=== PATIENT | male | born 1970 | race Caucasian/White ===

== ENCOUNTER 2018-12-30 14:28 | Emergency (ER) | payer MEDICAID ==
[2018-12-30] MEDS ORDERED: Sodium Chloride 0.9% 10 ML Syringe FLUSH PRN (15:02)
[2018-12-30] MEDS ORDERED: Iohexol 350 MG/ML 75 ML Bottle IVPUSH ONE (15:18)
[2018-12-30] MEDS ORDERED: Sodium Chloride 0.9% 10 ML Syringe FLUSH ONE (15:18)
[2018-12-30] MEDS ORDERED: Sodium Chloride 0.9% 100 ML IV SCH (15:30)
--- NOTE | 2018-12-30 15:45 | CT ---
CT chest Technique: Multiple axial sections through the chest were obtained. Intravenous contrast was utilized. Study has been performed as a pulmonary angiogram protocol. Findings: Aorta shows no aneurysm or dissection. Pulmonary arteries are fairly well-opacified. No filling defects are seen to indicate pulmonary embolism. Lungs are clear with no acute parenchymal change. Small air cyst is noted within the right upper lung next to the major fissure measuring 1.3 cm. Bone window settings were reviewed which shows no acute osseous abnormality. Impression: 1. No findings of pulmonary embolism. 2. Other incidental finding. Nothing acute is appreciated on CT study of the chest performed as a pulmonary angiogram protocol. Diagnostic code #2
--- NOTE | 2018-12-30 17:13 | EDM.PDOC ---
ED HPI GENERAL MEDICAL PROBLEM - General Chief Complaint: Respiratory Problem Stated Complaint: [facility] Time Seen by Provider: 12/30/18 14:38 Source of Information: Reports: Patient, EMS, Provider History Limitations: Reports: No Limitations - History of Present Illness INITIAL COMMENTS - FREE TEXT/NARRATIVE: The patient presents by [facility] from [facility] for shortness of breath. This has been going on for a few weeks. He has myasthenia gravis and his provider was worried he was having a crisis. He says this is worse at night. He also says with exertion it is worse. He also has some double vision at times. He feels more weak. He has a bad hip and it is hard to tell if he is more weak. He has no fever, chills or cough. He has no chest pain. He has no more edema in his legs. He says at night he will get some slurred speech. Onset: Gradual Duration: Week(s): Severity: Moderate Improves with: Reports: None Worsens with: Reports: None Associated Symptoms: Reports: Shortness of Breath. Denies: Chest Pain, Cough, Fever/Chills, Headaches, Nausea/Vomiting - Related Data Allergies Allergy/AdvReac Type Severity Reaction Status Date / Time cephalexin [From Keflex] Allergy Rash Verified 12/30/18 14:36 Penicillins Allergy Rash Verified 12/30/18 14:36 Home Meds: Home Meds predniSONE [Prednisone] 30 mg PO DAILY #18 tablet 12/30/18 [Rx] Past Medical History Musculoskeletal History: Reports: Arthritis Neurological History: Reports: Other (See Below) Other Neuro History: myesthenia gravis Endocrine/Metabolic History: Reports: Obesity/BMI 30+ Social & Family History - Tobacco Use Smoking Status *Q: Current Every Day Smoker Years of Tobacco use: 30 Packs/Tins Daily: 0.4 - Caffeine Use Caffeine Use: Reports: None - Recreational Drug Use Recreational Drug Use: No ED ROS GENERAL - Review of Systems Review Of Systems: See Below Constitutional: Reports: No Symptoms HEENT: Reports: No Symptoms Respiratory: Reports: Shortness of Breath. Denies: Cough Cardiovascular: Reports: No Symptoms Endocrine: Reports: No Symptoms GI/Abdominal: Reports: No Symptoms : Reports: No Symptoms Musculoskeletal: Reports: No Symptoms Skin: Reports: No Symptoms ED EXAM, GENERAL - Physical Exam Exam: See Below Exam Limited By: No Limitations General Appearance: Alert, No Apparent Distress Ears: Normal External Exam Nose: Normal Inspection Head: Atraumatic, Normocephalic Neck: Normal Inspection Respiratory/Chest: No Respiratory Distress, Lungs Clear, Normal Breath Sounds Cardiovascular: Regular Rate, Rhythm, No Edema, No Murmur GI/Abdominal: Soft, Non-Tender, No Organomegaly, No Mass Back Exam: Normal Inspection Extremities: Normal Inspection Neurological: Alert, Oriented, No Motor/Sensory Deficits EKG INTERPRETATION EKG Date: 12/30/18 Time: : Rhythm: Other (Sinus tachycardia) Rate (Beats/Min): 115 Jackson: LAD-Left Jackson Deviation P-Wave: Present QRS: Normal ST-T: Normal QT: Normal Course - Vital Signs Last Recorded V/S: Last Vital Signs Temp 99.0 F 12/30/18 18:23 Pulse 96 12/30/18 18:23 Resp 16 12/30/18 18:23 BP 104/72 12/30/18 18:23 Pulse Ox 96 12/30/18 18:23 - Orders/Labs/Meds Orders: Active Orders 24 hr Category Date Time Status Cardiac Monitoring [RC] . DIRECTED Care 12/30/18 15:02 Active Peripheral IV Care [RC] . DIRECTED Care 12/30/18 15:05 Active RT PFT Diffusing Capacity [RC] Click to Edit Care 12/30/18 17:16 Inactive Sodium Chloride 0.9% [Normal Saline] 100 ml Med 12/30/18 15:30 Active IV ASDIRECTED Sodium Chloride 0.9% [Saline Flush] Med 12/30/18 15:02 Active 10 ml FLUSH ASDIRECTED PRN Bedside Screening Spirometry [RT Spirometry Screening] Oth 12/30/18 17:16 Active [RESPCARE] Routine Peripheral IV Insertion Adult [OM.PC] Stat Ot 12/30/18 15:02 Ordered Medication Orders Sodium Chloride (Normal Saline) 100 mls @ 60 mls/hr IV ASDIRECTED EDEI Last Admin: 12/30/18 15:26 Dose: 60 mls/hr Sodium Chloride (Saline Flush) 10 ml FLUSH ASDIRECTED PRN PRN Reason: Keep Vein Open Last Admin: 12/30/18 15:25 Dose: 10 ml Labs: Laboratory Tests 12/30/18 12/30/18 12/30/18 Range/Units 15:40 15:40 15:40 ESR 30 H (0-15) mm/hr Sodium 133 L (136-145) mEq/L Potassium 4.9 (3.5-5.1) mEq/L Chloride 98 (98-107) mEq/L Carbon Dioxide 27 (21-32) mEq/L Anion Gap 12.9 (5-15) BUN 20 H (7-18) mg/dL Creatinine 1.3 (0.7-1.3) mg/dL Est Cr Clr Drug Dosing 70.97 mL/min Estimated GFR (MDRD) 59 (>60) mL/min BUN/Creatinine Ratio 15.4 (14-18) Glucose 101 (74-106) mg/dL Calcium 9.7 (8.5-10.1) mg/dL Magnesium 1.8 (1.8-2.4) mg/dl Total Bilirubin 0.3 (0.2-1.0) mg/dL AST 17 (15-37) U/L ALT 23 (16-63) U/L Alkaline Phosphatase 115 (46-116) U/L C-Reactive Protein 2.9 H* (<1.0) mg/dL NT-Pro-B Natriuret Pep 16 (0-125) pg/mL Total Protein 7.0 (6.4-8.2) g/dl Albumin 3.5 (3.4-5.0) g/dl Globulin 3.5 gm/dL Albumin/Globulin Ratio 1.0 (1-2) Meds: Medications Generic Name Dose Route Start Last Admin Trade Name Freq PRN Reason Stop Dose Admin Sodium Chloride 100 mls @ 60 mls/hr 12/30/18 15:30 12/30/18 15:26 Normal Saline IV 60 mls/hr ASDIRECTED EDIE Administration Sodium Chloride 10 ml 12/30/18 15:02 12/30/18 15:25 Saline Flush FLUSH 10 ml ASDIRECTED PRN Administration Keep Vein Open Discontinued Medications Generic Name Dose Route Start Last Admin Trade Name Freq PRN Reason Stop Dose Admin Iohexol 75 ml 12/30/18 15:18 12/30/18 15:25 Omnipaque IVPUSH 12/30/18 15:19 75 ml ONETIME ONE Administration Sodium Chloride 10 ml 12/30/18 15:18 12/30/18 15:30 Saline Flush FLUSH 12/30/18 15:19 10 ml ONETIME ONE Administration - Re-Assessments/Exams Free Text/Narrative Re-Assessment/Exam: 12/30/18 17:31 I ordered an IV saline lock, CT of his chest and some more labs. The CT of his chest shows no PE and other incidental findings. His EKG shows a NSR with no acute changes. His CBC looks good. His ESR was elevated at 30. His Na was low at 133. His CRP was elevated at 2.9. His BNP was normal. His D-dimer was elevated at 1.21. His troponin was negative. He does have some double vision at night. I called [facility] in [place] and talked with the neurologist contingents supervisor Dr Zacarias and he recommended I have him stand up with his arms crossed but the patient could not do that because of a bad hip. He also wanted breathing test. His FVC was 87% and FEV1 was 70%. That was good. He recommended going up with his prednisone and have him seen in the clinic. I will get him on 30mg daily for a week. Departure - Departure Time of Disposition: 18:45 Disposition: Home, Self-Care 01 Condition: Good Clinical Impression: Shortness of breath, Myasthenia gravis - Discharge Information *PRESCRIPTION DRUG MONITORING PROGRAM REVIEWED*: Not Applicable *COPY OF PRESCRIPTION DRUG MONITORING REPORT IN PATIENT FERNANDEZ: Not Applicable Prescriptions: predniSONE [Prednisone] 30 mg PO DAILY #18 tablet Referrals: Jayda Santana SIGNAL SYSTEM TESTING MAINTAINER [Primary Care Provider] - 1 Week Forms: ED Department Discharge Additional Instructions: Take your medication as prescribed but take 30mg of prednisone daily for 7 days and go back to your normal dose. Follow up with Lizy Santana and neurology in [place]. Please return if you are worse. - My Orders Last 24 Hours: My Active Orders 12/30/18 15:02 Cardiac Monitoring [RC] . DIRECTED Sodium Chloride 0.9% [Saline Flush] 10 ml FLUSH ASDIRECTED PRN Peripheral IV Insertion Adult [OM.PC] Stat 12/30/18 15:05 Peripheral IV Care [RC] . DIRECTED 12/30/18 15:30 Sodium Chloride 0.9% [Normal Saline] 100 ml IV ASDIRECTED 12/30/18 17:16 RT PFT Diffusing Capacity [RC] Click to Edit Bedside Screening Spirometry [RT Spirometry Screening] [RESPCARE] Routine - Assessment/Plan Last 24 Hours: My Active Orders 12/30/18 15:02 Cardiac Monitoring [RC] . DIRECTED Sodium Chloride 0.9% [Saline Flush] 10 ml FLUSH ASDIRECTED PRN Peripheral IV Insertion Adult [OM.PC] Stat 12/30/18 15:05 Peripheral IV Care [RC] . DIRECTED 12/30/18 15:30 Sodium Chloride 0.9% [Normal Saline] 100 ml IV ASDIRECTED 12/30/18 17:16 RT PFT Diffusing Capacity [RC] Click to Edit Bedside Screening Spirometry [RT Spirometry Screening] [RESPCARE] Routine
[2018-12-30] MEDS ORDERED: predniSONE 10 MG Tab PO ONE (18:36)
[2018-12-30] MEDS ORDERED: traMADol 50 MG Tab PO ONE (19:07)
== END 2018-12-30 19:16 | disposition home or self-care (01) ==
LOC: JD.ED 14:28
DX: G70.00 Myasthenia gravis without (acute) exacerbation (principal); F17.210 Nicotine dependence, cigarettes, uncomplicated; Z79.899 Other long term (current) drug therapy; Z88.0 Allergy status to penicillin; Z88.1 Allergy status to other antibiotic agents
CPT/HCPCS: 36415; 71275; 80053; 83735; 83880; 85652; 86140; 99285; A9270; J7030; Q9967

== ENCOUNTER 2019-03-16 03:29 | Emergency (ER) | payer MEDICAID ==
[~2019-03-16 03:29] MED LIST: 5% Dextrose in Water 250 ML Bag ONE; EPINEPHrine 1:10,000 1 MG/10 ML Syringe ONE; Midazolam 1 MG/ML 5 ML SDV ONE; Norepinephrine 4 MG/4 ML SDV ONE; Sodium Bicarbonate 8.4% 50 MEQ/50 ML Syringe ONE
[2019-03-16] MEDS ORDERED: fentaNYL 100 MCG/2 ML SDV ONE ×3 (04:03→05:15)
[2019-03-16] MEDS ORDERED: Midazolam 5 MG/ML 10 ML MDV ONE (04:38)
--- NOTE | 2019-03-16 05:05 | EDM.PDOC ---
ED HPI GENERAL MEDICAL PROBLEM - General Chief Complaint: CPR in Progress Stated Complaint: [facility] Time Seen by Provider: 03/16/19 04:56 - History of Present Illness INITIAL COMMENTS - FREE TEXT/NARRATIVE: Patient is a 48-year-old male who is brought in by EMS with CPR in progress. The patient summoned EMS complaining of some neck discomfort and twitching. The patient was alert and oriented 3 when EMS arrived with good vitals and good O2 saturation within several minutes his respiratory status declined his O2 saturation dropped off into the 60s or 70s O2 was started and his saturation did not improve he was rapidly transported to the hospital before they arrived to the hospital he was in asystole. CPR was promptly started. Patient arrived in our department roughly 03:25 CPR was continued he was immediately intubated he was given epinephrine and we had return of spontaneous circulation at 03:32 his pulse was in the mid 80s at that time - Related Data Allergies Allergy/AdvReac Type Severity Reaction Status Date / Time cephalexin [From Keflex] Allergy Rash Verified 12/30/18 14:36 Penicillins Allergy Rash Verified 12/30/18 14:36 Home Meds: Home Meds predniSONE [Prednisone] 30 mg PO DAILY #18 tablet 12/30/18 [Rx] Past Medical History Musculoskeletal History: Reports: Arthritis Neurological History: Reports: Other (See Below) Other Neuro History: myesthenia gravis Endocrine/Metabolic History: Reports: Obesity/BMI 30+ Social & Family History - Caffeine Use Caffeine Use: Reports: None ED ROS GENERAL - Review of Systems Review Of Systems: Unable To Obtain ED EXAM, CPR - Physical Exam Exam: See Below Limited By: Unresponsive General Appearance: Other (Unresponsive and intubated) Eye Exam: Bilateral Eye: PERRL (Sluggish responding) Nose: Normal Inspection, Normal Mucosa, No Blood Throat/Mouth: Normal Oropharynx, Other (Lots of soft tissue in and around the airway) Head: Atraumatic, Normocephalic Neck: No: Carotid Bruit Respiratory Chest: Other (Good breath sounds bilaterally with bag mask and bag ET ventilations) Cardiovascular: No Murmur, Tachycardia (Rate 100 -140 most the time he was here) GI/Abdominal Exam: Soft, Abnormal Bowel Sounds (Diminished bowel sounds), Other (Significant obesity) Extremities: No Pedal Edema Neurological: Unresponsive Skin Exam: Warm, Dry, Intact, Other (Well after ROSC) EKG INTERPRETATION Rhythm: Other (Sinus tach) Rate (Beats/Min): 140 Revloc: LAD-Left Revloc Deviation P-Wave: Present QRS: Normal ST-T: Other (Changes related to tachycardia) QT: Normal Comparison: No Change (No change from December of this year) EKG Interpretation Comments: Abnormal EKG Course - Orders/Labs/Meds Orders: Active Orders 24 hr Category Date Time Status EKG Documentation Completion [RC] STAT Care 03/16/19 03:55 Active Ang Chest [CT] Stat Exams 03/16/19 04:13 Taken Chest 1V-Tube Placement Chk NC [CR] Stat Exams 03/16/19 03:44 Taken Head wo Cont [CT] Stat Exams 03/16/19 04:13 Taken UA W/MICROSCOPIC [URIN] Stat Lab 03/16/19 04:45 Results Labs: Laboratory Tests 03/16/19 03/16/19 03/16/19 Range/Units 03:35 03:35 03:35 WBC 22.33 H (4.23-9.07) K/mm3 RBC 4.26 L (4.63-6.08) M/mm3 Hgb 11.1 L (13.7-17.5) gm/L Hct 37.3 L (40.1-51.0) % MCV 87.6 (79.0-92.2) fl MCH 26.1 (25.7-32.2) pg MCHC 29.8 L (32.2-35.5) g/dl RDW Std Deviation 45.6 H (35.1-43.9) fL Plt Count 491 H (163-337) K/mm3 MPV 11.0 (9.4-12.3) fl Neut % (Auto) 62.8 (34.0-67.9) % Lymph % (Auto) 24.8 (21.8-53.1) % Forrest % (Auto) 9.7 (5.3-12.2) % Eos % (Auto) 0 L (0.8-7.0) Baso % (Auto) 0.1 (0.1-1.2) % Neut # (Auto) 14.01 H (1.78-5.38) K/mm3 Lymph # (Auto) 5.54 H (1.32-3.57) K/mm3 Forrest # (Auto) 2.16 H (0.30-0.82) K/mm3 Eos # (Auto) 0.01 L (0.04-0.54) K/mm3 Baso # (Auto) 0.03 (0.01-0.08) K/mm3 Manual Slide Review Abnormal smear PT 10.9 (9.7-12.0) SECONDS INR 1.00 Puncture Site ABG pH (7.35-7.45) ABG pCO2 (35.0-45.0) mmHg ABG pO2 (80.0-100.0) mmHg ABG HCO3 (22.0-26.0) meq/L ABG O2 Saturation (96.0-97.0) % ABG Base Excess (-2-2.0) A-a Gradient mmHg O2 Delivery Device FiO2 (21.00-100.00) % Tidal Volume cc PEEP cmH20 Sodium 143 D (136-145) mEq/L Potassium 4.7 (3.5-5.1) mEq/L Chloride 105 (98-107) mEq/L Carbon Dioxide 21 (21-32) mEq/L Anion Gap 21.7 H (5-15) BUN 35 H (7-18) mg/dL Creatinine 2.0 H (0.7-1.3) mg/dL Est Cr Clr Drug Dosing TNP Estimated GFR (MDRD) 36 (>60) mL/min BUN/Creatinine Ratio 17.5 (14-18) Glucose 276 H (74-106) mg/dL Lactic Acid (0.4-2.0) mmol/L Calcium 10.1 (8.5-10.1) mg/dL Total Bilirubin 0.2 (0.2-1.0) mg/dL AST 50 H (15-37) U/L ALT 67 H (16-63) U/L Alkaline Phosphatase 111 (46-116) U/L Troponin I (0.00-0.056) ng/mL Total Protein 7.8 (6.4-8.2) g/dl Albumin 3.9 (3.4-5.0) g/dl Globulin 3.9 gm/dL Albumin/Globulin Ratio 1.0 (1-2) Urine Color (Yellow) Urine Appearance (Clear) Urine pH (5.0-8.0) Ur Specific Ruston (1.005-1.030) Urine Protein (Negative) Urine Glucose (UA) (Negative) Urine Ketones (Negative) Urine Occult Blood (Negative) Urine Nitrite (Negative) Urine Bilirubin (Negative) Urine Urobilinogen (0.2-1.0) Ur Leukocyte Esterase (Negative) Urine Opiates Screen (STPRND=022) Ur Buprenorphine Scrn (CUTOFF=10) Ur Oxycodone Screen (WNQ6JX=562) Urine Methadone Screen (QUE2RG=647) Ur Propoxyphene Screen (HWFBDO=882) Ur Barbiturates Screen (WTTBJM=637) Ur Tricyclics Screen (QGKOIV=278) Ur Phencyclidine Scrn (CUTOFF=25) Ur Amphetamine Screen (XQPUIL=775) U Methamphetamines Scrn (EEKUPV=578) U Benzodiazepines Scrn (XLIDGA=747) U Cocaine Metab Screen (NWBKNI=156) U Marijuana (THC) Screen (CUTOFF=50) Ethyl Alcohol 0.00 (0.00) gm% 03/16/19 03/16/19 03/16/19 Range/Units 03:35 03:35 04:45 WBC (4.23-9.07) K/mm3 RBC (4.63-6.08) M/mm3 Hgb (13.7-17.5) gm/L Hct (40.1-51.0) % MCV (79.0-92.2) fl MCH (25.7-32.2) pg MCHC (32.2-35.5) g/dl RDW Std Deviation (35.1-43.9) fL Plt Count (163-337) K/mm3 MPV (9.4-12.3) fl Neut % (Auto) (34.0-67.9) % Lymph % (Auto) (21.8-53.1) % Forrest % (Auto) (5.3-12.2) % Eos % (Auto) (0.8-7.0) Baso % (Auto) (0.1-1.2) % Neut # (Auto) (1.78-5.38) K/mm3 Lymph # (Auto) (1.32-3.57) K/mm3 Forrest # (Auto) (0.30-0.82) K/mm3 Eos # (Auto) (0.04-0.54) K/mm3 Baso # (Auto) (0.01-0.08) K/mm3 Manual Slide Review PT (9.7-12.0) SECONDS INR Puncture Site ABG pH (7.35-7.45) ABG pCO2 (35.0-45.0) mmHg ABG pO2 (80.0-100.0) mmHg ABG HCO3 (22.0-26.0) meq/L ABG O2 Saturation (96.0-97.0) % ABG Base Excess (-2-2.0) A-a Gradient mmHg O2 Delivery Device FiO2 (21.00-100.00) % Tidal Volume cc PEEP cmH20 Sodium (136-145) mEq/L Potassium (3.5-5.1) mEq/L Chloride (98-107) mEq/L Carbon Dioxide (21-32) mEq/L Anion Gap (5-15) BUN (7-18) mg/dL Creatinine (0.7-1.3) mg/dL Est Cr Clr Drug Dosing Estimated GFR (MDRD) (>60) mL/min BUN/Creatinine Ratio (14-18) Glucose (74-106) mg/dL Lactic Acid 13.8 H (0.4-2.0) mmol/L Calcium (8.5-10.1) mg/dL Total Bilirubin (0.2-1.0) mg/dL AST (15-37) U/L ALT (16-63) U/L Alkaline Phosphatase (46-116) U/L Troponin I < 0.017 (0.00-0.056) ng/mL Total Protein (6.4-8.2) g/dl Albumin (3.4-5.0) g/dl Globulin gm/dL Albumin/Globulin Ratio (1-2) Urine Color Yellow (Yellow) Urine Appearance Cloudy H (Clear) Urine pH 5.5 (5.0-8.0) Ur Specific Ruston > or = 1.030 (1.005-1.030) Urine Protein 2+ H (Negative) Urine Glucose (UA) Negative (Negative) Urine Ketones Trace H (Negative) Urine Occult Blood 1+ H (Negative) Urine Nitrite Negative (Negative) Urine Bilirubin Negative (Negative) Urine Urobilinogen 0.2 (0.2-1.0) Ur Leukocyte Esterase Negative (Negative) Urine Opiates Screen (AYRDUG=744) Ur Buprenorphine Scrn (CUTOFF=10) Ur Oxycodone Screen (IGY7GC=900) Urine Methadone Screen (LRE9XY=159) Ur Propoxyphene Screen (WAIBGI=216) Ur Barbiturates Screen (HHYUCI=221) Ur Tricyclics Screen (JMDYCB=570) Ur Phencyclidine Scrn (CUTOFF=25) Ur Amphetamine Screen (MQMSIU=445) U Methamphetamines Scrn (HDBHWI=729) U Benzodiazepines Scrn (NOCYDA=324) U Cocaine Metab Screen (GPEQTT=487) U Marijuana (THC) Screen (CUTOFF=50) Ethyl Alcohol (0.00) gm% 03/16/19 03/16/19 Range/Units 04:45 04:50 WBC (4.23-9.07) K/mm3 RBC (4.63-6.08) M/mm3 Hgb (13.7-17.5) gm/L Hct (40.1-51.0) % MCV (79.0-92.2) fl MCH (25.7-32.2) pg MCHC (32.2-35.5) g/dl RDW Std Deviation (35.1-43.9) fL Plt Count (163-337) K/mm3 MPV (9.4-12.3) fl Neut % (Auto) (34.0-67.9) % Lymph % (Auto) (21.8-53.1) % Forrest % (Auto) (5.3-12.2) % Eos % (Auto) (0.8-7.0) Baso % (Auto) (0.1-1.2) % Neut # (Auto) (1.78-5.38) K/mm3 Lymph # (Auto) (1.32-3.57) K/mm3 Forrest # (Auto) (0.30-0.82) K/mm3 Eos # (Auto) (0.04-0.54) K/mm3 Baso # (Auto) (0.01-0.08) K/mm3 Manual Slide Review PT (9.7-12.0) SECONDS INR Puncture Site Lt radial ABG pH 7.21 L (7.35-7.45) ABG pCO2 57.0 H (35.0-45.0) mmHg ABG pO2 93.0 (80.0-100.0) mmHg ABG HCO3 22.1 (22.0-26.0) meq/L ABG O2 Saturation 95.9 L (96.0-97.0) % ABG Base Excess -5.6 L (-2-2.0) A-a Gradient 550 mmHg O2 Delivery Device Ventilator FiO2 100.00 (21.00-100.00) % Tidal Volume 500.0 cc PEEP 5.0 cmH20 Sodium (136-145) mEq/L Potassium (3.5-5.1) mEq/L Chloride (98-107) mEq/L Carbon Dioxide (21-32) mEq/L Anion Gap (5-15) BUN (7-18) mg/dL Creatinine (0.7-1.3) mg/dL Est Cr Clr Drug Dosing Estimated GFR (MDRD) (>60) mL/min BUN/Creatinine Ratio (14-18) Glucose (74-106) mg/dL Lactic Acid (0.4-2.0) mmol/L Calcium (8.5-10.1) mg/dL Total Bilirubin (0.2-1.0) mg/dL AST (15-37) U/L ALT (16-63) U/L Alkaline Phosphatase (46-116) U/L Troponin I (0.00-0.056) ng/mL Total Protein (6.4-8.2) g/dl Albumin (3.4-5.0) g/dl Globulin gm/dL Albumin/Globulin Ratio (1-2) Urine Color (Yellow) Urine Appearance (Clear) Urine pH (5.0-8.0) Ur Specific [place] (1.005-1.030) Urine Protein (Negative) Urine Glucose (UA) (Negative) Urine Ketones (Negative) Urine Occult Blood (Negative) Urine Nitrite (Negative) Urine Bilirubin (Negative) Urine Urobilinogen (0.2-1.0) Ur Leukocyte Esterase (Negative) Urine Opiates Screen Negative (SRCORN=907) Ur Buprenorphine Scrn Negative (CUTOFF=10) Ur Oxycodone Screen Negative (WUB7YQ=706) Urine Methadone Screen Negative (UFE9YK=380) Ur Propoxyphene Screen Negative (ICRANP=558) Ur Barbiturates Screen Negative (JYHYFK=683) Ur Tricyclics Screen Negative (EYWTET=652) Ur Phencyclidine Scrn Negative (CUTOFF=25) Ur Amphetamine Screen Negative (YUKHDP=438) U Methamphetamines Scrn Presumptive positive H (FKKWRG=643) U Benzodiazepines Scrn Negative (VCECGW=822) U Cocaine Metab Screen Negative (ALXKFH=176) U Marijuana (THC) Screen Presumptive positive H (CUTOFF=50) Ethyl Alcohol (0.00) gm% Meds: Medications Discontinued Medications Generic Name Dose Route Start Last Admin Trade Name Jose PRN Reason Stop Dose Admin Fentanyl Confirm 03/16/19 04:03 Sublimaze Administered 03/16/19 04:04 Dose 100 mcg .ROUTE .STK-MED ONE Fentanyl Confirm 03/16/19 04:31 Sublimaze Administered 03/16/19 04:32 Dose 100 mcg .ROUTE .STK-MED ONE Midazolam HCl Confirm 03/16/19 04:38 Versed 5 Mg/Ml Administered 03/16/19 04:39 Dose 50 mg .ROUTE .STK-MED ONE - Re-Assessments/Exams Free Text/Narrative Re-Assessment/Exam: 03/16/19 05:14 Patient presented to the emergency room in asystole with bag mask ventilation and compressions. He had been in asystole for a minute or 2 upon arrival he was brought into the department compressions continued he was intubated and received a dose of epinephrine. We had ROSC roughly 7 minutes after arrival he had received CPR for 9-10 minutes. Before ROSC he was intubated by me 1 attempt. #8 tube inserted with the assistance of a glide scope on initial chest x-ray we withdrew the tip about a centimeter and a half as it was just above the paco. The patient's pulse gradually worked its way about that time gases were obtained speech was 7.21 PCO2 of 57 PO2 93 PO2 95.9 bicarbonate he responded favorably to Versed and fentanyl he had IV fluids running. Case was discussed with , business systems technician, at [facility] in [place] who kindly accept the patient transportation was arranged and the patient was ultimately transferred by [facility] fixed wing. It took us a while to arrange transportation. For timing and exact medication dosages and times refer to nurse 's notes. He did receive 2 Amps of bicarbonate after ROSC at the request of the receiving facility with a CTA was done and while he was at the CT suite a head CT was done no acute changes with the head CT CTA showed no PE possible right- sided atelectasis versus infiltrate. Labs were remarkable for a white count of 23,000 lactic acid of 13.7 gases were obtained after the patient was doing better from a respiratory standpoint pH was 7.21 PCO2 of 57 PO2 93 O2 saturation 95.9% bicarbonate 22.1 base excess -5.6. Dr Waterman was updated, changes and the patient shouldn't left here in guarded condition. Departure - Departure Time of Disposition: 03:45 Disposition: DC/Tfer to [facility] 02 Preliminary Cause of *Q: Cardiac Arrest Clinical Impression: Respiratory arrest, Cardiac arrest, Myasthenia gravis - Discharge Information Referrals: Jayda Santana RUBBER GRINDER [Primary Care Provider] - Forms: ED Department Discharge - My Orders Last 24 Hours: My Active Orders 03/16/19 03:44 Chest 1V-Tube Placement Chk NC [CR] Stat 03/16/19 03:55 EKG Documentation Completion [RC] STAT 03/16/19 04:13 Ang Chest [CT] Stat Head wo Cont [CT] Stat 03/16/19 04:45 UA W/MICROSCOPIC [URIN] Stat - Assessment/Plan Last 24 Hours: My Active Orders 03/16/19 03:44 Chest 1V-Tube Placement Chk NC [CR] Stat 03/16/19 03:55 EKG Documentation Completion [RC] STAT 03/16/19 04:13 Ang Chest [CT] Stat Head wo Cont [CT] Stat 03/16/19 04:45 UA W/MICROSCOPIC [URIN] Stat
--- NOTE | 2019-03-16 08:27 | CT ---
CT chest Technique: Multiple axial sections through the chest were obtained. Intravenous contrast was utilized. Study has been performed as a pulmonary angiogram protocol. Findings: Pulmonary arteries are not optimally opacified. No discrete filling defects seen to indicate definite pulmonary embolism. Atelectasis noted within the right upper lung as well as within both lower lungs which is located posteriorly. Aorta shows no aneurysm. No pericardial thickening is seen. No mediastinal adenopathy or axillary adenopathy is seen. Visualized portions of the upper abdominal structures show a partially visualized left renal cyst. Bone window settings were reviewed which show no acute abnormality. Nasogastric tube is seen with tip lying within the stomach. Endotracheal tube is noted with tip being 1.2 cm above the paco. Impression: 1. Atelectasis within both lungs. 2. Tip of endotracheal tube slightly above the paco by 1.2 cm. Recommend chest x-ray to further evaluate endotracheal tube position as this tube is somewhat low in position (if patient is still intubated). 3. No definite pulmonary embolism is seen. Diagnostic code #3 I agree with preliminary report from [facility], finalized on 03/16/19, 5:51 AM Central Time, code #2
--- NOTE | 2019-03-16 08:56 | CT ---
Head CT Technique: Multiple axial sections through the brain were obtained. Intravenous contrast was not utilized. Comparison: No prior intracranial imaging is available. Findings: Ventricles along with basal cisterns and sulci over the convexities are within normal limits for the patient's age. No abnormal parenchymal densities are seen. No evidence of intracranial hemorrhage. No midline shift or mass effect is seen. Air-fluid levels are seen within the sphenoid and right maxillary sinus. Mild areas of mucosal thickening are noted within the ethmoid sinus. Nasogastric tube is partially visualized. Mastoid sinuses appear clear. No acute calvarial abnormality is identified. Impression: 1. Sinus findings as noted above most likely resulting from recent nasogastric tube insertion. 2. No acute intracranial abnormality is identified. Diagnostic code #2 I agree with preliminary report from [facility], finalized on 03/16/19, 5:48 AM Central Time
--- NOTE | 2019-03-16 08:56 | CR ---
Chest: Portable view of the chest was obtained. Comparison: No prior chest x-ray is available, previous chest CT study of 12/30/18 is available. Mild right upper lobe atelectasis appears to be present. Minimal atelectasis above the left hemidiaphragm. Lungs otherwise are clear. Heart size and mediastinum are within normal limits for portable technique. Endotracheal tube is approximately 1 cm above the paco. For optimal position endotracheal tube could be withdrawn by about 1.5-2.0 cm. Bony structures are grossly intact. Impression: 1. Tip of endotracheal tube 1 cm above the paco. As mentioned above, for optimal positioning this endotracheal tube could be withdrawn by about 1.5-2.0 cm. 2. Right upper lobe and left lower lobe atelectasis. Diagnostic code #3
[2019-03-16] MEDS ORDERED: Sodium Chloride 0.9% 1,000 ML IV ONE (11:06)
== END 2019-03-16 05:20 ==
LOC: JD.ED 03:29
DX: I46.9 Cardiac arrest, cause unspecified (principal); G70.00 Myasthenia gravis without (acute) exacerbation; E66.9 Obesity, unspecified; Z88.0 Allergy status to penicillin; Z88.1 Allergy status to other antibiotic agents
CPT/HCPCS: 31500; 36415; 36600; 36680; 51702; 70450; 70450-26; 71275; 71275-26; 80053; 80306; 81001; 82803; 83605; 84484; 85025; 85610; 92950; 93010; 96361; 96374; 96375; 96376; 99291; 99291-25; 99292; G0480; J0171; J2250; J3490; J7040; J7060

== ENCOUNTER 2019-08-24 16:17 | Inpatient (IN) | payer MEDICAID ==
[2019-08-24] MEDS ORDERED: Nitroglycerin 0.4 MG Tab.SL SL PRN (16:18)
[2019-08-24] MEDS: Sodium Chloride 0.9% 10 ML Syringe FLUSH PRN (16:32)
--- NOTE | 2019-08-24 17:31 | EDM.PDOC ---
ED HPI GENERAL MEDICAL PROBLEM - General Chief Complaint: Chest Pain Stated Complaint: [facility] Time Seen by Provider: 08/24/19 16:18 Source of Information: Reports: Patient, EMS History Limitations: Reports: No Limitations - History of Present Illness INITIAL COMMENTS - FREE TEXT/NARRATIVE: The patient presents by [facility] for chest pain and shortness of breath. This started earlier today. His home health nurse came to give him his meds and he was struggling to breath and he had some chest pain. EMS said his oxygen saturations were 82% on room air. He was put on oxygen and given aspirin and an EKG was done. The EKG did not show any acute changes. He has no cough, congestion or runny nose. He has no abdominal pain, nausea or vomiting. He does have swelling in his legs. Onset: Gradual Duration: Hour(s): Location: Reports: Chest Quality: Reports: Burning Severity: Moderate Improves with: Reports: None Worsens with: Reports: None Associated Symptoms: Reports: Chest Pain, Shortness of Breath. Denies: Cough, Fever/Chills, Headaches, Nausea/Vomiting Back Pain Score (Numeric/FACES): 7 - Related Data Allergies Allergy/AdvReac Type Severity Reaction Status Date / Time cephalexin [From Keflex] Allergy Rash Verified 08/24/19 16:23 Penicillins Allergy Rash Verified 08/24/19 16:23 Home Meds: Home Meds Furosemide [Lasix] 40 mg PO DAILY 08/24/19 [History] Lisinopril [Zestril] 10 mg PO DAILY 08/24/19 [History] Naproxen Sodium 2 tab PO BEDTIME 08/24/19 [History] Omeprazole 20 mg PO DAILY 08/24/19 [History] Pyridostigmine [Mestinon] 60 mg PO 5XDAY 08/24/19 [History] predniSONE [Prednisone] 60 mg PO TID 08/24/19 [History] traMADol [Ultram] 50 mg PO Q4H 08/24/19 [History] Past Medical History Cardiovascular History: Reports: Hypertension, [place] Respiratory History: Reports: Sleep Apnea, SOB Musculoskeletal History: Reports: Arthritis Neurological History: Reports: Other (See Below) Other Neuro History: myesthenia gravis Endocrine/Metabolic History: Reports: Obesity/BMI 30+ Social & Family History - Tobacco Use Smoking Status *Q: Never Smoker - Caffeine Use Caffeine Use: Reports: None - Recreational Drug Use Recreational Drug Use: No ED ROS GENERAL - Review of Systems Review Of Systems: See Below Constitutional: Reports: No Symptoms HEENT: Reports: No Symptoms Respiratory: Reports: Shortness of Breath Cardiovascular: Reports: Chest Pain Endocrine: Reports: No Symptoms GI/Abdominal: Reports: No Symptoms : Reports: No Symptoms Musculoskeletal: Reports: No Symptoms ED EXAM, GENERAL - Physical Exam Exam: See Below Exam Limited By: No Limitations General Appearance: Alert, No Apparent Distress, Mild Distress Ears: Normal External Exam Nose: Normal Inspection Head: Atraumatic, Normocephalic Neck: Normal Inspection Respiratory/Chest: Respiratory Distress (Mild), Decreased Breath Sounds, Rales Cardiovascular: Regular Rate, Rhythm, No Murmur, Other (Edema in both legs) GI/Abdominal: Soft, Non-Tender, No Organomegaly, No Mass Back Exam: Normal Inspection Extremities: Normal Inspection Neurological: Alert, Oriented, No Motor/Sensory Deficits EKG INTERPRETATION EKG Date: 08/24/19 Time: 15:19 Rhythm: Other (sinus tachycardia) Rate (Beats/Min): 103 [place]: LAD-Left [place] Deviation P-Wave: Present QRS: Normal ST-T: Normal QT: Normal EKG Interpretation Comments: PAC Course - Vital Signs Last Recorded V/S: Last Vital Signs Temp 96.8 F 08/24/19 16:18 Pulse 118 H 08/24/19 16:18 Resp 18 08/24/19 16:18 BP 108/78 08/24/19 16:32 Pulse Ox 92 L 08/24/19 16:31 - Orders/Labs/Meds Orders: Active Orders 24 hr Category Date Time Status Cardiac Monitoring [RC] . DIRECTED Care 08/24/19 16:18 Active EKG Documentation Completion [RC] STAT Care 08/24/19 16:19 Active Oxygen Therapy [RC] PRN Care 08/24/19 16:18 Active Peripheral IV Care [RC] . DIRECTED Care 08/24/19 16:19 Active RT Peak Flow Measurement [RC] ASDIRECTED Care 08/24/19 18:09 Active Chest 1V Frontal [CR] Stat Exams 08/24/19 16:20 Taken CBC WITH AUTO DIFF [HEME] Stat Lab 08/24/19 16:49 Results Nitroglycerin [Nitrostat] Med 08/24/19 16:18 Active 0.4 mg SL Q5M PRN Sodium Chloride 0.9% [Saline Flush] Med 08/24/19 16:18 Active 10 ml FLUSH ASDIRECTED PRN BiPAP [RESPCARE] Routine Oth 08/24/19 16:20 Active Peripheral IV Insertion Adult [OM.PC] Stat Oth 08/24/19 16:18 Ordered Medication Orders Nitroglycerin (Nitrostat) 0.4 mg SL Q5M PRN PRN Reason: Chest Pain Stop: 08/25/19 16:19 Last Admin: 08/24/19 16:32 Dose: 0.4 mg Sodium Chloride (Saline Flush) 10 ml FLUSH ASDIRECTED PRN PRN Reason: Keep Vein Open Last Admin: 08/24/19 16:32 Dose: 10 ml Labs: Laboratory Tests 08/24/19 08/24/19 08/24/19 Range/Units 16:49 16:49 16:49 WBC 19.17 H (4.23-9.07) K/mm3 RBC 4.23 L (4.63-6.08) M/mm3 Hgb 10.9 L (13.7-17.5) gm/dl Hct 36.0 L (40.1-51.0) % MCV 85.1 (79.0-92.2) fl MCH 25.8 (25.7-32.2) pg MCHC 30.3 L (32.2-35.5) g/dl RDW Std Deviation 50.7 H (35.1-43.9) fL Plt Count 391 H D (163-337) K/mm3 MPV 9.3 L (9.4-12.3) fl Neut % (Auto) 94.6 H (34.0-67.9) % Lymph % (Auto) 1.6 L (21.8-53.1) % Darke % (Auto) 2.3 L (5.3-12.2) % Eos % (Auto) 0 L (0.8-7.0) Baso % (Auto) 0.1 (0.1-1.2) % Neut # (Auto) 18.13 H (1.78-5.38) K/mm3 Lymph # (Auto) 0.30 L (1.32-3.57) K/mm3 Darke # (Auto) 0.45 (0.30-0.82) K/mm3 Eos # (Auto) 0.00 L (0.04-0.54) K/mm3 Baso # (Auto) 0.02 (0.01-0.08) K/mm3 Puncture Site ABG pH (7.35-7.45) ABG pCO2 (35.0-45.0) mmHg ABG pO2 (80.0-100.0) mmHg ABG HCO3 (22.0-26.0) meq/L ABG O2 Saturation (96.0-97.0) % ABG Base Excess (-2-2.0) Simone Test A-a Gradient mmHg O2 Delivery Device Oxygen Flow Rate FiO2 (21.00-100.00) % Sodium 134 L (136-145) mEq/L Potassium 4.7 (3.5-5.1) mEq/L Chloride 97 L (98-107) mEq/L Carbon Dioxide 27 (21-32) mEq/L Anion Gap 14.7 (5-15) BUN 35 H (7-18) mg/dL Creatinine 2.2 H (0.7-1.3) mg/dL Est Cr Clr Drug Dosing 41.48 mL/min Estimated GFR (MDRD) 32 (>60) mL/min BUN/Creatinine Ratio 15.9 (14-18) Glucose 190 H (74-106) mg/dL Calcium 9.8 (8.5-10.1) mg/dL Total Bilirubin 0.4 (0.2-1.0) mg/dL AST 15 (15-37) U/L ALT 30 (16-63) U/L Alkaline Phosphatase 114 (46-116) U/L Troponin I 0.019 (0.00-0.056) ng/mL NT-Pro-B Natriuret Pep 109 (0-125) pg/mL Total Protein 7.1 (6.4-8.2) g/dl Albumin 3.5 (3.4-5.0) g/dl Globulin 3.6 gm/dL Albumin/Globulin Ratio 1.0 (1-2) 08/24/19 Range/Units 17:18 WBC (4.23-9.07) K/mm3 RBC (4.63-6.08) M/mm3 Hgb (13.7-17.5) gm/dl Hct (40.1-51.0) % MCV (79.0-92.2) fl MCH (25.7-32.2) pg MCHC (32.2-35.5) g/dl RDW Std Deviation (35.1-43.9) fL Plt Count (163-337) K/mm3 MPV (9.4-12.3) fl Neut % (Auto) (34.0-67.9) % Lymph % (Auto) (21.8-53.1) % Darke % (Auto) (5.3-12.2) % Eos % (Auto) (0.8-7.0) Baso % (Auto) (0.1-1.2) % Neut # (Auto) (1.78-5.38) K/mm3 Lymph # (Auto) (1.32-3.57) K/mm3 Darke # (Auto) (0.30-0.82) K/mm3 Eos # (Auto) (0.04-0.54) K/mm3 Baso # (Auto) (0.01-0.08) K/mm3 Puncture Site Rt radial ABG pH 7.47 H (7.35-7.45) ABG pCO2 36.5 (35.0-45.0) mmHg ABG pO2 56.0 L (80.0-100.0) mmHg ABG HCO3 26.4 H (22.0-26.0) meq/L ABG O2 Saturation 86.6 L (96.0-97.0) % ABG Base Excess 3.1 H (-2-2.0) Simone Test Positive A-a Gradient 127 mmHg O2 Delivery Device Bipap 10/5 Oxygen Flow Rate 3.0 FiO2 32.00 (21.00-100.00) % Sodium (136-145) mEq/L Potassium (3.5-5.1) mEq/L Chloride (98-107) mEq/L Carbon Dioxide (21-32) mEq/L Anion Gap (5-15) BUN (7-18) mg/dL Creatinine (0.7-1.3) mg/dL Est Cr Clr Drug Dosing mL/min Estimated GFR (MDRD) (>60) mL/min BUN/Creatinine Ratio (14-18) Glucose (74-106) mg/dL Calcium (8.5-10.1) mg/dL Total Bilirubin (0.2-1.0) mg/dL AST (15-37) U/L ALT (16-63) U/L Alkaline Phosphatase (46-116) U/L Troponin I (0.00-0.056) ng/mL NT-Pro-B Natriuret Pep (0-125) pg/mL Total Protein (6.4-8.2) g/dl Albumin (3.4-5.0) g/dl Globulin gm/dL Albumin/Globulin Ratio (1-2) Meds: Medications Generic Name Dose Route Start Last Admin Trade Name Freq PRN Reason Stop Dose Admin Nitroglycerin 0.4 mg 08/24/19 16:18 08/24/19 16:32 Nitrostat SL 08/25/19 16:19 0.4 mg Q5M PRN Administration Chest Pain Sodium Chloride 10 ml 08/24/19 16:18 08/24/19 16:32 Saline Flush FLUSH 10 ml ASDIRECTED PRN Administration Keep Vein Open Discontinued Medications Generic Name Dose Route Start Last Admin Trade Name Freq PRN Reason Stop Dose Admin Furosemide 80 mg 08/24/19 18:09 Lasix IVPUSH 08/24/19 18:10 NOW ONE - Re-Assessments/Exams Free Text/Narrative Re-Assessment/Exam: 08/24/19 18:19 I ordered an IV saline lock, EKG, CXR, labs, BIPAP and nitro. His EKG shows a sinus tachycardia with no acute changes. His CXR shows cardiomegaly with congestive changes. His WBC is 19.17. He is on steroids. His Hgb is low at 10.9. His pH is elevated at 7.47. His pCO2 is normal at 36.5. His pO2 is low at 56. His Na is low at 134. His BUN is 35 and his creatinine is elevated at 2.2. His glucose is 190. His troponin is negative along with his BNP. I feel he needs to be admitted. I called Dr Humphrey an she wanted a peak flow on him and it was 270. Departure - Departure Time of Disposition: 18:30 Disposition: Admitted As Inpatient 65 Condition: Poor Clinical Impression: Hypoxia, Myasthenia gravis Chest pain Qualifiers: Chest pain type: unspecified Qualified Code(s): R07.9 - Chest pain, unspecified Referrals: PCP,Unknown [Ordering Only Provider] - Forms: ED Department Discharge Sepsis Event Note - Evaluation Sepsis Screening Result: No Definite Risk - Focused Exam Vital Signs: Vital Signs Temp Pulse Resp BP BP Pulse Ox Pulse Ox 08/24/19 16:32 108/78 08/24/19 16:31 92 L 08/24/19 16:18 96.8 F 118 H 18 130/92 H 100 Date Exam was Performed: 08/24/19 Time Exam was Performed: 18:11 - My Orders Last 24 Hours: My Active Orders 08/24/19 16:18 Cardiac Monitoring [RC] . DIRECTED Oxygen Therapy [RC] PRN Nitroglycerin [Nitrostat] 0.4 mg SL Q5M PRN Sodium Chloride 0.9% [Saline Flush] 10 ml FLUSH ASDIRECTED PRN Peripheral IV Insertion Adult [OM.PC] Stat 08/24/19 16:19 EKG Documentation Completion [RC] STAT Peripheral IV Care [RC] . DIRECTED 08/24/19 16:20 Chest 1V Frontal [CR] Stat BiPAP [RESPCARE] Routine 08/24/19 16:49 CBC WITH AUTO DIFF [HEME] Stat 08/24/19 18:09 RT Peak Flow Measurement [RC] ASDIRECTED - Assessment/Plan Last 24 Hours: My Active Orders 08/24/19 16:18 Cardiac Monitoring [RC] . DIRECTED Oxygen Therapy [RC] PRN Nitroglycerin [Nitrostat] 0.4 mg SL Q5M PRN Sodium Chloride 0.9% [Saline Flush] 10 ml FLUSH ASDIRECTED PRN Peripheral IV Insertion Adult [OM.PC] Stat 08/24/19 16:19 EKG Documentation Completion [RC] STAT Peripheral IV Care [RC] . DIRECTED 08/24/19 16:20 Chest 1V Frontal [CR] Stat BiPAP [RESPCARE] Routine 08/24/19 16:49 CBC WITH AUTO DIFF [HEME] Stat 08/24/19 18:09 RT Peak Flow Measurement [RC] ASDIRECTED
[2019-08-24] MEDS ORDERED: Furosemide 40 MG/4 ML VIAL IVPUSH ONE (18:09)
[2019-08-24] MEDS ORDERED: Ondansetron 4 MG Tab.DIS PO PRN (19:51)
[2019-08-24] MEDS ORDERED: Ondansetron 4 MG/2 ML SDV IV PRN (19:51)
--- NOTE | 2019-08-24 19:51 | PCM.HP.2 ---
H&P History of Present Illness - General Date of Service: 08/24/19 - History of Present Illness Initial Comments - Free Text/Narative: This is a 49 year old male with past medical history of myasthenia gravis, hypertension who comes to the ED crought by EMS for worsening shortness of breath. Patient states that for the past week he has been having worsening SILVA, orthopnea, PND and SOB to the point that on DOA he was unable to catch his breath and his O2 sat dropped to 81% Back Pain Score (Numeric/FACES): 7 - Related Data Allergies/Adverse Reactions: Allergies Allergy/AdvReac Type Severity Reaction Status Date / Time cephalexin [From Keflex] Allergy Rash Verified 08/24/19 21:11 Penicillins Allergy Rash Verified 08/24/19 21:11 Home Medications: Home Meds Furosemide [Lasix] 40 mg PO DAILY 08/24/19 [History] Lisinopril [Zestril] 10 mg PO DAILY 08/24/19 [History] Naproxen Sodium 440 mg PO BEDTIME 08/24/19 [History] Omeprazole 20 mg PO DAILY 08/24/19 [History] Pyridostigmine [Mestinon] 60 mg PO 5XDAY 08/24/19 [History] predniSONE [Prednisone] 60 mg PO ACBREAKFAST 08/24/19 [History] traMADol [Ultram] 50 mg PO Q4H 08/24/19 [History] Past Medical History Cardiovascular History: Reports: Hypertension, [place] Respiratory History: Reports: Sleep Apnea, SOB Musculoskeletal History: Reports: Arthritis Neurological History: Reports: Other (See Below) Other Neuro History: myesthenia gravis Endocrine/Metabolic History: Reports: Obesity/BMI 30+ Social & Family History - Tobacco Use Smoking Status *Q: Never Smoker - Caffeine Use Caffeine Use: Reports: None - Recreational Drug Use Recreational Drug Use: No H&P Review of Systems - Review of Systems: Review Of Systems: See Below General: Reports: Fatigue. Denies: Fever, Chills, Malaise, Weakness, Night Sweats, Diaphoresis, Decreased Appetite, Weight Loss HEENT: Denies: Headaches, Hearing Changes, Rhinitis, Post Nasal Drip, Sinus Congestion, Sore Throat, Vertigo, Visual Changes Pulmonary: Reports: Shortness of Breath. Denies: Wheezing, Pleuritic Chest Pain , Cough, Sputum, Hemoptysis Cardiovascular: Reports: Dyspnea on Exertion, Orthopnea, PND, Edema. Denies: Chest Pain, Palpitations, Lightheadedness, Syncope, Claudication, Blood Pressure Problem Gastrointestinal: Denies: Abdominal Pain, Anorexia, Constipation, Diarrhea, Decreased Appetite, Difficulty Swallowing, Distension, Flatus, Nausea, Vomiting Genitourinary: Denies: Dysuria, Frequency, Burning, Pain, Urgency, Incontinence Musculoskeletal: Denies: Joint Swelling, Muscle Pain, Muscle Stiffness Skin: Denies: Cyanosis, Jaundice, Mottled, Pallor, Diaphoresis Psychiatric: Denies: Confusion, Depression, Mood Lability, Anxiety, Agitation Neurological: Denies: Confusion, Dizziness, Headache, Numbness Exam - Exam Exam: See Below - Vital Signs Vital Signs: Last Vital Signs Temp 96.8 F 08/24/19 16:18 Pulse 118 H 08/24/19 16:18 Resp 18 08/24/19 16:18 BP 108/78 08/24/19 16:32 Pulse Ox 92 L 08/24/19 16:31 Weight: 145.15 kg - Exam Quality Assessment: Supplemental Oxygen General: Alert, Oriented, Cooperative, Mild Distress, Other (confounded by body habitus) Neck: Supple, Trachea Midline, +2 Carotid Pulse wo Bruit, Full Range of Motion. No: Lymphadenopathy Lungs: Clear to Auscultation, Normal Respiratory Effort, Decreased Breath Sounds. No: Crackles, Rales, Rhonchi, Wheezing Cardiovascular: Regular Rate, Regular Rhythm. No: Systolic Murmur, Diastolic Murmur, Rubs, Gallop/S3, Gallop/S4 GI/Abdominal Exam: Distended. No: Guarding, Rigid, Rebound, Tender Extremities: Pedal Edema (2+ pitting edema up to knees bilaterally), Slow Capillary Refill Skin: Warm Psychiatric: Alert, Normal Affect, Normal Mood - Patient Data Result Diagrams: 08/26/19 09:54 08/26/19 09:54 Sepsis Event Note - Evaluation Sepsis Screening Result: No Definite Risk - Focused Exam Vital Signs: Vital Signs Temp Pulse Resp BP BP Pulse Ox Pulse Ox 08/24/19 16:32 108/78 08/24/19 16:31 92 L 08/24/19 16:18 96.8 F 118 H 18 130/92 H 100 Date Exam was Performed: 08/26/19 Time Exam was Performed: 14:57 - Problem List (1) Acute hypoxemic respiratory failure SNOMED Code(s): 333429310 ICD Code: J96.01 - ACUTE RESPIRATORY FAILURE WITH HYPOXIA Status: Acute Current Visit: Yes (2) CAD (coronary artery disease) SNOMED Code(s): 02928754 ICD Code: I25.10 - ATHSCL HEART DISEASE OF [place] CORONARY ARTERY W/O ANG PCTRS Status: Acute Current Visit: Yes (3) Chronic pain SNOMED Code(s): 42759067 ICD Code: G89.29 - OTHER CHRONIC PAIN Status: Acute Current Visit: Yes (4) Chronic steroid use SNOMED Code(s): 386900789 ICD Code: YQO2604 - Status: Acute Current Visit: Yes (5) Chronic kidney disease (CKD), stage III (moderate) SNOMED Code(s): 438102815 ICD Code: N18.3 - CHRONIC KIDNEY DISEASE, STAGE 3 (MODERATE) Status: Acute Current Visit: Yes (6) Myasthenia gravis SNOMED Code(s): 74916268 ICD Code: G70.00 - MYASTHENIA GRAVIS WITHOUT (ACUTE) EXACERBATION Status: Acute Current Visit: Yes (7) Polysubstance abuse SNOMED Code(s): 524294347 ICD Code: F19.10 - OTHER PSYCHOACTIVE SUBSTANCE ABUSE, UNCOMPLICATED Status : Acute Current Visit: Yes (8) Obstructive sleep apnea SNOMED Code(s): 73589588 ICD Code: G47.33 - OBSTRUCTIVE SLEEP APNEA (ADULT) (PEDIATRIC) Status: Acute Current Visit: Yes (9) Hypertension SNOMED Code(s): 14991054 ICD Code: I10 - ESSENTIAL (PRIMARY) HYPERTENSION Status: Acute Current Visit: Yes (10) Shortness of breath SNOMED Code(s): 503997289 ICD Code: R06.02 - SHORTNESS OF BREATH Status: Acute Current Visit: No Problem List Initiated/Reviewed/Updated: Yes Assessment/Plan Comment:: Acute hypoxemic respiratory failure Obstructive sleep apnea, non-compliant with CPAP Unable to catch his breath O2 sat dropped to 81% with PaO2 56 Placed on NC on admission, improved SatO2 Hypertension BP on admission 153/87 Home management with lisinopril PLAN - Continue lisinopril - Discuss options of non nephrotoxic meds with patient Chronic pain Daily naproxen at home NSAID + ACEI are synergistic for kidney damage Will discuss options with patient. Chronic kidney disease (CKD), stage III (moderate) GFR on admission 32, baseline 36 PLAN - Renally dosed medications - Avoid nephrotoxic medications - Monitor urine output Myasthenia gravis Chronic steroid use Peak flow 270 PLAN - Monitor peak flow - Continue home steroids - Continue home pyridostigmine PROPHYLAXIS DVT- Lovenox GI- not indicated CODE STATUS: FULL CODE DISPOSITION: Patient will be admitted to medical floor on furosemide and O2 supplementation. - Mortality Measure Prognosis:: Good
[2019-08-24] MEDS ORDERED: predniSONE 10 MG Tab PO SCH (21:00)
[2019-08-24] MEDS ORDERED: predniSONE 10 MG Tab PO ONE (21:30)
[2019-08-24] MEDS: traMADol 50 MG Tab PO SCH (21:34)
[2019-08-24] MEDS: Lisinopril 10 MG Tab PO SCH (21:35)
[2019-08-24] MEDS: Furosemide 40 MG/4 ML VIAL IVPUSH SCH (21:36)
[2019-08-24] MEDS: PYRIDOSTIGMINE 60 MG PO SCH (22:53)
[2019-08-24] MEDS: Heparin Sodium 5,000 Units/ML Vial SUBCUT SCH (23:42)
[2019-08-24] MEDS: NAPROXEN SODIUM 220 MG PO SCH (23:42)
[2019-08-25] MEDS: traMADol 50 MG Tab PO SCH ×6 (01:30→20:18)
[2019-08-25] MEDS: PYRIDOSTIGMINE 60 MG PO SCH ×6 (01:46→22:19)
[2019-08-25] MEDS: Pantoprazole 40 MG Tab.CR PO SCH (06:26)
[2019-08-25] MEDS: Heparin Sodium 5,000 Units/ML Vial SUBCUT SCH ×3 (06:26→22:18)
[2019-08-25] MEDS: predniSONE 20 MG Tab PO SCH (06:27)
[2019-08-25] MEDS: Furosemide 40 MG/4 ML VIAL IVPUSH SCH ×3 (08:00→20:38)
--- NOTE | 2019-08-25 08:19 | CR ---
Chest: Portable view of the chest was obtained. Comparison: Prior chest x-ray of 03/16/19. Heart size is normal. Tortuous thoracic aorta is noted. Healing rib fractures are seen on both sides causing some increased density within the chest. These occur at the costochondral junction. Lungs otherwise are clear. No additional bony abnormality is grossly seen. Impression: 1. Increased density correlating to costochondral junctions within multiple ribs on both sides of the chest compatible with callus from healing fractures. Diagnostic code #3 This report was dictated in [place] Standard Time
--- NOTE | 2019-08-25 19:12 | PCM.PN ---
- General Info Date of Service: 08/25/19 Subjective Update: BiPAP off since early this morning Slept ok Tolerating diet BM yesterday - Patient Data Vitals - Most Recent: Last Vital Signs Temp 97.5 F 08/25/19 15:06 Pulse 104 H 08/25/19 15:06 Resp 20 08/25/19 15:06 BP 99/74 08/25/19 15:06 Pulse Ox 99 08/25/19 15:06 Weight - Most Recent: 150.593 kg - Exam Quality Assessment: Supplemental Oxygen (exam confounded by body habitus) General: Alert, Oriented, Cooperative, No Acute Distress HEENT: Pupils Equal, Pupils Reactive, EOMI, Mucous Membr. Moist/[place] Neck: Supple Lungs: Decreased Breath Sounds. No: Crackles, Rales, Rhonchi, Wheezing Cardiovascular: Regular Rate, Regular Rhythm. No: Murmurs, Gallops, Rubs GI/Abdominal Exam: Distended. No: Guarding, Rigid, Rebound, Tender Extremities: Pedal Edema, Slow Capillary Refill (up to knees BL), Joint Swelling Skin: Warm, Dry Neurological: No New Focal Deficit Psy/Mental Status: Alert Sepsis Event Note - Evaluation Sepsis Screening Result: No Definite Risk - Focused Exam Vital Signs: Vital Signs Temp Temp Pulse Resp BP BP Pulse Ox 08/25/19 15:06 97.5 F 104 H 20 99/74 99 08/25/19 13:20 97 08/25/19 13:01 20 124/92 H 97 08/25/19 13:00 20 91 L 08/25/19 12:01 17 112/79 99 08/25/19 12:00 97.8 F 19 112/79 99 08/25/19 11:01 19 93/75 98 08/25/19 11:00 16 95 08/25/19 10:40 08/25/19 10:01 22 H 92/66 98 08/25/19 10:00 17 97 08/25/19 09:01 17 116/104 H 96 08/25/19 09:00 17 94 L 08/25/19 08:47 08/25/19 08:01 18 115/68 89 L 08/25/19 08:00 97.6 F 17 115/68 89 L Pulse Ox 08/25/19 15:06 08/25/19 13:20 08/25/19 13:01 08/25/19 13:00 08/25/19 12:01 08/25/19 12:00 08/25/19 11:01 08/25/19 11:00 08/25/19 10:40 97 08/25/19 10:01 08/25/19 10:00 08/25/19 09:01 08/25/19 09:00 08/25/19 08:47 97 08/25/19 08:01 08/25/19 08:00 Date Exam was Performed: 08/27/19 Time Exam was Performed: 10:29 - Problem List & Annotations (1) Acute hypoxemic respiratory failure SNOMED Code(s): 394107141 Code(s): J96.01 - ACUTE RESPIRATORY FAILURE WITH HYPOXIA Status: Acute Current Visit: Yes (2) CAD (coronary artery disease) SNOMED Code(s): 98718182 Code(s): I25.10 - ATHSCL HEART DISEASE OF [place] CORONARY ARTERY W/O ANG PCTRS Status: Acute Current Visit: Yes (3) Chronic kidney disease (CKD), stage III (moderate) SNOMED Code(s): 500844354 Code(s): N18.3 - CHRONIC KIDNEY DISEASE, STAGE 3 (MODERATE) Status: Acute Current Visit: Yes (4) Chronic pain SNOMED Code(s): 76708086 Code(s): G89.29 - OTHER CHRONIC PAIN Status: Acute Current Visit: Yes (5) Chronic steroid use SNOMED Code(s): 298399412 Code(s): LYQ9043 - Status: Acute Current Visit: Yes (6) Hypertension SNOMED Code(s): 42685170 Code(s): I10 - ESSENTIAL (PRIMARY) HYPERTENSION Status: Acute Current Visit: Yes (7) Hypoxia SNOMED Code(s): 750830598 Code(s): R09.02 - HYPOXEMIA Status: Acute Current Visit: Yes (8) Myasthenia gravis SNOMED Code(s): 15150692 Code(s): G70.00 - MYASTHENIA GRAVIS WITHOUT (ACUTE) EXACERBATION Status: Acute Current Visit: Yes (9) Obstructive sleep apnea SNOMED Code(s): 87221909 Code(s): G47.33 - OBSTRUCTIVE SLEEP APNEA (ADULT) (PEDIATRIC) Status: Acute Current Visit: Yes (10) Polysubstance abuse SNOMED Code(s): 452027406 Code(s): F19.10 - OTHER PSYCHOACTIVE SUBSTANCE ABUSE, UNCOMPLICATED Status : Acute Current Visit: Yes (11) Hyponatremia SNOMED Code(s): 69829265 Code(s): E87.1 - HYPO-OSMOLALITY AND HYPONATREMIA Status: Acute Current Visit: Yes (12) Hypochromic anemia SNOMED Code(s): 52807793 Code(s): D50.9 - IRON DEFICIENCY ANEMIA, UNSPECIFIED Status: Acute Current Visit: Yes - Problem List Review Problem List Initiated/Reviewed/Updated: Yes - Plan Plan:: Acute hypoxemic respiratory failure Obstructive sleep apnea, non-compliant with CPAP Unable to catch his breath O2 sat dropped to 81% with PaO2 56 Placed on NC on admission, improved SatO2 BiPAP on admission, now off PLAN - RT treat - PRN DuoNebs - Continue NC Hypertension BP on admission 97-111/67-79 Home management with lisinopril PLAN - Continue lisinopril - Discuss options of non nephrotoxic meds with patient Chronic pain Daily naproxen at home NSAID + ACEI are synergistic for kidney damage Will discuss options with patient. PLAN - On Tramadol and PRN Acetaminophen Chronic kidney disease (CKD), stage III (moderate) Hyponatremia GFR on admission 32, baseline 36 VM=058 since admission Na- 135 PLAN - Renally dosed medications - Avoid nephrotoxic medications - Monitor urine output Myasthenia gravis Chronic steroid use Peak flow 270 on admission - 43% PLAN - Monitor peak flow - Continue home steroids - Continue home pyridostigmine PROPHYLAXIS DVT- Lovenox GI- not indicated CODE STATUS: FULL CODE DISPOSITION: Patient will remain admitted to medical floor on furosemide and O2 supplementation.
[2019-08-25] MEDS: Lisinopril 10 MG Tab PO SCH (20:20)
[2019-08-25] MEDS: NAPROXEN SODIUM 220 MG PO SCH (20:25)
[2019-08-26] MEDS: traMADol 50 MG Tab PO SCH ×6 (00:06→21:19)
[2019-08-26] MEDS: Acetaminophen 325 MG Tab PO PRN ×2 (00:06→17:32)
[2019-08-26] MEDS: PYRIDOSTIGMINE 60 MG PO SCH ×5 (05:48→21:21)
[2019-08-26] MEDS: Heparin Sodium 5,000 Units/ML Vial SUBCUT SCH ×2 (05:48→14:03)
[2019-08-26] MEDS: predniSONE 20 MG Tab PO SCH ×2 (05:48→06:06)
[2019-08-26] MEDS: Pantoprazole 40 MG Tab.CR PO SCH ×2 (05:48→06:06)
[2019-08-26] MEDS: Furosemide 40 MG/4 ML VIAL IVPUSH SCH ×2 (08:20→21:18)
[2019-08-26 10:18] LABS: HEMOGLOBIN A1C 6.8 % (4.50-6.20)
[2019-08-26] MEDS ORDERED: Sodium Chloride 0.9% 10 ML Syringe FLUSH PRN (15:27)
[2019-08-26] MEDS ORDERED: Iopamidol 755 Mg/ML 100 ML Bottle IVPUSH ONE (15:27)
[2019-08-26] MEDS ORDERED: Sodium Chloride 0.9% 100 ML IV SCH (15:30)
[2019-08-26] MEDS: Sodium Chloride 0.9% 10 ML Syringe FLUSH PRN (15:44)
[2019-08-26] MEDS ORDERED: Sodium Chloride 0.9% 1,000 ML IV SCH (15:45)
--- NOTE | 2019-08-26 16:20 | CT ---
CT chest Technique: Multiple axial sections were obtained through the chest. Intravenous contrast was utilized. Study performed as a pulmonary [place] protocol. Comparison: Prior chest CT of 03/16/19. Findings: Multiple filling defects, compatible with pulmonary emboli, are seen within the segmental and subsegmental branches within both right and left lower lobes and upper lobes. Saddle thrombus is also noted within the main pulmonary arteries. No evidence of right ventricular dysfunction is seen at this time. Visualized upper abdominal structures shows no abnormality. Aorta shows no aneurysm. No mediastinal adenopathy or hilar adenopathy is seen. No axillary adenopathy is seen. Lungs are clear with no acute parenchymal change. No pleural effusions are seen. No pneumothorax is noted. No acute osseous finding is appreciated. Impression: 1. Extensive pulmonary emboli as described above. No findings of right ventricular dysfunction are seen at this time. 2. No other acute finding is seen. Diagnostic code #5 This report was dictated in [place] Standard Time
--- NOTE | 2019-08-26 20:12 | US ---
Bilateral lower extremity deep venous ultrasound: Duplex and color Doppler evaluation was obtained of the right left common femoral, superficial femoral, popliteal, posterior tibial, proximal greater saphenous and peroneal veins. Findings: Deep venous thrombosis is seen within the right superficial femoral and popliteal vein. Veins distal to the popliteal vein are not visualized due to leg edema. Deep venous thrombosis is seen within the left common femoral through popliteal vein. Posterior tibial and peroneal veins not visualized due to leg edema. Impression: 1. Deep venous thrombosis within both lower extremities as described above. Diagnostic code #5 This report was dictated in [place] Standard Time
[2019-08-26] MEDS: Enoxaparin 150 MG/1 ML Syringe SUBCUT SCH (21:18)
[2019-08-27] MEDS: traMADol 50 MG Tab PO SCH ×6 (00:01→21:00)
[2019-08-27] MEDS: predniSONE 20 MG Tab PO SCH ×2 (05:40→07:07)
[2019-08-27] MEDS: PYRIDOSTIGMINE 60 MG PO SCH ×5 (05:41→21:00)
[2019-08-27] MEDS: Pantoprazole 40 MG Tab.CR PO SCH ×2 (05:42→07:07)
--- NOTE | 2019-08-27 07:16 | PCM.PN ---
- General Info Date of Service: 08/27/19 Subjective Update: Feeling ok Tolerating diet Shortness of breath with minimal improvement BM today - Patient Data Vitals - Most Recent: Last Vital Signs Temp 98.6 F 08/26/19 20:51 Pulse 93 08/26/19 20:51 Resp 12 08/26/19 20:51 BP 101/33 L 08/26/19 20:51 Pulse Ox 94 L 08/26/19 20:51 Weight - Most Recent: 152.362 kg - Exam Physical Findings Comments:: General: Alert, Oriented, Cooperative, Mild Distress, Other (confounded by body habitus) Neck: Supple, Trachea Midline, +2 Carotid Pulse wo Bruit, Full Range of Motion. No: Lymphadenopathy Lungs: Clear to Auscultation, Normal Respiratory Effort, Decreased Breath Sounds. No: Crackles, Rales, Rhonchi, Wheezing Cardiovascular: Regular Rate, Regular Rhythm. No: Systolic Murmur, Diastolic Murmur, Rubs, Gallop/S3, Gallop/S4 GI/Abdominal Exam: Distended. No: Guarding, Rigid, Rebound, Tender Extremities: Pedal Edema (2+ pitting edema up to knees bilaterally), Slow Capillary Refill Skin: Warm Psychiatric: Alert, Normal Affect, Normal Mood Sepsis Event Note - Evaluation Sepsis Screening Result: No Definite Risk - Focused Exam Vital Signs: Vital Signs Temp Pulse Resp BP Pulse Ox 08/26/19 20:51 98.6 F 93 12 101/33 L 94 L Date Exam was Performed: 08/27/19 Time Exam was Performed: 15:17 - Problem List & Annotations (1) Bilateral pulmonary embolism SNOMED Code(s): 67638127 Code(s): I26.99 - OTHER PULMONARY EMBOLISM WITHOUT ACUTE COR PULMONALE Status: Acute Current Visit: Yes (2) Acute hypoxemic respiratory failure SNOMED Code(s): 291428551 Code(s): J96.01 - ACUTE RESPIRATORY FAILURE WITH HYPOXIA Status: Acute Current Visit: Yes (3) CAD (coronary artery disease) SNOMED Code(s): 83860353 Code(s): I25.10 - ATHSCL HEART DISEASE OF [place] CORONARY ARTERY W/O ANG PCTRS Status: Acute Current Visit: Yes (4) Chronic kidney disease (CKD), stage III (moderate) SNOMED Code(s): 801445871 Code(s): N18.3 - CHRONIC KIDNEY DISEASE, STAGE 3 (MODERATE) Status: Acute Current Visit: Yes (5) Chronic pain SNOMED Code(s): 11681238 Code(s): G89.29 - OTHER CHRONIC PAIN Status: Acute Current Visit: Yes (6) Chronic steroid use SNOMED Code(s): 186729445 Code(s): CEC8526 - Status: Acute Current Visit: Yes (7) Hypertension SNOMED Code(s): 99435752 Code(s): I10 - ESSENTIAL (PRIMARY) HYPERTENSION Status: Acute Current Visit: Yes (8) Hypoxia SNOMED Code(s): 789085750 Code(s): R09.02 - HYPOXEMIA Status: Acute Current Visit: Yes (9) Myasthenia gravis SNOMED Code(s): 52958918 Code(s): G70.00 - MYASTHENIA GRAVIS WITHOUT (ACUTE) EXACERBATION Status: Acute Current Visit: Yes (10) Obstructive sleep apnea SNOMED Code(s): 65891512 Code(s): G47.33 - OBSTRUCTIVE SLEEP APNEA (ADULT) (PEDIATRIC) Status: Acute Current Visit: Yes (11) Polysubstance abuse SNOMED Code(s): 931731515 Code(s): F19.10 - OTHER PSYCHOACTIVE SUBSTANCE ABUSE, UNCOMPLICATED Status : Acute Current Visit: Yes (12) Hyponatremia SNOMED Code(s): 70182571 Code(s): E87.1 - HYPO-OSMOLALITY AND HYPONATREMIA Status: Acute Current Visit: Yes - Problem List Review Problem List Initiated/Reviewed/Updated: Yes - Plan Plan:: Bilateral pulmonary emboli, provoked Acute hypoxemic respiratory failure Refractory Tachycardia Obstructive sleep apnea, non-compliant with CPAP Unable to catch his breath--> O2 sat dropped to 81% with PaO2 56--> NC in ED resolved hypoxemia--> admitted on BiPAP--> on for approx. 12 h Continued to be tachycardic since admission-->CTA chest--> bilateral pulmonary emboli PLAN - Full dose lovenox - Doppler BL LE - RT treat - PRN DuoNebs - Continue NC Hypertension BP [id number] Home management with lisinopril PLAN - Hold lisinopril - PRN Hydralazine Chronic pain Daily naproxen at home NSAID + ACEI are synergistic for kidney damage Will discuss options with patient. PLAN - Tramadol and PRN acetaminophen Chronic kidney disease (CKD), stage III (moderate) GFR on admission 32, baseline 36, today 26 RX=[id number] Na- 134 PLAN - Renally dosed medications - Avoid nephrotoxic medications - Monitor urine output Myasthenia gravis Chronic steroid use Peak flow 270 on admission - 43% PLAN - Monitor peak flow - Continue home steroids - Continue home pyridostigmine Hyponatremia, resolved PROPHYLAXIS DVT- Full dose Lovenox GI- not indicated CODE STATUS: FULL CODE DISPOSITION: Patient will remain admitted on full dose lovenox, pending doppler of LE and echocardiogram.
--- NOTE | 2019-08-27 07:16 | PCM.PN ---
- General Info Date of Service: 08/26/19 Subjective Update: Slept ok On NC at 3L BM today - Patient Data Vitals - Most Recent: Last Vital Signs Temp 98.6 F 08/26/19 20:51 Pulse 93 08/26/19 20:51 Resp 12 08/26/19 20:51 BP 101/33 L 08/26/19 20:51 Pulse Ox 94 L 08/26/19 20:51 Weight - Most Recent: 152.362 kg - Exam Physical Findings Comments:: General: Alert, Oriented, Cooperative, Mild Distress, Other (confounded by body habitus) Neck: Supple, Trachea Midline, +2 Carotid Pulse wo Bruit, Full Range of Motion. No: Lymphadenopathy Lungs: Clear to Auscultation, Normal Respiratory Effort, Decreased Breath Sounds. No: Crackles, Rales, Rhonchi, Wheezing Cardiovascular: Regular Rate, Regular Rhythm. No: Systolic Murmur, Diastolic Murmur, Rubs, Gallop/S3, Gallop/S4 GI/Abdominal Exam: Distended. No: Guarding, Rigid, Rebound, Tender Extremities: Pedal Edema (2+ pitting edema up to knees bilaterally), Slow Capillary Refill Skin: Warm Psychiatric: Alert, Normal Affect, Normal Mood Sepsis Event Note - Evaluation Sepsis Screening Result: No Definite Risk - Focused Exam Vital Signs: Vital Signs Temp Pulse Resp BP Pulse Ox 08/26/19 20:51 98.6 F 93 12 101/33 L 94 L Date Exam was Performed: 08/27/19 Time Exam was Performed: 10:41 - Problem List & Annotations (1) Acute hypoxemic respiratory failure SNOMED Code(s): 159073866 Code(s): J96.01 - ACUTE RESPIRATORY FAILURE WITH HYPOXIA Status: Acute Current Visit: Yes (2) CAD (coronary artery disease) SNOMED Code(s): 43894776 Code(s): I25.10 - ATHSCL HEART DISEASE OF [place] CORONARY ARTERY W/O ANG PCTRS Status: Acute Current Visit: Yes (3) Chronic kidney disease (CKD), stage III (moderate) SNOMED Code(s): 737879294 Code(s): N18.3 - CHRONIC KIDNEY DISEASE, STAGE 3 (MODERATE) Status: Acute Current Visit: Yes (4) Chronic pain SNOMED Code(s): 07860121 Code(s): G89.29 - OTHER CHRONIC PAIN Status: Acute Current Visit: Yes (5) Chronic steroid use SNOMED Code(s): 249559382 Code(s): HUJ1341 - Status: Acute Current Visit: Yes (6) Hypertension SNOMED Code(s): 40984633 Code(s): I10 - ESSENTIAL (PRIMARY) HYPERTENSION Status: Acute Current Visit: Yes (7) Hypoxia SNOMED Code(s): 887708915 Code(s): R09.02 - HYPOXEMIA Status: Acute Current Visit: Yes (8) Myasthenia gravis SNOMED Code(s): 45520712 Code(s): G70.00 - MYASTHENIA GRAVIS WITHOUT (ACUTE) EXACERBATION Status: Acute Current Visit: Yes (9) Obstructive sleep apnea SNOMED Code(s): 99875551 Code(s): G47.33 - OBSTRUCTIVE SLEEP APNEA (ADULT) (PEDIATRIC) Status: Acute Current Visit: Yes (10) Polysubstance abuse SNOMED Code(s): 919648325 Code(s): F19.10 - OTHER PSYCHOACTIVE SUBSTANCE ABUSE, UNCOMPLICATED Status : Acute Current Visit: Yes (11) Hyponatremia SNOMED Code(s): 84054508 Code(s): E87.1 - HYPO-OSMOLALITY AND HYPONATREMIA Status: Acute Current Visit: Yes (12) Tachycardia SNOMED Code(s): 1753259 Code(s): R00.0 - TACHYCARDIA, UNSPECIFIED Status: Acute Current Visit: Yes (13) Hypochromic anemia SNOMED Code(s): 89816758 Code(s): D50.9 - IRON DEFICIENCY ANEMIA, UNSPECIFIED Status: Acute Current Visit: Yes - Problem List Review Problem List Initiated/Reviewed/Updated: Yes - Plan Plan:: Acute hypoxemic respiratory failure Refractory Tachycardia Obstructive sleep apnea, non-compliant with CPAP Unable to catch his breath O2 sat dropped to 81% with PaO2 56 Placed on NC on admission, improved SatO2 BiPAP on admission, now off since 2/6 in AM HR trend 94-104, continues to be tachycardic since admission-->concern for PE PLAN - CTA chest to r/o PE - RT treat - PRN DuoNebs - Continue NC Hypertension BP trend 87-118/64-92 Home management with lisinopril PLAN - Hold lisinopril - PRN Hydralazine Chronic pain Daily naproxen at home NSAID + ACEI are synergistic for kidney damage Will discuss options with patient. PLAN - Tramadol and PRN acetaminophen Chronic kidney disease (CKD), stage III (moderate) Hyponatremia GFR on admission 32, baseline 36, today 23 CC=348 Na- 134 PLAN - Renally dosed medications - Avoid nephrotoxic medications - Monitor urine output Myasthenia gravis Chronic steroid use Peak flow 270 on admission - 43% PLAN - Monitor peak flow - Continue home steroids - Continue home pyridostigmine PROPHYLAXIS DVT- Lovenox GI- not indicated CODE STATUS: FULL CODE DISPOSITION: Patient will remain admitted to medical floor on furosemide and O2 supplementation. CT chest ordered today.
[2019-08-27] MEDS: Enoxaparin 150 MG/1 ML Syringe SUBCUT SCH (09:04)
[2019-08-27] MEDS: Furosemide 40 MG/4 ML VIAL IVPUSH SCH ×2 (09:05→21:00)
[2019-08-27] MEDS ORDERED: predniSONE 20 MG Tab PO SCH (09:30)
[2019-08-27] MEDS ORDERED: hydrALAZINE 20 MG/ML SDV IVPUSH PRN (10:28)
[2019-08-28] MEDS: Carbamide Peroxide 6.5% Otic Soln 15 ML Bottle EARBOTH SCH ×4 (05:00→20:36)
[2019-08-28] MEDS: traMADol 50 MG Tab PO SCH ×6 (05:02→23:06)
[2019-08-28] MEDS: PYRIDOSTIGMINE 60 MG PO SCH ×5 (05:17→23:06)
[2019-08-28] MEDS: Pantoprazole 40 MG Tab.CR PO SCH ×2 (05:18→06:52)
[2019-08-28] MEDS: predniSONE 20 MG Tab PO SCH (09:10)
[2019-08-28] MEDS: Enoxaparin 150 MG/1 ML Syringe SUBCUT SCH (09:11)
[2019-08-28] MEDS: Furosemide 40 MG Tab PO SCH ×2 (09:37→14:25)
[2019-08-28] MEDS: Furosemide 40 MG/4 ML VIAL IVPUSH SCH (09:52)
[2019-08-28] MEDS: Rivaroxaban 15 MG Tab PO SCH ×2 (11:47→20:37)
--- NOTE | 2019-08-28 12:01 | PCM.PN ---
- General Info Date of Service: 08/28/19 Subjective Update: Feeling OK Slept OK Tolerating diet BM today - Patient Data Vitals - Most Recent: Last Vital Signs Temp 98.4 F 08/28/19 08:54 Pulse 91 08/28/19 08:54 Resp 19 08/28/19 08:54 BP 100/60 08/28/19 08:54 Pulse Ox 91 L 08/28/19 08:54 Weight - Most Recent: 150.683 kg - Exam General: Alert, Oriented, Cooperative, No Acute Distress, Other (confounded by body habitus) HEENT: Pupils Equal, Pupils Reactive, EOMI, Mucous Membr. Moist/[place] Neck: Supple Lungs: Decreased Breath Sounds. No: Crackles, Rales, Rhonchi, Wheezing Cardiovascular: Regular Rate, Regular Rhythm. No: Murmurs, Gallops, Rubs GI/Abdominal Exam: Distended. No: Guarding, Rigid, Rebound, Tender Extremities: Pedal Edema, Slow Capillary Refill Neurological: No New Focal Deficit Psy/Mental Status: Alert, Normal Affect Sepsis Event Note - Evaluation Sepsis Screening Result: No Definite Risk - Focused Exam Vital Signs: Vital Signs Temp Pulse Resp BP Pulse Ox 08/28/19 08:54 98.4 F 91 19 100/60 91 L 08/28/19 05:02 98.2 F 83 14 122/64 93 L Date Exam was Performed: 08/28/19 Time Exam was Performed: 15:03 - Problem List & Annotations (1) Bilateral pulmonary embolism SNOMED Code(s): 15049867 Code(s): I26.99 - OTHER PULMONARY EMBOLISM WITHOUT ACUTE COR PULMONALE Status: Acute Current Visit: Yes (2) Acute hypoxemic respiratory failure SNOMED Code(s): 900017859 Code(s): J96.01 - ACUTE RESPIRATORY FAILURE WITH HYPOXIA Status: Acute Current Visit: Yes (3) CAD (coronary artery disease) SNOMED Code(s): 74970291 Code(s): I25.10 - ATHSCL HEART DISEASE OF [place] CORONARY ARTERY W/O ANG PCTRS Status: Acute Current Visit: Yes (4) Chronic kidney disease (CKD), stage III (moderate) SNOMED Code(s): 029393122 Code(s): N18.3 - CHRONIC KIDNEY DISEASE, STAGE 3 (MODERATE) Status: Acute Current Visit: Yes (5) Chronic pain SNOMED Code(s): 94237277 Code(s): G89.29 - OTHER CHRONIC PAIN Status: Acute Current Visit: Yes (6) Chronic steroid use SNOMED Code(s): 250247176 Code(s): VLH9707 - Status: Acute Current Visit: Yes (7) Hypertension SNOMED Code(s): 25790385 Code(s): I10 - ESSENTIAL (PRIMARY) HYPERTENSION Status: Acute Current Visit: Yes (8) Hypoxia SNOMED Code(s): 324704594 Code(s): R09.02 - HYPOXEMIA Status: Acute Current Visit: Yes (9) Myasthenia gravis SNOMED Code(s): 37140879 Code(s): G70.00 - MYASTHENIA GRAVIS WITHOUT (ACUTE) EXACERBATION Status: Acute Current Visit: Yes (10) Obstructive sleep apnea SNOMED Code(s): 51238012 Code(s): G47.33 - OBSTRUCTIVE SLEEP APNEA (ADULT) (PEDIATRIC) Status: Acute Current Visit: Yes (11) Polysubstance abuse SNOMED Code(s): 616300838 Code(s): F19.10 - OTHER PSYCHOACTIVE SUBSTANCE ABUSE, UNCOMPLICATED Status : Acute Current Visit: Yes (12) Hyponatremia SNOMED Code(s): 80618203 Code(s): E87.1 - HYPO-OSMOLALITY AND HYPONATREMIA Status: Acute Current Visit: Yes (13) Acute bilateral deep vein thrombosis (DVT) of popliteal veins SNOMED Code(s): 840439046747446 Code(s): I82.433 - ACUTE EMBOLISM AND THROMBOSIS OF POPLITEAL VEIN, BILATERAL Status: Acute Current Visit: Yes - Problem List Review Problem List Initiated/Reviewed/Updated: Yes - Plan Plan:: Bilateral pulmonary emboli, provoked Bilateral DVT of superficial femoral and popliteal veins Acute hypoxemic respiratory failure Refractory Tachycardia Obstructive sleep apnea, non-compliant with CPAP Unable to catch his breath--> O2 sat dropped to 81% with PaO2 56--> NC in ED resolved hypoxemia--> admitted on BiPAP--> on for approx. 12 h Continued to be tachycardic since admission-->CTA chest--> bilateral pulmonary emboli Doppler with superficial vein thrombosis PLAN - Started Xarelto - RT treat - PRN DuoNebs -Taper NC as tolerated Hypertension BP trend 89-138/49-71 Home management with lisinopril PLAN - Hold lisinopril - PRN Hydralazine Chronic pain Daily naproxen at home NSAID + ACEI are synergistic for kidney damage Will discuss options with patient. PLAN - Tramadol and PRN acetaminophen Chronic kidney disease (CKD), stage III (moderate) GFR on admission 32, baseline 36, today 26 [id number] PLAN - Renally dosed medications - Avoid nephrotoxic medications - Monitor urine output Myasthenia gravis Chronic steroid use Peak flow 270 on admission - 43% PLAN - Monitor peak flow - Continue home steroids - Continue home pyridostigmine Hyponatremia, resolved PROPHYLAXIS DVT- Xarelto GI- not indicated CODE STATUS: FULL CODE DISPOSITION: Patient will remain admitted on anticoagulation, pending echocardiogram.
[2019-08-29] MEDS: traMADol 50 MG Tab PO SCH ×3 (05:13→09:24)
[2019-08-29] MEDS: Furosemide 40 MG Tab PO SCH (05:14)
[2019-08-29] MEDS: PYRIDOSTIGMINE 60 MG PO SCH ×2 (05:14→09:26)
[2019-08-29] MEDS: Pantoprazole 40 MG Tab.CR PO SCH ×2 (05:15→06:33)
[2019-08-29] MEDS: Rivaroxaban 15 MG Tab PO SCH (09:24)
[2019-08-29] MEDS: predniSONE 20 MG Tab PO SCH (09:25)
[2019-08-29] MEDS: Carbamide Peroxide 6.5% Otic Soln 15 ML Bottle EARBOTH SCH (09:27)
--- NOTE | 2019-08-29 11:59 | PCM.DCSUM1 ---
Discharge Summary - Hospital Course HPI Initial Comments: This is a 49 year old male with past medical history of myasthenia gravis, hypertension who comes to the ED crought by EMS for worsening shortness of breath. Patient states that for the past week he has been having worsening SILVA, orthopnea, PND and SOB to the point that on DOA he was unable to catch his breath and his O2 sat dropped to 81% Diagnosis: Stroke: No - Discharge Data Discharge Date: 08/29/19 Discharge Disposition: Home, Self-Care 01 Condition: Good - Referral to Home Health Primary Care Physician: Jayda Santana NP - Discharge Diagnosis/Problem(s) (1) Bilateral pulmonary embolism SNOMED Code(s): 15591540 ICD Code: I26.99 - OTHER PULMONARY EMBOLISM WITHOUT ACUTE COR PULMONALE Status: Acute (2) Acute hypoxemic respiratory failure SNOMED Code(s): 172976653 ICD Code: J96.01 - ACUTE RESPIRATORY FAILURE WITH HYPOXIA Status: Acute (3) CAD (coronary artery disease) SNOMED Code(s): 22577695 ICD Code: I25.10 - ATHSCL HEART DISEASE OF [place] CORONARY ARTERY W/O ANG PCTRS Status: Acute (4) Chronic kidney disease (CKD), stage III (moderate) SNOMED Code(s): 170749082 ICD Code: N18.3 - CHRONIC KIDNEY DISEASE, STAGE 3 (MODERATE) Status: Acute (5) Chronic pain SNOMED Code(s): 09071638 ICD Code: G89.29 - OTHER CHRONIC PAIN Status: Acute (6) Chronic steroid use SNOMED Code(s): 970558095 ICD Code: QMU7335 - Status: Acute (7) Hypertension SNOMED Code(s): 54727287 ICD Code: I10 - ESSENTIAL (PRIMARY) HYPERTENSION Status: Acute (8) Hypoxia SNOMED Code(s): 188392761 ICD Code: R09.02 - HYPOXEMIA Status: Acute (9) Myasthenia gravis SNOMED Code(s): 10399685 ICD Code: G70.00 - MYASTHENIA GRAVIS WITHOUT (ACUTE) EXACERBATION Status: Acute (10) Obstructive sleep apnea SNOMED Code(s): 43269819 ICD Code: G47.33 - OBSTRUCTIVE SLEEP APNEA (ADULT) (PEDIATRIC) Status: Acute (11) Polysubstance abuse SNOMED Code(s): 048130714 ICD Code: F19.10 - OTHER PSYCHOACTIVE SUBSTANCE ABUSE, UNCOMPLICATED Status : Acute (12) Hyponatremia SNOMED Code(s): 25946270 ICD Code: E87.1 - HYPO-OSMOLALITY AND HYPONATREMIA Status: Acute (13) Acute bilateral deep vein thrombosis (DVT) of popliteal veins SNOMED Code(s): 311282430443688 ICD Code: I82.433 - ACUTE EMBOLISM AND THROMBOSIS OF POPLITEAL VEIN, BILATERAL Status: Acute - Patient Summary/Data Consults: Consultations 08/24/19 19:51 Respiratory Care Assess and Treatment [CONS] Routine 08/25/19 09:04 OT Evaluation and Treatment [CONS] Routine PT Evaluation and Treatment [CONS] Routine Hospital Course: Patient came in with worsening shortness of breath Patient had persistent tachycardia and hypoxemia for which a CTA was performed. Reported with BL pulmonary emboli. Doppler found BL superficial femoral and peroneal vein BRYAN on admission resolved prior to admission Echocardiogram performed during admission. Transferred to long term on Xarelto to follow up with PCP, will need anticoafulation for at least 6 months due to having a provoked PE. - Patient Instructions Diet: Heart Healthy Diet, No Alcoholic Beverages Activity: As Tolerated - Discharge Plan *PRESCRIPTION DRUG MONITORING PROGRAM REVIEWED*: No *COPY OF PRESCRIPTION DRUG MONITORING REPORT IN PATIENT FERNANDEZ: No Prescriptions/Med Rec: Albuterol/Ipratropium [DuoNeb 3.0-0.5 MG/3 ML] 3 ml INH Q6HR PRN #30 neb PRN Reason: wheezing amLODIPine Besylate [Amlodipine Besylate] 5 mg PO DAILY #30 tablet Carbamide Peroxide [Debrox 6.5% Otic Soln] 5 drop EARBOTH BID #3 bottle Furosemide [Lasix] 40 mg PO BIDDIURETIC #30 tablet Ondansetron [Zofran ODT] 4 mg PO Q6H PRN #12 tab.dis PRN Reason: nausea, able to take PO Rivaroxaban [Xarelto] 15 mg PO BID #40 tablet Home Medications: Home Meds Pyridostigmine [Mestinon] 60 mg PO 5XDAY 08/24/19 [History] predniSONE [Prednisone] 60 mg PO ACBREAKFAST 08/24/19 [History] traMADol [Ultram] 50 mg PO Q4H 08/24/19 [History] Albuterol/Ipratropium [DuoNeb 3.0-0.5 MG/3 ML] 3 ml INH Q6HR PRN #30 neb [Rx] Carbamide Peroxide [Debrox 6.5% Otic Soln] 5 drop EARBOTH BID #3 bottle [Rx] Furosemide [Lasix] 40 mg PO BIDDIURETIC #30 tablet 08/29/19 [Rx] Ondansetron [Zofran ODT] 4 mg PO Q6H PRN #12 tab.dis 08/29/19 [Rx] Rivaroxaban [Xarelto] 15 mg PO BID #40 tablet 08/29/19 [Rx] amLODIPine Besylate [Amlodipine Besylate] 5 mg PO DAILY #30 tablet 08/29/19 [Rx] Patient Handouts: Pulmonary Embolism, Chronic Kidney Disease, Adult, Easy-to- Read, Smokeless Tobacco Information, Adult, Myasthenia Gravis, Steps to Quit Smoking Forms: ED Department Discharge Referrals: Miller Lantigua MD [Physician] - 09/14/19 2:30 pm (please attend the scheduled follow up appointment as listed-- there is an appointment on 2019 at [address] Sprague at 430pm ) - Discharge Summary/Plan Comment DC Time >30 min.: Yes - General Info Date of Service: 07/29/19 Subjective Update: Slept ok Shortness of breath is at baseline Tolerating diet Ambulating - Patient Data Vitals - Most Recent: Last Vital Signs Temp 97.7 F 08/29/19 08:18 Pulse 99 08/29/19 08:18 Resp 16 08/29/19 08:18 BP 135/81 08/29/19 08:18 Pulse Ox 91 L 08/29/19 08:18 Weight - Most Recent: 150.321 kg I&O - Last 24 hours: Intake & Output 08/28/19 08/29/19 08/29/19 22:59 06:59 14:59 Intake Total 1820 1280 240 Output Total 500 1750 Balance 1320 -470 240 Lab Results - Last 24 hrs: Laboratory Results - last 24 hr 08/29/19 Range/Units 07:15 WBC 13.68 H (4.23-9.07) K/mm3 RBC 4.10 L (4.63-6.08) M/mm3 Hgb 10.6 L (13.7-17.5) gm/dl Hct 34.9 L (40.1-51.0) % MCV 85.1 (79.0-92.2) fl MCH 25.9 (25.7-32.2) pg MCHC 30.4 L (32.2-35.5) g/dl RDW Std Deviation 50.3 H (35.1-43.9) fL Plt Count 349 H (163-337) K/mm3 MPV 9.6 (9.4-12.3) fl Med Orders - Current: Current Medications Acetaminophen (Tylenol) 325 mg PO Q8H PRN PRN Reason: Pain Last Admin: 08/26/19 17:32 Dose: 325 mg Carbamide Perox/Anhydrous Glycerin (Debrox 6.5% Otic Soln) 0 ml EARBOTH BID [facility] Stop: 08/30/19 21:01 Last Admin: 08/29/19 09:27 Dose: 2 drop Furosemide (Lasix) 40 mg PO BIDDIURETIC [facility] Last Admin: 08/29/19 05:14 Dose: 40 mg Hydralazine HCl (Apresoline) 10 mg IVPUSH Q2H PRN PRN Reason: Hypertension Ondansetron HCl (Zofran Odt) 4 mg PO Q6H PRN PRN Reason: nausea, able to take PO Ondansetron HCl (Zofran) 4 mg IV Q6H PRN PRN Reason: Nausea/Vomiting Last Admin: 08/29/19 09:04 Dose: 4 mg Pantoprazole Sodium (Protonix) 40 mg PO DAILY@0700 [facility] Last Admin: 08/29/19 06:33 Dose: Not Given Prednisone (Prednisone) 60 mg PO DAILY [facility] Last Admin: 08/29/19 09:25 Dose: 60 mg Pyridostigmine [place] (Mestinon) 60 mg PO 5XDAY [facility] Last Admin: 08/29/19 09:26 Dose: 60 mg Rivaroxaban (Xarelto) 15 mg PO BID [facility] Last Admin: 08/29/19 09:24 Dose: 15 mg Sodium Chloride (Saline Flush) 10 ml FLUSH ASDIRECTED PRN PRN Reason: Keep Vein Open Last Admin: 08/26/19 15:44 Dose: 10 ml Tramadol HCl (Ultram) 50 mg PO Q4H [facility] Last Admin: 08/29/19 09:24 Dose: 50 mg Discontinued Medications Enoxaparin Sodium (Lovenox) 150 mg SUBCUT DAILY [facility] Last Admin: 08/28/19 09:11 Dose: 150 mg Furosemide (Lasix) 80 mg IVPUSH NOW ONE Stop: 08/24/19 18:10 Last Admin: 08/24/19 18:16 Dose: Not Given Furosemide (Lasix) 80 mg IVPUSH BID [facility] Last Admin: 08/27/19 09:05 Dose: 80 mg Furosemide (Lasix) 40 mg IVPUSH BID [facility] Last Admin: 08/28/19 09:52 Dose: Not Given Heparin Sodium (Porcine) (Heparin Sodium) 5,000 units SUBCUT Q8H [facility] Last Admin: 08/26/19 14:03 Dose: 5,000 units Sodium Chloride (Normal Saline) 100 mls @ 60 mls/hr IV ASDIRECTED [facility] Stop: 08/26/19 18:00 Last Admin: 08/26/19 15:44 Dose: 60 mls/hr Sodium Chloride (Normal Saline) 1,000 mls @ 75 mls/hr IV ASDIRECTED [facility] Stop: 08/26/19 21:30 Last Admin: 08/26/19 16:36 Dose: 75 mls/hr Iopamidol (Isovue-370 (76%)) 100 ml IVPUSH ONETIME ONE Stop: 08/26/19 15:28 Last Admin: 08/26/19 15:44 Dose: 100 ml Lisinopril (Prinivil) 10 mg PO BEDTIME [facility] Last Admin: 08/25/19 20:20 Dose: 10 mg Nitroglycerin (Nitrostat) 0.4 mg SL Q5M PRN PRN Reason: Chest Pain Stop: 08/25/19 16:19 Last Admin: 08/24/19 16:32 Dose: 0.4 mg Naproxen Sodium 220 (Mg TabOwn Med*) 2 tab PO BEDTIME [facility] Last Admin: 08/25/19 20:25 Dose: Not Given Prednisone (Prednisone) 60 mg PO TID [facility] Last Admin: 08/25/19 01:43 Dose: Not Given Prednisone (Prednisone) 60 mg PO ONETIME ONE Stop: 08/24/19 21:31 Last Admin: 08/24/19 21:35 Dose: 60 mg Prednisone (Prednisone) 60 mg PO WITHBREAKFAST [facility] Last Admin: 08/27/19 07:07 Dose: Not Given Prednisone (Prednisone) 60 mg PO DAILY [facility] Last Admin: 08/27/19 20:01 Dose: Not Given Pyridostigmine [place] (Mestinon) 60 mg PO 5XDAY [facility] Last Admin: 08/24/19 22:49 Dose: 60 mg Sodium Chloride (Saline Flush) 10 ml FLUSH ONETIME PRN PRN Reason: Keep Vein Open Stop: 08/26/19 18:00 Tramadol HCl (Ultram) 50 mg PO Q4H [facility] Last Admin: 08/27/19 09:00 Dose: 50 mg - Exam Physical Findings Comments:: General: Alert, Oriented, Cooperative, No Acute Distress, Other (confounded by body habitus) HEENT: Pupils Equal, Pupils Reactive, EOMI, Mucous Membr. Moist/[place] Neck: Supple Lungs: Decreased Breath Sounds. No: Crackles, Rales, Rhonchi, Wheezing Cardiovascular: Regular Rate, Regular Rhythm. No: Murmurs, Gallops, Rubs GI/Abdominal Exam: Distended. No: Guarding, Rigid, Rebound, Tender Extremities: Pedal Edema, Slow Capillary Refill Neurological: No New Focal Deficit Psy/Mental Status: Alert, Normal Affect
== END 2019-08-29 12:37 | disposition home or self-care (01) | DRG 175 ==
LOC: JD.ED 16:17 → JD.ICU 20:22 → JD.MS 08-25 13:30
PROVIDERS: ADMIT Internal Medicine; ATTEND Internal Medicine
DX: R07.9 Chest pain, unspecified (principal); R09.02 Hypoxemia; G70.00 Myasthenia gravis without (acute) exacerbation; I10 Essential (primary) hypertension; I26.99 Other pulmonary embolism without acute cor pulmonale; G47.30 Sleep apnea, unspecified; J96.01 Acute respiratory failure with hypoxia; E87.1 Hypo-osmolality and hyponatremia; Z79.52 Long term (current) use of systemic steroids; I82.433 Acute embolism and thrombosis of popliteal vein, bilateral; Z68.42 Body mass index [BMI] 45.0-49.9, adult; I25.10 Atherosclerotic heart disease of native coronary artery without angina pectoris; N18.3 Chronic kidney disease, stage 3 (moderate); G89.29 Other chronic pain; G47.00 Insomnia, unspecified; F19.10 Other psychoactive substance abuse, uncomplicated; E66.9 Obesity, unspecified; M19.90 Unspecified osteoarthritis, unspecified site; G47.33 Obstructive sleep apnea (adult) (pediatric); I12.9 Hypertensive chronic kidney disease with stage 1 through stage 4 chronic kidney disease, or unspecified chronic kidney disease; D50.9 Iron deficiency anemia, unspecified; Z88.1 Allergy status to other antibiotic agents; Z88.0 Allergy status to penicillin; Z79.899 Other long term (current) drug therapy; I25.2 Old myocardial infarction
CPT/HCPCS: 36415; 36600; 71045; 80053; 82803; 83880; 84484; 85025; 93005; 94660; 99285; A9270; 71275; 71275-26; 80048; 83036; 83735; 84100; 85027; 93010; 93306; 93970; 93970-26; 94010; 94760; 94761; 97110-GO; 97110-GP; 97116-GP; 97161-GP; 97166-GO; 97530-GP; 97535-GO; 99222; 99231; 99232; 99239; 99284; J1644; J1650; J1940; J2405; J7030; J7050; Q9967

== ENCOUNTER 2020-03-10 10:57 | Inpatient (IN) | payer MEDICAID ==
[2020-03-10] MEDS ORDERED: Sodium Chloride 0.9% 10 ML Syringe FLUSH PRN (11:13)
--- NOTE | 2020-03-10 11:35 | EDM.PDOC ---
ED HPI GENERAL MEDICAL PROBLEM - General Chief Complaint: Cardiovascular Problem Stated Complaint: [facility] Time Seen by Provider: 03/10/20 11:07 Source of Information: Reports: Patient History Limitations: Reports: No Limitations - History of Present Illness INITIAL COMMENTS - FREE TEXT/NARRATIVE: Patient is a 49-year-old male who presents from [facility] in [place] with complaints of pain, redness, and warmth to his bilateral lower extremities that started approximately 2 days ago. Patient states that the left leg has been worse than the right leg. 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 He has Unna boot dressing to his bilateral lower extremities. Patient verbalized that he does have open areas that are weeping. He denies any fever, chills, nausea, or vomiting. Patient is on 2 L oxygen via nasal cannula at all times. He denies any increased shortness of breath. Treatments MARKETING SUPPORT SPECIALIST: Reports: Other (see below) Other Treatments MARKETING SUPPORT SPECIALIST: tramadol,tylenol and muscle relaxant Bilateral Leg Pain Score (Numeric/FACES): 5 Generalized Pain Score (Numeric/FACES): 6 - Related Data Allergies Allergy/AdvReac Type Severity Reaction Status Date / Time cephalexin [From Keflex] Allergy Intermediate Rash Verified 03/11/20 09:51 Penicillins Allergy Intermediate Rash Verified 03/11/20 09:51 Home Meds: Home Meds Pyridostigmine [Mestinon] 60 mg PO 5XDAY 08/24/19 [History] predniSONE [Prednisone] 60 mg PO DAILY 08/24/19 [History] traMADol [Ultram] 50 mg PO Q6H 08/24/19 [History] Acetaminophen [Tylenol Extra Strength] 500 mg PO Q6H 03/10/20 [History] Albuterol/Ipratropium [DuoNeb 3.0-0.5 MG/3 ML] 3 ml INH BID 03/10/20 [History] Bacitracin [Bacitracin Oint] 1 applic TOP DAILY 03/10/20 [History] Bumetanide 2 mg PO BID 03/10/20 [History] Cyclobenzaprine [Flexeril] 10 mg PO BID 03/10/20 [History] Methyl Salicylate/Menthol [Icy Hot] 1 applic TOP TID PRN 08/22/20 [History] Ondansetron [Zofran ODT] 4 mg PO Q6H PRN 03/10/20 [History] Pantoprazole [ProTONIX] 40 mg PO DAILY 03/10/20 [History] Potassium Chloride 40 meq PO TID 03/10/20 [History] Rivaroxaban [Xarelto] 15 mg PO DAILY 03/10/20 [History] metOLazone [Metolazone] 2.5 mg PO Q48H 03/10/20 [History] Past Medical History Cardiovascular History: Reports: Blood Clots/VTE/DVT, Hypertension, RI Respiratory History: Reports: Sleep Apnea, SOB Other Respiratory History: pt. supposed to wear BiPAP at night, does not have a Bipap to use Other Genitourinary History: frequency, burning when urinated Musculoskeletal History: Reports: Arthritis Other Musculoskeletal History: L shoulder, dislocated 1.5 weeks ago Neurological History: Reports: Other (See Below) Other Neuro History: myesthenia gravis Endocrine/Metabolic History: Reports: Obesity/BMI 30+ Hematologic History: Reports: Anemia, Idiopathic Thrombocytopenia - Past Surgical History Musculoskeletal Surgical History: Reports: Other (See Below) Other Musculoskeletal Surgeries/Procedures:: ankle fusion (R) Social & Family History - Family History Respiratory: Reports: Asthma Endocrine/Metabolic: Reports: Diabetes, Type I Oncologic: Reports: Lung - Tobacco Use Smoking Status *Q: Current Every Day Smoker Years of Tobacco use: 40 Packs/Tins Daily: 0.2 - Caffeine Use Caffeine Use: Reports: None ED ROS GENERAL - Review of Systems Review Of Systems: See Below Constitutional: Reports: No Symptoms. Denies: Fever, Chills HEENT: Reports: No Symptoms Respiratory: Reports: No Symptoms. Denies: Shortness of Breath, Cough Cardiovascular: Reports: No Symptoms. Denies: Chest Pain, Lightheadedness Endocrine: Reports: No Symptoms GI/Abdominal: Reports: No Symptoms. Denies: Abdominal Pain, Diarrhea, Nausea, Vomiting : Reports: No Symptoms Musculoskeletal: Reports: No Symptoms Skin: Reports: Erythema (bilateral lower extremities), Lesions (bilateral lower extremities ) Neurological: Reports: No Symptoms Psychiatric: Reports: No Symptoms Hematologic/Lymphatic: Reports: No Symptoms Immunologic: Reports: No Symptoms ED EXAM, GENERAL - Physical Exam Exam: See Below Exam Limited By: No Limitations General Appearance: Alert, WD/WN, No Apparent Distress Respiratory/Chest: No Respiratory Distress, Lungs Clear, Normal Breath Sounds, No Accessory Muscle Use, Chest Non-Tender Cardiovascular: Normal Peripheral Pulses, Regular Rate, Rhythm, No Gallop, No JVD, No Murmur, No Rub, Other (3+ edema to bilateral lower extremites) Peripheral Pulses: 2+: Dorsalis Pedis (L), Dorsalis Pedis (R) GI/Abdominal: Normal Bowel Sounds, Soft, Non-Tender, No Organomegaly, No Distention, No Abnormal Bruit, No Mass Extremities: Other (redness, warmth, and firmness to medial, posterior, and lateral aspect of left lower thigh. Smaller area of redness and warmth to the right medial upper leg directly above the knee. 4 open areas with clear drainage to medial aspect of RLE near the ankle. No redness or warmth surrounding these lesions.) Neurological: Alert, Oriented, CN II-XII Intact, Normal Cognition, No Motor/Sensory Deficits Psychiatric: Normal Affect, Normal Mood Course - Vital Signs Last Recorded V/S: Last Vital Signs Temp 97.9 F 03/11/20 15:16 Pulse 102 H 03/11/20 15:16 Resp 20 03/11/20 15:16 BP 133/71 03/11/20 15:16 Pulse Ox 95 03/11/20 15:16 - Orders/Labs/Meds Orders: Medication Orders Acetaminophen (Tylenol) 650 mg PO Q4H PRN PRN Reason: Pain (Mild 1-3)/fever Last Admin: 03/11/20 00:29 Dose: 650 mg Documented by: Admin: 03/10/20 18:12 Dose: 650 mg Documented by: SERAFIN Albuterol/Ipratropium (Duoneb 3.0-0.5 Mg/3 Ml) 3 ml INH BID [facility] Last Admin: 03/11/20 10:12 Dose: Not Given Documented by: Admin: 03/10/20 20:09 Dose: Not Given Documented by: Admin: 03/10/20 17:07 Dose: Not Given Documented by: KAI Bacitracin (Bacitracin Oint) 0 gm TOP TID [facility] Last Admin: 03/11/20 16:27 Dose: 1 gm Documented by: ALISSA Bumetanide (Bumex) 2 mg PO BIDDIURETIC [facility] Last Admin: 03/11/20 14:00 Dose: 2 mg Documented by: Admin: 03/11/20 05:18 Dose: 2 mg Documented by: Admin: 03/10/20 16:59 Dose: 2 mg Documented by: SINTIA Cyclobenzaprine HCl (Flexeril) 10 mg PO BID [facility] Last Admin: 03/11/20 08:44 Dose: 10 mg Documented by: Admin: 03/10/20 20:13 Dose: 10 mg Documented by: NORMAN Dextrose/Water (Dextrose 50% In Water) 50 ml IVPUSH ASDIRECTED PRN PRN Reason: Hypoglycemia Diphenhydramine HCl (Benadryl) 50 mg IVPUSH Q4H PRN PRN Reason: Rash Hydromorphone HCl (Dilaudid) 0.5 mg IVPUSH Q2H PRN PRN Reason: Pain (severe 7-10) Last Admin: 03/11/20 10:01 Dose: 0.5 mg Documented by: ALISSA Vancomycin HCl 1.75 gm/ Sodium (Chloride) 500 mls @ 250 mls/hr IV Q12H [facility] Last Admin: 03/11/20 14:22 Dose: 250 mls/hr Documented by: Infusion: 03/11/20 02:26 Dose: 250 mls/hr Documented by: Admin: 03/11/20 00:26 Dose: 250 mls/hr Documented by: NORMAN Ceftriaxone Sodium 2 gm/ (Sodium Chloride) 100 mls @ 200 mls/hr IV Q24H [facility] Last Admin: 03/10/20 21:26 Dose: 200 mls/hr Documented by: NORMAN Insulin Glargine (Lantus) 15 unit SUBCUT DAILY [facility] Last Admin: 03/11/20 08:45 Dose: 15 units Documented by: ALISSA Insulin Human Lispro (Humalog) 0 unit SUBCUT QIDACANDBED [facility]; Protocol Last Admin: 03/11/20 16:24 Dose: 6 units Documented by: Admin: 03/11/20 12:41 Dose: 2 units Documented by: Admin: 03/11/20 06:50 Dose: 2 units Documented by: Admin: 03/10/20 21:16 Dose: 6 units Documented by: Admin: 03/10/20 17:37 Dose: 6 units Documented by: EDU Methyl Salicylate (Icy Hot Cream) 0 gm TOP TID PRN PRN Reason: Pain Ondansetron HCl (Zofran Odt) 4 mg PO Q6H PRN PRN Reason: Nausea Pantoprazole Sodium (Protonix) 40 mg PO ACBRK [facility] Last Admin: 03/11/20 05:18 Dose: 40 mg Documented by: NORMAN Potassium Chloride (Klor-Con M20) 40 meq PO TID [facility] Last Admin: 03/11/20 16:20 Dose: 40 meq Documented by: Admin: 03/11/20 08:44 Dose: 40 meq Documented by: Admin: 03/10/20 20:13 Dose: 40 meq Documented by: NORMAN Prednisone (Prednisone) 60 mg PO DAILY [facility] Last Admin: 03/11/20 08:46 Dose: 60 mg Documented by: ALISSA Pyridostigmine [place] (Mestinon) 60 mg PO 5XDAY [facility] Last Admin: 03/11/20 19:39 Dose: 60 mg Documented by: Admin: 03/11/20 14:01 Dose: 60 mg Documented by: Admin: 03/11/20 09:51 Dose: 60 mg Documented by: Admin: 03/11/20 05:18 Dose: 60 mg Documented by: Admin: 03/10/20 21:16 Dose: 60 mg Documented by: Admin: 03/10/20 16:59 Dose: 60 mg Documented by: SINTIA Rivaroxaban (Xarelto) 15 mg PO DAILY [facility] Last Admin: 03/11/20 08:44 Dose: 15 mg Documented by: ALISSA Sodium Chloride (Saline Flush) 10 ml FLUSH ASDIRECTED PRN PRN Reason: Keep Vein Open Last Admin: 03/10/20 11:49 Dose: 10 ml Documented by: MEGHAN Tramadol HCl (Ultram) 50 mg PO Q6H PRN PRN Reason: Pain Last Admin: 03/11/20 10:00 Dose: 50 mg Documented by: Admin: 03/11/20 00:30 Dose: 50 mg Documented by: Admin: 03/10/20 18:11 Dose: 50 mg Documented by: SERAFIN Vancomycin HCl (Pharmacy To Dose - Vancomycin) 0 dose .XX ONETIME PRN PRN Reason: RX TO DOSE VANCOMYCIN Labs: Laboratory Tests 03/10/20 03/10/20 03/10/20 Range/Units 11:30 11:46 11:46 WBC 25.86 H (4.23-9.07) K/mm3 RBC 4.96 (4.63-6.08) M/mm3 Hgb 9.4 L (13.7-17.5) gm/dl Hct 35.5 L (40.1-51.0) % MCV 71.6 L D (79.0-92.2) fl MCH 19.0 L (25.7-32.2) pg MCHC 26.5 L (32.2-35.5) g/dl RDW Std Deviation 54.5 H (35.1-43.9) fL Plt Count 624 H D (163-337) K/mm3 MPV 9.4 (9.4-12.3) fl Neut % (Auto) 93.5 H (34.0-67.9) % Lymph % (Auto) 3.2 L (21.8-53.1) % Clarke % (Auto) 2.6 L (5.3-12.2) % Eos % (Auto) 0 L (0.8-7.0) Baso % (Auto) 0.2 (0.1-1.2) % Neut # (Auto) 24.18 H (1.78-5.38) K/mm3 Lymph # (Auto) 0.82 L (1.32-3.57) K/mm3 Clarke # (Auto) 0.68 (0.30-0.82) K/mm3 Eos # (Auto) 0.00 L (0.04-0.54) K/mm3 Baso # (Auto) 0.04 (0.01-0.08) K/mm3 Manual Slide Review Abnormal smear D-Dimer, Quantitative 0.40 (0.19-0.50) mg/L Sodium (136-145) mEq/L Potassium (3.5-5.1) mEq/L Chloride (98-107) mEq/L Carbon Dioxide (21-32) mEq/L Anion Gap (5-15) BUN (7-18) mg/dL Creatinine (0.7-1.3) mg/dL Est Cr Clr Drug Dosing mL/min Estimated GFR (MDRD) (>60) mL/min BUN/Creatinine Ratio (14-18) Glucose (74-106) mg/dL Lactic Acid (0.4-2.0) mmol/L Calcium (8.5-10.1) mg/dL Total Bilirubin (0.2-1.0) mg/dL AST (15-37) U/L ALT (16-63) U/L Alkaline Phosphatase (46-116) U/L C-Reactive Protein (<1.0) mg/dL NT-Pro-B Natriuret Pep (0-125) pg/mL Total Protein (6.4-8.2) g/dl Albumin (3.4-5.0) g/dl Globulin gm/dL Albumin/Globulin Ratio (1-2) Procalcitonin 1.20 H (<0.10) ng/mL 03/10/20 03/10/20 03/10/20 Range/Units 11:46 11:46 11:46 WBC (4.23-9.07) K/mm3 RBC (4.63-6.08) M/mm3 Hgb (13.7-17.5) gm/dl Hct (40.1-51.0) % MCV (79.0-92.2) fl MCH (25.7-32.2) pg MCHC (32.2-35.5) g/dl RDW Std Deviation (35.1-43.9) fL Plt Count (163-337) K/mm3 MPV (9.4-12.3) fl Neut % (Auto) (34.0-67.9) % Lymph % (Auto) (21.8-53.1) % Clarke % (Auto) (5.3-12.2) % Eos % (Auto) (0.8-7.0) Baso % (Auto) (0.1-1.2) % Neut # (Auto) (1.78-5.38) K/mm3 Lymph # (Auto) (1.32-3.57) K/mm3 Clarke # (Auto) (0.30-0.82) K/mm3 Eos # (Auto) (0.04-0.54) K/mm3 Baso # (Auto) (0.01-0.08) K/mm3 Manual Slide Review D-Dimer, Quantitative (0.19-0.50) mg/L Sodium 128 L D (136-145) mEq/L Potassium 3.0 L (3.5-5.1) mEq/L Chloride 85 L D (98-107) mEq/L Carbon Dioxide 40 H (21-32) mEq/L Anion Gap 6.0 (5-15) BUN 26 H (7-18) mg/dL Creatinine 1.7 H (0.7-1.3) mg/dL Est Cr Clr Drug Dosing 53.68 mL/min Estimated GFR (MDRD) 43 (>60) mL/min BUN/Creatinine Ratio 15.3 (14-18) Glucose 245 H (74-106) mg/dL Lactic Acid 3.5 H* (0.4-2.0) mmol/L Calcium 9.5 (8.5-10.1) mg/dL Total Bilirubin 0.9 (0.2-1.0) mg/dL AST 72 H (15-37) U/L ALT 229 H (16-63) U/L Alkaline Phosphatase 297 H (46-116) U/L C-Reactive Protein 26.1 H* (<1.0) mg/dL NT-Pro-B Natriuret Pep 143 H (0-125) pg/mL Total Protein 6.8 (6.4-8.2) g/dl Albumin 2.6 L (3.4-5.0) g/dl Globulin 4.2 gm/dL Albumin/Globulin Ratio 0.6 L (1-2) Procalcitonin (<0.10) ng/mL Meds: Medications Generic Name Dose Route Start Last Admin Trade Name Freq PRN Reason Stop Dose Admin Acetaminophen 650 mg 03/10/20 16:28 03/11/20 00:29 Tylenol PO 650 mg Q4H PRN Administration Pain (Mild 1-3)/fever Albuterol/Ipratropium 3 ml 03/10/20 16:15 03/11/20 10:12 Duoneb 3.0-0.5 Mg/3 Ml INH Not Given BID EDIE Bacitracin 0 gm 03/11/20 15:00 03/11/20 16:27 Bacitracin Oint TOP 1 gm TID EDIE Administration Bumetanide 2 mg 03/10/20 16:30 03/11/20 14:00 Bumex PO 2 mg BIDDIURETIC EDIE Administration Cyclobenzaprine HCl 10 mg 03/10/20 21:00 03/11/20 08:44 Flexeril PO 10 mg BID EDIE Administration Dextrose/Water 50 ml 03/10/20 14:09 Dextrose 50% In Water IVPUSH ASDIRECTED PRN Hypoglycemia Diphenhydramine HCl 50 mg 03/10/20 20:43 Benadryl IVPUSH Q4H PRN Rash Hydromorphone HCl 0.5 mg 03/11/20 09:55 03/11/20 10:01 Dilaudid IVPUSH 0.5 mg Q2H PRN Administration Pain (severe 7-10) Vancomycin HCl 1.75 gm/ Sodium 500 mls @ 250 mls/hr 03/11/20 01:00 03/11/20 14:22 Chloride IV 250 mls/hr Q12H EDIE Administration Ceftriaxone Sodium 2 gm/ 100 mls @ 200 mls/hr 03/10/20 21:00 03/10/20 21:26 Sodium Chloride IV 200 mls/hr Q24H EDIE Administration Insulin Glargine 15 unit 03/11/20 09:00 03/11/20 08:45 Lantus SUBCUT 15 units DAILY EDIE Administration Insulin Human Lispro 0 unit 03/10/20 17:00 03/11/20 16:24 Humalog SUBCUT 6 units QIDACANDBED EDIE Administration Protocol Methyl Salicylate 0 gm 03/10/20 16:03 Icy Hot Cream TOP TID PRN Pain Ondansetron HCl 4 mg 03/10/20 16:03 Zofran Odt PO Q6H PRN Nausea Pantoprazole Sodium 40 mg 03/11/20 06:00 03/11/20 05:18 Protonix PO 40 mg ACBRK EDIE Administration Potassium Chloride 40 meq 03/10/20 21:00 03/11/20 16:20 Klor-Con M20 PO 40 meq TID EDIE Administration Prednisone 60 mg 03/11/20 09:00 03/11/20 08:46 Prednisone PO 60 mg DAILY EDIE Administration Pyridostigmine [place] 60 mg 03/10/20 18:00 03/11/20 19:39 Mestinon PO 60 mg 5XDAY EDIE Administration Rivaroxaban 15 mg 03/11/20 09:00 03/11/20 08:44 Xarelto PO 15 mg DAILY EDIE Administration Sodium Chloride 10 ml 03/10/20 11:13 03/10/20 11:49 Saline Flush FLUSH 10 ml ASDIRECTED PRN Administration Keep Vein Open Tramadol HCl 50 mg 03/10/20 16:03 03/11/20 10:00 Ultram PO 50 mg Q6H PRN Administration Pain Vancomycin HCl 0 dose 03/10/20 12:25 Pharmacy To Dose - Vancomycin .XX ONETIME PRN RX TO DOSE VANCOMYCIN Discontinued Medications Generic Name Dose Route Start Last Admin Trade Name Freq PRN Reason Stop Dose Admin Hydromorphone HCl 0.5 mg 03/10/20 11:38 03/10/20 11:47 Dilaudid IVPUSH 03/10/20 11:39 0.5 mg ONETIME ONE Administration Hydromorphone HCl 0.5 mg 03/10/20 13:03 03/10/20 13:18 Dilaudid IVPUSH 03/10/20 13:04 0.5 mg ONETIME ONE Administration Sodium Chloride 1,000 mls @ 100 mls/hr 03/10/20 11:45 03/10/20 17:26 Normal Saline IV 50 mls/hr ASDIRECTED EDIE Infusion Vancomycin HCl 1.75 gm/ Sodium 500 mls @ 250 mls/hr 03/10/20 13:00 03/10/20 13:00 Chloride IV 03/10/20 14:59 250 mls/hr ONETIME ONE Administration Sodium Chloride 1,000 mls @ 50 mls/hr 03/10/20 17:00 Normal Saline IV ASDIRECTED EDIE Sodium Chloride 500 mls @ 500 mls/hr 03/10/20 20:44 03/10/20 21:14 Normal Saline IV 03/10/20 21:43 500 mls/hr ONETIME ONE Administration Sterile Water Confirm 03/11/20 00:08 03/11/20 00:27 Sterile Water For Injection Administered 03/11/20 00:09 Not Given Dose 20 mls @ as directed .ROUTE .STK-MED ONE Potassium Chloride 10 meq/ 100 mls @ 100 mls/hr 03/11/20 08:30 03/11/20 12:22 Premix IV 03/11/20 12:29 100 mls/hr Q1H EDIE Administration Ferric Sodium Gluconate 120 mls @ 60 mls/hr 03/11/20 09:15 Complex 250 mg/ Sodium IV 03/11/20 11:14 Chloride ONETIME ONE Ferric Sodium Gluconate 120 mls @ 60 mls/hr 03/11/20 15:00 03/11/20 16:20 Complex 250 mg/ Sodium IV 03/11/20 16:59 60 mls/hr Chloride ONETIME ONE Administration Potassium Chloride 40 meq 03/10/20 12:46 03/10/20 13:01 Klor-Con M20 PO 03/10/20 12:47 40 meq ONETIME ONE Administration Potassium Chloride 20 meq 03/10/20 21:00 Klor-Con M20 PO 03/10/20 21:01 ONETIME ONE - Re-Assessments/Exams Free Text/Narrative Re-Assessment/Exam: Patient is a 49-year-old male who presents to the emergency department with pain, redness, warmth, and firmness of the bilateral upper extremities. There was concern that he may have a DVT, however he is on Xarelto and on exam, assessment findings are more concerning for cellulitis. Patient did have Unna boot dressings to bilateral lower extremities. These were removed for assessment. Patient's vital signs are stable, however he is mildly tachycardic. He is complaining of pain to the area of redness and warmth, as well as back pain which is chronic for him. I ordered a CBC, CMP, CRP, d-dimer, lactic acid, blood cultures, urinalysis, chest x-ray. We will start normal saline at 75 mils per hour. Order Dilaudid 0.5 mg for pain. 03/10/20 12:30 Hematology was significant for WBC elevated at 25.86 with a left shift, hemoglobin low at 9.4, platelets high at 624, sodium low at 128, potassium low at 3.0, chloride 85, CO2 high at 40, BUN elevated 26, creatinine 1.7, glucose 245, lactic acid 3.5, AST 72, ALT 229, alk phos 297, CRP 26.1. Patient has not produced a urine sample thus far. I have ordered vancomycin to be dosed by pharmacy. We will increase his IV fluids to NS at 100 mils per hour. Patient remains hemodynamically stable, therefore we will forego an IV fluid bolus at this time to avoid fluid volume overload. Will call to speak with the hospitalist on-call regarding admission. 03/10/20 12:50 Called and spoke with the hospitalist, Dr. Pollock. He has accepted the patient for admission to the medical surgical floor. Departure - Departure Time of Disposition: 12:50 Disposition: Admitted As Inpatient 65 Condition: Good Clinical Impression: Elevated lactic acid level Cellulitis Qualifiers: Site of cellulitis: extremity Site of cellulitis of extremity: lower extremity Laterality: unspecified laterality Qualified Code(s): L03.119 - Cellulitis of unspecified part of limb Sepsis Event Note (ED) - Evaluation Sepsis Screening Result: No Definite Risk
[2020-03-10] MEDS ORDERED: HYDROmorphone 0.5 MG/0.5 ML Syringe IVPUSH ONE ×2 (11:38→13:03)
[2020-03-10] MEDS ORDERED: Sodium Chloride 0.9% 1,000 ML IV SCH ×2 (11:45→17:00)
[2020-03-10] MEDS ORDERED: Potassium Chloride 20 MEQ Tab.ER PO ONE ×2 (12:46→21:00)
[2020-03-10] MEDS ORDERED: Vancomycin 1.75 GM in Sodium Chloride 0.9% 500 ML IV ONE (13:00)
--- NOTE | 2020-03-10 13:20 | CR ---
Chest: Portable view of the chest was obtained. Comparison: Prior chest x-ray of 08/24/19 and 03/16/19. Heart size and mediastinum are normal. Minimal atelectasis within both lung bases. Lungs otherwise are clear. Bony structures are grossly intact. Impression: 1. Findings as noted above. 2. Nothing acute is suspected. Diagnostic code #2 This report was dictated in MDT
[2020-03-10] MEDS ORDERED: 50% Dextrose in Water 50 ML Syringe IVPUSH PRN (14:09)
[2020-03-10] MEDS ORDERED: Menthol/Methyl Salicylate 85 GM Tube TOP PRN (16:03)
[2020-03-10] MEDS ORDERED: Ondansetron 4 MG Tab.DIS PO PRN (16:03)
--- NOTE | 2020-03-10 16:36 | PCM.HP.2 ---
H&P History of Present Illness - General Date of Service: 03/10/20 Admit Problem/Dx: Admission Diagnosis/Problem Admission Diagnosis/Problem Cellulitis - History of Present Illness Initial Comments - Free Text/Narative: 49-year-old male resident of [facility] with history of myasthenia gravis on pyridostigmine and prednisone diagnosed April 2016 presents to the emergency department with complaints of "my legs do not work." Patient states the back of his legs are painful and he is unable to use them. When he presented to the emergency department he had Unna boot dressings to bilateral lower extremities. He denies any fever he does complain of some chills over the last 2 days. He has had increasing pain in his legs. When the Unna boots were removed he had erythema mostly in the posterior thighs. In August of this year he was admitted to the hospital with bilateral pulmonary emboli and DVTs. He is currently taking Xarelto 15 mg daily. Patient does state he has some areas on his legs that are weeping. He is on chronic O2 because of lung and heart disease. He is on bumetanide 2 mg twice daily for lower extremity edema. Echocardiogram done in August was poor secondary to body habitus, but it appeared he had normal left ventricular function and no significant valve abnormalities. In the emergency department he was found to have significant redness to the backs of his legs. He had a white count of 25.9 with 93.5% neutrophils. No bands or toxic granulation. Some of this may be secondary to steroid effect since he is on 60 mg of prednisone daily. Hemoglobin 9.4.D-dimer was 0.4, sodium 128, corrected sodium of 131, potassium 3.0, bicarb 40, BUN 26, creatinine 1.7, glucose 245. Patient does not have a history of diabetes. AST is 7.2, ALT 229, alkaline phosphatase 297, C-reactive protein 26.1, lactic acid initially 3.5 but dropped to 1.4 with fluids. Chest x-ray showed some atelectasis but no significant signs of acute process including infiltrate. Bilateral Leg Pain Score (Numeric/FACES): 5 Generalized Pain Score (Numeric/FACES): 6 - Related Data Allergies/Adverse Reactions: Allergies Allergy/AdvReac Type Severity Reaction Status Date / Time cephalexin [From Keflex] Allergy Severe Rash Verified 03/10/20 15:49 Penicillins Allergy Severe Rash Verified 03/10/20 15:49 Home Medications: Home Meds Pyridostigmine [Mestinon] 60 mg PO DAY 08/24/19 [History] predniSONE [Prednisone] 60 mg PO DAILY 08/24/19 [History] traMADol [Ultram] 50 mg PO Q6H 08/24/19 [History] Acetaminophen [Tylenol Extra Strength] 500 mg PO Q6H 03/10/20 [History] Albuterol/Ipratropium [DuoNeb 3.0-0.5 MG/3 ML] 3 ml INH BID 03/10/20 [History] Bacitracin [Bacitracin Oint] 1 applic TOP DAILY 03/10/20 [History] Bumetanide 2 mg PO BID 03/10/20 [History] Cyclobenzaprine [Flexeril] 10 mg PO BID 03/10/20 [History] Methyl Salicylate/Menthol [Icy Hot] 1 applic TOP TID PRN 03/10/20 [History] Ondansetron [Zofran ODT] 4 mg PO Q6H PRN 03/10/20 [History] Pantoprazole [ProTONIX] 40 mg PO DAILY 03/10/20 [History] Potassium Chloride 40 meq PO TID 03/10/20 [History] Rivaroxaban [Xarelto] 15 mg PO DAILY 03/10/20 [History] metOLazone [Metolazone] 2.5 mg PO Q48H 03/10/20 [History] Past Medical History Cardiovascular History: Reports: Blood Clots/VTE/DVT, Hypertension, MA Respiratory History: Reports: Sleep Apnea, SOB Other Respiratory History: pt. supposed to wear BiPAP at night, does not have a Bipap to use Other Genitourinary History: frequency, burning when urinated Musculoskeletal History: Reports: Arthritis Other Musculoskeletal History: L shoulder, dislocated 1.5 weeks ago Neurological History: Reports: Other (See Below) Other Neuro History: myesthenia gravis Endocrine/Metabolic History: Reports: Obesity/BMI 30+ Hematologic History: Reports: Anemia, Idiopathic Thrombocytopenia - Past Surgical History Musculoskeletal Surgical History: Reports: Other (See Below) Other Musculoskeletal Surgeries/Procedures:: ankle fusion (R) Social & Family History - Family History Respiratory: Reports: Asthma Endocrine/Metabolic: Reports: Diabetes, Type I Oncologic: Reports: Lung - Tobacco Use Smoking Status *Q: Current Every Day Smoker Years of Tobacco use: 40 Packs/Tins Daily: 0.2 - Caffeine Use Caffeine Use: Reports: None H&P Review of Systems - Review of Systems: Review Of Systems: Comprehensive ROS is negative, except as noted in HPI. Exam - Exam Exam: See Below - Vital Signs Vital Signs: Last Vital Signs Temp 98.4 F 03/10/20 14:33 Pulse 102 H 03/10/20 14:33 Resp 24 H 03/10/20 14:33 BP 134/97 H 03/10/20 14:33 Pulse Ox 100 03/10/20 14:33 Weight: 161.932 kg - Exam Quality Assessment: Supplemental Oxygen General: Alert, Oriented, 4 HEENT: Conjunctiva Clear, Hearing Intact, Mucosa Moist & [place] Neck: Supple, Trachea Midline, 2 Lungs: Normal Respiratory Effort, Crackles Cardiovascular: Regular Rate, Regular Rhythm GI/Abdominal Exam: Normal Bowel Sounds, Soft, Non-Tender, No Organomegaly, No Distention, No Abnormal Bruit Extremities: Normal Inspection, Normal Range of Motion, Non-Tender, Normal Capillary Refill, Pedal Edema (4+ pitting edema making it difficult to find pulses), Other (Erythema and tenderness along the posterior leg along area that is demarcated by a pen. It is warm to touch and tender.) Skin: Warm, Dry, Intact Skin Alteration Location (Drawings Not To Scale): 1 - Erythema 2 - Erythema Neuro Extensive - Mental Status: Alert, Oriented x3, Normal Mood/Affect, Normal Cognition Psychiatric: Alert, Normal Affect, Normal Mood - Patient Data Lab Results Last 24 hrs: Laboratory Results - last 24 hr 03/10/20 03/10/20 03/10/20 Range/Units 11:46 11:46 11:46 WBC 25.86 H (4.23-9.07) K/mm3 RBC 4.96 (4.63-6.08) M/mm3 Hgb 9.4 L (13.7-17.5) gm/dl Hct 35.5 L (40.1-51.0) % MCV 71.6 L D (79.0-92.2) fl MCH 19.0 L (25.7-32.2) pg MCHC 26.5 L (32.2-35.5) g/dl RDW Std Deviation 54.5 H (35.1-43.9) fL Plt Count 624 H D (163-337) K/mm3 MPV 9.4 (9.4-12.3) fl Neut % (Auto) 93.5 H (34.0-67.9) % Lymph % (Auto) 3.2 L (21.8-53.1) % [place] % (Auto) 2.6 L (5.3-12.2) % Eos % (Auto) 0 L (0.8-7.0) Baso % (Auto) 0.2 (0.1-1.2) % Neut # (Auto) 24.18 H (1.78-5.38) K/mm3 Lymph # (Auto) 0.82 L (1.32-3.57) K/mm3 [place] # (Auto) 0.68 (0.30-0.82) K/mm3 Eos # (Auto) 0.00 L (0.04-0.54) K/mm3 Baso # (Auto) 0.04 (0.01-0.08) K/mm3 Manual Slide Review Abnormal smear D-Dimer, Quantitative 0.40 (0.19-0.50) mg/L Sodium 128 L D (136-145) mEq/L Potassium 3.0 L (3.5-5.1) mEq/L Chloride 85 L D (98-107) mEq/L Carbon Dioxide 40 H (21-32) mEq/L Anion Gap 6.0 (5-15) BUN 26 H (7-18) mg/dL Creatinine 1.7 H (0.7-1.3) mg/dL Est Cr Clr Drug Dosing 53.68 mL/min Estimated GFR (MDRD) 43 (>60) mL/min BUN/Creatinine Ratio 15.3 (14-18) Glucose 245 H (74-106) mg/dL Lactic Acid (0.4-2.0) mmol/L Calcium 9.5 (8.5-10.1) mg/dL Total Bilirubin 0.9 (0.2-1.0) mg/dL AST 72 H (15-37) U/L ALT 229 H (16-63) U/L Alkaline Phosphatase 297 H (46-116) U/L C-Reactive Protein 26.1 H* (<1.0) mg/dL NT-Pro-B Natriuret Pep (0-125) pg/mL Total Protein 6.8 (6.4-8.2) g/dl Albumin 2.6 L (3.4-5.0) g/dl Globulin 4.2 gm/dL Albumin/Globulin Ratio 0.6 L (1-2) Urine Color (Yellow) Urine Appearance (Clear) Urine pH (5.0-8.0) Ur Specific [place] (1.005-1.030) Urine Protein (Negative) Urine Glucose (UA) (Negative) Urine Ketones (Negative) Urine Occult Blood (Negative) Urine Nitrite (Negative) Urine Bilirubin (Negative) Urine Urobilinogen (0.2-1.0) Ur Leukocyte Esterase (Negative) U Hyaline Cast (Auto) (0-5) /lpf Urine RBC (0-5) /hpf Urine WBC (0-5) /hpf Ur Squamous Epith Cells (0-5) /hpf Urine Bacteria (FEW) /hpf Urine Mucus (FEW) /hpf COVID-19 (THALIA) (NEGATIVE) 03/10/20 03/10/20 03/10/20 Range/Units 11:46 11:46 12:47 WBC (4.23-9.07) K/mm3 RBC (4.63-6.08) M/mm3 Hgb (13.7-17.5) gm/dl Hct (40.1-51.0) % MCV (79.0-92.2) fl MCH (25.7-32.2) pg MCHC (32.2-35.5) g/dl RDW Std Deviation (35.1-43.9) fL Plt Count (163-337) K/mm3 MPV (9.4-12.3) fl Neut % (Auto) (34.0-67.9) % Lymph % (Auto) (21.8-53.1) % [place] % (Auto) (5.3-12.2) % Eos % (Auto) (0.8-7.0) Baso % (Auto) (0.1-1.2) % Neut # (Auto) (1.78-5.38) K/mm3 Lymph # (Auto) (1.32-3.57) K/mm3 [place] # (Auto) (0.30-0.82) K/mm3 Eos # (Auto) (0.04-0.54) K/mm3 Baso # (Auto) (0.01-0.08) K/mm3 Manual Slide Review D-Dimer, Quantitative (0.19-0.50) mg/L Sodium (136-145) mEq/L Potassium (3.5-5.1) mEq/L Chloride (98-107) mEq/L Carbon Dioxide (21-32) mEq/L Anion Gap (5-15) BUN (7-18) mg/dL Creatinine (0.7-1.3) mg/dL Est Cr Clr Drug Dosing mL/min Estimated GFR (MDRD) (>60) mL/min BUN/Creatinine Ratio (14-18) Glucose (74-106) mg/dL Lactic Acid 3.5 H* (0.4-2.0) mmol/L Calcium (8.5-10.1) mg/dL Total Bilirubin (0.2-1.0) mg/dL AST (15-37) U/L ALT (16-63) U/L Alkaline Phosphatase (46-116) U/L C-Reactive Protein (<1.0) mg/dL NT-Pro-B Natriuret Pep 143 H (0-125) pg/mL Total Protein (6.4-8.2) g/dl Albumin (3.4-5.0) g/dl Globulin gm/dL Albumin/Globulin Ratio (1-2) Urine Color (Yellow) Urine Appearance (Clear) Urine pH (5.0-8.0) Ur Specific [place] (1.005-1.030) Urine Protein (Negative) Urine Glucose (UA) (Negative) Urine Ketones (Negative) Urine Occult Blood (Negative) Urine Nitrite (Negative) Urine Bilirubin (Negative) Urine Urobilinogen (0.2-1.0) Ur Leukocyte Esterase (Negative) U Hyaline Cast (Auto) (0-5) /lpf Urine RBC (0-5) /hpf Urine WBC (0-5) /hpf Ur Squamous Epith Cells (0-5) /hpf Urine Bacteria (FEW) /hpf Urine Mucus (FEW) /hpf COVID-19 (THALIA) Negative (NEGATIVE) 03/10/20 03/10/20 Range/Units 14:50 15:15 WBC (4.23-9.07) K/mm3 RBC (4.63-6.08) M/mm3 Hgb (13.7-17.5) gm/dl Hct (40.1-51.0) % MCV (79.0-92.2) fl MCH (25.7-32.2) pg MCHC (32.2-35.5) g/dl RDW Std Deviation (35.1-43.9) fL Plt Count (163-337) K/mm3 MPV (9.4-12.3) fl Neut % (Auto) (34.0-67.9) % Lymph % (Auto) (21.8-53.1) % [place] % (Auto) (5.3-12.2) % Eos % (Auto) (0.8-7.0) Baso % (Auto) (0.1-1.2) % Neut # (Auto) (1.78-5.38) K/mm3 Lymph # (Auto) (1.32-3.57) K/mm3 [place] # (Auto) (0.30-0.82) K/mm3 Eos # (Auto) (0.04-0.54) K/mm3 Baso # (Auto) (0.01-0.08) K/mm3 Manual Slide Review D-Dimer, Quantitative (0.19-0.50) mg/L Sodium (136-145) mEq/L Potassium (3.5-5.1) mEq/L Chloride (98-107) mEq/L Carbon Dioxide (21-32) mEq/L Anion Gap (5-15) BUN (7-18) mg/dL Creatinine (0.7-1.3) mg/dL Est Cr Clr Drug Dosing mL/min Estimated GFR (MDRD) (>60) mL/min BUN/Creatinine Ratio (14-18) Glucose (74-106) mg/dL Lactic Acid 1.4 (0.4-2.0) mmol/L Calcium (8.5-10.1) mg/dL Total Bilirubin (0.2-1.0) mg/dL AST (15-37) U/L ALT (16-63) U/L Alkaline Phosphatase (46-116) U/L C-Reactive Protein (<1.0) mg/dL NT-Pro-B Natriuret Pep (0-125) pg/mL Total Protein (6.4-8.2) g/dl Albumin (3.4-5.0) g/dl Globulin gm/dL Albumin/Globulin Ratio (1-2) Urine Color Yellow (Yellow) Urine Appearance Clear (Clear) Urine pH 7.0 (5.0-8.0) Ur Specific [place] 1.015 (1.005-1.030) Urine Protein Negative (Negative) Urine Glucose (UA) Negative (Negative) Urine Ketones Negative (Negative) Urine Occult Blood Negative (Negative) Urine Nitrite Negative (Negative) Urine Bilirubin Negative (Negative) Urine Urobilinogen 0.2 (0.2-1.0) Ur Leukocyte Esterase Negative (Negative) U Hyaline Cast (Auto) 0-5 (0-5) /lpf Urine RBC 0-5 (0-5) /hpf Urine WBC 0-5 (0-5) /hpf Ur Squamous Epith Cells 0-5 (0-5) /hpf Urine Bacteria Few (FEW) /hpf Urine Mucus Few (FEW) /hpf COVID-19 (THALIA) (NEGATIVE) Result Diagrams: 03/10/20 11:46 03/10/20 11:46 Sepsis Event Note - Evaluation Sepsis Screening Result: Severe Sepsis Risk - Focused Exam Vital Signs: Vital Signs Temp Temp Pulse Pulse Resp BP BP 03/10/20 14:33 98.4 F 102 H 24 H 134/97 H 03/10/20 11:01 98.3 F 114 H 27 H 119/95 H Pulse Ox 03/10/20 14:33 100 03/10/20 11:01 100 - Problem List (1) Sepsis due to cellulitis SNOMED Code(s): 12731794 ICD Code: L03.90 - CELLULITIS, UNSPECIFIED; A41.9 - SEPSIS, UNSPECIFIED ORGANISM Status: Acute Current Visit: Yes (2) Thrombocythemia SNOMED Code(s): 8193576 ICD Code: D47.3 - ESSENTIAL (HEMORRHAGIC) THROMBOCYTHEMIA Status: Acute Current Visit: Yes (3) Chronic kidney disease (CKD), stage III (moderate) SNOMED Code(s): 856209379 ICD Code: N18.3 - CHRONIC KIDNEY DISEASE, STAGE 3 (MODERATE) Status: Acute Current Visit: No (4) Myasthenia gravis SNOMED Code(s): 16005157 ICD Code: G70.00 - MYASTHENIA GRAVIS WITHOUT (ACUTE) EXACERBATION Status: Acute Current Visit: No Problem List Initiated/Reviewed/Updated: Yes Orders Last 24hrs: Active Orders 24 hr Category Date Time Status Patient Status [ADT] Routine ADT 03/10/20 12:45 Active Blood Glucose Check, Bedside [RC] QIDACANDBED Care 03/10/20 14:09 Active Oxygen Therapy [RC] PRN Care 03/10/20 16:28 Active RT Aerosol Therapy [RC] ASDIRECTED Care 03/10/20 16:05 Active Up With Assistance [RC] ASDIRECTED Care 03/10/20 16:28 Active VTE/DVT Education [RC] PER UNIT ROUTINE Care 03/10/20 16:28 Active Vital Signs [RC] Q4H Care 03/10/20 16:28 Active OT Evaluation and Treatment [CONS] Routine Cons 03/10/20 16:28 Active PT Evaluation and Treatment [CONS] Routine Cons 03/10/20 16:28 Active [employer] Diet [DIET] Diet 03/10/20 Dinner Active Consistent Carbohydrate Diet [DIET] Diet 03/10/20 Dinner Active CBC WITH AUTO DIFF [HEME] AM Lab 03/11/20 05:11 Ordered COMPREHENSIVE METABOLIC PN,CMP [CHEM] AM Lab 03/11/20 05:11 Ordered CULTURE BLOOD [BC] Stat Lab 03/10/20 12:20 Received CULTURE BLOOD [BC] Stat Lab 03/10/20 12:30 Received MAGNESIUM [CHEM] AM Lab 03/11/20 05:11 Ordered METH-RESIST S.AUR,MRSA BY PCR [MOLEC] Routine Lab 03/10/20 15:25 Received PHOSPHORUS [CHEM] AM Lab 03/11/20 05:11 Ordered PROCALCITONIN [REF] Routine Lab 03/10/20 16:32 Ordered VANCOMYCIN TROUGH [CHEM] Timed Lab 03/12/20 12:30 Ordered Acetaminophen [TylenoL] Med 03/10/20 16:28 Active 650 mg PO Q4H PRN Albuterol/Ipratropium [DuoNeb 3.0-0.5 MG/3 ML] Med 03/10/20 16:15 Active 3 ml INH BID Bumetanide [Bumex] Med 03/10/20 16:30 Active 2 mg PO BIDDIURETIC Cyclobenzaprine [Flexeril] Med 03/10/20 21:00 Active 10 mg PO BID Dextrose 50% in Water Med 03/10/20 14:09 Active 50 ml IVPUSH ASDIRECTED PRN Insulin Lispro [HumaLOG] Med 03/10/20 17:00 Active See Protocol SUBCUT QIDACANDBED Menthol/Methyl Salicylate [Icy Hot Cream] Med 03/10/20 16:03 Active 0 gm TOP TID PRN Ondansetron [Zofran ODT] Med 03/10/20 16:03 Active 4 mg PO Q6H PRN Pantoprazole [ProTONIX] Med 03/11/20 06:00 Active 40 mg PO ACBRK Pharmacy to Dose - Vancomycin Med 03/10/20 12:25 Pending 1 dose .XX ONETIME ONE Potassium Chloride [Klor-Con M20] Med 03/10/20 21:00 Once 20 meq PO ONETIME ONE Potassium Chloride [Klor-Con M20] Med 03/10/20 21:00 Active 40 meq PO TID Pyridostigmine [Mestinon] Med 03/10/20 18:00 Active 60 mg PO 5XDAY Rivaroxaban [Xarelto] Med 03/11/20 09:00 Active 15 mg PO DAILY Sodium Chloride 0.9% [Normal Saline] 1,000 ml Med 03/10/20 11:45 Active IV ASDIRECTED Sodium Chloride 0.9% [Saline Flush] Med 03/10/20 11:13 Active 10 ml FLUSH ASDIRECTED PRN Vancomycin 1.75 gm Med 03/11/20 01:00 Active Sodium Chloride 0.9% [Normal Saline] 500 ml IV Q12H predniSONE Med 03/11/20 09:00 Active 60 mg PO DAILY traMADol [Ultram] Med 03/10/20 16:03 Active 50 mg PO Q6H PRN Blood Culture x2 Reflex Set [OM.PC] Stat Oth 03/10/20 12:02 Ordered Peripheral IV Insertion Adult [OM.PC] Stat Oth 03/10/20 11:12 Ordered Resuscitation Status Routine Resus Stat 03/10/20 16:28 Ordered Medication Orders Acetaminophen (Tylenol) 650 mg PO Q4H PRN PRN Reason: Pain (Mild 1-3)/fever Albuterol/Ipratropium (Duoneb 3.0-0.5 Mg/3 Ml) 3 ml INH BID [facility] Bumetanide (Bumex) 2 mg PO BIDDIURETIC [facility] Cyclobenzaprine HCl (Flexeril) 10 mg PO BID [facility] Dextrose/Water (Dextrose 50% In Water) 50 ml IVPUSH ASDIRECTED PRN PRN Reason: Hypoglycemia Sodium Chloride (Normal Saline) 1,000 mls @ 100 mls/hr IV ASDIRECTED [facility] Last Admin: 03/10/20 12:35 Dose: 100 mls/hr Documented by: MEGHAN Vancomycin HCl 1.75 gm/ Sodium (Chloride) 500 mls @ 250 mls/hr IV Q12H [facility] Insulin Human Lispro (Humalog) 0 unit SUBCUT QIDACANDBED [facility]; Protocol Methyl Salicylate (Icy Hot Cream) 0 gm TOP TID PRN PRN Reason: Pain Ondansetron HCl (Zofran Odt) 4 mg PO Q6H PRN PRN Reason: Nausea Pantoprazole Sodium (Protonix) 40 mg PO ACBRK [facility] Potassium Chloride (Klor-Con M20) 20 meq PO ONETIME ONE Stop: 03/10/20 21:01 Potassium Chloride (Klor-Con M20) 40 meq PO TID [facility] Prednisone (Prednisone) 60 mg PO DAILY [facility] Pyridostigmine [place] (Mestinon) 60 mg PO 5XDAY [facility] Rivaroxaban (Xarelto) 15 mg PO DAILY [facility] Sodium Chloride (Saline Flush) 10 ml FLUSH ASDIRECTED PRN PRN Reason: Keep Vein Open Last Admin: 03/10/20 11:49 Dose: 10 ml Documented by: MEGHAN Tramadol HCl (Ultram) 50 mg PO Q6H PRN PRN Reason: Pain Vancomycin HCl (Pharmacy To Dose - Vancomycin) 1 dose .XX ONETIME ONE Stop: 03/10/20 12:26 Assessment/Plan Comment:: Assessment Sepsis secondary to lower extremity cellulitis * Large area of cellulitis on the posterior thighs and legs * SIRS criteria met: Elevated white count of 25.86 with left shift, tachycardia and tachypnea * 1 organ dysfunction: Lactate 3.5 * C-reactive protein 26.1 * Procalcitonin pending * Patient is allergic to cephalexin and penicillins * Started on vancomycin in the emergency department * Blood cultures in the emergency department Myasthenia gravis * Possible mild flare. * Patient denies diplopia but does have some blurred vision. * Weakness of his lower extremities could be secondary to his pain from a cellulitis. * Currently on prednisone 60 mg every morning and pyridostigmine 60 mg 5 times a day Microcytic anemia * Hemoglobin 9.4. * No signs of bleeding, but on Xarelto for PE and DVT Thrombocytosis * Platelets 624,000 * Likely reactive Hyponatremia and hypokalemia * Corrected sodium 131 * Potassium 3.0 Chronic renal insufficiency with possible acute injury * Creatinine 1.7 with estimated GFR of 43 * BUN 26 * BUN/creatinine ratio of 15.3 Hyperglycemia likely new onset diabetes * Initial glucose 245 * Patient states he has no history of diabetes Elevated liver enzymes * AST 72, ALT 229, alkaline phosphatase 297 * Likely multifactorial to include medications and fatty liver * No ultrasound or previous work-up available Chronic: Myasthenia gravis, essential thrombocythemia, anemia unspecified, elevated white blood cell count unspecified, nausea, chronic kidney disease stage III, atherosclerotic heart disease of [place] coronary artery, pulmonary embolism and thrombosis of popliteal vein bilaterally, acute respiratory failure with hypoxemia, chronic pain, psychoactive substance dependence, obstructive sleep apnea, hypoxemia, obesity, degenerative joint disease, acute myocardial infarction Plan * Admit to floor on telemetry * Vancomycin pharmacy to dose * Follow blood cultures * CBC, C-reactive protein in the morning * Stool for Hemoccult * Iron studies * Screen for hepatitis C and hepatitis B * Consider ultrasound on Thursday of the abdomen * Continue IV rehydration at 100 mL/h normal saline * Supplement potassium * Elevated white count and platelets appear to be chronic, but will continue to follow as inpatient * Follow renal and liver function * Hemoglobin A1c * Fingerstick blood sugar 4 times a day with sliding scale insulin moderate level * Diabetic education when available * Diabetic diet * Start long-acting insulin tomorrow based on blood sugars * Continue his current treatment for his myasthenia gravis. If it appears he is having an exacerbation/flare I will increase his steroids and pyridostigmine. * VTE prophylaxis with Xarelto * CODE STATUS: Full code * Disposition: Admit to floor on telemetry for IV antibiotics and the above work-up. Length of stay likely 3 to 4 days. - Mortality Measure Prognosis:: Good
[2020-03-10] MEDS: Bumetanide 1 MG Tab PO SCH (16:59)
[2020-03-10] MEDS: Albuterol/Ipratropium 3.0-0.5 MG/3 ML Neb Soln INH SCH ×2 (17:07→20:09)
[2020-03-10] MEDS: Insulin Lispro 100 Units/ML 3 ML Vial SUBCUT SCH ×2 (17:37→21:16)
[2020-03-10] MEDS: traMADol 50 MG Tab PO PRN (18:11)
[2020-03-10] MEDS: Acetaminophen 325 MG Tab PO PRN (18:12)
[2020-03-10] MEDS: Cyclobenzaprine 10 MG Tab PO SCH (20:13)
[2020-03-10] MEDS: Potassium Chloride 20 MEQ Tab.ER PO SCH (20:13)
[2020-03-10] MEDS ORDERED: diphenhydrAMINE 50 MG/ML SDV IVPUSH PRN (20:43)
[2020-03-10] MEDS ORDERED: Sodium Chloride 0.9% 500 ML IV ONE (20:44)
[2020-03-10] MEDS: cefTRIAXone 2 GM in Sodium Chloride 0.9% 100 ML IV SCH ×2 (21:16→21:26)
[2020-03-11] MEDS ORDERED: Water For Injection, Sterile 20 ML ONE (00:08)
[2020-03-11] MEDS: Vancomycin 1.75 GM in Sodium Chloride 0.9% 500 ML IV SCH ×2 (00:26→14:22)
[2020-03-11] MEDS: Acetaminophen 325 MG Tab PO PRN (00:29)
[2020-03-11] MEDS: traMADol 50 MG Tab PO PRN ×2 (00:30→10:00)
[2020-03-11] MEDS: Pantoprazole 40 MG Tab.CR PO SCH (05:18)
[2020-03-11] MEDS: Bumetanide 1 MG Tab PO SCH ×2 (05:18→14:00)
[2020-03-11] MEDS: Insulin Lispro 100 Units/ML 3 ML Vial SUBCUT SCH ×4 (06:50→21:53)
[2020-03-11] MEDS: Cyclobenzaprine 10 MG Tab PO SCH ×2 (08:44→21:52)
[2020-03-11] MEDS: Rivaroxaban 15 MG Tab PO SCH (08:44)
[2020-03-11] MEDS: Potassium Chloride 10 MEQ in Premix Bag 1 BAG IV SCH ×4 (08:44→12:22)
[2020-03-11] MEDS: Potassium Chloride 20 MEQ Tab.ER PO SCH ×3 (08:44→21:52)
[2020-03-11] MEDS: predniSONE 20 MG Tab PO SCH (08:46)
[2020-03-11] MEDS ORDERED: Insulin Glarg,Human.Rec.Analog 100 Unit/ML SUBCUT SCH (09:00)
[2020-03-11] MEDS: HYDROmorphone 0.5 MG/0.5 ML Syringe IVPUSH PRN (10:01)
[2020-03-11] MEDS: Albuterol/Ipratropium 3.0-0.5 MG/3 ML Neb Soln INH SCH ×2 (10:12→20:06)
--- NOTE | 2020-03-11 11:59 | PCM.PN ---
- General Info Date of Service: 03/11/20 Admission Dx/Problem (Free Text): Admission Diagnosis/Problem Admission Diagnosis/Problem Cellulitis Functional Status: Reports: Pain Controlled - Review of Systems General: Reports: No Symptoms. Denies: Fever HEENT: Reports: No Symptoms Pulmonary: Reports: Cough Cardiovascular: Reports: No Symptoms Gastrointestinal: Reports: No Symptoms Musculoskeletal: Reports: Leg Pain (and weakness) Skin: Reports: Other (Redness of the lower extermities are much improved.) Neurological: Reports: No Symptoms Psychiatric: Reports: No Symptoms - Patient Data Vitals - Most Recent: Last Vital Signs Temp 98.4 F 03/11/20 08:10 Pulse 106 H 03/11/20 08:36 Resp 20 03/11/20 08:10 BP 120/63 03/11/20 08:10 Pulse Ox 95 03/11/20 08:36 Weight - Most Recent: 163.066 kg I&O - Last 24 Hours: Intake & Output 03/10/20 03/11/20 03/11/20 22:59 06:59 14:59 Intake Total 180 3521 360 Output Total 1775 Balance 180 1746 360 Lab Results Last 24 Hours: Laboratory Results - last 24 hr 03/10/20 03/10/20 03/10/20 Range/Units 11:30 11:46 11:46 WBC 25.86 H (4.23-9.07) K/mm3 RBC 4.96 (4.63-6.08) M/mm3 Hgb 9.4 L (13.7-17.5) gm/dl Hct 35.5 L (40.1-51.0) % MCV 71.6 L D (79.0-92.2) fl MCH 19.0 L (25.7-32.2) pg MCHC 26.5 L (32.2-35.5) g/dl RDW Std Deviation 54.5 H (35.1-43.9) fL Plt Count 624 H D (163-337) K/mm3 MPV 9.4 (9.4-12.3) fl Neut % (Auto) 93.5 H (34.0-67.9) % Lymph % (Auto) 3.2 L (21.8-53.1) % Elliott % (Auto) 2.6 L (5.3-12.2) % Eos % (Auto) 0 L (0.8-7.0) Baso % (Auto) 0.2 (0.1-1.2) % Neut # (Auto) 24.18 H (1.78-5.38) K/mm3 Lymph # (Auto) 0.82 L (1.32-3.57) K/mm3 Elliott # (Auto) 0.68 (0.30-0.82) K/mm3 Eos # (Auto) 0.00 L (0.04-0.54) K/mm3 Baso # (Auto) 0.04 (0.01-0.08) K/mm3 Manual Slide Review Abnormal smear PT (9.7-12.0) SECONDS INR D-Dimer, Quantitative 0.40 (0.19-0.50) mg/L Sodium (136-145) mEq/L Potassium (3.5-5.1) mEq/L Chloride (98-107) mEq/L Carbon Dioxide (21-32) mEq/L Anion Gap (5-15) BUN (7-18) mg/dL Creatinine (0.7-1.3) mg/dL Est Cr Clr Drug Dosing mL/min Estimated GFR (MDRD) (>60) mL/min BUN/Creatinine Ratio (14-18) Glucose (74-106) mg/dL POC Glucose (70-105) mg/dL Hemoglobin A1c (4.50-6.20) % Lactic Acid (0.4-2.0) mmol/L Calcium (8.5-10.1) mg/dL Phosphorus (2.6-4.7) mg/dL Magnesium (1.8-2.4) mg/dl Iron (65-175) ug/dL TIBC (100-400) ug/dL % Saturation (20-55) % Transferrin (202-364) mg/dL Total Bilirubin (0.2-1.0) mg/dL AST (15-37) U/L ALT (16-63) U/L Alkaline Phosphatase (46-116) U/L C-Reactive Protein (<1.0) mg/dL NT-Pro-B Natriuret Pep (0-125) pg/mL Total Protein (6.4-8.2) g/dl Albumin (3.4-5.0) g/dl Globulin gm/dL Albumin/Globulin Ratio (1-2) Triglycerides (<150) mg/dL Cholesterol (<200) mg/dL LDL Cholesterol Direct (<100) mg/dL HDL Cholesterol (40-59) mg/dL Procalcitonin 1.20 H (<0.10) ng/mL Urine Color (Yellow) Urine Appearance (Clear) Urine pH (5.0-8.0) Ur Specific Aubrey (1.005-1.030) Urine Protein (Negative) Urine Glucose (UA) (Negative) Urine Ketones (Negative) Urine Occult Blood (Negative) Urine Nitrite (Negative) Urine Bilirubin (Negative) Urine Urobilinogen (0.2-1.0) Ur Leukocyte Esterase (Negative) U Hyaline Cast (Auto) (0-5) /lpf Urine RBC (0-5) /hpf Urine WBC (0-5) /hpf Ur Squamous Epith Cells (0-5) /hpf Urine Bacteria (FEW) /hpf Urine Mucus (FEW) /hpf COVID-19 (THALIA) (NEGATIVE) MRSA (PCR) 03/10/20 03/10/20 03/10/20 Range/Units 11:46 11:46 11:46 WBC (4.23-9.07) K/mm3 RBC (4.63-6.08) M/mm3 Hgb (13.7-17.5) gm/dl Hct (40.1-51.0) % MCV (79.0-92.2) fl MCH (25.7-32.2) pg MCHC (32.2-35.5) g/dl RDW Std Deviation (35.1-43.9) fL Plt Count (163-337) K/mm3 MPV (9.4-12.3) fl Neut % (Auto) (34.0-67.9) % Lymph % (Auto) (21.8-53.1) % Elliott % (Auto) (5.3-12.2) % Eos % (Auto) (0.8-7.0) Baso % (Auto) (0.1-1.2) % Neut # (Auto) (1.78-5.38) K/mm3 Lymph # (Auto) (1.32-3.57) K/mm3 Elliott # (Auto) (0.30-0.82) K/mm3 Eos # (Auto) (0.04-0.54) K/mm3 Baso # (Auto) (0.01-0.08) K/mm3 Manual Slide Review PT (9.7-12.0) SECONDS INR D-Dimer, Quantitative (0.19-0.50) mg/L Sodium 128 L D (136-145) mEq/L Potassium 3.0 L (3.5-5.1) mEq/L Chloride 85 L D (98-107) mEq/L Carbon Dioxide 40 H (21-32) mEq/L Anion Gap 6.0 (5-15) BUN 26 H (7-18) mg/dL Creatinine 1.7 H (0.7-1.3) mg/dL Est Cr Clr Drug Dosing 53.68 mL/min Estimated GFR (MDRD) 43 (>60) mL/min BUN/Creatinine Ratio 15.3 (14-18) Glucose 245 H (74-106) mg/dL POC Glucose (70-105) mg/dL Hemoglobin A1c (4.50-6.20) % Lactic Acid 3.5 H* (0.4-2.0) mmol/L Calcium 9.5 (8.5-10.1) mg/dL Phosphorus (2.6-4.7) mg/dL Magnesium (1.8-2.4) mg/dl Iron (65-175) ug/dL TIBC (100-400) ug/dL % Saturation (20-55) % Transferrin (202-364) mg/dL Total Bilirubin 0.9 (0.2-1.0) mg/dL AST 72 H (15-37) U/L ALT 229 H (16-63) U/L Alkaline Phosphatase 297 H (46-116) U/L C-Reactive Protein 26.1 H* (<1.0) mg/dL NT-Pro-B Natriuret Pep 143 H (0-125) pg/mL Total Protein 6.8 (6.4-8.2) g/dl Albumin 2.6 L (3.4-5.0) g/dl Globulin 4.2 gm/dL Albumin/Globulin Ratio 0.6 L (1-2) Triglycerides (<150) mg/dL Cholesterol (<200) mg/dL LDL Cholesterol Direct (<100) mg/dL HDL Cholesterol (40-59) mg/dL Procalcitonin (<0.10) ng/mL Urine Color (Yellow) Urine Appearance (Clear) Urine pH (5.0-8.0) Ur Specific Aubrey (1.005-1.030) Urine Protein (Negative) Urine Glucose (UA) (Negative) Urine Ketones (Negative) Urine Occult Blood (Negative) Urine Nitrite (Negative) Urine Bilirubin (Negative) Urine Urobilinogen (0.2-1.0) Ur Leukocyte Esterase (Negative) U Hyaline Cast (Auto) (0-5) /lpf Urine RBC (0-5) /hpf Urine WBC (0-5) /hpf Ur Squamous Epith Cells (0-5) /hpf Urine Bacteria (FEW) /hpf Urine Mucus (FEW) /hpf COVID-19 (THALIA) (NEGATIVE) MRSA (PCR) 03/10/20 03/10/20 03/10/20 Range/Units 12:47 14:50 15:15 WBC (4.23-9.07) K/mm3 RBC (4.63-6.08) M/mm3 Hgb (13.7-17.5) gm/dl Hct (40.1-51.0) % MCV (79.0-92.2) fl MCH (25.7-32.2) pg MCHC (32.2-35.5) g/dl RDW Std Deviation (35.1-43.9) fL Plt Count (163-337) K/mm3 MPV (9.4-12.3) fl Neut % (Auto) (34.0-67.9) % Lymph % (Auto) (21.8-53.1) % Elliott % (Auto) (5.3-12.2) % Eos % (Auto) (0.8-7.0) Baso % (Auto) (0.1-1.2) % Neut # (Auto) (1.78-5.38) K/mm3 Lymph # (Auto) (1.32-3.57) K/mm3 Elliott # (Auto) (0.30-0.82) K/mm3 Eos # (Auto) (0.04-0.54) K/mm3 Baso # (Auto) (0.01-0.08) K/mm3 Manual Slide Review PT (9.7-12.0) SECONDS INR D-Dimer, Quantitative (0.19-0.50) mg/L Sodium (136-145) mEq/L Potassium (3.5-5.1) mEq/L Chloride (98-107) mEq/L Carbon Dioxide (21-32) mEq/L Anion Gap (5-15) BUN (7-18) mg/dL Creatinine (0.7-1.3) mg/dL Est Cr Clr Drug Dosing mL/min Estimated GFR (MDRD) (>60) mL/min BUN/Creatinine Ratio (14-18) Glucose (74-106) mg/dL POC Glucose (70-105) mg/dL Hemoglobin A1c (4.50-6.20) % Lactic Acid 1.4 (0.4-2.0) mmol/L Calcium (8.5-10.1) mg/dL Phosphorus (2.6-4.7) mg/dL Magnesium (1.8-2.4) mg/dl Iron (65-175) ug/dL TIBC (100-400) ug/dL % Saturation (20-55) % Transferrin (202-364) mg/dL Total Bilirubin (0.2-1.0) mg/dL AST (15-37) U/L ALT (16-63) U/L Alkaline Phosphatase (46-116) U/L C-Reactive Protein (<1.0) mg/dL NT-Pro-B Natriuret Pep (0-125) pg/mL Total Protein (6.4-8.2) g/dl Albumin (3.4-5.0) g/dl Globulin gm/dL Albumin/Globulin Ratio (1-2) Triglycerides (<150) mg/dL Cholesterol (<200) mg/dL LDL Cholesterol Direct (<100) mg/dL HDL Cholesterol (40-59) mg/dL Procalcitonin (<0.10) ng/mL Urine Color Yellow (Yellow) Urine Appearance Clear (Clear) Urine pH 7.0 (5.0-8.0) Ur Specific Aubrey 1.015 (1.005-1.030) Urine Protein Negative (Negative) Urine Glucose (UA) Negative (Negative) Urine Ketones Negative (Negative) Urine Occult Blood Negative (Negative) Urine Nitrite Negative (Negative) Urine Bilirubin Negative (Negative) Urine Urobilinogen 0.2 (0.2-1.0) Ur Leukocyte Esterase Negative (Negative) U Hyaline Cast (Auto) 0-5 (0-5) /lpf Urine RBC 0-5 (0-5) /hpf Urine WBC 0-5 (0-5) /hpf Ur Squamous Epith Cells 0-5 (0-5) /hpf Urine Bacteria Few (FEW) /hpf Urine Mucus Few (FEW) /hpf COVID-19 (THALIA) Negative (NEGATIVE) MRSA (PCR) 03/10/20 03/10/20 03/10/20 Range/Units 15:25 16:55 20:11 WBC (4.23-9.07) K/mm3 RBC (4.63-6.08) M/mm3 Hgb (13.7-17.5) gm/dl Hct (40.1-51.0) % MCV (79.0-92.2) fl MCH (25.7-32.2) pg MCHC (32.2-35.5) g/dl RDW Std Deviation (35.1-43.9) fL Plt Count (163-337) K/mm3 MPV (9.4-12.3) fl Neut % (Auto) (34.0-67.9) % Lymph % (Auto) (21.8-53.1) % Elliott % (Auto) (5.3-12.2) % Eos % (Auto) (0.8-7.0) Baso % (Auto) (0.1-1.2) % Neut # (Auto) (1.78-5.38) K/mm3 Lymph # (Auto) (1.32-3.57) K/mm3 Elliott # (Auto) (0.30-0.82) K/mm3 Eos # (Auto) (0.04-0.54) K/mm3 Baso # (Auto) (0.01-0.08) K/mm3 Manual Slide Review PT 11.3 (9.7-12.0) SECONDS INR 1.06 D-Dimer, Quantitative (0.19-0.50) mg/L Sodium (136-145) mEq/L Potassium (3.5-5.1) mEq/L Chloride (98-107) mEq/L Carbon Dioxide (21-32) mEq/L Anion Gap (5-15) BUN (7-18) mg/dL Creatinine (0.7-1.3) mg/dL Est Cr Clr Drug Dosing mL/min Estimated GFR (MDRD) (>60) mL/min BUN/Creatinine Ratio (14-18) Glucose (74-106) mg/dL POC Glucose 297 H (70-105) mg/dL Hemoglobin A1c (4.50-6.20) % Lactic Acid (0.4-2.0) mmol/L Calcium (8.5-10.1) mg/dL Phosphorus (2.6-4.7) mg/dL Magnesium (1.8-2.4) mg/dl Iron (65-175) ug/dL TIBC (100-400) ug/dL % Saturation (20-55) % Transferrin (202-364) mg/dL Total Bilirubin (0.2-1.0) mg/dL AST (15-37) U/L ALT (16-63) U/L Alkaline Phosphatase (46-116) U/L C-Reactive Protein (<1.0) mg/dL NT-Pro-B Natriuret Pep (0-125) pg/mL Total Protein (6.4-8.2) g/dl Albumin (3.4-5.0) g/dl Globulin gm/dL Albumin/Globulin Ratio (1-2) Triglycerides (<150) mg/dL Cholesterol (<200) mg/dL LDL Cholesterol Direct (<100) mg/dL HDL Cholesterol (40-59) mg/dL Procalcitonin (<0.10) ng/mL Urine Color (Yellow) Urine Appearance (Clear) Urine pH (5.0-8.0) Ur Specific Aubrey (1.005-1.030) Urine Protein (Negative) Urine Glucose (UA) (Negative) Urine Ketones (Negative) Urine Occult Blood (Negative) Urine Nitrite (Negative) Urine Bilirubin (Negative) Urine Urobilinogen (0.2-1.0) Ur Leukocyte Esterase (Negative) U Hyaline Cast (Auto) (0-5) /lpf Urine RBC (0-5) /hpf Urine WBC (0-5) /hpf Ur Squamous Epith Cells (0-5) /hpf Urine Bacteria (FEW) /hpf Urine Mucus (FEW) /hpf COVID-19 (THALIA) (NEGATIVE) MRSA (PCR) Negative 08/22/20 08/23/20 08/23/20 Range/Units 20:29 05:45 05:45 WBC 20.45 H (4.23-9.07) K/mm3 RBC 4.40 L (4.63-6.08) M/mm3 Hgb 8.4 L (13.7-17.5) gm/dl Hct 31.7 L (40.1-51.0) % MCV 72.0 L (79.0-92.2) fl MCH 19.1 L (25.7-32.2) pg MCHC 26.5 L (32.2-35.5) g/dl RDW Std Deviation 53.5 H (35.1-43.9) fL Plt Count 568 H (163-337) K/mm3 MPV 9.4 (9.4-12.3) fl Neut % (Auto) 85.8 H (34.0-67.9) % Lymph % (Auto) 8.5 L (21.8-53.1) % Elliott % (Auto) 4.4 L (5.3-12.2) % Eos % (Auto) 0.2 L (0.8-7.0) Baso % (Auto) 0.3 (0.1-1.2) % Neut # (Auto) 17.55 H (1.78-5.38) K/mm3 Lymph # (Auto) 1.73 (1.32-3.57) K/mm3 Elliott # (Auto) 0.91 H (0.30-0.82) K/mm3 Eos # (Auto) 0.04 (0.04-0.54) K/mm3 Baso # (Auto) 0.06 (0.01-0.08) K/mm3 Manual Slide Review Abnormal smear PT (9.7-12.0) SECONDS INR D-Dimer, Quantitative (0.19-0.50) mg/L Sodium 132 L (136-145) mEq/L Potassium 2.6 L (3.5-5.1) mEq/L Chloride 90 L (98-107) mEq/L Carbon Dioxide 39 H (21-32) mEq/L Anion Gap 5.6 (5-15) BUN 26 H (7-18) mg/dL Creatinine 1.3 (0.7-1.3) mg/dL Est Cr Clr Drug Dosing 70.19 mL/min Estimated GFR (MDRD) 58 (>60) mL/min BUN/Creatinine Ratio 20.0 H (14-18) Glucose 158 H (74-106) mg/dL POC Glucose 297 H (70-105) mg/dL Hemoglobin A1c (4.50-6.20) % Lactic Acid (0.4-2.0) mmol/L Calcium 9.1 (8.5-10.1) mg/dL Phosphorus 3.5 (2.6-4.7) mg/dL Magnesium 1.9 (1.8-2.4) mg/dl Iron (65-175) ug/dL TIBC (100-400) ug/dL % Saturation (20-55) % Transferrin (202-364) mg/dL Total Bilirubin 0.6 (0.2-1.0) mg/dL AST 51 H (15-37) U/L ALT 177 H (16-63) U/L Alkaline Phosphatase 239 H (46-116) U/L C-Reactive Protein (<1.0) mg/dL NT-Pro-B Natriuret Pep (0-125) pg/mL Total Protein 6.3 L (6.4-8.2) g/dl Albumin 2.3 L (3.4-5.0) g/dl Globulin 4.0 gm/dL Albumin/Globulin Ratio 0.6 L (1-2) Triglycerides 113 (<150) mg/dL Cholesterol 135 (<200) mg/dL LDL Cholesterol Direct 37 (<100) mg/dL HDL Cholesterol 74.0 H (40-59) mg/dL Procalcitonin (<0.10) ng/mL Urine Color (Yellow) Urine Appearance (Clear) Urine pH (5.0-8.0) Ur Specific Aubrey (1.005-1.030) Urine Protein (Negative) Urine Glucose (UA) (Negative) Urine Ketones (Negative) Urine Occult Blood (Negative) Urine Nitrite (Negative) Urine Bilirubin (Negative) Urine Urobilinogen (0.2-1.0) Ur Leukocyte Esterase (Negative) U Hyaline Cast (Auto) (0-5) /lpf Urine RBC (0-5) /hpf Urine WBC (0-5) /hpf Ur Squamous Epith Cells (0-5) /hpf Urine Bacteria (FEW) /hpf Urine Mucus (FEW) /hpf COVID-19 (THALIA) (NEGATIVE) MRSA (PCR) 03/11/20 03/11/20 03/11/20 Range/Units 05:45 05:45 06:31 WBC (4.23-9.07) K/mm3 RBC (4.63-6.08) M/mm3 Hgb (13.7-17.5) gm/dl Hct (40.1-51.0) % MCV (79.0-92.2) fl MCH (25.7-32.2) pg MCHC (32.2-35.5) g/dl RDW Std Deviation (35.1-43.9) fL Plt Count (163-337) K/mm3 MPV (9.4-12.3) fl Neut % (Auto) (34.0-67.9) % Lymph % (Auto) (21.8-53.1) % Elliott % (Auto) (5.3-12.2) % Eos % (Auto) (0.8-7.0) Baso % (Auto) (0.1-1.2) % Neut # (Auto) (1.78-5.38) K/mm3 Lymph # (Auto) (1.32-3.57) K/mm3 Elliott # (Auto) (0.30-0.82) K/mm3 Eos # (Auto) (0.04-0.54) K/mm3 Baso # (Auto) (0.01-0.08) K/mm3 Manual Slide Review PT (9.7-12.0) SECONDS INR D-Dimer, Quantitative (0.19-0.50) mg/L Sodium (136-145) mEq/L Potassium (3.5-5.1) mEq/L Chloride (98-107) mEq/L Carbon Dioxide (21-32) mEq/L Anion Gap (5-15) BUN (7-18) mg/dL Creatinine (0.7-1.3) mg/dL Est Cr Clr Drug Dosing mL/min Estimated GFR (MDRD) (>60) mL/min BUN/Creatinine Ratio (14-18) Glucose (74-106) mg/dL POC Glucose 166 H (70-105) mg/dL Hemoglobin A1c 9.00 H (4.50-6.20) % Lactic Acid (0.4-2.0) mmol/L Calcium (8.5-10.1) mg/dL Phosphorus (2.6-4.7) mg/dL Magnesium (1.8-2.4) mg/dl Iron 26 L (65-175) ug/dL TIBC 259 (100-400) ug/dL % Saturation 10 L (20-55) % Transferrin 207 (202-364) mg/dL Total Bilirubin (0.2-1.0) mg/dL AST (15-37) U/L ALT (16-63) U/L Alkaline Phosphatase (46-116) U/L C-Reactive Protein (<1.0) mg/dL NT-Pro-B Natriuret Pep (0-125) pg/mL Total Protein (6.4-8.2) g/dl Albumin (3.4-5.0) g/dl Globulin gm/dL Albumin/Globulin Ratio (1-2) Triglycerides (<150) mg/dL Cholesterol (<200) mg/dL LDL Cholesterol Direct (<100) mg/dL HDL Cholesterol (40-59) mg/dL Procalcitonin (<0.10) ng/mL Urine Color (Yellow) Urine Appearance (Clear) Urine pH (5.0-8.0) Ur Specific Aubrey (1.005-1.030) Urine Protein (Negative) Urine Glucose (UA) (Negative) Urine Ketones (Negative) Urine Occult Blood (Negative) Urine Nitrite (Negative) Urine Bilirubin (Negative) Urine Urobilinogen (0.2-1.0) Ur Leukocyte Esterase (Negative) U Hyaline Cast (Auto) (0-5) /lpf Urine RBC (0-5) /hpf Urine WBC (0-5) /hpf Ur Squamous Epith Cells (0-5) /hpf Urine Bacteria (FEW) /hpf Urine Mucus (FEW) /hpf COVID-19 (THALIA) (NEGATIVE) MRSA (PCR) 03/11/20 Range/Units 11:44 WBC (4.23-9.07) K/mm3 RBC (4.63-6.08) M/mm3 Hgb (13.7-17.5) gm/dl Hct (40.1-51.0) % MCV (79.0-92.2) fl MCH (25.7-32.2) pg MCHC (32.2-35.5) g/dl RDW Std Deviation (35.1-43.9) fL Plt Count (163-337) K/mm3 MPV (9.4-12.3) fl Neut % (Auto) (34.0-67.9) % Lymph % (Auto) (21.8-53.1) % Elliott % (Auto) (5.3-12.2) % Eos % (Auto) (0.8-7.0) Baso % (Auto) (0.1-1.2) % Neut # (Auto) (1.78-5.38) K/mm3 Lymph # (Auto) (1.32-3.57) K/mm3 Elliott # (Auto) (0.30-0.82) K/mm3 Eos # (Auto) (0.04-0.54) K/mm3 Baso # (Auto) (0.01-0.08) K/mm3 Manual Slide Review PT (9.7-12.0) SECONDS INR D-Dimer, Quantitative (0.19-0.50) mg/L Sodium (136-145) mEq/L Potassium (3.5-5.1) mEq/L Chloride (98-107) mEq/L Carbon Dioxide (21-32) mEq/L Anion Gap (5-15) BUN (7-18) mg/dL Creatinine (0.7-1.3) mg/dL Est Cr Clr Drug Dosing mL/min Estimated GFR (MDRD) (>60) mL/min BUN/Creatinine Ratio (14-18) Glucose (74-106) mg/dL POC Glucose 195 H (70-105) mg/dL Hemoglobin A1c (4.50-6.20) % Lactic Acid (0.4-2.0) mmol/L Calcium (8.5-10.1) mg/dL Phosphorus (2.6-4.7) mg/dL Magnesium (1.8-2.4) mg/dl Iron (65-175) ug/dL TIBC (100-400) ug/dL % Saturation (20-55) % Transferrin (202-364) mg/dL Total Bilirubin (0.2-1.0) mg/dL AST (15-37) U/L ALT (16-63) U/L Alkaline Phosphatase (46-116) U/L C-Reactive Protein (<1.0) mg/dL NT-Pro-B Natriuret Pep (0-125) pg/mL Total Protein (6.4-8.2) g/dl Albumin (3.4-5.0) g/dl Globulin gm/dL Albumin/Globulin Ratio (1-2) Triglycerides (<150) mg/dL Cholesterol (<200) mg/dL LDL Cholesterol Direct (<100) mg/dL HDL Cholesterol (40-59) mg/dL Procalcitonin (<0.10) ng/mL Urine Color (Yellow) Urine Appearance (Clear) Urine pH (5.0-8.0) Ur Specific Aubrey (1.005-1.030) Urine Protein (Negative) Urine Glucose (UA) (Negative) Urine Ketones (Negative) Urine Occult Blood (Negative) Urine Nitrite (Negative) Urine Bilirubin (Negative) Urine Urobilinogen (0.2-1.0) Ur Leukocyte Esterase (Negative) U Hyaline Cast (Auto) (0-5) /lpf Urine RBC (0-5) /hpf Urine WBC (0-5) /hpf Ur Squamous Epith Cells (0-5) /hpf Urine Bacteria (FEW) /hpf Urine Mucus (FEW) /hpf COVID-19 (THALIA) (NEGATIVE) MRSA (PCR) Med Orders - Current: Current Medications Acetaminophen (Tylenol) 650 mg PO Q4H PRN PRN Reason: Pain (Mild 1-3)/fever Last Admin: 03/11/20 00:29 Dose: 650 mg Documented by: Albuterol/Ipratropium (Duoneb 3.0-0.5 Mg/3 Ml) 3 ml INH BID [facility] Last Admin: 03/11/20 10:12 Dose: Not Given Documented by: Bumetanide (Bumex) 2 mg PO BIDDIURETIC [facility] Last Admin: 03/11/20 05:18 Dose: 2 mg Documented by: Cyclobenzaprine HCl (Flexeril) 10 mg PO BID [facility] Last Admin: 03/11/20 08:44 Dose: 10 mg Documented by: Dextrose/Water (Dextrose 50% In Water) 50 ml IVPUSH ASDIRECTED PRN PRN Reason: Hypoglycemia Diphenhydramine HCl (Benadryl) 50 mg IVPUSH Q4H PRN PRN Reason: Rash Hydromorphone HCl (Dilaudid) 0.5 mg IVPUSH Q2H PRN PRN Reason: Pain (severe 7-10) Last Admin: 03/11/20 10:01 Dose: 0.5 mg Documented by: Vancomycin HCl 1.75 gm/ Sodium (Chloride) 500 mls @ 250 mls/hr IV Q12H [facility] Last Admin: 03/11/20 00:26 Dose: 250 mls/hr Documented by: Sodium Chloride (Normal Saline) 1,000 mls @ 50 mls/hr IV ASDIRECTED [facility] Ceftriaxone Sodium 2 gm/ (Sodium Chloride) 100 mls @ 200 mls/hr IV Q24H [facility] Last Admin: 03/10/20 21:26 Dose: 200 mls/hr Documented by: Potassium Chloride 10 meq/ (Premix) 100 mls @ 100 mls/hr IV Q1H [facility] Stop: 03/11/20 12:29 Last Admin: 03/11/20 11:03 Dose: 100 mls/hr Documented by: Ferric Sodium Gluconate Complex 250 mg/ Sodium Chloride 120 mls @ 60 mls/hr IV ONETIME ONE Stop: 03/11/20 16:59 Insulin Glargine (Lantus) 15 unit SUBCUT DAILY [facility] Last Admin: 03/11/20 08:45 Dose: 15 units Documented by: Insulin Human Lispro (Humalog) 0 unit SUBCUT QIDACANDBED [facility]; Protocol Last Admin: 03/11/20 06:50 Dose: 2 units Documented by: Methyl Salicylate (Icy Hot Cream) 0 gm TOP TID PRN PRN Reason: Pain Ondansetron HCl (Zofran Odt) 4 mg PO Q6H PRN PRN Reason: Nausea Pantoprazole Sodium (Protonix) 40 mg PO ACBRK [facility] Last Admin: 03/11/20 05:18 Dose: 40 mg Documented by: Potassium Chloride (Klor-Con M20) 40 meq PO TID [facility] Last Admin: 03/11/20 08:44 Dose: 40 meq Documented by: Prednisone (Prednisone) 60 mg PO DAILY [facility] Last Admin: 03/11/20 08:46 Dose: 60 mg Documented by: Pyridostigmine Manquin (Mestinon) 60 mg PO 5XDAY [facility] Last Admin: 03/11/20 09:51 Dose: 60 mg Documented by: Rivaroxaban (Xarelto) 15 mg PO DAILY [facility] Last Admin: 03/11/20 08:44 Dose: 15 mg Documented by: Sodium Chloride (Saline Flush) 10 ml FLUSH ASDIRECTED PRN PRN Reason: Keep Vein Open Last Admin: 03/10/20 11:49 Dose: 10 ml Documented by: Tramadol HCl (Ultram) 50 mg PO Q6H PRN PRN Reason: Pain Last Admin: 03/11/20 10:00 Dose: 50 mg Documented by: Vancomycin HCl (Pharmacy To Dose - Vancomycin) 0 dose .XX ONETIME PRN PRN Reason: RX TO DOSE VANCOMYCIN Discontinued Medications Hydromorphone HCl (Dilaudid) 0.5 mg IVPUSH ONETIME ONE Stop: 03/10/20 11:39 Last Admin: 03/10/20 11:47 Dose: 0.5 mg Documented by: Hydromorphone HCl (Dilaudid) 0.5 mg IVPUSH ONETIME ONE Stop: 03/10/20 13:04 Last Admin: 03/10/20 13:18 Dose: 0.5 mg Documented by: Sodium Chloride (Normal Saline) 1,000 mls @ 100 mls/hr IV ASDIRECTED [facility] Last Infusion: 03/10/20 17:26 Dose: 50 mls/hr Documented by: Vancomycin HCl 1.75 gm/ Sodium (Chloride) 500 mls @ 250 mls/hr IV ONETIME ONE Stop: 03/10/20 14:59 Last Admin: 03/10/20 13:00 Dose: 250 mls/hr Documented by: Sodium Chloride (Normal Saline) 500 mls @ 500 mls/hr IV ONETIME ONE Stop: 03/10/20 21:43 Last Admin: 03/10/20 21:14 Dose: 500 mls/hr Documented by: Sterile Water (Sterile Water For Injection) Confirm Administered Dose 20 mls @ as directed .ROUTE .STK-MED ONE Stop: 03/11/20 00:09 Last Admin: 03/11/20 00:27 Dose: Not Given Documented by: Ferric Sodium Gluconate Complex 250 mg/ Sodium Chloride 120 mls @ 60 mls/hr IV ONETIME ONE Stop: 03/11/20 11:14 Potassium Chloride (Klor-Con M20) 40 meq PO ONETIME ONE Stop: 03/10/20 12:47 Last Admin: 03/10/20 13:01 Dose: 40 meq Documented by: Potassium Chloride (Klor-Con M20) 20 meq PO ONETIME ONE Stop: 03/10/20 21:01 - Exam Quality Assessment: Supplemental Oxygen General: Alert, Oriented HEENT: Pupils Equal, Mucous Membr. Moist/[place] Neck: Supple Lungs: Normal Respiratory Effort, Decreased Breath Sounds, Wheezing Cardiovascular: Regular Rate, Regular Rhythm GI/Abdominal Exam: Normal Bowel Sounds, Soft, Non-Tender, No Distention, No Abnormal Bruit, Other (Erythematous area under the right pannus that is weeping with a ulcerative base.) Back Exam: Normal Inspection, Full Range of Motion Extremities: Normal Inspection, Normal Range of Motion, Non-Tender, No Pedal Edema Skin: Other (Bilateral erythema of the posterior legs show some improvement, especially on the right side. There is still tenderness and warmth, but less redness and reduction in the size. Of note there are several lesions in the lower right leg that are weeping.) Neurological: No New Focal Deficit Psy/Mental Status: Alert, Normal Affect, Normal Mood Sepsis Event Note - Evaluation Sepsis Screening Result: Sepsis Risk - Focused Exam Vital Signs: Vital Signs Temp Pulse Resp BP Pulse Ox 03/11/20 08:36 106 H 95 03/11/20 08:12 112 H 92 L 03/11/20 08:10 98.4 F 113 H 20 120/63 88 L 03/11/20 05:18 97.0 F 97 22 H 143/93 H 100 03/11/20 00:31 96.6 F L 85 20 113/85 99 - Problem List & Annotations (1) Sepsis due to cellulitis SNOMED Code(s): 61232466 Code(s): L03.90 - CELLULITIS, UNSPECIFIED; A41.9 - SEPSIS, UNSPECIFIED [facility] Status: Acute Priority: High Current Visit: Yes (2) Thrombocythemia SNOMED Code(s): 9159724 Code(s): D47.3 - ESSENTIAL (HEMORRHAGIC) THROMBOCYTHEMIA Status: Acute Current Visit: Yes (3) Chronic kidney disease (CKD), stage III (moderate) SNOMED Code(s): 386963865 Code(s): N18.3 - CHRONIC KIDNEY DISEASE, STAGE 3 (MODERATE) Status: Acute Current Visit: No (4) Myasthenia gravis SNOMED Code(s): 16720553 Code(s): G70.00 - MYASTHENIA GRAVIS WITHOUT (ACUTE) EXACERBATION Status: Acute Current Visit: No - Problem List Review Problem List Initiated/Reviewed/Updated: Yes - My Orders Last 24 Hours: My Active Orders 03/10/20 14:09 Blood Glucose Check, Bedside [RC] QIDACANDBED Dextrose 50% in Water 50 ml IVPUSH ASDIRECTED PRN 03/10/20 16:03 Menthol/Methyl Salicylate [Icy Hot Cream] 0 gm TOP TID PRN Ondansetron [Zofran ODT] 4 mg PO Q6H PRN traMADol [Ultram] 50 mg PO Q6H PRN 03/10/20 16:05 RT Aerosol Therapy [RC] ASDIRECTED 03/10/20 16:15 Albuterol/Ipratropium [DuoNeb 3.0-0.5 MG/3 ML] 3 ml INH BID 03/10/20 16:28 Oxygen Therapy [RC] PRN Up With Assistance [RC] ASDIRECTED VTE/DVT Education [RC] DAILY Vital Signs [RC] Q4HR OT Evaluation and Treatment [CONS] Routine PT Evaluation and Treatment [CONS] Routine Acetaminophen [TylenoL] 650 mg PO Q4H PRN Resuscitation Status Routine 03/10/20 16:30 Bumetanide [Bumex] 2 mg PO BIDDIURETIC 03/10/20 [employer] Diet [DIET] Consistent Carbohydrate Diet [DIET] Insulin Lispro [HumaLOG] See Protocol SUBCUT QIDACANDBED Sodium Chloride 0.9% [Normal Saline] 1,000 ml IV ASDIRECTED 03/10/20 18:00 Pyridostigmine [Mestinon] 60 mg PO DAY 03/10/20 20:24 OCCULT BLOOD SCREEN [OP] Routine 03/10/20 20:43 diphenhydrAMINE [Benadryl] 50 mg IVPUSH Q4H PRN 03/10/20 21:00 Cyclobenzaprine [Flexeril] 10 mg PO BID Potassium Chloride [Klor-Con M20] 40 meq PO TID cefTRIAXone [Rocephin] 2 gm Sodium Chloride 0.9% [Normal Saline] 100 ml IV Q24H 03/11/20 06:00 Pantoprazole [ProTONIX] 40 mg PO ACBRK 03/11/20 08:22 Consult to Diabetic Nurse Specialist [CONS] Routine 03/11/20 08:30 Potassium Chloride [KCl 10 MEQ in Water 100 ML] 10 meq Premix Bag 1 bag IV Q1H 03/11/20 09:00 Insulin Glarg,Human.Rec.Analog [LantUS] 15 unit SUBCUT DAILY Rivaroxaban [Xarelto] 15 mg PO DAILY predniSONE 60 mg PO DAILY 03/11/20 09:55 HYDROmorphone [Dilaudid] 0.5 mg IVPUSH Q2H PRN 03/11/20 15:00 Sodium Ferric Gluconat/Sucrose [Sodium Ferric Gluc Cplx 62.5 MG/5 ML] 250 mg Sodium Chloride 0.9% [Normal Saline] 100 ml IV ONETIME 03/12/20 05:11 C-REACTIVE PROTEIN [CHEM] AM CBC WITH AUTO DIFF [HEME] AM CMP [COMPREHENSIVE METABOLIC PN,CMP] [CHEM] AM MAGNESIUM [CHEM] AM PHOSPHORUS [CHEM] AM 03/13/20 05:11 C-REACTIVE PROTEIN [CHEM] AM CBC WITH AUTO DIFF [HEME] AM MAGNESIUM [CHEM] AM PHOSPHORUS [CHEM] AM 03/14/20 05:11 C-REACTIVE PROTEIN [CHEM] AM CBC WITH AUTO DIFF [HEME] AM MAGNESIUM [CHEM] AM PHOSPHORUS [CHEM] AM 03/15/20 05:11 C-REACTIVE PROTEIN [CHEM] AM CBC WITH AUTO DIFF [HEME] AM MAGNESIUM [CHEM] AM PHOSPHORUS [CHEM] AM 03/16/20 05:11 C-REACTIVE PROTEIN [CHEM] AM CBC WITH AUTO DIFF [HEME] AM MAGNESIUM [CHEM] AM PHOSPHORUS [CHEM] AM - Assessment Assessment:: Assessment of admission Sepsis secondary to lower extremity cellulitis * Large area of cellulitis on the posterior thighs and legs * SIRS criteria met: Elevated white count of 25.86 with left shift, tachycardia and tachypnea * 1 organ dysfunction: Lactate 3.5 * C-reactive protein 26.1 * Procalcitonin pending * Patient is allergic to cephalexin and penicillins * Started on vancomycin in the emergency department * Blood cultures in the emergency department Myasthenia gravis * Possible mild flare. * Patient denies diplopia but does have some blurred vision. * Weakness of his lower extremities could be secondary to his pain from a cellulitis. * Currently on prednisone 60 mg every morning and pyridostigmine 60 mg 5 times a day Microcytic anemia * Hemoglobin 9.4. * No signs of bleeding, but on Xarelto for PE and DVT Thrombocytosis * Platelets 624,000 * Likely reactive Hyponatremia and hypokalemia * Corrected sodium 131 * Potassium 3.0 Chronic renal insufficiency with possible acute injury * Creatinine 1.7 with estimated GFR of 43 * BUN 26 * BUN/creatinine ratio of 15.3 Hyperglycemia likely new onset diabetes * Initial glucose 245 * Patient states he has no history of diabetes Elevated liver enzymes * AST 72, ALT 229, alkaline phosphatase 297 * Likely multifactorial to include medications and fatty liver * No ultrasound or previous work-up available 03/11/2020 Sepsis secondary to lower extremity cellulitis -improved * Patient has chronically elevated white blood cell count making that parameter less accurate. It also appears he has had a chronic sinus tachycardia since August making that parameter also less accurate for SIRS criteria. * WBC down to 20.57 * Heart rate in the upper 90s to low 100s * Cellulitis is improving. * Lactic acid repeat is normal * Started on vancomycin and Rocephin * Blood cultures pending * Procalcitonin pending Myasthenia gravis-stable * Restarted home meds * Continue lower extremity weakness but no diplopia or dysphasia. Mild blurring of vision. This also appears to be chronic. Microcytic anemia * Hemoglobin down to 8.4 likely secondary to hemodilution * Iron low at 26 with percent saturation low at 10% Thrombocythemia -chronic and improved * Platelets down to 568 Hyponatremia and hypokalemia * Sodium 132 * Potassium 2.6 * On potassium 40 mEq 3 times daily at home Acute on chronic renal insufficiency-improved * Creatinine down to 1.3, GFR 58 * BUN 26 * BUN to creatinine ratio 20 showing some prerenal injury Type 2 diabetes, new onset * Hemoglobin A1c is 9.0 * Likely worsened by both obesity and chronic steroids Elevated liver enzymesimproved * AST 51, ALT 177, alkaline phosphatase 239 Ulceration of the right abdominal pannus with infection Stasis ulceration of the right lower extremity with weeping discharge * Both of these appear to be chronic Chronic: Myasthenia gravis, essential thrombocythemia, anemia unspecified, elevated white blood cell count unspecified, nausea, chronic kidney disease stage III, atherosclerotic heart disease of [place] coronary artery, pulmonary embolism and thrombosis of popliteal vein bilaterally, acute respiratory failure with hypoxemia, chronic pain, psychoactive substance dependence, obstructive sleep apnea, hypoxemia, obesity, degenerative joint disease, acute myocardial infarction - Plan Plan:: Plan * Admit to floor on telemetry * Continue vancomycin pharmacy to dose * Rocephin 2 g daily * IV iron * Start Lantus 15 units daily * Follow blood cultures * CBC, C-reactive protein in the morning * Stool for Hemoccult * Screen for hepatitis C and hepatitis B * Consider ultrasound on Thursday of the abdomen * Continue IV rehydration at 100 mL/h normal saline until this evening then DC IV fluids * Supplement potassium with 40 mEq IV potassium and continue 40 mEq p.o. 3 times daily * Elevated white count and platelets appear to be chronic, but will continue to follow as inpatient * Follow renal and liver function * Fingerstick blood sugar 4 times a day with sliding scale insulin moderate level * Diabetic education when available * Diabetic diet * Continue monitoring his myasthenia gravis. If it appears he is having an exacerbation/flare I will increase his steroids and pyridostigmine. * VTE prophylaxis with Xarelto * CODE STATUS: Full code * Disposition: Admit to floor on telemetry for IV antibiotics and the above work-up. Length of stay likely 3 to 4 days.
[2020-03-11] MEDS: Bacitracin Oint 15 GM Tube TOP SCH ×2 (16:27→21:51)
[2020-03-11] MEDS: cefTRIAXone 2 GM in Sodium Chloride 0.9% 100 ML IV SCH (21:52)
[2020-03-12] MEDS: Vancomycin 1.75 GM in Sodium Chloride 0.9% 500 ML IV SCH ×2 (00:37→14:05)
[2020-03-12] MEDS: HYDROmorphone 0.5 MG/0.5 ML Syringe IVPUSH PRN ×3 (06:25→11:26)
[2020-03-12] MEDS: Pantoprazole 40 MG Tab.CR PO SCH (06:26)
[2020-03-12] MEDS: Bumetanide 1 MG Tab PO SCH ×2 (06:26→14:22)
[2020-03-12] MEDS ORDERED: Albuterol/Ipratropium 3.0-0.5 MG/3 ML Neb Soln NEB PRN (06:59)
[2020-03-12] MEDS: Potassium Chloride 10 MEQ in Premix Bag 1 BAG IV SCH ×4 (08:28→11:49)
[2020-03-12] MEDS: predniSONE 20 MG Tab PO SCH (08:33)
[2020-03-12] MEDS: Cyclobenzaprine 10 MG Tab PO SCH ×2 (08:33→22:08)
[2020-03-12] MEDS: Insulin Lispro 100 Units/ML 3 ML Vial SUBCUT SCH ×4 (08:33→22:20)
[2020-03-12] MEDS: Potassium Chloride 20 MEQ Tab.ER PO SCH ×3 (08:33→22:08)
[2020-03-12] MEDS: Rivaroxaban 15 MG Tab PO SCH (08:33)
[2020-03-12] MEDS: traMADol 50 MG Tab PO PRN ×3 (08:43→23:04)
[2020-03-12] MEDS ORDERED: Insulin Glarg,Human.Rec.Analog 100 Unit/ML SUBCUT SCH (09:00)
[2020-03-12] MEDS: Bacitracin Oint 15 GM Tube TOP SCH ×3 (10:50→22:16)
[2020-03-12] MEDS: Magnesium Oxide 400 MG Tab PO SCH ×2 (11:24→22:08)
--- NOTE | 2020-03-12 16:59 | PCM.PN ---
- General Info Date of Service: 03/12/20 Admission Dx/Problem (Free Text): Admission Diagnosis/Problem Admission Diagnosis/Problem Cellulitis Subjective Update: Patient states he continues to feel better. He has been afebrile since admission. White count is decreasing. Appetite is good. Functional Status: Reports: Pain Controlled - Review of Systems General: Reports: No Symptoms HEENT: Reports: No Symptoms Pulmonary: Reports: No Symptoms Cardiovascular: Reports: No Symptoms Gastrointestinal: Reports: No Symptoms Musculoskeletal: Reports: No Symptoms - Patient Data Vitals - Most Recent: Last Vital Signs Temp 98.2 F 03/12/20 04:10 Pulse 103 H 03/12/20 15:48 Resp 20 03/12/20 15:48 BP 137/81 03/12/20 15:48 Pulse Ox 97 03/12/20 15:48 Weight - Most Recent: 161.932 kg I&O - Last 24 Hours: Intake & Output 03/12/20 03/12/20 03/12/20 06:59 14:59 22:59 Intake Total 1820 926 2508 Output Total 1450 900 Balance -350 360 300 Lab Results Last 24 Hours: Laboratory Results - last 24 hr 03/11/20 03/12/20 03/12/20 Range/Units 21:46 05:47 05:47 WBC 15.83 H (4.23-9.07) K/mm3 RBC 4.29 L (4.63-6.08) M/mm3 Hgb 8.2 L (13.7-17.5) gm/dl Hct 31.3 L (40.1-51.0) % MCV 73.0 L (79.0-92.2) fl MCH 19.1 L (25.7-32.2) pg MCHC 26.2 L (32.2-35.5) g/dl RDW Std Deviation 54.3 H (35.1-43.9) fL Plt Count 578 H (163-337) K/mm3 MPV 9.5 (9.4-12.3) fl Neut % (Auto) 82.9 H (34.0-67.9) % Lymph % (Auto) 8.8 L (21.8-53.1) % [place] % (Auto) 6.6 (5.3-12.2) % Eos % (Auto) 0 L (0.8-7.0) Baso % (Auto) 0.1 (0.1-1.2) % Neut # (Auto) 13.12 H (1.78-5.38) K/mm3 Lymph # (Auto) 1.39 (1.32-3.57) K/mm3 [place] # (Auto) 1.05 H (0.30-0.82) K/mm3 Eos # (Auto) 0.00 L (0.04-0.54) K/mm3 Baso # (Auto) 0.02 (0.01-0.08) K/mm3 Manual Slide Review Abnormal smear Sodium 135 L (136-145) mEq/L Potassium 2.8 L (3.5-5.1) mEq/L Chloride 93 L (98-107) mEq/L Carbon Dioxide 37 H (21-32) mEq/L Anion Gap 7.8 (5-15) BUN 18 (7-18) mg/dL Creatinine 1.2 (0.7-1.3) mg/dL Est Cr Clr Drug Dosing 76.04 mL/min Estimated GFR (MDRD) > 60 (>60) mL/min BUN/Creatinine Ratio 15.0 (14-18) Glucose 172 H (74-106) mg/dL POC Glucose 273 H (70-105) mg/dL Calcium 8.7 (8.5-10.1) mg/dL Phosphorus 3.1 (2.6-4.7) mg/dL Magnesium 1.8 (1.8-2.4) mg/dl Total Bilirubin 0.4 (0.2-1.0) mg/dL AST 46 H (15-37) U/L ALT 154 H (16-63) U/L Alkaline Phosphatase 240 H (46-116) U/L C-Reactive Protein 24.8 H* (<1.0) mg/dL Total Protein 6.3 L (6.4-8.2) g/dl Albumin 2.2 L (3.4-5.0) g/dl Globulin 4.1 gm/dL Albumin/Globulin Ratio 0.5 L (1-2) Vancomycin Trough (10.0-20.0) 03/12/20 03/12/20 03/12/20 Range/Units 06:21 11:11 12:40 WBC (4.23-9.07) K/mm3 RBC (4.63-6.08) M/mm3 Hgb (13.7-17.5) gm/dl Hct (40.1-51.0) % MCV (79.0-92.2) fl MCH (25.7-32.2) pg MCHC (32.2-35.5) g/dl RDW Std Deviation (35.1-43.9) fL Plt Count (163-337) K/mm3 MPV (9.4-12.3) fl Neut % (Auto) (34.0-67.9) % Lymph % (Auto) (21.8-53.1) % [place] % (Auto) (5.3-12.2) % Eos % (Auto) (0.8-7.0) Baso % (Auto) (0.1-1.2) % Neut # (Auto) (1.78-5.38) K/mm3 Lymph # (Auto) (1.32-3.57) K/mm3 [place] # (Auto) (0.30-0.82) K/mm3 Eos # (Auto) (0.04-0.54) K/mm3 Baso # (Auto) (0.01-0.08) K/mm3 Manual Slide Review Sodium (136-145) mEq/L Potassium (3.5-5.1) mEq/L Chloride (98-107) mEq/L Carbon Dioxide (21-32) mEq/L Anion Gap (5-15) BUN (7-18) mg/dL Creatinine (0.7-1.3) mg/dL Est Cr Clr Drug Dosing mL/min Estimated GFR (MDRD) (>60) mL/min BUN/Creatinine Ratio (14-18) Glucose (74-106) mg/dL POC Glucose 152 H 294 H (70-105) mg/dL Calcium (8.5-10.1) mg/dL Phosphorus (2.6-4.7) mg/dL Magnesium (1.8-2.4) mg/dl Total Bilirubin (0.2-1.0) mg/dL AST (15-37) U/L ALT (16-63) U/L Alkaline Phosphatase (46-116) U/L C-Reactive Protein (<1.0) mg/dL Total Protein (6.4-8.2) g/dl Albumin (3.4-5.0) g/dl Globulin gm/dL Albumin/Globulin Ratio (1-2) Vancomycin Trough 23.4 H (10.0-20.0) Gomez Results Last 24 Hours: Microbiology 03/10/20 12:30 Aerobic Blood Culture - Preliminary Blood - Venous - Lab Draw NO GROWTH AFTER 2 DAYS Anaerobic Blood Culture - Preliminary NO GROWTH AFTER 2 DAYS 03/10/20 12:20 Aerobic Blood Culture - Preliminary Blood - Venous NO GROWTH AFTER 2 DAYS Anaerobic Blood Culture - Preliminary NO GROWTH AFTER 2 DAYS 03/11/20 18:29 Occult Blood - Preliminary Stool / Feces Med Orders - Current: Current Medications Acetaminophen (Tylenol) 650 mg PO Q4H PRN PRN Reason: Pain (Mild 1-3)/fever Last Admin: 03/11/20 00:29 Dose: 650 mg Documented by: Albuterol/Ipratropium (Duoneb 3.0-0.5 Mg/3 Ml) 3 ml NEB Q4HRRT PRN PRN Reason: Shortness of Breath Bacitracin (Bacitracin Oint) 0 gm TOP TID [facility] Last Admin: 03/12/20 14:24 Dose: 1 applic Documented by: Bumetanide (Bumex) 2 mg PO BIDDIURETIC [facility] Last Admin: 03/12/20 14:22 Dose: 2 mg Documented by: Cyclobenzaprine HCl (Flexeril) 10 mg PO BID [facility] Last Admin: 03/12/20 08:33 Dose: 10 mg Documented by: Dextrose/Water (Dextrose 50% In Water) 50 ml IVPUSH ASDIRECTED PRN PRN Reason: Hypoglycemia Diphenhydramine HCl (Benadryl) 50 mg IVPUSH Q4H PRN PRN Reason: Rash Hydromorphone HCl (Dilaudid) 0.5 mg IVPUSH Q2H PRN PRN Reason: Pain (severe 7-10) Last Admin: 03/12/20 11:26 Dose: 0.5 mg Documented by: Ceftriaxone Sodium 2 gm/ (Sodium Chloride) 100 mls @ 200 mls/hr IV Q24H [facility] Last Admin: 03/11/20 21:52 Dose: 200 mls/hr Documented by: Vancomycin HCl 1 gm/Vancomycin HCl 500 mg/ Sodium Chloride 500 mls @ 250 mls/hr IV Q18H [facility] Insulin Glargine (Lantus) 18 unit SUBCUT DAILY [facility] Last Admin: 03/12/20 08:27 Dose: 18 units Documented by: Insulin Human Lispro (Humalog) 0 unit SUBCUT QIDACANDBED [facility]; Protocol Last Admin: 03/12/20 12:49 Dose: 6 units Documented by: Magnesium Oxide (Magnesium Oxide) 400 mg PO BID [facility] Last Admin: 03/12/20 11:24 Dose: 400 mg Documented by: Methyl Salicylate (Icy Hot Cream) 0 gm TOP TID PRN PRN Reason: Pain Ondansetron HCl (Zofran Odt) 4 mg PO Q6H PRN PRN Reason: Nausea Pantoprazole Sodium (Protonix) 40 mg PO ACBRK [facility] Last Admin: 03/12/20 06:26 Dose: 40 mg Documented by: Potassium Chloride (Klor-Con M20) 40 meq PO TID [facility] Last Admin: 03/12/20 14:23 Dose: 40 meq Documented by: Prednisone (Prednisone) 60 mg PO DAILY [facility] Last Admin: 03/12/20 08:33 Dose: 60 mg Documented by: Pyridostigmine [place] (Mestinon) 60 mg PO 5XDAY [facility] Last Admin: 03/12/20 14:23 Dose: 60 mg Documented by: Rivaroxaban (Xarelto) 15 mg PO DAILY [facility] Last Admin: 03/12/20 08:33 Dose: 15 mg Documented by: Sodium Chloride (Saline Flush) 10 ml FLUSH ASDIRECTED PRN PRN Reason: Keep Vein Open Last Admin: 03/10/20 11:49 Dose: 10 ml Documented by: Tramadol HCl (Ultram) 50 mg PO Q6H PRN PRN Reason: Pain Last Admin: 03/12/20 15:17 Dose: 50 mg Documented by: Vancomycin HCl (Pharmacy To Dose - Vancomycin) 0 dose .XX ONETIME PRN PRN Reason: RX TO DOSE VANCOMYCIN Discontinued Medications Albuterol/Ipratropium (Duoneb 3.0-0.5 Mg/3 Ml) 3 ml INH BID [facility] Last Admin: 03/11/20 20:06 Dose: Not Given Documented by: Hydromorphone HCl (Dilaudid) 0.5 mg IVPUSH ONETIME ONE Stop: 03/10/20 11:39 Last Admin: 03/10/20 11:47 Dose: 0.5 mg Documented by: Hydromorphone HCl (Dilaudid) 0.5 mg IVPUSH ONETIME ONE Stop: 03/10/20 13:04 Last Admin: 03/10/20 13:18 Dose: 0.5 mg Documented by: Sodium Chloride (Normal Saline) 1,000 mls @ 100 mls/hr IV ASDIRECTED EDIE Last Infusion: 03/10/20 17:26 Dose: 50 mls/hr Documented by: Vancomycin HCl 1.75 gm/ Sodium (Chloride) 500 mls @ 250 mls/hr IV ONETIME ONE Stop: 03/10/20 14:59 Last Admin: 03/10/20 13:00 Dose: 250 mls/hr Documented by: Vancomycin HCl 1.75 gm/ Sodium (Chloride) 500 mls @ 250 mls/hr IV Q12H [facility] Last Admin: 03/12/20 14:05 Dose: Not Given Documented by: Sodium Chloride (Normal Saline) 1,000 mls @ 50 mls/hr IV ASDIRECTED [facility] Sodium Chloride (Normal Saline) 500 mls @ 500 mls/hr IV ONETIME ONE Stop: 03/10/20 21:43 Last Admin: 03/10/20 21:14 Dose: 500 mls/hr Documented by: Sterile Water (Sterile Water For Injection) Confirm Administered Dose 20 mls @ as directed .ROUTE .STK-MED ONE Stop: 03/11/20 00:09 Last Admin: 03/11/20 00:27 Dose: Not Given Documented by: Potassium Chloride 10 meq/ (Premix) 100 mls @ 100 mls/hr IV Q1H EDIE Stop: 03/11/20 12:29 Last Admin: 03/11/20 12:22 Dose: 100 mls/hr Documented by: Ferric Sodium Gluconate Complex 250 mg/ Sodium Chloride 120 mls @ 60 mls/hr IV ONETIME ONE Stop: 03/11/20 11:14 Ferric Sodium Gluconate Complex 250 mg/ Sodium Chloride 120 mls @ 60 mls/hr IV ONETIME ONE Stop: 03/11/20 16:59 Last Admin: 03/11/20 16:20 Dose: 60 mls/hr Documented by: Potassium Chloride 10 meq/ (Premix) 100 mls @ 100 mls/hr IV Q1H [facility] Stop: 03/12/20 12:14 Last Admin: 03/12/20 11:49 Dose: 100 mls/hr Documented by: Insulin Glargine (Lantus) 15 unit SUBCUT DAILY [facility] Last Admin: 03/11/20 08:45 Dose: 15 units Documented by: Potassium Chloride (Klor-Con M20) 40 meq PO ONETIME ONE Stop: 03/10/20 12:47 Last Admin: 03/10/20 13:01 Dose: 40 meq Documented by: Potassium Chloride (Klor-Con M20) 20 meq PO ONETIME ONE Stop: 03/10/20 21:01 - Exam General: Alert, Oriented HEENT: Pupils Equal, Mucous Membr. Moist/[place] Neck: Supple Lungs: Clear to Auscultation, Normal Respiratory Effort Cardiovascular: Regular Rate, Regular Rhythm GI/Abdominal Exam: Normal Bowel Sounds, Soft, Non-Tender, No Organomegaly, No Distention, No Abnormal Bruit, No Mass, Pelvis Stable Extremities: Normal Inspection, Pedal Edema (3+ pitting edema), Redness (Continued improvement in erythema and swelling) Skin: Warm, Dry, Intact Neurological: No New Focal Deficit Psy/Mental Status: Alert, Normal Affect, Normal Mood Sepsis Event Note - Evaluation Sepsis Screening Result: Sepsis Risk - Focused Exam Vital Signs: Vital Signs Pulse Resp BP Pulse Ox Pulse Ox 03/12/20 15:48 103 H 20 137/81 97 03/12/20 15:34 93 L 03/12/20 11:19 99 24 H 131/90 96 03/12/20 08:49 106 H 20 136/88 93 L - Problem List & Annotations (1) Sepsis due to cellulitis SNOMED Code(s): 92852611 Code(s): L03.90 - CELLULITIS, UNSPECIFIED; A41.9 - SEPSIS, UNSPECIFIED ORGANISM Status: Acute Priority: High Current Visit: Yes (2) Thrombocythemia SNOMED Code(s): 1402125 Code(s): D47.3 - ESSENTIAL (HEMORRHAGIC) THROMBOCYTHEMIA Status: Acute Current Visit: Yes (3) Chronic kidney disease (CKD), stage III (moderate) SNOMED Code(s): 813423452 Code(s): N18.3 - CHRONIC KIDNEY DISEASE, STAGE 3 (MODERATE) Status: Acute Current Visit: No (4) Myasthenia gravis SNOMED Code(s): 81997046 Code(s): G70.00 - MYASTHENIA GRAVIS WITHOUT (ACUTE) EXACERBATION Status: Acute Current Visit: No - Problem List Review Problem List Initiated/Reviewed/Updated: Yes - My Orders Last 24 Hours: My Active Orders 03/11/20 18:29 OCCULT BLOOD SCREEN [OP] Routine 03/12/20 00:06 Patient Status [ADT] Routine 03/12/20 06:59 Albuterol/Ipratropium [DuoNeb 3.0-0.5 MG/3 ML] 3 ml NEB Q4HRRT PRN 03/12/20 07:00 RT Aerosol Therapy [RC] ASDIRECTED 03/12/20 09:00 Insulin Glarg,Human.Rec.Analog [LantUS] 18 unit SUBCUT DAILY 03/12/20 10:15 Magnesium Oxide 400 mg PO BID 03/12/20 Dinner Consistent Carbohydrate Diet [DIET] Vancomycin 1 gm Vancomycin 500 mg Sodium Chloride 0.9% [Normal Saline] 500 ml IV Q18H 03/13/20 05:11 C-REACTIVE PROTEIN [CHEM] AM CBC WITH AUTO DIFF [HEME] AM MAGNESIUM [CHEM] AM PHOSPHORUS [CHEM] AM 03/14/20 05:11 C-REACTIVE PROTEIN [CHEM] AM CBC WITH AUTO DIFF [HEME] AM MAGNESIUM [CHEM] AM PHOSPHORUS [CHEM] AM 03/15/20 05:11 C-REACTIVE PROTEIN [CHEM] AM CBC WITH AUTO DIFF [HEME] AM MAGNESIUM [CHEM] AM PHOSPHORUS [CHEM] AM 03/16/20 05:11 C-REACTIVE PROTEIN [CHEM] AM CBC WITH AUTO DIFF [HEME] AM MAGNESIUM [CHEM] AM PHOSPHORUS [CHEM] AM - Assessment Assessment:: Assessment of admission Sepsis secondary to lower extremity cellulitis * Large area of cellulitis on the posterior thighs and legs * SIRS criteria met: Elevated white count of 25.86 with left shift, tachycardia and tachypnea * 1 organ dysfunction: Lactate 3.5 * C-reactive protein 26.1 * Procalcitonin pending * Patient is allergic to cephalexin and penicillins * Started on vancomycin in the emergency department * Blood cultures in the emergency department Myasthenia gravis * Possible mild flare. * Patient denies diplopia but does have some blurred vision. * Weakness of his lower extremities could be secondary to his pain from a cellulitis. * Currently on prednisone 60 mg every morning and pyridostigmine 60 mg 5 times a day Microcytic anemia * Hemoglobin 9.4. * No signs of bleeding, but on Xarelto for PE and DVT Thrombocytosis * Platelets 624,000 * Likely reactive Hyponatremia and hypokalemia * Corrected sodium 131 * Potassium 3.0 Chronic renal insufficiency with possible acute injury * Creatinine 1.7 with estimated GFR of 43 * BUN 26 * BUN/creatinine ratio of 15.3 Hyperglycemia likely new onset diabetes * Initial glucose 245 * Patient states he has no history of diabetes Elevated liver enzymes * AST 72, ALT 229, alkaline phosphatase 297 * Likely multifactorial to include medications and fatty liver * No ultrasound or previous work-up available 03/11/2020 Sepsis secondary to lower extremity cellulitis -improved * Patient has chronically elevated white blood cell count making that parameter less accurate. It also appears he has had a chronic sinus tachycardia since August making that parameter also less accurate for SIRS criteria. * WBC down to 20.57 * Heart rate in the upper 90s to low 100s * Cellulitis is improving. * Lactic acid repeat is normal * Started on vancomycin and Rocephin * Blood cultures pending * Procalcitonin pending Myasthenia gravis-stable * Restarted home meds * Continue lower extremity weakness but no diplopia or dysphasia. Mild blurring of vision. This also appears to be chronic. Microcytic anemia * Hemoglobin down to 8.4 likely secondary to hemodilution * Iron low at 26 with percent saturation low at 10% Thrombocythemia -chronic and improved * Platelets down to 568 Hyponatremia and hypokalemia * Sodium 132 * Potassium 2.6 * On potassium 40 mEq 3 times daily at home Acute on chronic renal insufficiency-improved * Creatinine down to 1.3, GFR 58 * BUN 26 * BUN to creatinine ratio 20 showing some prerenal injury Type 2 diabetes, new onset * Hemoglobin A1c is 9.0 * Likely worsened by both obesity and chronic steroids Elevated liver enzymesimproved * AST 51, ALT 177, alkaline phosphatase 239 Ulceration of the right abdominal pannus with infection Stasis ulceration of the right lower extremity with weeping discharge * Both of these appear to be chronic 03/12/2020 Sepsisresolved Lower extremity cellulitis-improving * White count continues to decrease to 15.8 and CRP 24.8 * Initial procalcitonin was 1.2 * Blood cultures negative * On Rocephin and vancomycin * Heart rate continues in the upper 90s to low 100s, but this appears to be chronic. I [facility] and he often has heart rate in the low 100s. Myasthenia gravisstable * Patient has more movement in his lower extremities. Microcytic anemia * Hemoglobin essentially stable at 8.2 * Given IV iron yesterday Thrombocythemiachronic * Platelets 578 Hyponatremiaresolved Hypokalemia * Received 120 mEq of potassium yesterday and potassium only came up to 2.8 Acute on chronic renal insufficiency-resolved * Secondary to sepsis and hypovolemia * Creatinine 1.2 and estimated GFR is greater than 60 New onset type 2 diabetes * Lantus increased to 18 units daily * Blood sugars still ranging from 152 to 294. Elevated liver enzymes * AST 46, ALT 154, alkaline phosphatase 240 * Hepatitis C screening negative Stasis dermatitis with ulceration of the right lower extremity with weeping discharge and ulceration of the right abdominal pannus with superficial infection * Nursing doing wound management * Bacitracin for topical * On vancomycin and Rocephin Chronic: Myasthenia gravis, essential thrombocythemia, anemia unspecified, elevated white blood cell count unspecified, nausea, chronic kidney disease stage III, atherosclerotic heart disease of [place] coronary artery, pulmonary embolism and thrombosis of popliteal vein bilaterally, acute respiratory failure with hypoxemia, chronic pain, psychoactive substance dependence, obstructive sleep apnea, hypoxemia, obesity, degenerative joint disease, acute myocardial infarction - Plan Plan:: Plan * Admit to floor on telemetry * Continue vancomycin pharmacy to dose * Rocephin 2 g daily * Increase Lantus to 20 units daily * Start Humalog 5 units before each meal * Continue sliding scale insulin * Follow blood cultures * CBC, CMP, C-reactive protein in the morning * Stool for Hemoccult * Screen for hepatitis C and hepatitis B * IV fluids stopped * Supplement potassium with 40 mEq IV potassium and continue 40 mEq p.o. 3 times daily * Elevated white count and platelets appear to be chronic, but will continue to follow as inpatient * Follow renal and liver function * Fingerstick blood sugar 4 times a day with sliding scale insulin moderate level * Diabetic education when available * Diabetic diet * Continue monitoring his myasthenia gravis. If it appears he is having an exacerbation/flare I will increase his steroids and pyridostigmine. * VTE prophylaxis with Xarelto * CODE STATUS: Full code * Disposition: Admit to floor on telemetry for IV antibiotics and the above work-up. Length of stay likely 3 to 4 days.
[2020-03-12] MEDS: Vancomycin 1 GM, Vancomycin 500 MG in Sodium Chloride 0.9% 500 ML IV SCH (17:19)
[2020-03-12] MEDS: cefTRIAXone 2 GM in Sodium Chloride 0.9% 100 ML IV SCH (22:05)
[2020-03-12] MEDS: Acetaminophen 325 MG Tab PO PRN (23:04)
[2020-03-13] MEDS: Bumetanide 1 MG Tab PO SCH (05:08)
[2020-03-13] MEDS: Pantoprazole 40 MG Tab.CR PO SCH (05:09)
[2020-03-13] MEDS: Acetaminophen 325 MG Tab PO PRN ×2 (05:09→11:26)
[2020-03-13] MEDS: traMADol 50 MG Tab PO PRN ×2 (05:09→11:28)
[2020-03-13] MEDS: Insulin Lispro 100 Units/ML 3 ML Vial SUBCUT SCH ×7 (08:49→22:01)
[2020-03-13] MEDS: Magnesium Oxide 400 MG Tab PO SCH ×2 (08:51→21:52)
[2020-03-13] MEDS: Rivaroxaban 15 MG Tab PO SCH (08:51)
[2020-03-13] MEDS: predniSONE 20 MG Tab PO SCH (08:52)
[2020-03-13] MEDS: Potassium Chloride 20 MEQ Tab.ER PO SCH ×3 (08:52→21:52)
[2020-03-13] MEDS: Insulin Glarg,Human.Rec.Analog 100 Unit/ML SUBCUT SCH (08:52)
[2020-03-13] MEDS: Bacitracin Oint 15 GM Tube TOP SCH ×3 (08:57→22:20)
[2020-03-13] MEDS: Spironolactone 25 MG Tab PO SCH ×2 (09:05→21:52)
[2020-03-13] MEDS: Cyclobenzaprine 10 MG Tab PO SCH ×2 (09:05→21:51)
[2020-03-13] MEDS: HYDROmorphone 0.5 MG/0.5 ML Syringe IVPUSH PRN ×2 (09:06→13:17)
[2020-03-13] MEDS ORDERED: Acetaminophen/oxyCODONE 325-5 MG Tab PO PRN (09:10)
[2020-03-13] MEDS: Vancomycin 1 GM, Vancomycin 500 MG in Sodium Chloride 0.9% 500 ML IV SCH (11:29)
--- NOTE | 2020-03-13 12:46 | PCM.PN ---
- General Info Date of Service: 03/13/20 Admission Dx/Problem (Free Text): Admission Diagnosis/Problem Admission Diagnosis/Problem Cellulitis Subjective Update: Jonas is complaining of back pain today. The tramadol 50 mg every 6 hours is not providing enough pain relief. He does think his legs are starting to get better. Functional Status: Denies: Pain Controlled - Review of Systems General: Reports: No Symptoms HEENT: Reports: No Symptoms Pulmonary: Reports: No Symptoms Cardiovascular: Reports: No Symptoms Gastrointestinal: Reports: No Symptoms Musculoskeletal: Reports: Other (leg weakness.) - Patient Data Vitals - Most Recent: Last Vital Signs Temp 97.9 F 03/13/20 07:37 Pulse 78 03/13/20 07:37 Resp 14 03/13/20 07:37 BP 143/91 H 03/13/20 07:37 Pulse Ox 95 03/13/20 07:37 Weight - Most Recent: 164.155 kg I&O - Last 24 Hours: Intake & Output 03/12/20 03/13/20 03/13/20 22:59 06:59 14:59 Intake Total 1920 1150 240 Output Total 900 650 Balance 1020 500 240 Lab Results Last 24 Hours: Laboratory Results - last 24 hr 03/12/20 03/12/20 03/12/20 Range/Units 12:40 17:15 22:19 WBC (4.23-9.07) K/mm3 RBC (4.63-6.08) M/mm3 Hgb (13.7-17.5) gm/dl Hct (40.1-51.0) % MCV (79.0-92.2) fl MCH (25.7-32.2) pg MCHC (32.2-35.5) g/dl RDW Std Deviation (35.1-43.9) fL Plt Count (163-337) K/mm3 MPV (9.4-12.3) fl Neut % (Auto) (34.0-67.9) % Lymph % (Auto) (21.8-53.1) % [place] % (Auto) (5.3-12.2) % Eos % (Auto) (0.8-7.0) Baso % (Auto) (0.1-1.2) % Neut # (Auto) (1.78-5.38) K/mm3 Lymph # (Auto) (1.32-3.57) K/mm3 [place] # (Auto) (0.30-0.82) K/mm3 Eos # (Auto) (0.04-0.54) K/mm3 Baso # (Auto) (0.01-0.08) K/mm3 Manual Slide Review Sodium (136-145) mEq/L Potassium (3.5-5.1) mEq/L Chloride (98-107) mEq/L Carbon Dioxide (21-32) mEq/L Anion Gap (5-15) BUN (7-18) mg/dL Creatinine (0.7-1.3) mg/dL Est Cr Clr Drug Dosing mL/min Estimated GFR (MDRD) (>60) mL/min BUN/Creatinine Ratio (14-18) Glucose (74-106) mg/dL POC Glucose 268 H 215 H (70-105) mg/dL Phosphorus (2.6-4.7) mg/dL Magnesium (1.8-2.4) mg/dl Total Bilirubin (0.2-1.0) mg/dL AST (15-37) U/L ALT (16-63) U/L Alkaline Phosphatase (46-116) U/L C-Reactive Protein (<1.0) mg/dL Total Protein (6.4-8.2) g/dl Albumin (3.4-5.0) g/dl Globulin gm/dL Albumin/Globulin Ratio (1-2) Vancomycin Trough 23.4 H (10.0-20.0) 03/13/20 03/13/20 03/13/20 Range/Units 04:39 04:39 04:39 WBC 15.02 H (4.23-9.07) K/mm3 RBC 4.30 L (4.63-6.08) M/mm3 Hgb 8.2 L (13.7-17.5) gm/dl Hct 31.8 L (40.1-51.0) % MCV 74.0 L (79.0-92.2) fl MCH 19.1 L (25.7-32.2) pg MCHC 25.8 L (32.2-35.5) g/dl RDW Std Deviation 54.8 H (35.1-43.9) fL Plt Count 566 H (163-337) K/mm3 MPV 9.3 L (9.4-12.3) fl Neut % (Auto) 78.3 H (34.0-67.9) % Lymph % (Auto) 10.7 L (21.8-53.1) % [place] % (Auto) 8.3 (5.3-12.2) % Eos % (Auto) 0 L (0.8-7.0) Baso % (Auto) 0.3 (0.1-1.2) % Neut # (Auto) 11.78 H (1.78-5.38) K/mm3 Lymph # (Auto) 1.60 (1.32-3.57) K/mm3 [place] # (Auto) 1.24 H (0.30-0.82) K/mm3 Eos # (Auto) 0.00 L (0.04-0.54) K/mm3 Baso # (Auto) 0.04 (0.01-0.08) K/mm3 Manual Slide Review Abnormal smear Sodium 137 (136-145) mEq/L Potassium 2.9 L (3.5-5.1) mEq/L Chloride 93 L (98-107) mEq/L Carbon Dioxide 40 H (21-32) mEq/L Anion Gap 6.9 (5-15) BUN 21 H (7-18) mg/dL Creatinine 1.1 (0.7-1.3) mg/dL Est Cr Clr Drug Dosing 82.95 mL/min Estimated GFR (MDRD) > 60 (>60) mL/min BUN/Creatinine Ratio 19.1 H (14-18) Glucose 145 H (74-106) mg/dL POC Glucose (70-105) mg/dL Phosphorus 3.5 (2.6-4.7) mg/dL Magnesium 2.0 (1.8-2.4) mg/dl Total Bilirubin 0.3 (0.2-1.0) mg/dL AST 45 H (15-37) U/L ALT 128 H (16-63) U/L Alkaline Phosphatase 236 H (46-116) U/L C-Reactive Protein 16.0 H* (<1.0) mg/dL Total Protein 6.2 L (6.4-8.2) g/dl Albumin 2.2 L (3.4-5.0) g/dl Globulin 4.0 gm/dL Albumin/Globulin Ratio 0.6 L (1-2) Vancomycin Trough (10.0-20.0) 03/13/20 03/13/20 Range/Units 06:34 11:40 WBC (4.23-9.07) K/mm3 RBC (4.63-6.08) M/mm3 Hgb (13.7-17.5) gm/dl Hct (40.1-51.0) % MCV (79.0-92.2) fl MCH (25.7-32.2) pg MCHC (32.2-35.5) g/dl RDW Std Deviation (35.1-43.9) fL Plt Count (163-337) K/mm3 MPV (9.4-12.3) fl Neut % (Auto) (34.0-67.9) % Lymph % (Auto) (21.8-53.1) % [place] % (Auto) (5.3-12.2) % Eos % (Auto) (0.8-7.0) Baso % (Auto) (0.1-1.2) % Neut # (Auto) (1.78-5.38) K/mm3 Lymph # (Auto) (1.32-3.57) K/mm3 [place] # (Auto) (0.30-0.82) K/mm3 Eos # (Auto) (0.04-0.54) K/mm3 Baso # (Auto) (0.01-0.08) K/mm3 Manual Slide Review Sodium (136-145) mEq/L Potassium (3.5-5.1) mEq/L Chloride (98-107) mEq/L Carbon Dioxide (21-32) mEq/L Anion Gap (5-15) BUN (7-18) mg/dL Creatinine (0.7-1.3) mg/dL Est Cr Clr Drug Dosing mL/min Estimated GFR (MDRD) (>60) mL/min BUN/Creatinine Ratio (14-18) Glucose (74-106) mg/dL POC Glucose 151 H 193 H (70-105) mg/dL Phosphorus (2.6-4.7) mg/dL Magnesium (1.8-2.4) mg/dl Total Bilirubin (0.2-1.0) mg/dL AST (15-37) U/L ALT (16-63) U/L Alkaline Phosphatase (46-116) U/L C-Reactive Protein (<1.0) mg/dL Total Protein (6.4-8.2) g/dl Albumin (3.4-5.0) g/dl Globulin gm/dL Albumin/Globulin Ratio (1-2) Vancomycin Trough (10.0-20.0) Gomez Results Last 24 Hours: Microbiology 03/10/20 12:30 Aerobic Blood Culture - Preliminary Blood - Venous - Lab Draw NO GROWTH AFTER 3 DAYS Anaerobic Blood Culture - Preliminary NO GROWTH AFTER 3 DAYS 03/10/20 12:20 Aerobic Blood Culture - Preliminary Blood - Venous NO GROWTH AFTER 3 DAYS Anaerobic Blood Culture - Preliminary NO GROWTH AFTER 3 DAYS Med Orders - Current: Current Medications Acetaminophen (Tylenol) 650 mg PO Q4H PRN PRN Reason: Pain (Mild 1-3)/fever Last Admin: 03/13/20 11:26 Dose: 650 mg Documented by: Albuterol/Ipratropium (Duoneb 3.0-0.5 Mg/3 Ml) 3 ml NEB Q4HRRT PRN PRN Reason: Shortness of Breath Bacitracin (Bacitracin Oint) 0 gm TOP TID [facility] Last Admin: 03/13/20 08:57 Dose: 1 applic Documented by: Bumetanide (Bumex) 2 mg PO QAM [facility] Bumetanide (Bumex) 1 mg PO Q24H [facility] Cyclobenzaprine HCl (Flexeril) 10 mg PO BID [facility] Last Admin: 03/13/20 09:05 Dose: 10 mg Documented by: Dextrose/Water (Dextrose 50% In Water) 50 ml IVPUSH ASDIRECTED PRN PRN Reason: Hypoglycemia Diphenhydramine HCl (Benadryl) 50 mg IVPUSH Q4H PRN PRN Reason: Rash Hydromorphone HCl (Dilaudid) 0.5 mg IVPUSH Q2H PRN PRN Reason: Pain (severe 7-10) Last Admin: 03/13/20 09:06 Dose: 0.5 mg Documented by: Ceftriaxone Sodium 2 gm/ (Sodium Chloride) 100 mls @ 200 mls/hr IV Q24H [facility] Last Admin: 08/24/20 22:05 Dose: 200 mls/hr Documented by: Vancomycin HCl 1 gm/Vancomycin HCl 500 mg/ Sodium Chloride 500 mls @ 250 mls/hr IV Q18H [facility] Last Admin: 03/13/20 11:29 Dose: 250 mls/hr Documented by: Insulin Glargine (Lantus) 20 unit SUBCUT DAILY [facility] Last Admin: 03/13/20 08:52 Dose: 20 units Documented by: Insulin Human Lispro (Humalog) 0 unit SUBCUT QIDACANDBED [facility]; Protocol Last Admin: 03/13/20 08:49 Dose: 2 units Documented by: Insulin Human Lispro (Humalog) 5 unit SUBCUT TIDAC [facility] Last Admin: 03/13/20 08:49 Dose: 5 units Documented by: Magnesium Oxide (Magnesium Oxide) 400 mg PO BID [facility] Last Admin: 03/13/20 08:51 Dose: 400 mg Documented by: Methyl Salicylate (Icy Hot Cream) 0 gm TOP TID PRN PRN Reason: Pain Ondansetron HCl (Zofran Odt) 4 mg PO Q6H PRN PRN Reason: Nausea Oxycodone/Acetaminophen (Percocet 325-5 Mg) 1 tab PO Q4H PRN PRN Reason: Pain (moderate 4-6) Pantoprazole Sodium (Protonix) 40 mg PO ACBRK [facility] Last Admin: 03/13/20 05:09 Dose: 40 mg Documented by: Potassium Chloride (Klor-Con M20) 40 meq PO TID [facility] Last Admin: 03/13/20 08:52 Dose: 40 meq Documented by: Prednisone (Prednisone) 60 mg PO DAILY [facility] Last Admin: 03/13/20 08:52 Dose: 60 mg Documented by: Pyridostigmine [place] (Mestinon) 60 mg PO 5XDAY [facility] Last Admin: 03/13/20 09:07 Dose: 60 mg Documented by: Rivaroxaban (Xarelto) 15 mg PO DAILY [facility] Last Admin: 03/13/20 08:51 Dose: 15 mg Documented by: Sodium Chloride (Saline Flush) 10 ml FLUSH ASDIRECTED PRN PRN Reason: Keep Vein Open Last Admin: 03/10/20 11:49 Dose: 10 ml Documented by: Spironolactone (Aldactone) 25 mg PO BID [facility] Last Admin: 08/25/20 09:05 Dose: 25 mg Documented by: Tramadol HCl (Ultram) 100 mg PO Q6H PRN PRN Reason: Pain Last Admin: 03/13/20 11:28 Dose: 100 mg Documented by: Vancomycin HCl (Pharmacy To Dose - Vancomycin) 0 dose .XX ONETIME PRN PRN Reason: RX TO DOSE VANCOMYCIN Discontinued Medications Albuterol/Ipratropium (Duoneb 3.0-0.5 Mg/3 Ml) 3 ml INH BID [facility] Last Admin: 03/11/20 20:06 Dose: Not Given Documented by: Bumetanide (Bumex) 2 mg PO BIDDIURETIC [facility] Last Admin: 03/13/20 05:08 Dose: 2 mg Documented by: Hydromorphone HCl (Dilaudid) 0.5 mg IVPUSH ONETIME ONE Stop: 03/10/20 11:39 Last Admin: 03/10/20 11:47 Dose: 0.5 mg Documented by: Hydromorphone HCl (Dilaudid) 0.5 mg IVPUSH ONETIME ONE Stop: 03/10/20 13:04 Last Admin: 03/10/20 13:18 Dose: 0.5 mg Documented by: Sodium Chloride (Normal Saline) 1,000 mls @ 100 mls/hr IV ASDIRECTED [facility] Last Infusion: 03/10/20 17:26 Dose: 50 mls/hr Documented by: Vancomycin HCl 1.75 gm/ Sodium (Chloride) 500 mls @ 250 mls/hr IV ONETIME ONE Stop: 03/10/20 14:59 Last Admin: 03/10/20 13:00 Dose: 250 mls/hr Documented by: Vancomycin HCl 1.75 gm/ Sodium (Chloride) 500 mls @ 250 mls/hr IV Q12H [facility] Last Admin: 03/12/20 14:05 Dose: Not Given Documented by: Sodium Chloride (Normal Saline) 1,000 mls @ 50 mls/hr IV ASDIRECTED [facility] Sodium Chloride (Normal Saline) 500 mls @ 500 mls/hr IV ONETIME ONE Stop: 03/10/20 21:43 Last Admin: 03/10/20 21:14 Dose: 500 mls/hr Documented by: Sterile Water (Sterile Water For Injection) Confirm Administered Dose 20 mls @ as directed .ROUTE .STK-MED ONE Stop: 03/11/20 00:09 Last Admin: 03/11/20 00:27 Dose: Not Given Documented by: Potassium Chloride 10 meq/ (Premix) 100 mls @ 100 mls/hr IV Q1H [facility] Stop: 03/11/20 12:29 Last Admin: 03/11/20 12:22 Dose: 100 mls/hr Documented by: Ferric Sodium Gluconate Complex 250 mg/ Sodium Chloride 120 mls @ 60 mls/hr IV ONETIME ONE Stop: 03/11/20 11:14 Ferric Sodium Gluconate Complex 250 mg/ Sodium Chloride 120 mls @ 60 mls/hr IV ONETIME ONE Stop: 03/11/20 16:59 Last Admin: 03/11/20 16:20 Dose: 60 mls/hr Documented by: Potassium Chloride 10 meq/ (Premix) 100 mls @ 100 mls/hr IV Q1H [facility] Stop: 03/12/20 12:14 Last Admin: 03/12/20 11:49 Dose: 100 mls/hr Documented by: Insulin Glargine (Lantus) 15 unit SUBCUT DAILY [facility] Last Admin: 03/11/20 08:45 Dose: 15 units Documented by: Insulin Glargine (Lantus) 18 unit SUBCUT DAILY [facility] Last Admin: 03/12/20 08:27 Dose: 18 units Documented by: Potassium Chloride (Klor-Con M20) 40 meq PO ONETIME ONE Stop: 03/10/20 12:47 Last Admin: 03/10/20 13:01 Dose: 40 meq Documented by: Potassium Chloride (Klor-Con M20) 20 meq PO ONETIME ONE Stop: 03/10/20 21:01 Tramadol HCl (Ultram) 50 mg PO Q6H PRN PRN Reason: Pain Last Admin: 03/13/20 05:09 Dose: 50 mg Documented by: - Exam Quality Assessment: Supplemental Oxygen General: Alert, Oriented HEENT: Pupils Equal, Mucous Membr. Moist/[place] Neck: Supple Lungs: Clear to Auscultation, Normal Respiratory Effort Cardiovascular: Regular Rate, Regular Rhythm GI/Abdominal Exam: Normal Bowel Sounds, Soft, Non-Tender, No Distention Extremities: Normal Inspection, Normal Range of Motion, Non-Tender, No Pedal Edema, Normal Capillary Refill, Redness (Continued improvement and lower extremity erythema.) Skin: Warm, Dry, Intact Psy/Mental Status: Alert, Normal Affect, Normal Mood Sepsis Event Note - Evaluation Sepsis Screening Result: Sepsis Risk - Focused Exam Vital Signs: Vital Signs Temp Pulse Resp BP Pulse Ox 03/13/20 07:37 97.9 F 78 14 143/91 H 95 03/13/20 04:49 98.8 F 79 18 114/83 96 - Problem List & Annotations (1) Sepsis due to cellulitis SNOMED Code(s): 68577464 Code(s): L03.90 - CELLULITIS, UNSPECIFIED; A41.9 - SEPSIS, UNSPECIFIED ORGANISM Status: Acute Priority: High Current Visit: Yes (2) Thrombocythemia SNOMED Code(s): 5684326 Code(s): D47.3 - ESSENTIAL (HEMORRHAGIC) THROMBOCYTHEMIA Status: Acute Current Visit: Yes (3) Chronic kidney disease (CKD), stage III (moderate) SNOMED Code(s): 938270171 Code(s): N18.3 - CHRONIC KIDNEY DISEASE, STAGE 3 (MODERATE) Status: Acute Current Visit: No (4) Myasthenia gravis SNOMED Code(s): 90171904 Code(s): G70.00 - MYASTHENIA GRAVIS WITHOUT (ACUTE) EXACERBATION Status: Acute Current Visit: No - Problem List Review Problem List Initiated/Reviewed/Updated: Yes - My Orders Last 24 Hours: My Active Orders 03/12/20 Dinner Consistent Carbohydrate Diet [DIET] Vancomycin 1 gm Vancomycin 500 mg Sodium Chloride 0.9% [Normal Saline] 500 ml IV Q18H 03/13/20 04:39 COMPREHENSIVE METABOLIC PN,CMP [CHEM] Routine PROCALCITONIN [REF] AM 03/13/20 07:00 Insulin Lispro [HumaLOG] 5 unit SUBCUT TIDAC 03/13/20 09:00 Insulin Glarg,Human.Rec.Analog [LantUS] 20 unit SUBCUT DAILY Spironolactone [Aldactone] 25 mg PO BID 03/13/20 09:10 Acetaminophen/oxyCODONE [Percocet 325-5 MG] 1 tab PO Q4H PRN 03/13/20 10:00 traMADol [Ultram] 100 mg PO Q6H PRN 03/13/20 10:08 PT Evaluation and Treatment [CONS] Routine 03/13/20 11:36 Consult to Physical Therapy [PT Evaluation and Treatment] [CONS] Routine 03/13/20 16:00 Bumetanide [Bumex] 1 mg PO Q24H 03/14/20 04:30 VANCOMYCIN TROUGH [CHEM] Timed 03/14/20 05:11 C-REACTIVE PROTEIN [CHEM] AM CBC WITH AUTO DIFF [HEME] AM CMP [COMPREHENSIVE METABOLIC PN,CMP] [CHEM] AM MAGNESIUM [CHEM] AM PHOSPHORUS [CHEM] AM 03/14/20 08:00 Bumetanide [Bumex] 2 mg PO QAM 03/15/20 05:11 C-REACTIVE PROTEIN [CHEM] AM CBC WITH AUTO DIFF [HEME] AM CMP [COMPREHENSIVE METABOLIC PN,CMP] [CHEM] AM MAGNESIUM [CHEM] AM PHOSPHORUS [CHEM] AM 03/16/20 05:11 C-REACTIVE PROTEIN [CHEM] AM CBC WITH AUTO DIFF [HEME] AM CMP [COMPREHENSIVE METABOLIC PN,CMP] [CHEM] AM MAGNESIUM [CHEM] AM PHOSPHORUS [CHEM] AM - Assessment Assessment:: Assessment 03/10/2020day of admission Sepsis secondary to lower extremity cellulitis * Large area of cellulitis on the posterior thighs and legs * SIRS criteria met: Elevated white count of 25.86 with left shift, tachycardia and tachypnea * 1 organ dysfunction: Lactate 3.5 * C-reactive protein 26.1 * Procalcitonin pending * Patient is allergic to cephalexin and penicillins * Started on vancomycin in the emergency department * Blood cultures in the emergency department Myasthenia gravis * Possible mild flare. * Patient denies diplopia but does have some blurred vision. * Weakness of his lower extremities could be secondary to his pain from a cellulitis. * Currently on prednisone 60 mg every morning and pyridostigmine 60 mg 5 times a day Microcytic anemia * Hemoglobin 9.4. * No signs of bleeding, but on Xarelto for PE and DVT Thrombocytosis * Platelets 624,000 * Likely reactive Hyponatremia and hypokalemia * Corrected sodium 131 * Potassium 3.0 Chronic renal insufficiency with possible acute injury * Creatinine 1.7 with estimated GFR of 43 * BUN 26 * BUN/creatinine ratio of 15.3 Hyperglycemia likely new onset diabetes * Initial glucose 245 * Patient states he has no history of diabetes Elevated liver enzymes * AST 72, ALT 229, alkaline phosphatase 297 * Likely multifactorial to include medications and fatty liver * No ultrasound or previous work-up available 03/11/2020 Sepsis secondary to lower extremity cellulitis -improved * Patient has chronically elevated white blood cell count making that parameter less accurate. It also appears he has had a chronic sinus tachycardia since August making that parameter also less accurate for SIRS criteria. * WBC down to 20.57 * Heart rate in the upper 90s to low 100s * Cellulitis is improving. * Lactic acid repeat is normal * Started on vancomycin and Rocephin * Blood cultures pending * Procalcitonin pending Myasthenia gravis-stable * Restarted home meds * Continue lower extremity weakness but no diplopia or dysphasia. Mild blurring of vision. This also appears to be chronic. Microcytic anemia * Hemoglobin down to 8.4 likely secondary to hemodilution * Iron low at 26 with percent saturation low at 10% Thrombocythemia -chronic and improved * Platelets down to 568 Hyponatremia and hypokalemia * Sodium 132 * Potassium 2.6 * On potassium 40 mEq 3 times daily at home Acute on chronic renal insufficiency-improved * Creatinine down to 1.3, GFR 58 * BUN 26 * BUN to creatinine ratio 20 showing some prerenal injury Type 2 diabetes, new onset * Hemoglobin A1c is 9.0 * Likely worsened by both obesity and chronic steroids Elevated liver enzymesimproved * AST 51, ALT 177, alkaline phosphatase 239 Ulceration of the right abdominal pannus with infection Stasis ulceration of the right lower extremity with weeping discharge * Both of these appear to be chronic 03/12/2020 Sepsisresolved Lower extremity cellulitis-improving * White count continues to decrease to 15.8 and CRP 24.8 * Initial procalcitonin was 1.2 * Blood cultures negative * On Rocephin and vancomycin * Heart rate continues in the upper 90s to low 100s, but this appears to be chronic. I reviewed his records from the snf and he often has heart rate in the low 100s. Myasthenia gravisstable * Patient has more movement in his lower extremities. Microcytic anemia * Hemoglobin essentially stable at 8.2 * Given IV iron yesterday Thrombocythemiachronic * Platelets 578 Hyponatremiaresolved Hypokalemia * Received 120 mEq of potassium yesterday and potassium only came up to 2.8 Acute on chronic renal insufficiency-resolved * Secondary to sepsis and hypovolemia * Creatinine 1.2 and estimated GFR is greater than 60 New onset type 2 diabetes * Lantus increased to 18 units daily * Blood sugars still ranging from 152 to 294. Elevated liver enzymes * AST 46, ALT 154, alkaline phosphatase 240 * Hepatitis C screening negative Stasis dermatitis with ulceration of the right lower extremity with weeping discharge and ulceration of the right abdominal pannus with superficial infection * Nursing doing wound management * Bacitracin for topical * On vancomycin and Rocephin 03/13/2020 Lower extremity cellulitis * WBC continues to decrease, 5.0; C-reactive protein decreased to 16.0 * Blood cultures still showed no growth * Continue on vancomycin and Rocephin Myasthenia gravisstable Iron deficient anemia * Hemoglobin stable at 8.2 * Stools negative for occult blood Thrombocythemia * Platelets 566 * On Xarelto Hypokalemia * Potassium 2.9 * Received 120 mEq of potassium yesterday * On Bumex worsening potassium Acute renal injuryresolved * Creatinine 1.1 and estimated GFR greater than 60 New onset type 2 diabetes * Hemoglobin A1c 9.0 * Blood sugars remain in the upper 100s and low 200s Elevated liver enzymes * Hepatitis C screen negative Stasis dermatitis with ulceration of the right lower extremity with weeping discharge and ulceration of the right abdominal pannus with superficial infection * Wound therapy consulted Chronic: Myasthenia gravis, essential thrombocythemia, anemia unspecified, elevated white blood cell count unspecified, nausea, chronic kidney disease stage III, atherosclerotic heart disease of [place] coronary artery, pulmonary embolism and thrombosis of popliteal vein bilaterally, acute respiratory failure with hypoxemia, chronic pain, psychoactive substance dependence, obstructive sleep apnea, hypoxemia, obesity, degenerative joint disease, acute myocardial infarction - Plan Plan:: Plan * Admit to floor on telemetry * Continue vancomycin pharmacy to dose * Rocephin 2 g daily * Lantus 20 units daily * Start Humalog 5 units before each meal * Continue sliding scale insulin * Follow blood cultures * CBC, CMP, C-reactive protein in the morning * Supplement potassium with 40 mEq IV potassium and continue 40 mEq p.o. 3 times daily * Start spironolactone 25 mg twice daily * Elevated white count and platelets appear to be chronic, but will continue to follow as inpatient * Follow renal and liver function * Fingerstick blood sugar 4 times a day with sliding scale insulin moderate level * Diabetic education when available * Diabetic diet * Continue monitoring his myasthenia gravis. If it appears he is having an exacerbation/flare I will increase his steroids and pyridostigmine. * VTE prophylaxis with Xarelto * CODE STATUS: Full code * Disposition: Admit to floor on telemetry for IV antibiotics and the above work-up. Length of stay likely 3 to 4 days.
[2020-03-13] MEDS ORDERED: Bumetanide 1 MG Tab PO SCH (16:00)
[2020-03-13] MEDS: cefTRIAXone 2 GM in Sodium Chloride 0.9% 100 ML IV SCH (22:15)
[2020-03-14] MEDS: Acetaminophen 325 MG Tab PO PRN ×4 (00:11→18:23)
[2020-03-14] MEDS: traMADol 50 MG Tab PO PRN ×4 (00:11→18:24)
[2020-03-14] MEDS: Pantoprazole 40 MG Tab.CR PO SCH (06:18)
[2020-03-14] MEDS: Vancomycin 1 GM, Vancomycin 500 MG in Sodium Chloride 0.9% 500 ML IV SCH ×2 (06:20→22:01)
[2020-03-14] MEDS: Insulin Lispro 100 Units/ML 3 ML Vial SUBCUT SCH ×7 (06:28→21:12)
[2020-03-14] MEDS: Insulin Glarg,Human.Rec.Analog 100 Unit/ML SUBCUT SCH (08:11)
[2020-03-14] MEDS: predniSONE 20 MG Tab PO SCH (08:14)
[2020-03-14] MEDS: Magnesium Oxide 400 MG Tab PO SCH ×2 (08:14→20:49)
[2020-03-14] MEDS: Bumetanide 1 MG Tab PO SCH ×2 (08:15→15:38)
[2020-03-14] MEDS: Rivaroxaban 15 MG Tab PO SCH (08:15)
[2020-03-14] MEDS: Potassium Chloride 20 MEQ Tab.ER PO SCH ×3 (08:15→20:50)
[2020-03-14] MEDS: Cyclobenzaprine 10 MG Tab PO SCH ×2 (08:15→20:49)
[2020-03-14] MEDS: Potassium Chloride 10 MEQ in Premix Bag 1 BAG IV SCH ×4 (08:17→13:51)
[2020-03-14] MEDS: Spironolactone 25 MG Tab PO SCH ×2 (08:39→20:50)
[2020-03-14] MEDS: Bacitracin Oint 15 GM Tube TOP SCH ×5 (08:40→20:51)
[2020-03-14] MEDS: HYDROmorphone 0.5 MG/0.5 ML Syringe IVPUSH PRN (10:20)
--- NOTE | 2020-03-14 12:54 | PCM.PN ---
- General Info Date of Service: 03/14/20 Admission Dx/Problem (Free Text): Admission Diagnosis/Problem Admission Diagnosis/Problem Cellulitis Subjective Update: Patient continues with back pain, but he generally is feeling better. Legs are less swollen and they currently are wrapped secondary to the swelling. Patient has had a 3 kg weight gain. - Review of Systems General: Reports: No Symptoms HEENT: Reports: No Symptoms Pulmonary: Reports: No Symptoms Cardiovascular: Reports: No Symptoms Gastrointestinal: Reports: No Symptoms Musculoskeletal: Reports: No Symptoms Neurological: Reports: No Symptoms - Patient Data Vitals - Most Recent: Last Vital Signs Temp 97.5 F 03/14/20 07:22 Pulse 98 03/14/20 11:12 Resp 20 03/14/20 11:12 BP 139/87 03/14/20 11:12 Pulse Ox 92 L 03/14/20 11:12 Weight - Most Recent: 165.969 kg I&O - Last 24 Hours: Intake & Output 03/13/20 03/14/20 03/14/20 22:59 06:59 14:59 Intake Total 1864 800 Output Total 1100 950 Balance 764 -150 Lab Results Last 24 Hours: Laboratory Results - last 24 hr 03/13/20 03/13/20 03/13/20 Range/Units 04:39 04:39 17:17 WBC (4.23-9.07) K/mm3 RBC (4.63-6.08) M/mm3 Hgb (13.7-17.5) gm/dl Hct (40.1-51.0) % MCV (79.0-92.2) fl MCH (25.7-32.2) pg MCHC (32.2-35.5) g/dl RDW Std Deviation (35.1-43.9) fL Plt Count (163-337) K/mm3 MPV (9.4-12.3) fl Neut % (Auto) (34.0-67.9) % Lymph % (Auto) (21.8-53.1) % [place] % (Auto) (5.3-12.2) % Eos % (Auto) (0.8-7.0) Baso % (Auto) (0.1-1.2) % Neut # (Auto) (1.78-5.38) K/mm3 Lymph # (Auto) (1.32-3.57) K/mm3 [place] # (Auto) (0.30-0.82) K/mm3 Eos # (Auto) (0.04-0.54) K/mm3 Baso # (Auto) (0.01-0.08) K/mm3 Manual Slide Review Sodium (136-145) mEq/L Potassium (3.5-5.1) mEq/L Chloride (98-107) mEq/L Carbon Dioxide (21-32) mEq/L Anion Gap (5-15) BUN (7-18) mg/dL Creatinine (0.7-1.3) mg/dL Est Cr Clr Drug Dosing mL/min Estimated GFR (MDRD) (>60) mL/min BUN/Creatinine Ratio (14-18) Glucose (74-106) mg/dL POC Glucose 231 H (70-105) mg/dL Calcium 9.1 (8.5-10.1) mg/dL Phosphorus (2.6-4.7) mg/dL Magnesium (1.8-2.4) mg/dl Total Bilirubin (0.2-1.0) mg/dL AST (15-37) U/L ALT (16-63) U/L Alkaline Phosphatase (46-116) U/L C-Reactive Protein (<1.0) mg/dL Total Protein (6.4-8.2) g/dl Albumin (3.4-5.0) g/dl Globulin gm/dL Albumin/Globulin Ratio (1-2) Procalcitonin 0.99 H (<0.10) ng/mL Vancomycin Trough (10.0-20.0) 03/13/20 03/14/20 03/14/20 Range/Units 21:50 05:12 05:12 WBC 14.40 H (4.23-9.07) K/mm3 RBC 4.12 L (4.63-6.08) M/mm3 Hgb 8.1 L (13.7-17.5) gm/dl Hct 30.9 L (40.1-51.0) % MCV 75.0 L (79.0-92.2) fl MCH 19.7 L (25.7-32.2) pg MCHC 26.2 L (32.2-35.5) g/dl RDW Std Deviation 54.1 H (35.1-43.9) fL Plt Count 531 H (163-337) K/mm3 MPV 8.9 L (9.4-12.3) fl Neut % (Auto) 75.7 H (34.0-67.9) % Lymph % (Auto) 12.2 L (21.8-53.1) % [place] % (Auto) 8.8 (5.3-12.2) % Eos % (Auto) 0.1 L (0.8-7.0) Baso % (Auto) 0.7 (0.1-1.2) % Neut # (Auto) 10.91 H (1.78-5.38) K/mm3 Lymph # (Auto) 1.75 (1.32-3.57) K/mm3 [place] # (Auto) 1.26 H (0.30-0.82) K/mm3 Eos # (Auto) 0.02 L (0.04-0.54) K/mm3 Baso # (Auto) 0.10 H (0.01-0.08) K/mm3 Manual Slide Review Abnormal smear Sodium 134 L (136-145) mEq/L Potassium 3.1 L (3.5-5.1) mEq/L Chloride 94 L (98-107) mEq/L Carbon Dioxide 39 H (21-32) mEq/L Anion Gap 4.1 L (5-15) BUN 22 H (7-18) mg/dL Creatinine 1.2 (0.7-1.3) mg/dL Est Cr Clr Drug Dosing 76.04 mL/min Estimated GFR (MDRD) > 60 (>60) mL/min BUN/Creatinine Ratio 18.3 H (14-18) Glucose 135 H (74-106) mg/dL POC Glucose 223 H (70-105) mg/dL Calcium 8.9 (8.5-10.1) mg/dL Phosphorus 3.0 (2.6-4.7) mg/dL Magnesium 2.0 (1.8-2.4) mg/dl Total Bilirubin 0.3 (0.2-1.0) mg/dL AST 40 H (15-37) U/L ALT 108 H (16-63) U/L Alkaline Phosphatase 231 H (46-116) U/L C-Reactive Protein 8.6 H* (<1.0) mg/dL Total Protein 6.1 L (6.4-8.2) g/dl Albumin 2.2 L (3.4-5.0) g/dl Globulin 3.9 gm/dL Albumin/Globulin Ratio 0.6 L (1-2) Procalcitonin (<0.10) ng/mL Vancomycin Trough (10.0-20.0) 03/14/20 03/14/20 03/14/20 Range/Units 05:12 06:27 10:48 WBC (4.23-9.07) K/mm3 RBC (4.63-6.08) M/mm3 Hgb (13.7-17.5) gm/dl Hct (40.1-51.0) % MCV (79.0-92.2) fl MCH (25.7-32.2) pg MCHC (32.2-35.5) g/dl RDW Std Deviation (35.1-43.9) fL Plt Count (163-337) K/mm3 MPV (9.4-12.3) fl Neut % (Auto) (34.0-67.9) % Lymph % (Auto) (21.8-53.1) % [place] % (Auto) (5.3-12.2) % Eos % (Auto) (0.8-7.0) Baso % (Auto) (0.1-1.2) % Neut # (Auto) (1.78-5.38) K/mm3 Lymph # (Auto) (1.32-3.57) K/mm3 [place] # (Auto) (0.30-0.82) K/mm3 Eos # (Auto) (0.04-0.54) K/mm3 Baso # (Auto) (0.01-0.08) K/mm3 Manual Slide Review Sodium (136-145) mEq/L Potassium (3.5-5.1) mEq/L Chloride (98-107) mEq/L Carbon Dioxide (21-32) mEq/L Anion Gap (5-15) BUN (7-18) mg/dL Creatinine (0.7-1.3) mg/dL Est Cr Clr Drug Dosing mL/min Estimated GFR (MDRD) (>60) mL/min BUN/Creatinine Ratio (14-18) Glucose (74-106) mg/dL POC Glucose 127 H 246 H (70-105) mg/dL Calcium (8.5-10.1) mg/dL Phosphorus (2.6-4.7) mg/dL Magnesium (1.8-2.4) mg/dl Total Bilirubin (0.2-1.0) mg/dL AST (15-37) U/L ALT (16-63) U/L Alkaline Phosphatase (46-116) U/L C-Reactive Protein (<1.0) mg/dL Total Protein (6.4-8.2) g/dl Albumin (3.4-5.0) g/dl Globulin gm/dL Albumin/Globulin Ratio (1-2) Procalcitonin (<0.10) ng/mL Vancomycin Trough 14.9 (10.0-20.0) Gomez Results Last 24 Hours: Microbiology 03/10/20 12:30 Aerobic Blood Culture - Preliminary Blood - Venous - Lab Draw NO GROWTH AFTER 4 DAYS Anaerobic Blood Culture - Preliminary NO GROWTH AFTER 4 DAYS 03/10/20 12:20 Aerobic Blood Culture - Preliminary Blood - Venous NO GROWTH AFTER 4 DAYS Anaerobic Blood Culture - Preliminary NO GROWTH AFTER 4 DAYS Med Orders - Current: Current Medications Acetaminophen (Tylenol) 650 mg PO Q4H PRN PRN Reason: Pain (Mild 1-3)/fever Last Admin: 03/14/20 12:19 Dose: 650 mg Documented by: Albuterol/Ipratropium (Duoneb 3.0-0.5 Mg/3 Ml) 3 ml NEB Q4HRRT PRN PRN Reason: Shortness of Breath Bacitracin (Bacitracin Oint) 0 gm TOP TID [facility] Last Admin: 03/14/20 10:39 Dose: 1 applic Documented by: Bumetanide (Bumex) 2 mg PO QAM [facility] Last Admin: 03/14/20 08:15 Dose: 2 mg Documented by: Bumetanide (Bumex) 1 mg PO Q24H [facility] Last Admin: 03/13/20 16:15 Dose: 1 mg Documented by: Cyclobenzaprine HCl (Flexeril) 10 mg PO BID [facility] Last Admin: 03/14/20 08:15 Dose: 10 mg Documented by: Dextrose/Water (Dextrose 50% In Water) 50 ml IVPUSH ASDIRECTED PRN PRN Reason: Hypoglycemia Diphenhydramine HCl (Benadryl) 50 mg IVPUSH Q4H PRN PRN Reason: Rash Hydromorphone HCl (Dilaudid) 0.5 mg IVPUSH Q2H PRN PRN Reason: Pain (severe 7-10) Last Admin: 03/14/20 10:20 Dose: 0.5 mg Documented by: Ceftriaxone Sodium 2 gm/ (Sodium Chloride) 100 mls @ 200 mls/hr IV Q24H [facility] Last Admin: 03/13/20 22:15 Dose: 200 mls/hr Documented by: Vancomycin HCl 1 gm/Vancomycin HCl 500 mg/ Sodium Chloride 500 mls @ 250 mls/hr IV Q18H [facility] Last Admin: 03/14/20 06:20 Dose: 250 mls/hr Documented by: Insulin Glargine (Lantus) 20 unit SUBCUT DAILY [facility] Last Admin: 03/14/20 08:11 Dose: 20 units Documented by: Insulin Human Lispro (Humalog) 0 unit SUBCUT QIDACANDBED [facility]; Protocol Last Admin: 03/14/20 12:20 Dose: 4 units Documented by: Insulin Human Lispro (Humalog) 5 unit SUBCUT TIDAC [facility] Last Admin: 03/14/20 12:21 Dose: 5 units Documented by: Magnesium Oxide (Magnesium Oxide) 400 mg PO BID [facility] Last Admin: 03/14/20 08:14 Dose: 400 mg Documented by: Methyl Salicylate (Icy Hot Cream) 0 gm TOP TID PRN PRN Reason: Pain Last Admin: 03/14/20 01:27 Dose: 1 applic Documented by: Ondansetron HCl (Zofran Odt) 4 mg PO Q6H PRN PRN Reason: Nausea Oxycodone/Acetaminophen (Percocet 325-5 Mg) 1 tab PO Q4H PRN PRN Reason: Pain (moderate 4-6) Last Admin: 03/13/20 16:15 Dose: 1 tab Documented by: Pantoprazole Sodium (Protonix) 40 mg PO ACBRK [facility] Last Admin: 03/14/20 06:18 Dose: 40 mg Documented by: Potassium Chloride (Klor-Con M20) 40 meq PO TID [facility] Last Admin: 03/14/20 08:15 Dose: 40 meq Documented by: Prednisone (Prednisone) 60 mg PO DAILY [facility] Last Admin: 03/14/20 08:14 Dose: 60 mg Documented by: Pyridostigmine [place] (Mestinon) 60 mg PO 5XDAY [facility] Last Admin: 03/14/20 10:20 Dose: 60 mg Documented by: Rivaroxaban (Xarelto) 15 mg PO DAILY [facility] Last Admin: 03/14/20 08:15 Dose: 15 mg Documented by: Sodium Chloride (Saline Flush) 10 ml FLUSH ASDIRECTED PRN PRN Reason: Keep Vein Open Last Admin: 03/10/20 11:49 Dose: 10 ml Documented by: Spironolactone (Aldactone) 50 mg PO BID [facility] Last Admin: 03/14/20 08:39 Dose: 50 mg Documented by: Tramadol HCl (Ultram) 100 mg PO Q6H PRN PRN Reason: Pain Last Admin: 03/14/20 12:19 Dose: 100 mg Documented by: Vancomycin HCl (Pharmacy To Dose - Vancomycin) 0 dose .XX ONETIME PRN PRN Reason: RX TO DOSE VANCOMYCIN Discontinued Medications Albuterol/Ipratropium (Duoneb 3.0-0.5 Mg/3 Ml) 3 ml INH BID [facility] Last Admin: 03/11/20 20:06 Dose: Not Given Documented by: Bumetanide (Bumex) 2 mg PO BIDDIURETIC [facility] Last Admin: 03/13/20 05:08 Dose: 2 mg Documented by: Hydromorphone HCl (Dilaudid) 0.5 mg IVPUSH ONETIME ONE Stop: 03/10/20 11:39 Last Admin: 03/10/20 11:47 Dose: 0.5 mg Documented by: Hydromorphone HCl (Dilaudid) 0.5 mg IVPUSH ONETIME ONE Stop: 03/10/20 13:04 Last Admin: 03/10/20 13:18 Dose: 0.5 mg Documented by: Sodium Chloride (Normal Saline) 1,000 mls @ 100 mls/hr IV ASDIRECTED [facility] Last Infusion: 03/10/20 17:26 Dose: 50 mls/hr Documented by: Vancomycin HCl 1.75 gm/ Sodium (Chloride) 500 mls @ 250 mls/hr IV ONETIME ONE Stop: 03/10/20 14:59 Last Admin: 03/10/20 13:00 Dose: 250 mls/hr Documented by: Vancomycin HCl 1.75 gm/ Sodium (Chloride) 500 mls @ 250 mls/hr IV Q12H [facility] Last Admin: 03/12/20 14:05 Dose: Not Given Documented by: Sodium Chloride (Normal Saline) 1,000 mls @ 50 mls/hr IV ASDIRECTED [facility] Sodium Chloride (Normal Saline) 500 mls @ 500 mls/hr IV ONETIME ONE Stop: 03/10/20 21:43 Last Admin: 03/10/20 21:14 Dose: 500 mls/hr Documented by: Sterile Water (Sterile Water For Injection) Confirm Administered Dose 20 mls @ as directed .ROUTE .STK-MED ONE Stop: 03/11/20 00:09 Last Admin: 03/11/20 00:27 Dose: Not Given Documented by: Potassium Chloride 10 meq/ (Premix) 100 mls @ 100 mls/hr IV Q1H [facility] Stop: 03/11/20 12:29 Last Admin: 03/11/20 12:22 Dose: 100 mls/hr Documented by: Ferric Sodium Gluconate Complex 250 mg/ Sodium Chloride 120 mls @ 60 mls/hr IV ONETIME ONE Stop: 03/11/20 11:14 Ferric Sodium Gluconate Complex 250 mg/ Sodium Chloride 120 mls @ 60 mls/hr IV ONETIME ONE Stop: 03/11/20 16:59 Last Admin: 03/11/20 16:20 Dose: 60 mls/hr Documented by: Potassium Chloride 10 meq/ (Premix) 100 mls @ 100 mls/hr IV Q1H [facility] Stop: 03/12/20 12:14 Last Admin: 03/12/20 11:49 Dose: 100 mls/hr Documented by: Potassium Chloride 10 meq/ (Premix) 100 mls @ 100 mls/hr IV Q1H [facility] Stop: 03/14/20 12:14 Last Admin: 03/14/20 12:24 Dose: 100 mls/hr Documented by: Insulin Glargine (Lantus) 15 unit SUBCUT DAILY [facility] Last Admin: 03/11/20 08:45 Dose: 15 units Documented by: Insulin Glargine (Lantus) 18 unit SUBCUT DAILY [facility] Last Admin: 03/12/20 08:27 Dose: 18 units Documented by: Potassium Chloride (Klor-Con M20) 40 meq PO ONETIME ONE Stop: 03/10/20 12:47 Last Admin: 03/10/20 13:01 Dose: 40 meq Documented by: Potassium Chloride (Klor-Con M20) 20 meq PO ONETIME ONE Stop: 03/10/20 21:01 Spironolactone (Aldactone) 25 mg PO BID [facility] Last Admin: 03/13/20 21:52 Dose: 25 mg Documented by: Tramadol HCl (Ultram) 50 mg PO Q6H PRN PRN Reason: Pain Last Admin: 03/13/20 05:09 Dose: 50 mg Documented by: - Exam Quality Assessment: Supplemental Oxygen General: Alert, Oriented HEENT: Pupils Equal, Mucous Membr. Moist/[place] Neck: Supple Lungs: Clear to Auscultation, Normal Respiratory Effort Cardiovascular: Regular Rate, Regular Rhythm Back Exam: Normal Inspection Extremities: Pedal Edema (Improvement in his edema even with the weight gain.), Redness (Continued improvement in his lower extremity cellulitis.) Skin: Warm, Dry, Intact Neurological: No New Focal Deficit Psy/Mental Status: Alert, Normal Affect, Normal Mood Sepsis Event Note - Evaluation Sepsis Screening Result: Sepsis Risk - Focused Exam Vital Signs: Vital Signs Temp Pulse Resp BP Pulse Ox 03/14/20 11:12 98 20 139/87 92 L 03/14/20 07:22 97.5 F 80 24 H 123/88 98 03/14/20 04:37 97.5 F 74 20 136/87 99 - Problem List & Annotations (1) Sepsis due to cellulitis SNOMED Code(s): 91278301 Code(s): L03.90 - CELLULITIS, UNSPECIFIED; A41.9 - SEPSIS, UNSPECIFIED ORGANISM Status: Acute Priority: High Current Visit: Yes (2) Thrombocythemia SNOMED Code(s): 1173458 Code(s): D47.3 - ESSENTIAL (HEMORRHAGIC) THROMBOCYTHEMIA Status: Acute C urrent Visit: Yes (3) Chronic kidney disease (CKD), stage III (moderate) SNOMED Code(s): 242795226 Code(s): N18.3 - CHRONIC KIDNEY DISEASE, STAGE 3 (MODERATE) Status: Acute Current Visit: No (4) Myasthenia gravis SNOMED Code(s): 68443362 Code(s): G70.00 - MYASTHENIA GRAVIS WITHOUT (ACUTE) EXACERBATION Status: Acute Current Visit: No - Problem List Review Problem List Initiated/Reviewed/Updated: Yes - My Orders Last 24 Hours: My Active Orders 03/13/20 16:00 Bumetanide [Bumex] 1 mg PO Q24H 03/14/20 08:00 Bumetanide [Bumex] 2 mg PO QAM 03/14/20 09:00 Spironolactone [Aldactone] 50 mg PO BID 03/15/20 05:11 C-REACTIVE PROTEIN [CHEM] AM CBC WITH AUTO DIFF [HEME] AM CMP [COMPREHENSIVE METABOLIC PN,CMP] [CHEM] AM MAGNESIUM [CHEM] AM PHOSPHORUS [CHEM] AM 03/16/20 05:11 C-REACTIVE PROTEIN [CHEM] AM CBC WITH AUTO DIFF [HEME] AM CMP [COMPREHENSIVE METABOLIC PN,CMP] [CHEM] AM MAGNESIUM [CHEM] AM PHOSPHORUS [CHEM] AM - Assessment Assessment:: Assessment 03/10/2020day of admission Sepsis secondary to lower extremity cellulitis * Large area of cellulitis on the posterior thighs and legs * SIRS criteria met: Elevated white count of 25.86 with left shift, tachycardia and tachypnea * 1 organ dysfunction: Lactate 3.5 * C-reactive protein 26.1 * Procalcitonin pending * Patient is allergic to cephalexin and penicillins * Started on vancomycin in the emergency department * Blood cultures in the emergency department Myasthenia gravis * Possible mild flare. * Patient denies diplopia but does have some blurred vision. * Weakness of his lower extremities could be secondary to his pain from a cellulitis. * Currently on prednisone 60 mg every morning and pyridostigmine 60 mg 5 times a day Microcytic anemia * Hemoglobin 9.4. * No signs of bleeding, but on Xarelto for PE and DVT Thrombocytosis * Platelets 624,000 * Likely reactive Hyponatremia and hypokalemia * Corrected sodium 131 * Potassium 3.0 Chronic renal insufficiency with possible acute injury * Creatinine 1.7 with estimated GFR of 43 * BUN 26 * BUN/creatinine ratio of 15.3 Hyperglycemia likely new onset diabetes * Initial glucose 245 * Patient states he has no history of diabetes Elevated liver enzymes * AST 72, ALT 229, alkaline phosphatase 297 * Likely multifactorial to include medications and fatty liver * No ultrasound or previous work-up available 03/11/2020 Sepsis secondary to lower extremity cellulitis -improved * Patient has chronically elevated white blood cell count making that parameter less accurate. It also appears he has had a chronic sinus tachycardia since August making that parameter also less accurate for SIRS criteria. * WBC down to 20.57 * Heart rate in the upper 90s to low 100s * Cellulitis is improving. * Lactic acid repeat is normal * Started on vancomycin and Rocephin * Blood cultures pending * Procalcitonin pending Myasthenia gravis-stable * Restarted home meds * Continue lower extremity weakness but no diplopia or dysphasia. Mild blurring of vision. This also appears to be chronic. Microcytic anemia * Hemoglobin down to 8.4 likely secondary to hemodilution * Iron low at 26 with percent saturation low at 10% Thrombocythemia -chronic and improved * Platelets down to 568 Hyponatremia and hypokalemia * Sodium 132 * Potassium 2.6 * On potassium 40 mEq 3 times daily at home Acute on chronic renal insufficiency-improved * Creatinine down to 1.3, GFR 58 * BUN 26 * BUN to creatinine ratio 20 showing some prerenal injury Type 2 diabetes, new onset * Hemoglobin A1c is 9.0 * Likely worsened by both obesity and chronic steroids Elevated liver enzymesimproved * AST 51, ALT 177, alkaline phosphatase 239 Ulceration of the right abdominal pannus with infection Stasis ulceration of the right lower extremity with weeping discharge * Both of these appear to be chronic 03/12/2020 Sepsisresolved Lower extremity cellulitis-improving * White count continues to decrease to 15.8 and CRP 24.8 * Initial procalcitonin was 1.2 * Blood cultures negative * On Rocephin and vancomycin * Heart rate continues in the upper 90s to low 100s, but this appears to be chronic. I reviewed his records from the care home and he often has heart rate in the low 100s. Myasthenia gravisstable * Patient has more movement in his lower extremities. Microcytic anemia * Hemoglobin essentially stable at 8.2 * Given IV iron yesterday Thrombocythemiachronic * Platelets 578 Hyponatremiaresolved Hypokalemia * Received 120 mEq of potassium yesterday and potassium only came up to 2.8 Acute on chronic renal insufficiency-resolved * Secondary to sepsis and hypovolemia * Creatinine 1.2 and estimated GFR is greater than 60 New onset type 2 diabetes * Lantus increased to 18 units daily * Blood sugars still ranging from 152 to 294. Elevated liver enzymes * AST 46, ALT 154, alkaline phosphatase 240 * Hepatitis C screening negative Stasis dermatitis with ulceration of the right lower extremity with weeping discharge and ulceration of the right abdominal pannus with superficial infection * Nursing doing wound management * Bacitracin for topical * On vancomycin and Rocephin 03/13/2020 Lower extremity cellulitis * WBC continues to decrease, 5.0; C-reactive protein decreased to 16.0 * Blood cultures still showed no growth * Continue on vancomycin and Rocephin Myasthenia gravisstable Iron deficient anemia * Hemoglobin stable at 8.2 * Stools negative for occult blood Thrombocythemia * Platelets 566 * On Xarelto Hypokalemia * Potassium 2.9 * Received 120 mEq of potassium yesterday * On Bumex worsening potassium Acute renal injuryresolved * Creatinine 1.1 and estimated GFR greater than 60 New onset type 2 diabetes * Hemoglobin A1c 9.0 * Blood sugars remain in the upper 100s and low 200s Elevated liver enzymes * Hepatitis C screen negative Stasis dermatitis with ulceration of the right lower extremity with weeping discharge and ulceration of the right abdominal pannus with superficial infection * Wound therapy consulted 03/14/2020 Lower extremity cellulitisimproved * WBC 14.4down * C-reactive protein 8.6down * Continue Rocephin and vancomycin for a full 7 days Myasthenia gravisstable Iron deficiency anemia * Hemoglobin 8.1stable * Received 1 dose of IV iron Thrombocythemiano change Hypokalemia * Potassium 3.1 * On K. Dur 40 mEq 3 times daily * Received 40 mEq IV * Started spironolactone 25 mg twice daily New onset diabetes mellitus * Blood sugars ranging from 127-246 * Lantus 20 units in the morning * Humalog 5 units with meals * Sliding scale insulin Lower extremity edema/stasis dermatitis with ulcerations and ulceration of the right abdominal pannus * Decreased Bumex to 2 mg in the morning and 1 mg in the afternoon * Started spironolactone 25 mg twice daily * Wound care per nursing Chronic: Myasthenia gravis, essential thrombocythemia, anemia unspecified, elevated white blood cell count unspecified, nausea, chronic kidney disease stage III, atherosclerotic heart disease of [place] coronary artery, pulmonary embolism and thrombosis of popliteal vein bilaterally, acute respiratory failure with hypoxemia, chronic pain, psychoactive substance dependence, obstructive sleep apnea, hypoxemia, obesity, degenerative joint disease, acute myocardial infarction - Plan Plan:: Plan * Admit to floor on telemetry * Continue vancomycin pharmacy to dose for 7 days * Rocephin 2 g daily for 7 days * Lantus 20 units daily * Humalog 5 units before each meal * Continue sliding scale insulin * Follow blood cultures -negative after 4 days * CBC, CMP, C-reactive protein in the morning * Supplement potassium with 40 mEq IV potassium and continue 40 mEq p.o. 3 times daily * Increase spironolactone 25 mg twice daily * Elevated white count and platelets appear to be chronic, but will continue to follow as inpatient * Follow renal and liver function * Fingerstick blood sugar 4 times a day with sliding scale insulin moderate level * Diabetic education when available * Diabetic diet * Continue monitoring his myasthenia gravis. If it appears he is having an exacerbation/flare I will increase his steroids and pyridostigmine. * VTE prophylaxis with Xarelto * CODE STATUS: Full code * Disposition: Admit to floor on telemetry for IV antibiotics and the above work-up. Length of stay likely 3 to 4 days.
[2020-03-14] MEDS: Ferrous Sulfate 324 MG Tab.EC PO SCH (17:14)
[2020-03-14] MEDS: Ascorbic Acid 500 MG Tab PO SCH (17:14)
[2020-03-14] MEDS: cefTRIAXone 2 GM in Sodium Chloride 0.9% 100 ML IV SCH (20:47)
[2020-03-15] MEDS: Acetaminophen 325 MG Tab PO PRN ×4 (00:10→20:41)
[2020-03-15] MEDS: traMADol 50 MG Tab PO PRN ×4 (00:12→20:41)
[2020-03-15] MEDS: HYDROmorphone 0.5 MG/0.5 ML Syringe IVPUSH PRN ×2 (05:36→12:06)
[2020-03-15] MEDS: Ferrous Sulfate 324 MG Tab.EC PO SCH ×2 (05:41→16:47)
[2020-03-15] MEDS: Ascorbic Acid 500 MG Tab PO SCH ×2 (05:41→16:46)
[2020-03-15] MEDS: Pantoprazole 40 MG Tab.CR PO SCH (05:41)
[2020-03-15] MEDS: Insulin Lispro 100 Units/ML 3 ML Vial SUBCUT SCH ×7 (06:19→21:19)
[2020-03-15] MEDS: Bumetanide 1 MG Tab PO SCH ×2 (07:49→14:24)
[2020-03-15] MEDS: Rivaroxaban 15 MG Tab PO SCH (08:22)
[2020-03-15] MEDS: predniSONE 20 MG Tab PO SCH (08:22)
[2020-03-15] MEDS: Cyclobenzaprine 10 MG Tab PO SCH ×2 (08:22→21:19)
[2020-03-15] MEDS: Spironolactone 25 MG Tab PO SCH ×2 (08:23→20:41)
[2020-03-15] MEDS: Potassium Chloride 20 MEQ Tab.ER PO SCH ×2 (08:23→20:41)
[2020-03-15] MEDS: Magnesium Oxide 400 MG Tab PO SCH ×2 (08:23→20:40)
[2020-03-15] MEDS: Insulin Glarg,Human.Rec.Analog 100 Unit/ML SUBCUT SCH (08:24)
[2020-03-15] MEDS ORDERED: Potassium Chloride 20 MEQ Tab.ER PO SCH (09:00)
[2020-03-15] MEDS: Bacitracin Oint 15 GM Tube TOP SCH ×3 (10:58→20:44)
--- NOTE | 2020-03-15 15:03 | PCM.PN ---
- General Info Date of Service: 03/15/20 Admission Dx/Problem (Free Text): Admission Diagnosis/Problem Admission Diagnosis/Problem Cellulitis Subjective Update: Patient continues to do well. He is able to get out of bed today and use a bedside commode. He is feeling stronger. Appetite is good. Decreased pain and redness in his legs. - Review of Systems General: Reports: No Symptoms HEENT: Reports: No Symptoms Pulmonary: Reports: No Symptoms Cardiovascular: Reports: No Symptoms Gastrointestinal: Reports: No Symptoms Musculoskeletal: Reports: Leg Pain - Patient Data Vitals - Most Recent: Last Vital Signs Temp 98.1 F 03/15/20 12:02 Pulse 100 03/15/20 12:11 Resp 20 03/15/20 12:02 BP 142/76 H 03/15/20 12:02 Pulse Ox 92 L 03/15/20 12:11 Weight - Most Recent: 167.376 kg I&O - Last 24 Hours: Intake & Output 03/15/20 03/15/20 03/15/20 06:59 14:59 22:59 Intake Total 1300 560 Output Total 550 900 Balance 750 -340 Lab Results Last 24 Hours: Laboratory Results - last 24 hr 03/14/20 03/14/20 03/15/20 Range/Units 17:10 20:45 05:33 WBC 15.12 H (4.23-9.07) K/mm3 RBC 4.27 L (4.63-6.08) M/mm3 Hgb 8.3 L (13.7-17.5) gm/dl Hct 32.7 L (40.1-51.0) % MCV 76.6 L (79.0-92.2) fl MCH 19.4 L (25.7-32.2) pg MCHC 25.4 L (32.2-35.5) g/dl RDW Std Deviation 55.9 H (35.1-43.9) fL Plt Count 532 H (163-337) K/mm3 MPV 9.2 L (9.4-12.3) fl Neut % (Auto) 73.4 H (34.0-67.9) % Lymph % (Auto) 11.9 L (21.8-53.1) % Walker % (Auto) 9.3 (5.3-12.2) % Eos % (Auto) 1.0 (0.8-7.0) Baso % (Auto) 0.7 (0.1-1.2) % Neut # (Auto) 11.10 H (1.78-5.38) K/mm3 Lymph # (Auto) 1.80 (1.32-3.57) K/mm3 Walker # (Auto) 1.41 H (0.30-0.82) K/mm3 Eos # (Auto) 0.15 (0.04-0.54) K/mm3 Baso # (Auto) 0.10 H (0.01-0.08) K/mm3 Manual Slide Review Abnormal smear Sodium (136-145) mEq/L Potassium (3.5-5.1) mEq/L Chloride (98-107) mEq/L Carbon Dioxide (21-32) mEq/L Anion Gap (5-15) BUN (7-18) mg/dL Creatinine (0.7-1.3) mg/dL Est Cr Clr Drug Dosing mL/min Estimated GFR (MDRD) (>60) mL/min BUN/Creatinine Ratio (14-18) Glucose (74-106) mg/dL POC Glucose 262 H 187 H (70-105) mg/dL Calcium (8.5-10.1) mg/dL Phosphorus (2.6-4.7) mg/dL Magnesium (1.8-2.4) mg/dl Total Bilirubin (0.2-1.0) mg/dL AST (15-37) U/L ALT (16-63) U/L Alkaline Phosphatase (46-116) U/L C-Reactive Protein (<1.0) mg/dL Total Protein (6.4-8.2) g/dl Albumin (3.4-5.0) g/dl Globulin gm/dL Albumin/Globulin Ratio (1-2) 03/15/20 03/15/20 03/15/20 Range/Units 05:33 06:18 11:01 WBC (4.23-9.07) K/mm3 RBC (4.63-6.08) M/mm3 Hgb (13.7-17.5) gm/dl Hct (40.1-51.0) % MCV (79.0-92.2) fl MCH (25.7-32.2) pg MCHC (32.2-35.5) g/dl RDW Std Deviation (35.1-43.9) fL Plt Count (163-337) K/mm3 MPV (9.4-12.3) fl Neut % (Auto) (34.0-67.9) % Lymph % (Auto) (21.8-53.1) % Walker % (Auto) (5.3-12.2) % Eos % (Auto) (0.8-7.0) Baso % (Auto) (0.1-1.2) % Neut # (Auto) (1.78-5.38) K/mm3 Lymph # (Auto) (1.32-3.57) K/mm3 Walker # (Auto) (0.30-0.82) K/mm3 Eos # (Auto) (0.04-0.54) K/mm3 Baso # (Auto) (0.01-0.08) K/mm3 Manual Slide Review Sodium 136 (136-145) mEq/L Potassium 3.8 (3.5-5.1) mEq/L Chloride 95 L (98-107) mEq/L Carbon Dioxide 37 H (21-32) mEq/L Anion Gap 7.8 (5-15) BUN 22 H (7-18) mg/dL Creatinine 1.0 (0.7-1.3) mg/dL Est Cr Clr Drug Dosing 91.25 mL/min Estimated GFR (MDRD) > 60 (>60) mL/min BUN/Creatinine Ratio 22.0 H (14-18) Glucose 114 H (74-106) mg/dL POC Glucose 106 H 172 H (70-105) mg/dL Calcium 9.0 (8.5-10.1) mg/dL Phosphorus 3.2 (2.6-4.7) mg/dL Magnesium 2.3 (1.8-2.4) mg/dl Total Bilirubin 0.4 (0.2-1.0) mg/dL AST 42 H (15-37) U/L ALT 103 H (16-63) U/L Alkaline Phosphatase 233 H (46-116) U/L C-Reactive Protein 5.2 H* (<1.0) mg/dL Total Protein 6.3 L (6.4-8.2) g/dl Albumin 2.4 L (3.4-5.0) g/dl Globulin 3.9 gm/dL Albumin/Globulin Ratio 0.6 L (1-2) Gomez Results Last 24 Hours: Microbiology 03/10/20 12:30 Aerobic Blood Culture - Preliminary Blood - Venous - Lab Draw NO GROWTH AFTER 5 DAYS Anaerobic Blood Culture - Preliminary NO GROWTH AFTER 5 DAYS 03/10/20 12:20 Aerobic Blood Culture - Preliminary Blood - Venous NO GROWTH AFTER 5 DAYS Anaerobic Blood Culture - Preliminary NO GROWTH AFTER 5 DAYS Med Orders - Current: Current Medications Acetaminophen (Tylenol) 650 mg PO Q4H PRN PRN Reason: Pain (Mild 1-3)/fever Last Admin: 03/15/20 14:25 Dose: 650 mg Documented by: Albuterol/Ipratropium (Duoneb 3.0-0.5 Mg/3 Ml) 3 ml NEB Q4HRRT PRN PRN Reason: Shortness of Breath Ascorbic Acid (Vitamin C) 250 mg PO BIDAC [facility] Last Admin: 03/15/20 05:41 Dose: 250 mg Documented by: Bacitracin (Bacitracin Oint) 0 gm TOP TID [facility] Last Admin: 03/15/20 14:24 Dose: 1 applic Documented by: Bumetanide (Bumex) 2 mg PO QAM [facility] Last Admin: 03/15/20 07:49 Dose: 2 mg Documented by: Bumetanide (Bumex) 1 mg PO Q24H [facility] Last Admin: 03/15/20 14:24 Dose: 1 mg Documented by: Cyclobenzaprine HCl (Flexeril) 10 mg PO BID [facility] Last Admin: 03/15/20 08:22 Dose: 10 mg Documented by: Dextrose/Water (Dextrose 50% In Water) 50 ml IVPUSH ASDIRECTED PRN PRN Reason: Hypoglycemia Diphenhydramine HCl (Benadryl) 50 mg IVPUSH Q4H PRN PRN Reason: Rash Ferrous Sulfate (Ferrous Sulfate) 324 mg PO BIDAC [facility] Last Admin: 03/15/20 05:41 Dose: 324 mg Documented by: Hydromorphone HCl (Dilaudid) 0.5 mg IVPUSH Q2H PRN PRN Reason: Pain (severe 7-10) Last Admin: 03/15/20 12:06 Dose: 0.5 mg Documented by: Ceftriaxone Sodium 2 gm/ (Sodium Chloride) 100 mls @ 200 mls/hr IV Q24H [facility] Last Admin: 03/14/20 20:47 Dose: 200 mls/hr Documented by: Vancomycin HCl 1 gm/Vancomycin HCl 500 mg/ Sodium Chloride 500 mls @ 250 mls/hr IV Q18H [facility] Last Admin: 03/14/20 22:01 Dose: 250 mls/hr Documented by: Insulin Glargine (Lantus) 20 unit SUBCUT DAILY [facility] Last Admin: 03/15/20 08:24 Dose: 20 units Documented by: Insulin Human Lispro (Humalog) 0 unit SUBCUT QIDACANDBED [facility]; Protocol Last Admin: 03/15/20 13:00 Dose: 2 units Documented by: Insulin Human Lispro (Humalog) 5 unit SUBCUT TIDAC [facility] Last Admin: 03/15/20 13:01 Dose: 5 units Documented by: Magnesium Oxide (Magnesium Oxide) 400 mg PO BID [facility] Last Admin: 03/15/20 08:23 Dose: 400 mg Documented by: Methyl Salicylate (Icy Hot Cream) 0 gm TOP TID PRN PRN Reason: Pain Last Admin: 03/14/20 01:27 Dose: 1 applic Documented by: Ondansetron HCl (Zofran Odt) 4 mg PO Q6H PRN PRN Reason: Nausea Oxycodone/Acetaminophen (Percocet 325-5 Mg) 1 tab PO Q4H PRN PRN Reason: Pain (moderate 4-6) Last Admin: 03/13/20 16:15 Dose: 1 tab Documented by: Pantoprazole Sodium (Protonix) 40 mg PO ACBRK [facility] Last Admin: 03/15/20 05:41 Dose: 40 mg Documented by: Potassium Chloride (Klor-Con M20) 40 meq PO BID [facility] Stop: 03/16/20 09:01 Prednisone (Prednisone) 60 mg PO DAILY [facility] Last Admin: 03/15/20 08:22 Dose: 60 mg Documented by: Pyridostigmine [place] (Mestinon) 60 mg PO 5XDAY [facility] Last Admin: 03/15/20 14:24 Dose: 60 mg Documented by: Rivaroxaban (Xarelto) 15 mg PO DAILY [facility] Last Admin: 03/15/20 08:22 Dose: 15 mg Documented by: Sodium Chloride (Saline Flush) 10 ml FLUSH ASDIRECTED PRN PRN Reason: Keep Vein Open Last Admin: 03/10/20 11:49 Dose: 10 ml Documented by: Spironolactone (Aldactone) 50 mg PO BID [facility] Last Admin: 03/15/20 08:23 Dose: 50 mg Documented by: Tramadol HCl (Ultram) 100 mg PO Q6H PRN PRN Reason: Pain Last Admin: 03/15/20 14:24 Dose: 100 mg Documented by: Vancomycin HCl (Pharmacy To Dose - Vancomycin) 0 dose .XX ONETIME PRN PRN Reason: RX TO DOSE VANCOMYCIN Discontinued Medications Albuterol/Ipratropium (Duoneb 3.0-0.5 Mg/3 Ml) 3 ml INH BID [facility] Last Admin: 03/11/20 20:06 Dose: Not Given Documented by: Bumetanide (Bumex) 2 mg PO BIDDIURETIC [facility] Last Admin: 03/13/20 05:08 Dose: 2 mg Documented by: Bumetanide (Bumex) 1 mg PO Q24H [facility] Last Admin: 03/13/20 16:15 Dose: 1 mg Documented by: Hydromorphone HCl (Dilaudid) 0.5 mg IVPUSH ONETIME ONE Stop: 03/10/20 11:39 Last Admin: 03/10/20 11:47 Dose: 0.5 mg Documented by: Hydromorphone HCl (Dilaudid) 0.5 mg IVPUSH ONETIME ONE Stop: 03/10/20 13:04 Last Admin: 03/10/20 13:18 Dose: 0.5 mg Documented by: Sodium Chloride (Normal Saline) 1,000 mls @ 100 mls/hr IV ASDIRECTED [facility] Last Infusion: 03/10/20 17:26 Dose: 50 mls/hr Documented by: Vancomycin HCl 1.75 gm/ Sodium (Chloride) 500 mls @ 250 mls/hr IV ONETIME ONE Stop: 03/10/20 14:59 Last Admin: 03/10/20 13:00 Dose: 250 mls/hr Documented by: Vancomycin HCl 1.75 gm/ Sodium (Chloride) 500 mls @ 250 mls/hr IV Q12H [facility] Last Admin: 03/12/20 14:05 Dose: Not Given Documented by: Sodium Chloride (Normal Saline) 1,000 mls @ 50 mls/hr IV ASDIRECTED [facility] Sodium Chloride (Normal Saline) 500 mls @ 500 mls/hr IV ONETIME ONE Stop: 03/10/20 21:43 Last Admin: 03/10/20 21:14 Dose: 500 mls/hr Documented by: Sterile Water (Sterile Water For Injection) Confirm Administered Dose 20 mls @ as directed .ROUTE .STK-MED ONE Stop: 03/11/20 00:09 Last Admin: 03/11/20 00:27 Dose: Not Given Documented by: Potassium Chloride 10 meq/ (Premix) 100 mls @ 100 mls/hr IV Q1H [facility] Stop: 03/11/20 12:29 Last Admin: 03/11/20 12:22 Dose: 100 mls/hr Documented by: Ferric Sodium Gluconate Complex 250 mg/ Sodium Chloride 120 mls @ 60 mls/hr IV ONETIME ONE Stop: 03/11/20 11:14 Ferric Sodium Gluconate Complex 250 mg/ Sodium Chloride 120 mls @ 60 mls/hr IV ONETIME ONE Stop: 03/11/20 16:59 Last Admin: 03/11/20 16:20 Dose: 60 mls/hr Documented by: Potassium Chloride 10 meq/ (Premix) 100 mls @ 100 mls/hr IV Q1H [facility] Stop: 03/12/20 12:14 Last Admin: 03/12/20 11:49 Dose: 100 mls/hr Documented by: Potassium Chloride 10 meq/ (Premix) 100 mls @ 100 mls/hr IV Q1H [facility] Stop: 03/14/20 12:14 Last Admin: 03/14/20 13:51 Dose: 100 mls/hr Documented by: Insulin Glargine (Lantus) 15 unit SUBCUT DAILY [facility] Last Admin: 03/11/20 08:45 Dose: 15 units Documented by: Insulin Glargine (Lantus) 18 unit SUBCUT DAILY [facility] Last Admin: 03/12/20 08:27 Dose: 18 units Documented by: Potassium Chloride (Klor-Con M20) 40 meq PO ONETIME ONE Stop: 03/10/20 12:47 Last Admin: 03/10/20 13:01 Dose: 40 meq Documented by: Potassium Chloride (Klor-Con M20) 20 meq PO ONETIME ONE Stop: 03/10/20 21:01 Potassium Chloride (Klor-Con M20) 40 meq PO TID [facility] Last Admin: 03/15/20 08:23 Dose: 40 meq Documented by: Potassium Chloride (Klor-Con M20) 40 meq PO BID [facility] Stop: 03/15/20 21:01 Last Admin: 03/15/20 11:02 Dose: Not Given Documented by: Spironolactone (Aldactone) 25 mg PO BID [facility] Last Admin: 03/13/20 21:52 Dose: 25 mg Documented by: Tramadol HCl (Ultram) 50 mg PO Q6H PRN PRN Reason: Pain Last Admin: 03/13/20 05:09 Dose: 50 mg Documented by: - Exam Quality Assessment: Supplemental Oxygen General: Alert, Oriented HEENT: Pupils Equal, Mucous Membr. Moist/[place] Neck: Supple Lungs: Clear to Auscultation, Normal Respiratory Effort Cardiovascular: Regular Rate, Regular Rhythm Extremities: Redness (Continued improvement in the redness, swelling, and pitting edema in the lower extremities.) Skin: Warm, Dry, Intact Neurological: No New Focal Deficit Psy/Mental Status: Alert, Normal Affect, Normal Mood Sepsis Event Note - Evaluation Sepsis Screening Result: Sepsis Risk - Focused Exam Vital Signs: Vital Signs Temp Pulse Resp BP Pulse Ox 03/15/20 12:11 100 92 L 03/15/20 12:02 98.1 F 111 H 20 142/76 H 92 L 03/15/20 07:40 98.1 F 81 18 123/83 100 03/15/20 05:52 96.8 F L 77 20 152/86 H 98 - Problem List & Annotations (1) Sepsis due to cellulitis SNOMED Code(s): 03662611 Code(s): L03.90 - CELLULITIS, UNSPECIFIED; A41.9 - SEPSIS, UNSPECIFIED ORGANISM Status: Acute Priority: High Current Visit: Yes (2) Thrombocythemia SNOMED Code(s): 9999342 Code(s): D47.3 - ESSENTIAL (HEMORRHAGIC) THROMBOCYTHEMIA Status: Acute Current Visit: Yes (3) Chronic kidney disease (CKD), stage III (moderate) SNOMED Code(s): 238926755 Code(s): N18.3 - CHRONIC KIDNEY DISEASE, STAGE 3 (MODERATE) Status: Acute Current Visit: No (4) Myasthenia gravis SNOMED Code(s): 55495318 Code(s): G70.00 - MYASTHENIA GRAVIS WITHOUT (ACUTE) EXACERBATION Status: Acute Current Visit: No - Problem List Review Problem List Initiated/Reviewed/Updated: Yes - My Orders Last 24 Hours: My Active Orders 03/14/20 15:00 Bumetanide [Bumex] 1 mg PO Q24H 03/14/20 16:00 Ascorbic Acid [Vitamin C] 250 mg PO BIDAC Ferrous Sulfate 324 mg PO BIDAC 03/15/20 21:00 Potassium Chloride [Klor-Con M20] 40 meq PO BID 03/16/20 05:11 C-REACTIVE PROTEIN [CHEM] AM CBC WITH AUTO DIFF [HEME] AM CMP [COMPREHENSIVE METABOLIC PN,CMP] [CHEM] AM - Assessment Assessment:: Assessment 03/10/2020day of admission Sepsis secondary to lower extremity cellulitis * Large area of cellulitis on the posterior thighs and legs * SIRS criteria met: Elevated white count of 25.86 with left shift, tachycardia and tachypnea * 1 organ dysfunction: Lactate 3.5 * C-reactive protein 26.1 * Procalcitonin pending * Patient is allergic to cephalexin and penicillins * Started on vancomycin in the emergency department * Blood cultures in the emergency department Myasthenia gravis * Possible mild flare. * Patient denies diplopia but does have some blurred vision. * Weakness of his lower extremities could be secondary to his pain from a cellulitis. * Currently on prednisone 60 mg every morning and pyridostigmine 60 mg 5 times a day Microcytic anemia * Hemoglobin 9.4. * No signs of bleeding, but on Xarelto for PE and DVT Thrombocytosis * Platelets 624,000 * Likely reactive Hyponatremia and hypokalemia * Corrected sodium 131 * Potassium 3.0 Chronic renal insufficiency with possible acute injury * Creatinine 1.7 with estimated GFR of 43 * BUN 26 * BUN/creatinine ratio of 15.3 Hyperglycemia likely new onset diabetes * Initial glucose 245 * Patient states he has no history of diabetes Elevated liver enzymes * AST 72, ALT 229, alkaline phosphatase 297 * Likely multifactorial to include medications and fatty liver * No ultrasound or previous work-up available 03/11/2020 Sepsis secondary to lower extremity cellulitis -improved * Patient has chronically elevated white blood cell count making that parameter less accurate. It also appears he has had a chronic sinus tachycardia since August making that parameter also less accurate for SIRS criteria. * WBC down to 20.57 * Heart rate in the upper 90s to low 100s * Cellulitis is improving. * Lactic acid repeat is normal * Started on vancomycin and Rocephin * Blood cultures pending * Procalcitonin pending Myasthenia gravis-stable * Restarted home meds * Continue lower extremity weakness but no diplopia or dysphasia. Mild blurring of vision. This also appears to be chronic. Microcytic anemia * Hemoglobin down to 8.4 likely secondary to hemodilution * Iron low at 26 with percent saturation low at 10% Thrombocythemia -chronic and improved * Platelets down to 568 Hyponatremia and hypokalemia * Sodium 132 * Potassium 2.6 * On potassium 40 mEq 3 times daily at home Acute on chronic renal insufficiency-improved * Creatinine down to 1.3, GFR 58 * BUN 26 * BUN to creatinine ratio 20 showing some prerenal injury Type 2 diabetes, new onset * Hemoglobin A1c is 9.0 * Likely worsened by both obesity and chronic steroids Elevated liver enzymesimproved * AST 51, ALT 177, alkaline phosphatase 239 Ulceration of the right abdominal pannus with infection Stasis ulceration of the right lower extremity with weeping discharge * Both of these appear to be chronic 03/12/2020 Sepsisresolved Lower extremity cellulitis-improving * White count continues to decrease to 15.8 and CRP 24.8 * Initial procalcitonin was 1.2 * Blood cultures negative * On Rocephin and vancomycin * Heart rate continues in the upper 90s to low 100s, but this appears to be chronic. I reviewed his records from the alf and he often has heart rate in the low 100s. Myasthenia gravisstable * Patient has more movement in his lower extremities. Microcytic anemia * Hemoglobin essentially stable at 8.2 * Given IV iron yesterday Thrombocythemiachronic * Platelets 578 Hyponatremiaresolved Hypokalemia * Received 120 mEq of potassium yesterday and potassium only came up to 2.8 Acute on chronic renal insufficiency-resolved * Secondary to sepsis and hypovolemia * Creatinine 1.2 and estimated GFR is greater than 60 New onset type 2 diabetes * Lantus increased to 18 units daily * Blood sugars still ranging from 152 to 294. Elevated liver enzymes * AST 46, ALT 154, alkaline phosphatase 240 * Hepatitis C screening negative Stasis dermatitis with ulceration of the right lower extremity with weeping discharge and ulceration of the right abdominal pannus with superficial infection * Nursing doing wound management * Bacitracin for topical * On vancomycin and Rocephin 03/13/2020 Lower extremity cellulitis * WBC continues to decrease, 5.0; C-reactive protein decreased to 16.0 * Blood cultures still showed no growth * Continue on vancomycin and Rocephin Myasthenia gravisstable Iron deficient anemia * Hemoglobin stable at 8.2 * Stools negative for occult blood Thrombocythemia * Platelets 566 * On Xarelto Hypokalemia * Potassium 2.9 * Received 120 mEq of potassium yesterday * On Bumex worsening potassium Acute renal injuryresolved * Creatinine 1.1 and estimated GFR greater than 60 New onset type 2 diabetes * Hemoglobin A1c 9.0 * Blood sugars remain in the upper 100s and low 200s Elevated liver enzymes * Hepatitis C screen negative Stasis dermatitis with ulceration of the right lower extremity with weeping discharge and ulceration of the right abdominal pannus with superficial infection * Wound therapy consulted 03/14/2020 Lower extremity cellulitisimproved * WBC 14.4down * C-reactive protein 8.6down * Continue Rocephin and vancomycin for a full 7 days Myasthenia gravisstable Iron deficiency anemia * Hemoglobin 8.1stable * Received 1 dose of IV iron Thrombocythemiano change Hypokalemia * Potassium 3.1 * On K. Dur 40 mEq 3 times daily * Received 40 mEq IV * Started spironolactone 25 mg twice daily New onset diabetes mellitus * Blood sugars ranging from 127-246 * Lantus 20 units in the morning * Humalog 5 units with meals * Sliding scale insulin Lower extremity edema/stasis dermatitis with ulcerations and ulceration of the right abdominal pannus * Decreased Bumex to 2 mg in the morning and 1 mg in the afternoon * Started spironolactone 25 mg twice daily * Wound care per nursing 03/15/2020 Lower extremity cellulitis with edema, stasis dermatitis, and stasis ulcers * Patient continues to improve. White count is stable and at its chronic level of 15.1. C-reactive protein continues to drop, 5.2 * Day 5 of Rocephin and vancomycin * Bumex 2 mg in the morning and 1 mg in the evening * Spironolactone 50 mg twice daily Myasthenia gravisweakness improving Iron deficiency anemiastable * hemoglobin 8.3 * Stools negative for Hemoccult Thrombocythemiastable Hypokalemia * Potassium 3.8 * Received a total of 160 mEq of potassium yesterday. Chronically on 120 mEq. * Started on spironolactone and increase to 50 mg twice a day New onset diabetes mellitus * Blood sugars still ranging from 106 up to 262. Chronic: Myasthenia gravis, essential thrombocythemia, anemia unspecified, elevated white blood cell count unspecified, nausea, chronic kidney disease stage III, atherosclerotic heart disease of [place] coronary artery, pulmonary embolism and thrombosis of popliteal vein bilaterally, acute respiratory failure with hypoxemia, chronic pain, psychoactive substance dependence, obstructive sleep apnea, hypoxemia, obesity, degenerative joint disease, acute myocardial infarction - Plan Plan:: Plan * Admit to floor on telemetry * Continue vancomycin pharmacy to dose for 7 days * Rocephin 2 g daily for 7 days * Lantus 20 units daily * Humalog 5 units before each meal * Continue sliding scale insulin * Follow blood cultures -negative after 5 days * CBC, CMP, C-reactive protein in the morning * Decrease potassium to 40 mEq twice daily * Continue spironolactone at 50 mg twice daily * Elevated white count and platelets appear to be chronic, but will continue to follow as inpatient * Follow renal and liver function * Fingerstick blood sugar 4 times a day with sliding scale insulin moderate level * Diabetic education when available * Diabetic diet * Continue monitoring his myasthenia gravis. If it appears he is having an exacerbation/flare I will increase his steroids and pyridostigmine. * VTE prophylaxis with Xarelto * CODE STATUS: Full code * Disposition: Admit to floor on telemetry for IV antibiotics and the above work-up. Length of stay likely 3 to 4 days.
[2020-03-15] MEDS: Vancomycin 1 GM, Vancomycin 500 MG in Sodium Chloride 0.9% 500 ML IV SCH (16:47)
[2020-03-15] MEDS: cefTRIAXone 2 GM in Sodium Chloride 0.9% 100 ML IV SCH (20:39)
[2020-03-16] MEDS: Acetaminophen 325 MG Tab PO PRN ×2 (04:09→10:32)
[2020-03-16] MEDS: traMADol 50 MG Tab PO PRN ×2 (04:09→10:32)
[2020-03-16] MEDS: Pantoprazole 40 MG Tab.CR PO SCH (06:04)
[2020-03-16] MEDS: Ascorbic Acid 500 MG Tab PO SCH (06:04)
[2020-03-16] MEDS: Ferrous Sulfate 324 MG Tab.EC PO SCH (06:04)
--- NOTE | 2020-03-16 08:33 | PCM.PN ---
- General Info Date of Service: 03/16/20 Admission Dx/Problem (Free Text): Admission Diagnosis/Problem Admission Diagnosis/Problem Cellulitis - Patient Data Vitals - Most Recent: Last Vital Signs Temp 97.9 F 03/16/20 07:31 Pulse 82 03/16/20 07:31 Resp 16 03/16/20 07:31 BP 131/93 H 03/16/20 07:31 Pulse Ox 96 03/16/20 07:31 Weight - Most Recent: 371 lb 8 oz I&O - Last 24 Hours: Intake & Output 03/15/20 03/16/20 03/16/20 22:59 06:59 14:59 Intake Total 300 1200 Output Total 1050 Balance 300 150 Lab Results Last 24 Hours: Laboratory Results - last 24 hr 03/15/20 03/15/20 03/15/20 Range/Units 11:01 16:55 20:54 WBC (4.23-9.07) K/mm3 RBC (4.63-6.08) M/mm3 Hgb (13.7-17.5) gm/dl Hct (40.1-51.0) % MCV (79.0-92.2) fl MCH (25.7-32.2) pg MCHC (32.2-35.5) g/dl RDW Std Deviation (35.1-43.9) fL Plt Count (163-337) K/mm3 MPV (9.4-12.3) fl Neut % (Auto) (34.0-67.9) % Lymph % (Auto) (21.8-53.1) % [place] % (Auto) (5.3-12.2) % Eos % (Auto) (0.8-7.0) Baso % (Auto) (0.1-1.2) % Neut # (Auto) (1.78-5.38) K/mm3 Lymph # (Auto) (1.32-3.57) K/mm3 [place] # (Auto) (0.30-0.82) K/mm3 Eos # (Auto) (0.04-0.54) K/mm3 Baso # (Auto) (0.01-0.08) K/mm3 Manual Slide Review Sodium (136-145) mEq/L Potassium (3.5-5.1) mEq/L Chloride (98-107) mEq/L Carbon Dioxide (21-32) mEq/L Anion Gap (5-15) BUN (7-18) mg/dL Creatinine (0.7-1.3) mg/dL Est Cr Clr Drug Dosing mL/min Estimated GFR (MDRD) (>60) mL/min BUN/Creatinine Ratio (14-18) Glucose (74-106) mg/dL POC Glucose 172 H 221 H 201 H (70-105) mg/dL Calcium (8.5-10.1) mg/dL Total Bilirubin (0.2-1.0) mg/dL AST (15-37) U/L ALT (16-63) U/L Alkaline Phosphatase (46-116) U/L C-Reactive Protein (<1.0) mg/dL Total Protein (6.4-8.2) g/dl Albumin (3.4-5.0) g/dl Globulin gm/dL Albumin/Globulin Ratio (1-2) 03/16/20 03/16/20 03/16/20 Range/Units 05:40 05:40 06:07 WBC 14.39 H (4.23-9.07) K/mm3 RBC 4.21 L (4.63-6.08) M/mm3 Hgb 8.3 L (13.7-17.5) gm/dl Hct 32.3 L (40.1-51.0) % MCV 76.7 L (79.0-92.2) fl MCH 19.7 L (25.7-32.2) pg MCHC 25.7 L (32.2-35.5) g/dl RDW Std Deviation 56.2 H (35.1-43.9) fL Plt Count 524 H (163-337) K/mm3 MPV 9.0 L (9.4-12.3) fl Neut % (Auto) 78.7 H (34.0-67.9) % Lymph % (Auto) 10.1 L (21.8-53.1) % [place] % (Auto) 7.1 (5.3-12.2) % Eos % (Auto) 0 L (0.8-7.0) Baso % (Auto) 0.1 (0.1-1.2) % Neut # (Auto) 11.33 H (1.78-5.38) K/mm3 Lymph # (Auto) 1.45 (1.32-3.57) K/mm3 [place] # (Auto) 1.02 H (0.30-0.82) K/mm3 Eos # (Auto) 0.00 L (0.04-0.54) K/mm3 Baso # (Auto) 0.02 (0.01-0.08) K/mm3 Manual Slide Review Abnormal smear Sodium 135 L (136-145) mEq/L Potassium 4.3 (3.5-5.1) mEq/L Chloride 96 L (98-107) mEq/L Carbon Dioxide 36 H (21-32) mEq/L Anion Gap 7.3 (5-15) BUN 22 H (7-18) mg/dL Creatinine 1.1 (0.7-1.3) mg/dL Est Cr Clr Drug Dosing 82.95 mL/min Estimated GFR (MDRD) > 60 (>60) mL/min BUN/Creatinine Ratio 20.0 H (14-18) Glucose 151 H (74-106) mg/dL POC Glucose 153 H (70-105) mg/dL Calcium 8.9 (8.5-10.1) mg/dL Total Bilirubin 0.3 (0.2-1.0) mg/dL AST 51 H (15-37) U/L ALT 113 H (16-63) U/L Alkaline Phosphatase 234 H (46-116) U/L C-Reactive Protein 4.1 H* (<1.0) mg/dL Total Protein 6.3 L (6.4-8.2) g/dl Albumin 2.4 L (3.4-5.0) g/dl Globulin 3.9 gm/dL Albumin/Globulin Ratio 0.6 L (1-2) Gomez Results Last 24 Hours: Microbiology 03/10/20 12:30 Aerobic Blood Culture - Preliminary Blood - Venous - Lab Draw NO GROWTH AFTER 5 DAYS Anaerobic Blood Culture - Preliminary NO GROWTH AFTER 5 DAYS 03/10/20 12:20 Aerobic Blood Culture - Preliminary Blood - Venous NO GROWTH AFTER 5 DAYS Anaerobic Blood Culture - Preliminary NO GROWTH AFTER 5 DAYS Med Orders - Current: Current Medications Acetaminophen (Tylenol) 650 mg PO Q4H PRN PRN Reason: Pain (Mild 1-3)/fever Last Admin: 03/16/20 04:09 Dose: 650 mg Documented by: Albuterol/Ipratropium (Duoneb 3.0-0.5 Mg/3 Ml) 3 ml NEB Q4HRRT PRN PRN Reason: Shortness of Breath Ascorbic Acid (Vitamin C) 250 mg PO BIDAC [facility] Last Admin: 03/16/20 06:04 Dose: 250 mg Documented by: Bacitracin (Bacitracin Oint) 0 gm TOP TID [facility] Last Admin: 03/15/20 20:44 Dose: 1 applic Documented by: Bumetanide (Bumex) 2 mg PO QAM [facility] Last Admin: 03/15/20 07:49 Dose: 2 mg Documented by: Bumetanide (Bumex) 1 mg PO Q24H [facility] Last Admin: 03/15/20 14:24 Dose: 1 mg Documented by: Cyclobenzaprine HCl (Flexeril) 10 mg PO BID [facility] Last Admin: 03/15/20 21:19 Dose: 10 mg Documented by: Dextrose/Water (Dextrose 50% In Water) 50 ml IVPUSH ASDIRECTED PRN PRN Reason: Hypoglycemia Diphenhydramine HCl (Benadryl) 50 mg IVPUSH Q4H PRN PRN Reason: Rash Ferrous Sulfate (Ferrous Sulfate) 324 mg PO BIDAC [facility] Last Admin: 03/16/20 06:04 Dose: 324 mg Documented by: Hydromorphone HCl (Dilaudid) 0.5 mg IVPUSH Q2H PRN PRN Reason: Pain (severe 7-10) Last Admin: 03/15/20 12:06 Dose: 0.5 mg Documented by: Ceftriaxone Sodium 2 gm/ (Sodium Chloride) 100 mls @ 200 mls/hr IV Q24H [facility] Last Admin: 03/15/20 20:39 Dose: 200 mls/hr Documented by: Vancomycin HCl 1 gm/Vancomycin HCl 500 mg/ Sodium Chloride 500 mls @ 250 mls/hr IV Q18H [facility] Last Admin: 03/15/20 16:47 Dose: 250 mls/hr Documented by: Insulin Glargine (Lantus) 20 unit SUBCUT DAILY [facility] Last Admin: 03/15/20 08:24 Dose: 20 units Documented by: Insulin Human Lispro (Humalog) 0 unit SUBCUT QIDACANDBED [facility]; Protocol Last Admin: 03/15/20 21:19 Dose: 4 units Documented by: Insulin Human Lispro (Humalog) 5 unit SUBCUT TIDAC [facility] Last Admin: 03/15/20 17:56 Dose: 5 units Documented by: Magnesium Oxide (Magnesium Oxide) 400 mg PO BID [facility] Last Admin: 03/15/20 20:40 Dose: 400 mg Documented by: Methyl Salicylate (Icy Hot Cream) 0 gm TOP TID PRN PRN Reason: Pain Last Admin: 03/14/20 01:27 Dose: 1 applic Documented by: Ondansetron HCl (Zofran Odt) 4 mg PO Q6H PRN PRN Reason: Nausea Oxycodone/Acetaminophen (Percocet 325-5 Mg) 1 tab PO Q4H PRN PRN Reason: Pain (moderate 4-6) Last Admin: 03/13/20 16:15 Dose: 1 tab Documented by: Pantoprazole Sodium (Protonix) 40 mg PO ACBRK [facility] Last Admin: 03/16/20 06:04 Dose: 40 mg Documented by: Potassium Chloride (Klor-Con M20) 40 meq PO BID [facility] Stop: 03/16/20 09:01 Last Admin: 03/15/20 20:41 Dose: 40 meq Documented by: Prednisone (Prednisone) 60 mg PO DAILY [facility] Last Admin: 03/15/20 08:22 Dose: 60 mg Documented by: Pyridostigmine [place] (Mestinon) 60 mg PO 5XDAY [facility] Last Admin: 03/16/20 06:04 Dose: 60 mg Documented by: Rivaroxaban (Xarelto) 15 mg PO DAILY [facility] Last Admin: 03/15/20 08:22 Dose: 15 mg Documented by: Sodium Chloride (Saline Flush) 10 ml FLUSH ASDIRECTED PRN PRN Reason: Keep Vein Open Last Admin: 03/10/20 11:49 Dose: 10 ml Documented by: Spironolactone (Aldactone) 50 mg PO BID [facility] Last Admin: 03/15/20 20:41 Dose: 50 mg Documented by: Tramadol HCl (Ultram) 100 mg PO Q6H PRN PRN Reason: Pain Last Admin: 03/16/20 04:09 Dose: 100 mg Documented by: Vancomycin HCl (Pharmacy To Dose - Vancomycin) 0 dose .XX ONETIME PRN PRN Reason: RX TO DOSE VANCOMYCIN Discontinued Medications Albuterol/Ipratropium (Duoneb 3.0-0.5 Mg/3 Ml) 3 ml INH BID [facility] Last Admin: 03/11/20 20:06 Dose: Not Given Documented by: Bumetanide (Bumex) 2 mg PO BIDDIURETIC [facility] Last Admin: 03/13/20 05:08 Dose: 2 mg Documented by: Bumetanide (Bumex) 1 mg PO Q24H [facility] Last Admin: 03/13/20 16:15 Dose: 1 mg Documented by: Hydromorphone HCl (Dilaudid) 0.5 mg IVPUSH ONETIME ONE Stop: 03/10/20 11:39 Last Admin: 03/10/20 11:47 Dose: 0.5 mg Documented by: Hydromorphone HCl (Dilaudid) 0.5 mg IVPUSH ONETIME ONE Stop: 03/10/20 13:04 Last Admin: 03/10/20 13:18 Dose: 0.5 mg Documented by: Sodium Chloride (Normal Saline) 1,000 mls @ 100 mls/hr IV ASDIRECTED [facility] Last Infusion: 03/10/20 17:26 Dose: 50 mls/hr Documented by: Vancomycin HCl 1.75 gm/ Sodium (Chloride) 500 mls @ 250 mls/hr IV ONETIME ONE Stop: 03/10/20 14:59 Last Admin: 03/10/20 13:00 Dose: 250 mls/hr Documented by: Vancomycin HCl 1.75 gm/ Sodium (Chloride) 500 mls @ 250 mls/hr IV Q12H [facility] Last Admin: 03/12/20 14:05 Dose: Not Given Documented by: Sodium Chloride (Normal Saline) 1,000 mls @ 50 mls/hr IV ASDIRECTED [facility] Sodium Chloride (Normal Saline) 500 mls @ 500 mls/hr IV ONETIME ONE Stop: 03/10/20 21:43 Last Admin: 03/10/20 21:14 Dose: 500 mls/hr Documented by: Sterile Water (Sterile Water For Injection) Confirm Administered Dose 20 mls @ as directed .ROUTE .STK-MED ONE Stop: 03/11/20 00:09 Last Admin: 03/11/20 00:27 Dose: Not Given Documented by: Potassium Chloride 10 meq/ (Premix) 100 mls @ 100 mls/hr IV Q1H [facility] Stop: 03/11/20 12:29 Last Admin: 03/11/20 12:22 Dose: 100 mls/hr Documented by: Ferric Sodium Gluconate Complex 250 mg/ Sodium Chloride 120 mls @ 60 mls/hr IV ONETIME ONE Stop: 03/11/20 11:14 Ferric Sodium Gluconate Complex 250 mg/ Sodium Chloride 120 mls @ 60 mls/hr IV ONETIME ONE Stop: 03/11/20 16:59 Last Admin: 03/11/20 16:20 Dose: 60 mls/hr Documented by: Potassium Chloride 10 meq/ (Premix) 100 mls @ 100 mls/hr IV Q1H [facility] Stop: 03/12/20 12:14 Last Admin: 03/12/20 11:49 Dose: 100 mls/hr Documented by: Potassium Chloride 10 meq/ (Premix) 100 mls @ 100 mls/hr IV Q1H [facility] Stop: 03/14/20 12:14 Last Admin: 03/14/20 13:51 Dose: 100 mls/hr Documented by: Insulin Glargine (Lantus) 15 unit SUBCUT DAILY [facility] Last Admin: 03/11/20 08:45 Dose: 15 units Documented by: Insulin Glargine (Lantus) 18 unit SUBCUT DAILY [facility] Last Admin: 03/12/20 08:27 Dose: 18 units Documented by: Potassium Chloride (Klor-Con M20) 40 meq PO ONETIME ONE Stop: 03/10/20 12:47 Last Admin: 03/10/20 13:01 Dose: 40 meq Documented by: Potassium Chloride (Klor-Con M20) 20 meq PO ONETIME ONE Stop: 03/10/20 21:01 Potassium Chloride (Klor-Con M20) 40 meq PO TID [facility] Last Admin: 03/15/20 08:23 Dose: 40 meq Documented by: Potassium Chloride (Klor-Con M20) 40 meq PO BID [facility] Stop: 03/15/20 21:01 Last Admin: 03/15/20 11:02 Dose: Not Given Documented by: Spironolactone (Aldactone) 25 mg PO BID [facility] Last Admin: 03/13/20 21:52 Dose: 25 mg Documented by: Tramadol HCl (Ultram) 50 mg PO Q6H PRN PRN Reason: Pain Last Admin: 03/13/20 05:09 Dose: 50 mg Documented by: Sepsis Event Note - Evaluation Sepsis Screening Result: Sepsis Risk - Focused Exam Vital Signs: Vital Signs Temp Pulse Resp BP Pulse Ox 03/16/20 07:31 97.9 F 82 16 131/93 H 96 03/16/20 04:05 97.7 F 73 20 138/99 H 90 L 03/16/20 04:00 92 L 03/16/20 00:48 97.9 F 75 20 152/91 H 92 L - Assessment Assessment:: Assessment 03/10/2020day of admission Sepsis secondary to lower extremity cellulitis * Large area of cellulitis on the posterior thighs and legs * SIRS criteria met: Elevated white count of 25.86 with left shift, tachycardia and tachypnea * 1 organ dysfunction: Lactate 3.5 * C-reactive protein 26.1 * Procalcitonin pending * Patient is allergic to cephalexin and penicillins * Started on vancomycin in the emergency department * Blood cultures in the emergency department Myasthenia gravis * Possible mild flare. * Patient denies diplopia but does have some blurred vision. * Weakness of his lower extremities could be secondary to his pain from a cellulitis. * Currently on prednisone 60 mg every morning and pyridostigmine 60 mg 5 times a day Microcytic anemia * Hemoglobin 9.4. * No signs of bleeding, but on Xarelto for PE and DVT Thrombocytosis * Platelets 624,000 * Likely reactive Hyponatremia and hypokalemia * Corrected sodium 131 * Potassium 3.0 Chronic renal insufficiency with possible acute injury * Creatinine 1.7 with estimated GFR of 43 * BUN 26 * BUN/creatinine ratio of 15.3 Hyperglycemia likely new onset diabetes * Initial glucose 245 * Patient states he has no history of diabetes Elevated liver enzymes * AST 72, ALT 229, alkaline phosphatase 297 * Likely multifactorial to include medications and fatty liver * No ultrasound or previous work-up available 03/11/2020 Sepsis secondary to lower extremity cellulitis -improved * Patient has chronically elevated white blood cell count making that parameter less accurate. It also appears he has had a chronic sinus tachycardia since August making that parameter also less accurate for SIRS criteria. * WBC down to 20.57 * Heart rate in the upper 90s to low 100s * Cellulitis is improving. * Lactic acid repeat is normal * Started on vancomycin and Rocephin * Blood cultures pending * Procalcitonin pending Myasthenia gravis-stable * Restarted home meds * Continue lower extremity weakness but no diplopia or dysphasia. Mild blurring of vision. This also appears to be chronic. Microcytic anemia * Hemoglobin down to 8.4 likely secondary to hemodilution * Iron low at 26 with percent saturation low at 10% Thrombocythemia -chronic and improved * Platelets down to 568 Hyponatremia and hypokalemia * Sodium 132 * Potassium 2.6 * On potassium 40 mEq 3 times daily at home Acute on chronic renal insufficiency-improved * Creatinine down to 1.3, GFR 58 * BUN 26 * BUN to creatinine ratio 20 showing some prerenal injury Type 2 diabetes, new onset * Hemoglobin A1c is 9.0 * Likely worsened by both obesity and chronic steroids Elevated liver enzymesimproved * AST 51, ALT 177, alkaline phosphatase 239 Ulceration of the right abdominal pannus with infection Stasis ulceration of the right lower extremity with weeping discharge * Both of these appear to be chronic 03/12/2020 Sepsisresolved Lower extremity cellulitis-improving * White count continues to decrease to 15.8 and CRP 24.8 * Initial procalcitonin was 1.2 * Blood cultures negative * On Rocephin and vancomycin * Heart rate continues in the upper 90s to low 100s, but this appears to be chronic. I [facility] and he often has heart rate in the low 100s. Myasthenia gravisstable * Patient has more movement in his lower extremities. Microcytic anemia * Hemoglobin essentially stable at 8.2 * Given IV iron yesterday Thrombocythemiachronic * Platelets 578 Hyponatremiaresolved Hypokalemia * Received 120 mEq of potassium yesterday and potassium only came up to 2.8 Acute on chronic renal insufficiency-resolved * Secondary to sepsis and hypovolemia * Creatinine 1.2 and estimated GFR is greater than 60 New onset type 2 diabetes * Lantus increased to 18 units daily * Blood sugars still ranging from 152 to 294. Elevated liver enzymes * AST 46, ALT 154, alkaline phosphatase 240 * Hepatitis C screening negative Stasis dermatitis with ulceration of the right lower extremity with weeping discharge and ulceration of the right abdominal pannus with superficial infection * Nursing doing wound management * Bacitracin for topical * On vancomycin and Rocephin 03/13/2020 Lower extremity cellulitis * WBC continues to decrease, 5.0; C-reactive protein decreased to 16.0 * Blood cultures still showed no growth * Continue on vancomycin and Rocephin Myasthenia gravisstable Iron deficient anemia * Hemoglobin stable at 8.2 * Stools negative for occult blood Thrombocythemia * Platelets 566 * On Xarelto Hypokalemia * Potassium 2.9 * Received 120 mEq of potassium yesterday * On Bumex worsening potassium Acute renal injuryresolved * Creatinine 1.1 and estimated GFR greater than 60 New onset type 2 diabetes * Hemoglobin A1c 9.0 * Blood sugars remain in the upper 100s and low 200s Elevated liver enzymes * Hepatitis C screen negative Stasis dermatitis with ulceration of the right lower extremity with weeping discharge and ulceration of the right abdominal pannus with superficial infection * Wound therapy consulted 03/14/2020 Lower extremity cellulitisimproved * WBC 14.4down * C-reactive protein 8.6down * Continue Rocephin and vancomycin for a full 7 days Myasthenia gravisstable Iron deficiency anemia * Hemoglobin 8.1stable * Received 1 dose of IV iron Thrombocythemiano change Hypokalemia * Potassium 3.1 * On K. Dur 40 mEq 3 times daily * Received 40 mEq IV * Started spironolactone 25 mg twice daily New onset diabetes mellitus * Blood sugars ranging from 127-246 * Lantus 20 units in the morning * Humalog 5 units with meals * Sliding scale insulin Lower extremity edema/stasis dermatitis with ulcerations and ulceration of the right abdominal pannus * Decreased Bumex to 2 mg in the morning and 1 mg in the afternoon * Started spironolactone 25 mg twice daily * Wound care per nursing 03/15/2020 Lower extremity cellulitis with edema, stasis dermatitis, and stasis ulcers * Patient continues to improve. White count is stable and at its chronic level of 15.1. C-reactive protein continues to drop, 5.2 * Day 5 of Rocephin and vancomycin * Bumex 2 mg in the morning and 1 mg in the evening * Spironolactone 50 mg twice daily Myasthenia gravisweakness improving Iron deficiency anemiastable * hemoglobin 8.3 * Stools negative for Hemoccult Thrombocythemiastable Hypokalemia * Potassium 3.8 * Received a total of 160 mEq of potassium yesterday. Chronically on 120 mEq. * Started on spironolactone and increase to 50 mg twice a day New onset diabetes mellitus * Blood sugars still ranging from 106 up to 262. Chronic: Myasthenia gravis, essential thrombocythemia, anemia unspecified, elevated white blood cell count unspecified, nausea, chronic kidney disease stage III, atherosclerotic heart disease of [place] coronary artery, pulmonary embolism and thrombosis of popliteal vein bilaterally, acute respiratory failure with hypoxemia, chronic pain, psychoactive substance dependence, obstructive sleep apnea, hypoxemia, obesity, degenerative joint disease, acute myocardial infarction - Plan Plan:: Plan * Admit to floor on telemetry * Continue vancomycin pharmacy to dose for 7 days * Rocephin 2 g daily for 7 days * Lantus 20 units daily * Humalog 5 units before each meal * Continue sliding scale insulin * Follow blood cultures -negative after 5 days * CBC, CMP, C-reactive protein in the morning * Decrease potassium to 40 mEq twice daily * Continue spironolactone at 50 mg twice daily * Elevated white count and platelets appear to be chronic, but will continue to follow as inpatient * Follow renal and liver function * Fingerstick blood sugar 4 times a day with sliding scale insulin moderate level * Diabetic education when available * Diabetic diet * Continue monitoring his myasthenia gravis. If it appears he is having an exacerbation/flare I will increase his steroids and pyridostigmine. * VTE prophylaxis with Xarelto * CODE STATUS: Full code * Disposition: Admit to floor on telemetry for IV antibiotics and the above work-up. Length of stay likely 3 to 4 days.
[2020-03-16] MEDS: Insulin Lispro 100 Units/ML 3 ML Vial SUBCUT SCH ×4 (08:40→12:52)
[2020-03-16] MEDS: predniSONE 20 MG Tab PO SCH (08:42)
[2020-03-16] MEDS: Cyclobenzaprine 10 MG Tab PO SCH (08:42)
[2020-03-16] MEDS: Bacitracin Oint 15 GM Tube TOP SCH (08:42)
[2020-03-16] MEDS: Bumetanide 1 MG Tab PO SCH (08:43)
[2020-03-16] MEDS: Magnesium Oxide 400 MG Tab PO SCH (08:43)
[2020-03-16] MEDS: Potassium Chloride 20 MEQ Tab.ER PO SCH (08:43)
[2020-03-16] MEDS: Rivaroxaban 15 MG Tab PO SCH (08:43)
[2020-03-16] MEDS: Spironolactone 25 MG Tab PO SCH (08:45)
[2020-03-16] MEDS: Insulin Glarg,Human.Rec.Analog 100 Unit/ML SUBCUT SCH (08:46)
[2020-03-16] MEDS ORDERED: Sulfamethoxazole/Trimethoprim 800-160 MG Tab PO SCH (12:00)
--- NOTE | 2020-03-16 14:11 | PCM.DCSUM1 ---
Discharge Summary - Hospital Course HPI Initial Comments: 49-year-old male resident of [facility] with history of myasthenia gravis on pyridostigmine and prednisone diagnosed April 2016 presents to the emergency department with complaints of "my legs do not work." Patient states the back of his legs are painful and he is unable to use them. When he presented to the emergency department he had Unna boot dressings to bilateral lower extremities. He denies any fever he does complain of some chills over the last 2 days. He has had increasing pain in his legs. When the Unna boots were removed he had erythema mostly in the posterior thighs. In August of this year he was admitted to the hospital with bilateral pulmonary emboli and DVTs. He is currently taking Xarelto 15 mg daily. Patient does state he has some areas on his legs that are weeping. He is on chronic O2 because of lung and heart diseas e. He is on bumetanide 2 mg twice daily for lower extremity edema. Echocardiogram done in August was poor secondary to body habitus, but it appeared he had normal left ventricular function and no significant valve abnormalities. In the emergency department he was found to have significant redness to the backs of his legs. He had a white count of 25.9 with 93.5% neutrophils. No bands or toxic granulation. Some of this may be secondary to steroid effect since he is on 60 mg of prednisone daily. Hemoglobin 9.4.D-dimer was 0.4, sodium 128, corrected sodium of 131, potassium 3.0, bicarb 40, BUN 26, creatinine 1.7, glucose 245. Patient does not have a history of diabetes. AST is 7.2, ALT 229, alkaline phosphatase 297, C-reactive protein 26.1, lactic acid initially 3.5 but dropped to 1.4 with fluids. Chest x-ray showed some atelectasis but no significant signs of acute process including infiltrate. Diagnosis: Stroke: No - Discharge Data Discharge Date: 03/16/20 (Admit date: 03/10/20) Discharge Disposition: DC/Tfer to [facility] 03 Condition: Good - Referral to Home Health Primary Care Physician: Miller Lantigua MD - Discharge Diagnosis/Problem(s) (1) Cellulitis SNOMED Code(s): 591487609 ICD Code: L03.90 - CELLULITIS, UNSPECIFIED Status: Acute Priority: High Current Visit: Yes Qualifiers: Site of cellulitis: extremity Site of cellulitis of extremity: lower extremity Laterality: unspecified laterality Qualified Code(s): L03.119 - Cellulitis of unspecified part of limb (2) Elevated lactic acid level SNOMED Code(s): 1566831 ICD Code: R79.89 - OTHER SPECIFIED ABNORMAL FINDINGS OF BLOOD CHEMISTRY Status: Resolved Priority: High Current Visit: Yes (3) Sepsis due to cellulitis SNOMED Code(s): 69461981 ICD Code: L03.90 - CELLULITIS, UNSPECIFIED; A41.9 - SEPSIS, UNSPECIFIED ORGANISM Status: Resolved Priority: High Current Visit: Yes (4) CAD (coronary artery disease) SNOMED Code(s): 86244677 ICD Code: I25.10 - ATHSCL HEART DISEASE OF [place] CORONARY ARTERY W/O ANG PCTRS Status: Chronic Priority: Medium Current Visit: No Qualifiers: Coronary Disease-Associated Artery/Lesion type: unspecified vessel or lesion type [place] vs. transplanted heart: unspecified whether jamul or transplanted heart Associated angina: angina presence unspecified Qualified Code(s): I25.10 - Atherosclerotic heart disease of jam[place] coronary artery without angina pectoris (5) Chronic kidney disease (CKD), stage III (moderate) SNOMED Code(s): 668345024 ICD Code: N18.3 - CHRONIC KIDNEY DISEASE, STAGE 3 (MODERATE) Status: Chronic Priority: Medium Current Visit: No (6) Chronic pain SNOMED Code(s): 45557018 ICD Code: G89.29 - OTHER CHRONIC PAIN Status: Chronic Priority: Medium Current Visit: No Qualifiers: Chronic pain type: other chronic pain Qualified Code(s): G89.29 - Other chronic pain (7) Chronic steroid use SNOMED Code(s): 799125297 ICD Code: RPG3849 - Status: Chronic Priority: Medium Current Visit: No (8) Hypertension SNOMED Code(s): 17637058 ICD Code: I10 - ESSENTIAL (PRIMARY) HYPERTENSION Status: Chronic Priority: Medium Current Visit: No Qualifiers: Hypertension type: unspecified Qualified Code(s): I10 - Essential (primary) hypertension (9) Hypochromic anemia SNOMED Code(s): 27683391 ICD Code: D50.9 - IRON DEFICIENCY ANEMIA, UNSPECIFIED Status: Chronic Priority: Medium Current Visit: No (10) Hypoxia SNOMED Code(s): 964025204 ICD Code: R09.02 - HYPOXEMIA Status: Chronic Priority: Medium Current Visit: Yes (11) Myasthenia gravis SNOMED Code(s): 42332378 ICD Code: G70.00 - MYASTHENIA GRAVIS WITHOUT (ACUTE) EXACERBATION Status: Chronic Priority: Medium Current Visit: Yes (12) Obstructive sleep apnea SNOMED Code(s): 86809601 ICD Code: G47.33 - OBSTRUCTIVE SLEEP APNEA (ADULT) (PEDIATRIC) Status: Chronic Priority: Medium Current Visit: Yes (13) Diabetes mellitus, new onset SNOMED Code(s): 804671806, 215852491 ICD Code: E11.9 - TYPE 2 DIABETES MELLITUS WITHOUT COMPLICATIONS Status: Acute Priority: High Current Visit: Yes (14) Thrombocythemia SNOMED Code(s): 8582148 ICD Code: D47.3 - ESSENTIAL (HEMORRHAGIC) THROMBOCYTHEMIA Status: Acute Priority: Medium Current Visit: Yes (15) Lower extremity edema SNOMED Code(s): 093415115 ICD Code: R60.0 - LOCALIZED EDEMA Status: Acute Priority: High Current Visit: Yes (16) Stasis dermatitis SNOMED Code(s): 48771519 ICD Code: I87.2 - VENOUS INSUFFICIENCY (CHRONIC) (PERIPHERAL) Status: Acute Priority: High Current Visit: Yes Qualifiers: Laterality: bilateral Qualified Code(s): I87.2 - Venous insufficiency (chronic) (peripheral) - Patient Summary/Data Consults: Consultations 03/10/20 16:28 OT Evaluation and Treatment [CONS] Routine PT Evaluation and Treatment [CONS] Routine 03/11/20 08:22 Consult to Diabetic Nurse Specialist [CONS] Routine 03/13/20 10:08 PT Evaluation and Treatment [CONS] Routine 03/13/20 11:36 Consult to Physical Therapy [PT Evaluation and Treatment] [CONS] Routine Labs Pending at D/C: Repeat procalcitonin Recommended Follow-up Testing/Procedures: Follow-up with PCP within 7-10 days of discharge Recommend outpatient tire buffer and chemical educator consultation Recommend tire buffer follow patient at [facility] Recommend podiatry follow-up regarding right great toe wound Hospital Course: Assessment of admission Sepsis secondary to lower extremity cellulitis * Large area of cellulitis on the posterior thighs and legs * SIRS criteria met: Elevated white count of 25.86 with left shift, tachycardia and tachypnea * 1 organ dysfunction: Lactate 3.5 * C-reactive protein 26.1 * Procalcitonin pending * Patient is allergic to cephalexin and penicillins * Started on vancomycin in the emergency department * Blood cultures in the emergency department Myasthenia gravis * Possible mild flare. * Patient denies diplopia but does have some blurred vision. * Weakness of his lower extremities could be secondary to his pain from a cellulitis. * Currently on prednisone 60 mg every morning and pyridostigmine 60 mg 5 times a day Microcytic anemia * Hemoglobin 9.4. * No signs of bleeding, but on Xarelto for PE and DVT Thrombocytosis * Platelets 624,000 * Likely reactive Hyponatremia and hypokalemia * Corrected sodium 131 * Potassium 3.0 Chronic renal insufficiency with possible acute injury * Creatinine 1.7 with estimated GFR of 43 * BUN 26 * BUN/creatinine ratio of 15.3 Hyperglycemia likely new onset diabetes * Initial glucose 245 * Patient states he has no history of diabetes Elevated liver enzymes * AST 72, ALT 229, alkaline phosphatase 297 * Likely multifactorial to include medications and fatty liver * No ultrasound or previous work-up available 03/11/2020 Sepsis secondary to lower extremity cellulitis -improved * Patient has chronically elevated white blood cell count making that parameter less accurate. It also appears he has had a chronic sinus tachycardia since August making that parameter also less accurate for SIRS criteria. * WBC down to 20.57 * Heart rate in the upper 90s to low 100s * Cellulitis is improving. * Lactic acid repeat is normal * Started on vancomycin and Rocephin * Blood cultures pending * Procalcitonin pending Myasthenia gravis-stable * Restarted home meds * Continue lower extremity weakness but no diplopia or dysphasia. Mild blurring of vision. This also appears to be chronic. Microcytic anemia * Hemoglobin down to 8.4 likely secondary to hemodilution * Iron low at 26 with percent saturation low at 10% Thrombocythemia -chronic and improved * Platelets down to 568 Hyponatremia and hypokalemia * Sodium 132 * Potassium 2.6 * On potassium 40 mEq 3 times daily at home Acute on chronic renal insufficiency-improved * Creatinine down to 1.3, GFR 58 * BUN 26 * BUN to creatinine ratio 20 showing some prerenal injury Type 2 diabetes, new onset * Hemoglobin A1c is 9.0 * Likely worsened by both obesity and chronic steroids Elevated liver enzymesimproved * AST 51, ALT 177, alkaline phosphatase 239 Ulceration of the right abdominal pannus with infection Stasis ulceration of the right lower extremity with weeping discharge * Both of these appear to be chronic 03/12/2020 Sepsisresolved Lower extremity cellulitis-improving * White count continues to decrease to 15.8 and CRP 24.8 * Initial procalcitonin was 1.2 * Blood cultures negative * On Rocephin and vancomycin * Heart rate continues in the upper 90s to low 100s, but this appears to be chronic. I reviewed his records from the correction and he often has heart rate in the low 100s. Myasthenia gravisstable * Patient has more movement in his lower extremities. Microcytic anemia * Hemoglobin essentially stable at 8.2 * Given IV iron yesterday Thrombocythemiachronic * Platelets 578 Hyponatremiaresolved Hypokalemia * Received 120 mEq of potassium yesterday and potassium only came up to 2.8 Acute on chronic renal insufficiency-resolved * Secondary to sepsis and hypovolemia * Creatinine 1.2 and estimated GFR is greater than 60 New onset type 2 diabetes * Lantus increased to 18 units daily * Blood sugars still ranging from 152 to 294. Elevated liver enzymes * AST 46, ALT 154, alkaline phosphatase 240 * Hepatitis C screening negative Stasis dermatitis with ulceration of the right lower extremity with weeping discharge and ulceration of the right abdominal pannus with superficial infection * Nursing doing wound management * Bacitracin for topical * On vancomycin and Rocephin 03/13/2020 Lower extremity cellulitis * WBC continues to decrease, 5.0; C-reactive protein decreased to 16.0 * Blood cultures still showed no growth * Continue on vancomycin and Rocephin Myasthenia gravisstable Iron deficient anemia * Hemoglobin stable at 8.2 * Stools negative for occult blood Thrombocythemia * Platelets 566 * On Xarelto Hypokalemia * Potassium 2.9 * Received 120 mEq of potassium yesterday * On Bumex worsening potassium Acute renal injuryresolved * Creatinine 1.1 and estimated GFR greater than 60 New onset type 2 diabetes * Hemoglobin A1c 9.0 * Blood sugars remain in the upper 100s and low 200s Elevated liver enzymes * Hepatitis C screen negative Stasis dermatitis with ulceration of the right lower extremity with weeping discharge and ulceration of the right abdominal pannus with superficial infection * Wound therapy consulted 03/14/2020 Lower extremity cellulitisimproved * WBC 14.4down * C-reactive protein 8.6down * Continue Rocephin and vancomycin for a full 7 days Myasthenia gravisstable Iron deficiency anemia * Hemoglobin 8.1stable * Received 1 dose of IV iron Thrombocythemiano change Hypokalemia * Potassium 3.1 * On K. Dur 40 mEq 3 times daily * Received 40 mEq IV * Started spironolactone 25 mg twice daily New onset diabetes mellitus * Blood sugars ranging from 127-246 * Lantus 20 units in the morning * Humalog 5 units with meals * Sliding scale insulin Lower extremity edema/stasis dermatitis with ulcerations and ulceration of the right abdominal pannus * Decreased Bumex to 2 mg in the morning and 1 mg in the afternoon * Started spironolactone 25 mg twice daily * Wound care per nursing 03/15/2020 Lower extremity cellulitis with edema, stasis dermatitis, and stasis ulcers * Patient continues to improve. White count is stable and at its chronic level of 15.1. C-reactive protein continues to drop, 5.2 * Day 5 of Rocephin and vancomycin * Bumex 2 mg in the morning and 1 mg in the evening * Spironolactone 50 mg twice daily Myasthenia gravisweakness improving Iron deficiency anemiastable * hemoglobin 8.3 * Stools negative for Hemoccult Thrombocythemiastable Hypokalemia * Potassium 3.8 * Received a total of 160 mEq of potassium yesterday. Chronically on 120 mEq. * Started on spironolactone and increase to 50 mg twice a day New onset diabetes mellitus * Blood sugars still ranging from 106 up to 262. Chronic: Myasthenia gravis, essential thrombocythemia, anemia unspecified, elevated white blood cell count unspecified, nausea, chronic kidney disease stage III, atherosclerotic heart disease of jamul coronary artery, pulmonary embolism and thrombosis of popliteal vein bilaterally, acute respiratory failure with hypoxemia, chronic pain, psychoactive substance dependence, obstructive sleep apnea, hypoxemia, obesity, degenerative joint disease, acute myocardial infarction - Plan Plan:: Plan * Admit to floor on telemetry * Continue vancomycin pharmacy to dose for 7 days * Rocephin 2 g daily for 7 days * Lantus 20 units daily * Humalog 5 units before each meal * Continue sliding scale insulin * Follow blood cultures -negative after 5 days * CBC, CMP, C-reactive protein in the morning * Decrease potassium to 40 mEq twice daily * Continue spironolactone at 50 mg twice daily * Elevated white count and platelets appear to be chronic, but will continue to follow as inpatient * Follow renal and liver function * Fingerstick blood sugar 4 times a day with sliding scale insulin moderate level * Diabetic education when available * Diabetic diet * Continue monitoring his myasthenia gravis. If it appears he is having an exacerbation/flare I will increase his steroids and pyridostigmine. * VTE prophylaxis with Xarelto * CODE STATUS: Full code * Disposition: Admit to floor on telemetry for IV antibiotics and the above work-up. Length of stay likely 3 to 4 days. Hilton was admitted to the hospital floor due to sepsis secondary to bilateral lower extremity cellulitis. Started on vancomycin and Rocephin with good response. As noted his white count may be skewed due to his chronic prednisone secondary to myasthenia gravis. Lactic acid was elevated and IV fluids were given with good response. Electrolytes were corrected. He was noted to be in acute renal failure with a creatinine of 1.7 and this was corrected with IV fluids. Hemoglobin was noted to be in the eights. Iron panel was obtained with an iron of 26, TIBC of 259, percent saturation of 10, and transferrin of 207. He was started on vitamin C and iron supplementation. CRP did trend down along with the white count. Initially liver enzymes were noted to be elevated and these did trend down throughout his stay. Hepatitis C antibody dusting was performed and was negative. COVID-19 testing was performed on admission and discharge and was negative. MRSA testing was performed on admission was negative. Urine remained clear. Hgb A1c was obtained and was noted to be 9.0. Started on Lantus 20 units daily and Humalog 5 units 3 times daily with meals. Recommend patient continue to check blood sugars 4 times daily before meals and bedtime and record these in a journal to give primary care provider a better idea of overall blood sugars and assist in changing insulin regimen if necessary. Prior to discharge patient was started on 50 mg p.o. twice daily of Spironolactone. Bumex was increased to 2 mg every morning and 1 mg in the evening. He was discharged on 324 mg p.o. ferrous sulfate every 48 hours and 250 mg p.o. vitamin C every 48 hours. These should be taken together. Antibiot ics were switched to cefdinir 300 mg p.o. twice daily for 7 more days and Septra DS 1 tab p.o. twice daily for 7 more days. He was prescribed 10 days of 400 mg p.o. daily magnesium oxide. He was also prescribed 5 units 3 times daily AC Humalog and 20 units daily Lantus as discussed prior. Recommend he follows up with chemical educator and dietitian regarding new onset diabetes. Recommend he follow-up with podiatry regarding right great toe small blanchable ulceration. Recommend he elevate extremities whenever possible. Areas of erythema have greatly improved along with leg pain. Recommend he continue wound care as directed -nonadherent pad wrapped with Kerlix and 6 inch meño wrap bilaterally. Prior to discharge we did discuss patient's smoking status and he refused nicotine patches at discharge or being set up with cessation counselor. He was given information to assist him should he change his mind. Recommend he follow- up with primary care within 7 to 10 days of discharge. He will be discharged today back to [facility]. - Patient Instructions Diet: Heart Healthy Diet, Diabetic Diet Activity: As Tolerated Driving: Do Not Drive Showering/Bathing: May Shower Notify Provider of: Fever, Increased Pain, Nausea and/or Vomiting Other/Special Instructions: Follow-up with primary care provider within 7-10 days of discharge, sooner if needed. Recommend follow-up with chemical educator and tire buffer. Recommend patient follow-up with podiatry regarding foot wounds. Continue daily woundcare - Non-adherent pad (telfa), Wrap with Kerlix and 6 Inch MEÑO wrap - bilateral lower extremities. Recommend tire buffer follow patient at [facility]. We discussed her smoking status you are offered nicotine patches and counseling at discharge, which she refused. Should you change your mind you may talk to your primary care provider or contact tobacco cessation program such as [employer]. You were given contact information for this. Check blood sugars 4 time a day - mealtimes and bedtime. Record this and bring this with to all medical appointments. This will be to help establish regimen for patients insulin. Take all medications as prescribed. Elevate extremities whenever able. Should symptoms return or worsen contact primary care provider or return to the Emergency Department. - Discharge Plan *PRESCRIPTION DRUG MONITORING PROGRAM REVIEWED*: No *COPY OF PRESCRIPTION DRUG MONITORING REPORT IN PATIENT FERNANDEZ: No Prescriptions/Med Rec: Spironolactone [Aldactone] 50 mg PO BID #40 tablet Bumetanide [Bumex] 1 mg PO Q24H #20 tablet Bumetanide [Bumex] 2 mg PO QAM #40 tablet Ferrous Sulfate 324 mg PO ASDIRECTED #20 tab.ec Insulin Lispro [HumaLOG] 5 unit SUBCUT TIDAC #1 vial Insulin Glarg,Human.Rec.Analog [Lantus] 20 unit SUBCUT DAILY #5 ml Magnesium Oxide 400 mg PO DAILY #10 tablet Cefdinir [Omnicef] 300 mg PO BID #15 cap Sulfamethoxazole/Trimethoprim [Septra DS] 1 tab PO BID #16 tablet Ascorbic Acid [Vitamin C] 250 mg PO ASDIRECTED #20 tablet Home Medications: Home Meds Pyridostigmine [Mestinon] 60 mg PO 5XDAY 08/24/19 [History] predniSONE [Prednisone] 60 mg PO DAILY 08/24/19 [History] traMADol [Ultram] 50 mg PO Q6H 08/24/19 [History] Acetaminophen [Tylenol Extra Strength] 500 mg PO Q6H 03/10/20 [History] Albuterol/Ipratropium [DuoNeb 3.0-0.5 MG/3 ML] 3 ml INH BID 03/10/20 [History] Bacitracin [Bacitracin Oint] 1 applic TOP DAILY 03/10/20 [History] Bumetanide 2 mg PO BID 03/10/20 [History] Cyclobenzaprine [Flexeril] 10 mg PO BID 03/10/20 [History] Methyl Salicylate/Menthol [Icy Hot] 1 applic TOP TID PRN 03/10/20 [History] Ondansetron [Zofran ODT] 4 mg PO Q6H PRN 03/10/20 [History] Pantoprazole [ProTONIX] 40 mg PO DAILY 03/10/20 [History] Potassium Chloride 40 meq PO TID 03/10/20 [History] Rivaroxaban [Xarelto] 15 mg PO DAILY 03/10/20 [History] metOLazone [Metolazone] 2.5 mg PO Q48H 03/10/20 [History] Ascorbic Acid [Vitamin C] 250 mg PO ASDIRECTED #20 tablet 03/16/20 [Rx] Bumetanide [Bumex] 1 mg PO Q24H #20 tablet 03/16/20 [Rx] Bumetanide [Bumex] 2 mg PO QAM #40 tablet 03/16/20 [Rx] Cefdinir [Omnicef] 300 mg PO BID #15 cap 03/16/20 [Rx] Ferrous Sulfate 324 mg PO ASDIRECTED #20 tab.ec 03/16/20 [Rx] Insulin Glarg,Human.Rec.Analog [Lantus] 20 unit SUBCUT DAILY #5 ml 03/16/20 [Rx] Insulin Lispro [HumaLOG] 5 unit SUBCUT TIDAC #1 vial 03/16/20 [Rx] Magnesium Oxide 400 mg PO DAILY #10 tablet 03/16/20 [Rx] Spironolactone [Aldactone] 50 mg PO BID #40 tablet 03/16/20 [Rx] Sulfamethoxazole/Trimethoprim [Septra DS] 1 tab PO BID #16 tablet 03/16/20 [Rx] Oxygen Therapy Mode: Nasal Cannula Oxygen Flow Rate (L/min): 1 Patient Handouts: Type 2 Diabetes Mellitus, Diagnosis, Adult, Living With Diabetes, Sepsis, Diagnosis, Adult, Smokeless Tobacco Information, Adult, Steps to Quit Smoking, Diabetes Mellitus and Nutrition, Adult Forms: ED Department Discharge Referrals: Miller Lantigua MD [Primary Care Provider] - - Discharge Summary/Plan Comment DC Time >30 min.: Yes (45 mins ) - General Info Date of Service: 03/16/20 Subjective Update: Patient continues to do well. He is able to get out of bed today and use a bedside commode. He is feeling stronger. Appetite is good. Decreased pain and redness in his legs. Functional Status: Reports: Pain Controlled, Tolerating Diet, Ambulating, Urinating. Denies: New Symptoms - Review of Systems General: Reports: No Symptoms. Denies: Fever, Weakness, Fatigue, Malaise, Chills HEENT: Reports: No Symptoms. Denies: Headaches, Sore Throat Pulmonary: Reports: Shortness of Breath (chronic but at baseline ). Denies: Cough, Sputum Cardiovascular: Reports: Dyspnea on Exertion (chronic but at baseline ), Edema. Denies: Chest Pain, Palpitations Gastrointestinal: Reports: No Symptoms. Denies: Abdominal Pain, Constipation, Diarrhea, Nausea, Vomiting Genitourinary: Reports: No Symptoms. Denies: Pain Musculoskeletal: Reports: Leg Pain (mild and greatly improved ) Skin: Reports: No Symptoms. Denies: Cyanosis Neurological: Reports: No Symptoms, Difficulty Walking. Denies: Confusion, Numbness, Tingling, Gait Disturbance Psychiatric: Reports: No Symptoms - Patient Data Vitals - Most Recent: Last Vital Signs Temp 97.9 F 03/16/20 07:31 Pulse 82 03/16/20 07:31 Resp 16 03/16/20 07:31 BP 131/93 H 03/16/20 07:31 Pulse Ox 96 03/16/20 07:31 Weight - Most Recent: 371 lb 8 oz I&O - Last 24 hours: Intake & Output 03/15/20 03/16/20 03/16/20 22:59 06:59 14:59 Intake Total 300 1200 Output Total 1050 Balance 300 150 Lab Results - Last 24 hrs: Laboratory Results - last 24 hr 03/15/20 03/15/20 03/16/20 Range/Units 16:55 20:54 05:40 WBC 14.39 H (4.23-9.07) K/mm3 RBC 4.21 L (4.63-6.08) M/mm3 Hgb 8.3 L (13.7-17.5) gm/dl Hct 32.3 L (40.1-51.0) % MCV 76.7 L (79.0-92.2) fl MCH 19.7 L (25.7-32.2) pg MCHC 25.7 L (32.2-35.5) g/dl RDW Std Deviation 56.2 H (35.1-43.9) fL Plt Count 524 H (163-337) K/mm3 MPV 9.0 L (9.4-12.3) fl Neut % (Auto) 78.7 H (34.0-67.9) % Lymph % (Auto) 10.1 L (21.8-53.1) % Stokes % (Auto) 7.1 (5.3-12.2) % Eos % (Auto) 0 L (0.8-7.0) Baso % (Auto) 0.1 (0.1-1.2) % Neut # (Auto) 11.33 H (1.78-5.38) K/mm3 Lymph # (Auto) 1.45 (1.32-3.57) K/mm3 Stokes # (Auto) 1.02 H (0.30-0.82) K/mm3 Eos # (Auto) 0.00 L (0.04-0.54) K/mm3 Baso # (Auto) 0.02 (0.01-0.08) K/mm3 Manual Slide Review Abnormal smear Sodium (136-145) mEq/L Potassium (3.5-5.1) mEq/L Chloride (98-107) mEq/L Carbon Dioxide (21-32) mEq/L Anion Gap (5-15) BUN (7-18) mg/dL Creatinine (0.7-1.3) mg/dL Est Cr Clr Drug Dosing mL/min Estimated GFR (MDRD) (>60) mL/min BUN/Creatinine Ratio (14-18) Glucose (74-106) mg/dL POC Glucose 221 H 201 H (70-105) mg/dL Calcium (8.5-10.1) mg/dL Total Bilirubin (0.2-1.0) mg/dL AST (15-37) U/L ALT (16-63) U/L Alkaline Phosphatase (46-116) U/L C-Reactive Protein (<1.0) mg/dL Total Protein (6.4-8.2) g/dl Albumin (3.4-5.0) g/dl Globulin gm/dL Albumin/Globulin Ratio (1-2) COVID-19 (THALIA) (NEGATIVE) 03/16/20 03/16/20 03/16/20 Range/Units 05:40 06:07 11:10 WBC (4.23-9.07) K/mm3 RBC (4.63-6.08) M/mm3 Hgb (13.7-17.5) gm/dl Hct (40.1-51.0) % MCV (79.0-92.2) fl MCH (25.7-32.2) pg MCHC (32.2-35.5) g/dl RDW Std Deviation (35.1-43.9) fL Plt Count (163-337) K/mm3 MPV (9.4-12.3) fl Neut % (Auto) (34.0-67.9) % Lymph % (Auto) (21.8-53.1) % Stokes % (Auto) (5.3-12.2) % Eos % (Auto) (0.8-7.0) Baso % (Auto) (0.1-1.2) % Neut # (Auto) (1.78-5.38) K/mm3 Lymph # (Auto) (1.32-3.57) K/mm3 Stokes # (Auto) (0.30-0.82) K/mm3 Eos # (Auto) (0.04-0.54) K/mm3 Baso # (Auto) (0.01-0.08) K/mm3 Manual Slide Review Sodium 135 L (136-145) mEq/L Potassium 4.3 (3.5-5.1) mEq/L Chloride 96 L (98-107) mEq/L Carbon Dioxide 36 H (21-32) mEq/L Anion Gap 7.3 (5-15) BUN 22 H (7-18) mg/dL Creatinine 1.1 (0.7-1.3) mg/dL Est Cr Clr Drug Dosing 82.95 mL/min Estimated GFR (MDRD) > 60 (>60) mL/min BUN/Creatinine Ratio 20.0 H (14-18) Glucose 151 H (74-106) mg/dL POC Glucose 153 H (70-105) mg/dL Calcium 8.9 (8.5-10.1) mg/dL Total Bilirubin 0.3 (0.2-1.0) mg/dL AST 51 H (15-37) U/L ALT 113 H (16-63) U/L Alkaline Phosphatase 234 H (46-116) U/L C-Reactive Protein 4.1 H* (<1.0) mg/dL Total Protein 6.3 L (6.4-8.2) g/dl Albumin 2.4 L (3.4-5.0) g/dl Globulin 3.9 gm/dL Albumin/Globulin Ratio 0.6 L (1-2) COVID-19 (THALIA) Negative (NEGATIVE) 03/16/20 Range/Units 11:40 WBC (4.23-9.07) K/mm3 RBC (4.63-6.08) M/mm3 Hgb (13.7-17.5) gm/dl Hct (40.1-51.0) % MCV (79.0-92.2) fl MCH (25.7-32.2) pg MCHC (32.2-35.5) g/dl RDW Std Deviation (35.1-43.9) fL Plt Count (163-337) K/mm3 MPV (9.4-12.3) fl Neut % (Auto) (34.0-67.9) % Lymph % (Auto) (21.8-53.1) % Stokes % (Auto) (5.3-12.2) % Eos % (Auto) (0.8-7.0) Baso % (Auto) (0.1-1.2) % Neut # (Auto) (1.78-5.38) K/mm3 Lymph # (Auto) (1.32-3.57) K/mm3 Stokes # (Auto) (0.30-0.82) K/mm3 Eos # (Auto) (0.04-0.54) K/mm3 Baso # (Auto) (0.01-0.08) K/mm3 Manual Slide Review Sodium (136-145) mEq/L Potassium (3.5-5.1) mEq/L Chloride (98-107) mEq/L Carbon Dioxide (21-32) mEq/L Anion Gap (5-15) BUN (7-18) mg/dL Creatinine (0.7-1.3) mg/dL Est Cr Clr Drug Dosing mL/min Estimated GFR (MDRD) (>60) mL/min BUN/Creatinine Ratio (14-18) Glucose (74-106) mg/dL POC Glucose 149 H (70-105) mg/dL Calcium (8.5-10.1) mg/dL Total Bilirubin (0.2-1.0) mg/dL AST (15-37) U/L ALT (16-63) U/L Alkaline Phosphatase (46-116) U/L C-Reactive Protein (<1.0) mg/dL Total Protein (6.4-8.2) g/dl Albumin (3.4-5.0) g/dl Globulin gm/dL Albumin/Globulin Ratio (1-2) COVID-19 (THALIA) (NEGATIVE) ROLY Results - Last 24 hrs: Microbiology 03/10/20 12:30 Aerobic Blood Culture - Preliminary Blood - Venous - Lab Draw NO GROWTH AFTER 6 DAYS Anaerobic Blood Culture - Preliminary NO GROWTH AFTER 6 DAYS 03/10/20 12:20 Aerobic Blood Culture - Preliminary Blood - Venous NO GROWTH AFTER 6 DAYS Anaerobic Blood Culture - Preliminary NO GROWTH AFTER 6 DAYS Med Orders - Current: Current Medications Acetaminophen (Tylenol) 650 mg PO Q4H PRN PRN Reason: Pain (Mild 1-3)/fever Last Admin: 03/16/20 10:32 Dose: 650 mg Documented by: Albuterol/Ipratropium (Duoneb 3.0-0.5 Mg/3 Ml) 3 ml NEB Q4HRRT PRN PRN Reason: Shortness of Breath Ascorbic Acid (Vitamin C) 250 mg PO BIDAC [facility] Last Admin: 03/16/20 06:04 Dose: 250 mg Documented by: Bacitracin (Bacitracin Oint) 0 gm TOP TID [facility] Last Admin: 03/16/20 08:42 Dose: 1 applic Documented by: Bumetanide (Bumex) 2 mg PO QAM [facility] Last Admin: 03/16/20 08:43 Dose: 2 mg Documented by: Bumetanide (Bumex) 1 mg PO Q24H [facility] Last Admin: 03/15/20 14:24 Dose: 1 mg Documented by: Cefdinir (Omnicef) 300 mg PO BID [facility] Stop: 03/23/20 21:01 Cyclobenzaprine HCl (Flexeril) 10 mg PO BID [facility] Last Admin: 03/16/20 08:42 Dose: 10 mg Documented by: Dextrose/Water (Dextrose 50% In Water) 50 ml IVPUSH ASDIRECTED PRN PRN Reason: Hypoglycemia Diphenhydramine HCl (Benadryl) 50 mg IVPUSH Q4H PRN PRN Reason: Rash Ferrous Sulfate (Ferrous Sulfate) 324 mg PO BIDAC [facility] Last Admin: 03/16/20 06:04 Dose: 324 mg Documented by: Hydromorphone HCl (Dilaudid) 0.5 mg IVPUSH Q2H PRN PRN Reason: Pain (severe 7-10) Last Admin: 03/15/20 12:06 Dose: 0.5 mg Documented by: Insulin Glargine (Lantus) 20 unit SUBCUT DAILY [facility] Last Admin: 03/16/20 08:46 Dose: 20 units Documented by: Insulin Human Lispro (Humalog) 0 unit SUBCUT QIDACANDBED [facility]; Protocol Last Admin: 03/16/20 12:52 Dose: Not Given Documented by: Insulin Human Lispro (Humalog) 5 unit SUBCUT TIDAC [facility] Last Admin: 03/16/20 12:52 Dose: 5 units Documented by: Magnesium Oxide (Magnesium Oxide) 400 mg PO BID [facility] Last Admin: 03/16/20 08:43 Dose: 400 mg Documented by: Methyl Salicylate (Icy Hot Cream) 0 gm TOP TID PRN PRN Reason: Pain Last Admin: 03/14/20 01:27 Dose: 1 applic Documented by: Ondansetron HCl (Zofran Odt) 4 mg PO Q6H PRN PRN Reason: Nausea Oxycodone/Acetaminophen (Percocet 325-5 Mg) 1 tab PO Q4H PRN PRN Reason: Pain (moderate 4-6) Last Admin: 03/13/20 16:15 Dose: 1 tab Documented by: Pantoprazole Sodium (Protonix) 40 mg PO ACBRK [facility] Last Admin: 03/16/20 06:04 Dose: 40 mg Documented by: Prednisone (Prednisone) 60 mg PO DAILY [facility] Last Admin: 03/16/20 08:42 Dose: 60 mg Documented by: Pyridostigmine [place] (Mestinon) 60 mg PO 5XDAY [facility] Last Admin: 03/16/20 09:40 Dose: 60 mg Documented by: Rivaroxaban (Xarelto) 15 mg PO DAILY [facility] Last Admin: 03/16/20 08:43 Dose: 15 mg Documented by: Sodium Chloride (Saline Flush) 10 ml FLUSH ASDIRECTED PRN PRN Reason: Keep Vein Open Last Admin: 03/10/20 11:49 Dose: 10 ml Documented by: Spironolactone (Aldactone) 50 mg PO BID [facility] Last Admin: 03/16/20 08:45 Dose: 50 mg Documented by: Tramadol HCl (Ultram) 100 mg PO Q6H PRN PRN Reason: Pain Last Admin: 03/16/20 10:32 Dose: 100 mg Documented by: Trimethoprim/Sulfamethoxazole (Septra Ds) 1 tab PO BID [facility] Stop: 03/23/20 21:01 Last Admin: 03/16/20 12:58 Dose: 1 tab Documented by: Vancomycin HCl (Pharmacy To Dose - Vancomycin) 0 dose .XX ONETIME PRN PRN Reason: RX TO DOSE VANCOMYCIN Discontinued Medications Albuterol/Ipratropium (Duoneb 3.0-0.5 Mg/3 Ml) 3 ml INH BID [facility] Last Admin: 03/11/20 20:06 Dose: Not Given Documented by: Bumetanide (Bumex) 2 mg PO BIDDIURETIC [facility] Last Admin: 03/13/20 05:08 Dose: 2 mg Documented by: Bumetanide (Bumex) 1 mg PO Q24H [facility] Last Admin: 03/13/20 16:15 Dose: 1 mg Documented by: Hydromorphone HCl (Dilaudid) 0.5 mg IVPUSH ONETIME ONE Stop: 03/10/20 11:39 Last Admin: 03/10/20 11:47 Dose: 0.5 mg Documented by: Hydromorphone HCl (Dilaudid) 0.5 mg IVPUSH ONETIME ONE Stop: 03/10/20 13:04 Last Admin: 03/10/20 13:18 Dose: 0.5 mg Documented by: Sodium Chloride (Normal Saline) 1,000 mls @ 100 mls/hr IV ASDIRECTED [facility] Last Infusion: 03/10/20 17:26 Dose: 50 mls/hr Documented by: Vancomycin HCl 1.75 gm/ Sodium (Chloride) 500 mls @ 250 mls/hr IV ONETIME ONE Stop: 03/10/20 14:59 Last Admin: 03/10/20 13:00 Dose: 250 mls/hr Documented by: Vancomycin HCl 1.75 gm/ Sodium (Chloride) 500 mls @ 250 mls/hr IV Q12H [facility] Last Admin: 03/12/20 14:05 Dose: Not Given Documented by: Sodium Chloride (Normal Saline) 1,000 mls @ 50 mls/hr IV ASDIRECTED [facility] Ceftriaxone Sodium 2 gm/ (Sodium Chloride) 100 mls @ 200 mls/hr IV Q24H [facility] Last Admin: 03/15/20 20:39 Dose: 200 mls/hr Documented by: Sodium Chloride (Normal Saline) 500 mls @ 500 mls/hr IV ONETIME ONE Stop: 03/10/20 21:43 Last Admin: 03/10/20 21:14 Dose: 500 mls/hr Documented by: Sterile Water (Sterile Water For Injection) Confirm Administered Dose 20 mls @ as directed .ROUTE .STK-MED ONE Stop: 03/11/20 00:09 Last Admin: 03/11/20 00:27 Dose: Not Given Documented by: Potassium Chloride 10 meq/ (Premix) 100 mls @ 100 mls/hr IV Q1H [facility] Stop: 03/11/20 12:29 Last Admin: 03/11/20 12:22 Dose: 100 mls/hr Documented by: Ferric Sodium Gluconate Complex 250 mg/ Sodium Chloride 120 mls @ 60 mls/hr IV ONETIME ONE Stop: 03/11/20 11:14 Ferric Sodium Gluconate Complex 250 mg/ Sodium Chloride 120 mls @ 60 mls/hr IV ONETIME ONE Stop: 03/11/20 16:59 Last Admin: 03/11/20 16:20 Dose: 60 mls/hr Documented by: Potassium Chloride 10 meq/ (Premix) 100 mls @ 100 mls/hr IV Q1H [facility] Stop: 03/12/20 12:14 Last Admin: 03/12/20 11:49 Dose: 100 mls/hr Documented by: Vancomycin HCl 1 gm/Vancomycin HCl 500 mg/ Sodium Chloride 500 mls @ 250 mls/hr IV Q18H [facility] Last Admin: 03/15/20 16:47 Dose: 250 mls/hr Documented by: Potassium Chloride 10 meq/ (Premix) 100 mls @ 100 mls/hr IV Q1H [facility] Stop: 03/14/20 12:14 Last Admin: 03/14/20 13:51 Dose: 100 mls/hr Documented by: Insulin Glargine (Lantus) 15 unit SUBCUT DAILY [facility] Last Admin: 03/11/20 08:45 Dose: 15 units Documented by: Insulin Glargine (Lantus) 18 unit SUBCUT DAILY [facility] Last Admin: 03/12/20 08:27 Dose: 18 units Documented by: Potassium Chloride (Klor-Con M20) 40 meq PO ONETIME ONE Stop: 03/10/20 12:47 Last Admin: 03/10/20 13:01 Dose: 40 meq Documented by: Potassium Chloride (Klor-Con M20) 20 meq PO ONETIME ONE Stop: 03/10/20 21:01 Potassium Chloride (Klor-Con M20) 40 meq PO TID [facility] Last Admin: 03/15/20 08:23 Dose: 40 meq Documented by: Potassium Chloride (Klor-Con M20) 40 meq PO BID [facility] Stop: 03/15/20 21:01 Last Admin: 03/15/20 11:02 Dose: Not Given Documented by: Potassium Chloride (Klor-Con M20) 40 meq PO BID [facility] Stop: 03/16/20 09:01 Last Admin: 03/16/20 08:43 Dose: 40 meq Documented by: Spironolactone (Aldactone) 25 mg PO BID [facility] Last Admin: 03/13/20 21:52 Dose: 25 mg Documented by: Tramadol HCl (Ultram) 50 mg PO Q6H PRN PRN Reason: Pain Last Admin: 03/13/20 05:09 Dose: 50 mg Documented by: - Exam Quality Assessment: Reports: Supplemental Oxygen (1L), DVT Prophylaxis General: Reports: Alert, Oriented, Cooperative, No Acute Distress HEENT: Reports: Pupils Equal, Pupils Reactive, Mucous Membr. Moist/[place] Neck: Reports: Supple, Trachea Midline Lungs: Reports: Clear to Auscultation, Normal Respiratory Effort, Decreased Breath Sounds Cardiovascular: Reports: Regular Rate, Regular Rhythm GI/Abdominal Exam: Normal Bowel Sounds, Soft, Non-Tender, No Distention (Male) Exam: Deferred Rectal (Males) Exam: Deferred Extremities: Pedal Edema, Leg Pain, Limited Range of Motion, Redness (improving ), Other (Blanchable small ulceration on right great toe. Patient reports this is chronic for him. Continued improvement in the redness, swelling, and pitting edema in the lower extremities.) Skin: Reports: Warm, Dry, Intact Wound/Incisions: Reports: Dressing Dry and Intact, Erythema Improving Neurological: Reports: No New Focal Deficit Psy/Mental Status: Reports: Alert, Normal Affect, Normal Mood
[2020-03-16] MEDS ORDERED: Cefdinir 300 MG Cap PO SCH (21:00)
== END 2020-03-16 14:25 | DRG 872 ==
LOC: SUPCPDRO 10:57 → JD.ED 10:57 → JD.MS 12:45
PROVIDERS: ADMIT Family Medicine; ATTEND Family Medicine
DX: A41.9 Sepsis, unspecified organism (principal); L03.115 Cellulitis of right lower limb; L03.116 Cellulitis of left lower limb; E87.1 Hypo-osmolality and hyponatremia; N17.9 Acute kidney failure, unspecified; J96.11 Chronic respiratory failure with hypoxia; Z68.43 Body mass index [BMI] 50.0-59.9, adult; I25.10 Atherosclerotic heart disease of native coronary artery without angina pectoris; N18.3 Chronic kidney disease, stage 3 (moderate); G89.29 Other chronic pain; L03.119 Cellulitis of unspecified part of limb; I12.9 Hypertensive chronic kidney disease with stage 1 through stage 4 chronic kidney disease, or unspecified chronic kidney disease; D50.9 Iron deficiency anemia, unspecified; R74.0 Nonspecific elevation of levels of transaminase and lactic acid dehydrogenase [LDH]; G47.33 Obstructive sleep apnea (adult) (pediatric); D47.3 Essential (hemorrhagic) thrombocythemia; I87.2 Venous insufficiency (chronic) (peripheral); E87.6 Hypokalemia; E11.65 Type 2 diabetes mellitus with hyperglycemia; R74.8 Abnormal levels of other serum enzymes; E65 Localized adiposity; Z20.828 Contact with and (suspected) exposure to other viral communicable diseases; Z79.4 Long term (current) use of insulin; Z86.718 Personal history of other venous thrombosis and embolism; I10 Essential (primary) hypertension; I25.2 Old myocardial infarction; G47.30 Sleep apnea, unspecified; Z98.1 Arthrodesis status; F17.210 Nicotine dependence, cigarettes, uncomplicated; Z86.711 Personal history of pulmonary embolism; M19.90 Unspecified osteoarthritis, unspecified site; G70.00 Myasthenia gravis without (acute) exacerbation; E66.9 Obesity, unspecified; D64.9 Anemia, unspecified; D69.3 Immune thrombocytopenic purpura; F17.200 Nicotine dependence, unspecified, uncomplicated; Z88.0 Allergy status to penicillin; Z88.1 Allergy status to other antibiotic agents; Z79.01 Long term (current) use of anticoagulants; Z79.52 Long term (current) use of systemic steroids; Z79.899 Other long term (current) drug therapy
CPT/HCPCS: 36415; 71045; 80053; 83605; 83880; 84145; 85025; 85379; 86140; 87040 ×2; 96361; 96374; 99285; J1170; J7030; 80061; 80202; 81001; 82270; 82962; 83036; 83540; 83735; 84100; 84466; 85610; 86803; 87641; 93005; 97110-GO; 97110-GP; 97162-GP; 97167-GO; 97530-GO; 97530-GP; 97597-GP; 99222; 99231; 99232; 99239; A9270-GY; J0696; J1815-GY; J2916; J3370; J3480; J7040; J7050; J7512; U0002

== ENCOUNTER 2020-04-19 13:50 | Emergency (ER) | payer MEDICAID ==
[2020-04-19] MEDS ORDERED: Sodium Chloride 0.9% 10 ML Syringe FLUSH PRN (14:31)
--- NOTE | 2020-04-19 15:54 | EDM.PDOC ---
ED HPI GENERAL MEDICAL PROBLEM - General Chief Complaint: Respiratory Problem Stated Complaint: [facility] Time Seen by Provider: 04/19/20 14:10 Source of Information: Reports: Patient, EMS, Residential Records History Limitations: Reports: No Limitations - History of Present Illness INITIAL COMMENTS - FREE TEXT/NARRATIVE: The patient presents by [facility] from [facility] for shortness of breath and cough. He was diagnosed with COVID 19 on the . He was doing okay in isolation on 2L and now today his breathing is worse. He needs 3L to keep his saturations above 90%. He was going to come out of isolation tomorrow. He also started having erythema of both thighs. This started a couple days ago. He still has a cough and feels more short of breath. He is in the halfway because according to him he cannot take care of himself. 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 Onset: Gradual Duration: Week(s): Severity: Moderate Improves with: Reports: None Worsens with: Reports: None Associated Symptoms: Reports: Cough, Fever/Chills, Shortness of Breath. Denies: Chest Pain, Headaches, Nausea/Vomiting - Related Data Allergies Allergy/AdvReac Type Severity Reaction Status Date / Time cephalexin [From Keflex] Allergy Intermediate Rash Verified 04/19/20 14:03 Penicillins Allergy Intermediate Rash Verified 04/19/20 14:03 Home Meds: Home Meds Pyridostigmine [Mestinon] 60 mg PO 5XDAY 08/24/19 [History] predniSONE [Prednisone] 60 mg PO DAILY 08/24/19 [History] traMADol [Ultram] 50 mg PO Q6H 08/24/19 [History] Acetaminophen [Tylenol Extra Strength] 500 mg PO Q6H 03/10/20 [History] Albuterol/Ipratropium [DuoNeb 3.0-0.5 MG/3 ML] 3 ml INH BID 03/10/20 [History] Bacitracin [Bacitracin Oint] 1 applic TOP DAILY 03/10/20 [History] Bumetanide 2 mg PO BID 03/10/20 [History] Cyclobenzaprine [Flexeril] 10 mg PO BID 03/10/20 [History] Methyl Salicylate/Menthol [Icy Hot] 1 applic TOP TID PRN 03/10/20 [History] Ondansetron [Zofran ODT] 4 mg PO Q6H PRN 03/10/20 [History] Pantoprazole [ProTONIX] 40 mg PO DAILY 03/10/20 [History] Potassium Chloride 40 meq PO TID 03/10/20 [History] Rivaroxaban [Xarelto] 15 mg PO DAILY 03/10/20 [History] metOLazone [Metolazone] 2.5 mg PO Q48H 03/10/20 [History] Ascorbic Acid [Vitamin C] 250 mg PO ASDIRECTED #20 tablet 03/16/20 [Rx] Bumetanide [Bumex] 1 mg PO Q24H #20 tablet 03/16/20 [Rx] Bumetanide [Bumex] 2 mg PO QAM #40 tablet 03/16/20 [Rx] Cefdinir [Omnicef] 300 mg PO BID #15 cap 03/16/20 [Rx] Ferrous Sulfate 324 mg PO ASDIRECTED #20 tab.ec 03/16/20 [Rx] Insulin Glarg,Human.Rec.Analog [Lantus] 20 unit SUBCUT DAILY #5 ml 03/16/20 [Rx] Insulin Lispro [HumaLOG] 5 unit SUBCUT TIDAC #1 vial 03/16/20 [Rx] Magnesium Oxide 400 mg PO DAILY #10 tablet 03/16/20 [Rx] Spironolactone [Aldactone] 50 mg PO BID #40 tablet 03/16/20 [Rx] Sulfamethoxazole/Trimethoprim [Septra DS] 1 tab PO BID #16 tablet 03/16/20 [Rx] Past Medical History Cardiovascular History: Reports: Blood Clots/VTE/DVT, Hypertension, OR Respiratory History: Reports: Sleep Apnea, SOB Other Respiratory History: pt. supposed to wear BiPAP at night, does not have a Bipap to use Genitourinary History: Reports: Chronic Renal Insuffiency Other Genitourinary History: frequency, burning when urinated Musculoskeletal History: Reports: Arthritis Other Musculoskeletal History: L shoulder, dislocated 1.5 weeks ago Neurological History: Reports: Other (See Below) Other Neuro History: myesthenia gravis Endocrine/Metabolic History: Reports: Obesity/BMI 30+ Hematologic History: Reports: Anemia, Idiopathic Thrombocytopenia - Infectious Disease History Infectious Disease History: Reports: Novel Coronavirus - Past Surgical History Musculoskeletal Surgical History: Reports: Other (See Below) Other Musculoskeletal Surgeries/Procedures:: ankle fusion (R) Social & Family History - Family History Family Medical History: Noncontributory Respiratory: Reports: Asthma Endocrine/Metabolic: Reports: Diabetes, Type I Oncologic: Reports: Lung - Tobacco Use Smoking Status *Q: Never Smoker - Caffeine Use Caffeine Use: Reports: None ED ROS GENERAL - Review of Systems Review Of Systems: See Below Constitutional: Reports: Fever, Chills HEENT: Reports: No Symptoms Respiratory: Reports: Shortness of Breath, Cough Cardiovascular: Reports: No Symptoms Endocrine: Reports: No Symptoms GI/Abdominal: Reports: No Symptoms : Reports: No Symptoms ED EXAM, GENERAL - Physical Exam Exam: See Below Exam Limited By: No Limitations General Appearance: Alert, No Apparent Distress Ears: Normal External Exam Nose: Normal Inspection Head: Atraumatic, Normocephalic Neck: Normal Inspection Respiratory/Chest: No Respiratory Distress, Decreased Breath Sounds, Rhonchi Cardiovascular: Regular Rate, Rhythm, No Edema, No Murmur GI/Abdominal: Soft, Non-Tender, No Organomegaly, No Mass Extremities: Other (Erythema to both anterior thighs) Neurological: Alert, Oriented, No Motor/Sensory Deficits EKG INTERPRETATION EKG Date: 04/19/20 Time: 14:45 Rhythm: NSR Rate (Beats/Min): 97 [place]: Normal P-Wave: Present QRS: Normal ST-T: Normal QT: Normal Course - Vital Signs Last Recorded V/S: Last Vital Signs Temp 96.6 F L 04/19/20 14:00 Pulse 103 H 04/19/20 14:00 Resp 24 H 04/19/20 14:00 BP 125/86 04/19/20 14:00 Pulse Ox 89 L 04/19/20 15:20 - Orders/Labs/Meds Orders: Active Orders 24 hr Category Date Time Status Cardiac Monitoring [RC] . DIRECTED Care 04/19/20 14:32 Active EKG Documentation Completion [RC] STAT Care 04/19/20 14:32 Active Oxygen Therapy [RC] PRN Care 04/19/20 14:32 Active Peripheral IV Care [RC] . DIRECTED Care 04/19/20 14:33 Active RT Post Treatment Assessment [RC] Click to Edit Care 04/19/20 18:24 Active RT Pre-Treatment Assessment [RC] Click to Edit Care 04/19/20 18:24 Active Chest 1V Frontal [CR] Stat Exams 04/19/20 14:33 Taken C-REACTIVE PROTEIN [CHEM] Stat Lab 04/19/20 15:28 Results COMPREHENSIVE METABOLIC PN,CMP [CHEM] Stat Lab 04/19/20 15:28 Results CULTURE BLOOD [BC] Stat Lab 04/19/20 15:28 Received CULTURE BLOOD [BC] Stat Lab 04/19/20 15:35 Received LACTATE DEHYDROGENASE,LDH [CHEM] Stat Lab 04/19/20 15:28 Results TROPONIN I [CHEM] Stat Lab 04/19/20 15:28 Results Sodium Chloride 0.9% [Normal Saline] 1,000 ml Med 04/19/20 18:26 Active IV ONETIME Sodium Chloride 0.9% [Saline Flush] Med 04/19/20 14:31 Active 10 ml FLUSH ASDIRECTED PRN Blood Culture x2 Reflex Set [OM.PC] Stat Oth 04/19/20 14:49 Ordered Peripheral IV Insertion Adult [OM.PC] Stat Oth 04/19/20 14:31 Ordered Medication Orders Sodium Chloride (Normal Saline) 1,000 mls @ 1,000 mls/hr IV ONETIME ONE Stop: 04/19/20 19:25 Sodium Chloride (Saline Flush) 10 ml FLUSH ASDIRECTED PRN PRN Reason: Keep Vein Open Last Admin: 04/19/20 14:41 Dose: 10 ml Documented by: LOURDES Labs: Laboratory Tests 04/19/20 04/19/20 04/19/20 Range/Units 14:52 15:15 15:28 WBC 10.98 H (4.23-9.07) K/mm3 RBC 5.27 (4.63-6.08) M/mm3 Hgb 11.1 L D (13.7-17.5) gm/dl Hct 39.9 L (40.1-51.0) % MCV 75.7 L (79.0-92.2) fl MCH 21.1 L (25.7-32.2) pg MCHC 27.8 L (32.2-35.5) g/dl RDW Std Deviation 64.8 H (35.1-43.9) fL Plt Count 476 H (163-337) K/mm3 MPV 8.8 L (9.4-12.3) fl Neut % (Auto) 90.7 H (34.0-67.9) % Lymph % (Auto) 3.5 L (21.8-53.1) % [place] % (Auto) 4.6 L (5.3-12.2) % Eos % (Auto) 0 L (0.8-7.0) Baso % (Auto) 0.2 (0.1-1.2) % Neut # (Auto) 9.97 H (1.78-5.38) K/mm3 Lymph # (Auto) 0.38 L (1.32-3.57) K/mm3 [place] # (Auto) 0.50 (0.30-0.82) K/mm3 Eos # (Auto) 0.00 L (0.04-0.54) K/mm3 Baso # (Auto) 0.02 (0.01-0.08) K/mm3 Manual Slide Review Abnormal smear PT (9.7-11.7) SECONDS INR APTT (22-31) SECONDS D-Dimer, Quantitative (0.19-0.50) mg/L Puncture Site Lt radial ABG pH 7.46 H (7.35-7.45) ABG pCO2 47.3 H (35.0-45.0) mmHg ABG pO2 67.0 L (80.0-100.0) mmHg ABG HCO3 33.1 H (22.0-26.0) meq/L ABG O2 Saturation 91.2 L (96.0-97.0) % ABG Base Excess 8.5 H (-2-2.0) A-a Gradient 102 mmHg O2 Delivery Device Nasal cannula Oxygen Flow Rate 3.0 FiO2 32.00 (21.00-100.00) % Sodium (136-145) mEq/L Potassium (3.5-5.1) mEq/L Chloride (98-107) mEq/L Carbon Dioxide (21-32) mEq/L Anion Gap (5-15) BUN (7-18) mg/dL Creatinine (0.7-1.3) mg/dL Est Cr Clr Drug Dosing Estimated GFR (MDRD) (>60) mL/min BUN/Creatinine Ratio (14-18) Glucose (74-106) mg/dL Lactic Acid (0.4-2.0) mmol/L Calcium (8.5-10.1) mg/dL Ferritin (26-388) ng/ml Total Bilirubin (0.2-1.0) mg/dL AST (15-37) U/L ALT (16-63) U/L Alkaline Phosphatase (46-116) U/L Troponin I (0.00-0.056) ng/mL C-Reactive Protein (<1.0) mg/dL NT-Pro-B Natriuret Pep (0-125) pg/mL Total Protein (6.4-8.2) g/dl Albumin (3.4-5.0) g/dl Globulin gm/dL Albumin/Globulin Ratio (1-2) Urine Color Yellow (Yellow) Urine Appearance Clear (Clear) Urine pH 7.0 (5.0-8.0) Ur Specific Harmony 1.020 (1.005-1.030) Urine Protein 1+ H (Negative) Urine Glucose (UA) Negative (Negative) Urine Ketones Negative (Negative) Urine Occult Blood Negative (Negative) Urine Nitrite Negative (Negative) Urine Bilirubin Negative (Negative) Urine Urobilinogen 0.2 (0.2-1.0) Ur Leukocyte Esterase Negative (Negative) Urine RBC 0-5 (0-5) /hpf Urine WBC 0-5 (0-5) /hpf Ur Squamous Epith Cells 0-5 (0-5) /hpf Urine Bacteria Few (FEW) /hpf Urine Mucus Few (FEW) /hpf 04/19/20 04/19/20 04/19/20 Range/Units 15:28 15:28 15:28 WBC (4.23-9.07) K/mm3 RBC (4.63-6.08) M/mm3 Hgb (13.7-17.5) gm/dl Hct (40.1-51.0) % MCV (79.0-92.2) fl MCH (25.7-32.2) pg MCHC (32.2-35.5) g/dl RDW Std Deviation (35.1-43.9) fL Plt Count (163-337) K/mm3 MPV (9.4-12.3) fl Neut % (Auto) (34.0-67.9) % Lymph % (Auto) (21.8-53.1) % [place] % (Auto) (5.3-12.2) % Eos % (Auto) (0.8-7.0) Baso % (Auto) (0.1-1.2) % Neut # (Auto) (1.78-5.38) K/mm3 Lymph # (Auto) (1.32-3.57) K/mm3 [place] # (Auto) (0.30-0.82) K/mm3 Eos # (Auto) (0.04-0.54) K/mm3 Baso # (Auto) (0.01-0.08) K/mm3 Manual Slide Review PT 12.9 H (9.7-11.7) SECONDS INR 1.21 APTT 35 H (22-31) SECONDS D-Dimer, Quantitative 0.59 H (0.19-0.50) mg/L Puncture Site ABG pH (7.35-7.45) ABG pCO2 (35.0-45.0) mmHg ABG pO2 (80.0-100.0) mmHg ABG HCO3 (22.0-26.0) meq/L ABG O2 Saturation (96.0-97.0) % ABG Base Excess (-2-2.0) A-a Gradient mmHg O2 Delivery Device Oxygen Flow Rate FiO2 (21.00-100.00) % Sodium 131 L (136-145) mEq/L Potassium 6.1 H D (3.5-5.1) mEq/L Chloride 91 L (98-107) mEq/L Carbon Dioxide 35 H (21-32) mEq/L Anion Gap 11.1 (5-15) BUN 37 H (7-18) mg/dL Creatinine 1.8 H (0.7-1.3) mg/dL Est Cr Clr Drug Dosing TNP Estimated GFR (MDRD) 40 (>60) mL/min BUN/Creatinine Ratio 20.6 H (14-18) Glucose 221 H (74-106) mg/dL Lactic Acid (0.4-2.0) mmol/L Calcium 9.7 (8.5-10.1) mg/dL Ferritin (26-388) ng/ml Total Bilirubin 0.5 (0.2-1.0) mg/dL AST 37 (15-37) U/L ALT 65 H (16-63) U/L Alkaline Phosphatase 199 H (46-116) U/L Troponin I < 0.017 (0.00-0.056) ng/mL C-Reactive Protein 16.5 H* (<1.0) mg/dL NT-Pro-B Natriuret Pep 100 (0-125) pg/mL Total Protein 7.1 (6.4-8.2) g/dl Albumin 2.8 L (3.4-5.0) g/dl Globulin 4.3 gm/dL Albumin/Globulin Ratio 0.7 L (1-2) Urine Color (Yellow) Urine Appearance (Clear) Urine pH (5.0-8.0) Ur Specific Harmony (1.005-1.030) Urine Protein (Negative) Urine Glucose (UA) (Negative) Urine Ketones (Negative) Urine Occult Blood (Negative) Urine Nitrite (Negative) Urine Bilirubin (Negative) Urine Urobilinogen (0.2-1.0) Ur Leukocyte Esterase (Negative) Urine RBC (0-5) /hpf Urine WBC (0-5) /hpf Ur Squamous Epith Cells (0-5) /hpf Urine Bacteria (FEW) /hpf Urine Mucus (FEW) /hpf 04/19/20 04/19/20 Range/Units 15:28 15:28 WBC (4.23-9.07) K/mm3 RBC (4.63-6.08) M/mm3 Hgb (13.7-17.5) gm/dl Hct (40.1-51.0) % MCV (79.0-92.2) fl MCH (25.7-32.2) pg MCHC (32.2-35.5) g/dl RDW Std Deviation (35.1-43.9) fL Plt Count (163-337) K/mm3 MPV (9.4-12.3) fl Neut % (Auto) (34.0-67.9) % Lymph % (Auto) (21.8-53.1) % [place] % (Auto) (5.3-12.2) % Eos % (Auto) (0.8-7.0) Baso % (Auto) (0.1-1.2) % Neut # (Auto) (1.78-5.38) K/mm3 Lymph # (Auto) (1.32-3.57) K/mm3 [place] # (Auto) (0.30-0.82) K/mm3 Eos # (Auto) (0.04-0.54) K/mm3 Baso # (Auto) (0.01-0.08) K/mm3 Manual Slide Review PT (9.7-11.7) SECONDS INR APTT (22-31) SECONDS D-Dimer, Quantitative (0.19-0.50) mg/L Puncture Site ABG pH (7.35-7.45) ABG pCO2 (35.0-45.0) mmHg ABG pO2 (80.0-100.0) mmHg ABG HCO3 (22.0-26.0) meq/L ABG O2 Saturation (96.0-97.0) % ABG Base Excess (-2-2.0) A-a Gradient mmHg O2 Delivery Device Oxygen Flow Rate FiO2 (21.00-100.00) % Sodium (136-145) mEq/L Potassium (3.5-5.1) mEq/L Chloride (98-107) mEq/L Carbon Dioxide (21-32) mEq/L Anion Gap (5-15) BUN (7-18) mg/dL Creatinine (0.7-1.3) mg/dL Est Cr Clr Drug Dosing Estimated GFR (MDRD) (>60) mL/min BUN/Creatinine Ratio (14-18) Glucose (74-106) mg/dL Lactic Acid 2.5 H* (0.4-2.0) mmol/L Calcium (8.5-10.1) mg/dL Ferritin 213 (26-388) ng/ml Total Bilirubin (0.2-1.0) mg/dL AST (15-37) U/L ALT (16-63) U/L Alkaline Phosphatase (46-116) U/L Troponin I (0.00-0.056) ng/mL C-Reactive Protein (<1.0) mg/dL NT-Pro-B Natriuret Pep (0-125) pg/mL Total Protein (6.4-8.2) g/dl Albumin (3.4-5.0) g/dl Globulin gm/dL Albumin/Globulin Ratio (1-2) Urine Color (Yellow) Urine Appearance (Clear) Urine pH (5.0-8.0) Ur Specific [place] (1.005-1.030) Urine Protein (Negative) Urine Glucose (UA) (Negative) Urine Ketones (Negative) Urine Occult Blood (Negative) Urine Nitrite (Negative) Urine Bilirubin (Negative) Urine Urobilinogen (0.2-1.0) Ur Leukocyte Esterase (Negative) Urine RBC (0-5) /hpf Urine WBC (0-5) /hpf Ur Squamous Epith Cells (0-5) /hpf Urine Bacteria (FEW) /hpf Urine Mucus (FEW) /hpf Meds: Medications Generic Name Dose Route Start Last Admin Trade Name Freq PRN Reason Stop Dose Admin Sodium Chloride 1,000 mls @ 1,000 mls/hr 04/19/20 18:26 Normal Saline IV 04/19/20 19:25 ONETIME ONE Sodium Chloride 10 ml 04/19/20 14:31 04/19/20 14:41 Saline Flush FLUSH 10 ml ASDIRECTED PRN Administration Keep Vein Open Discontinued Medications Generic Name Dose Route Start Last Admin Trade Name Freq PRN Reason Stop Dose Admin Albuterol 0 gm 04/19/20 18:24 Proventil Hfa INH 04/19/20 18:25 ONETIME ONE Calcium Gluconate 1 gm 04/19/20 18:25 04/19/20 18:56 Calcium Gluconate IVPUSH 04/19/20 18:26 1 gm ONETIME ONE Administration Dexamethasone 6 mg 04/19/20 17:56 04/19/20 18:53 Dexamethasone IVPUSH 04/19/20 17:57 6 mg ONETIME ONE Administration Hydromorphone HCl 1 mg 04/19/20 18:38 04/19/20 18:50 Dilaudid IVPUSH 04/19/20 18:39 1 mg ONETIME ONE Administration Hydromorphone HCl Confirm 04/19/20 18:47 Dilaudid Administered 04/19/20 18:48 Dose 1 mg .ROUTE .STK-MED ONE Vancomycin HCl 2 gm/ Sodium 250 mls @ 250 mls/hr 04/19/20 17:55 Chloride IV 04/19/20 18:54 ONETIME ONE Remdesivir 200 mg/ Sodium 250 mls @ 250 mls/hr 04/19/20 17:56 Chloride IV 10/01/20 17:57 ONETIME ONE Vancomycin HCl Confirm 04/19/20 18:25 Vancomycin Administered 04/19/20 18:26 Dose 2 gm .ROUTE .[facility] ONE - Re-Assessments/Exams Free Text/Narrative Re-Assessment/Exam: 04/19/20 19:11 I ordered an oxygen, IV saline lock, CXR, EKG, labs, blood cultures, and lactic acid. His EKG shows a NSR with no acute changes. CXR shows findings suspicious for a scattered, bilateral pneumonia, greatest in the right upper lobe less, likely asymmetric pulmonary edema. Cardiomegaly, also seen on prior exam. Limited exam due to low lung volumes. His WBC was elevated at 10.98. His Hgb was low at 11.1. His platelets were elevated at 476. His D-dimer was elevated at 0.59 but consistent for COVID 19. His pH was 7.46. His pCO2 was 47.3. His pO2 was 67 and his oxygen was increased to 4L. His Na was low at 131. His K was elevated at 6.1. I ordered a liter of NS, calcium gluconate 1 gram and albuterol. His creatinine is elevated at 1.8. Last month his creatinine was 1.1. His glucose was 221. His lactic acid was elevated at 2.5. His alk phos was 199. his troponin was negative. His CRP was elevated at 16.5. His UA shows no UTI. He has cellulitis of both thighs, COVID 19 with pneumonia, hyperkalemia and renal insufficiency. I gave him a dose of dexamethasone and vancomycin 2 grams. I feel he needs to be admitted. We have no beds available here. I called both hospitals in [place] and they are full. [facility]. [facility] [place] and I talked with the hospital claims correspondence clerk Dr Leslie and he accepted the patient. He will have to fly to [facility]. They have arranged a flight. Departure - Departure Time of Disposition: 19:20 Disposition: DC/Tfer to Acute Hospital 02 Condition: Serious Clinical Impression: COVID-19, Pneumonia due to COVID-19 virus, Hypoxia, Hyperkalemia, Renal insufficiency Cellulitis Qualifiers: Site of cellulitis: extremity Site of cellulitis of extremity: lower extremity Laterality: unspecified laterality Qualified Code(s): L03.119 - Cellulitis of unspecified part of limb - Discharge Information Referrals: Miller Lantigua MD [Primary Care Provider] - Forms: ED Department Discharge Sepsis Event Note (ED) - Evaluation Sepsis Screening Result: No Definite Risk - Focused Exam Vital Signs: Vital Signs Temp Pulse Resp BP Pulse Ox Pulse Ox 04/19/20 15:20 89 L 04/19/20 14:32 93 L 04/19/20 14:00 96.6 F L 103 H 24 H 125/86 92 L - My Orders Last 24 Hours: My Active Orders 04/19/20 14:31 Sodium Chloride 0.9% [Saline Flush] 10 ml FLUSH ASDIRECTED PRN Peripheral IV Insertion Adult [OM.PC] Stat 04/19/20 14:32 Cardiac Monitoring [RC] . DIRECTED EKG Documentation Completion [RC] STAT Oxygen Therapy [RC] PRN 04/19/20 14:33 Peripheral IV Care [RC] . DIRECTED Chest 1V Frontal [CR] Stat 04/19/20 14:49 Blood Culture x2 Reflex Set [OM.PC] Stat 04/19/20 15:28 C-REACTIVE PROTEIN [CHEM] Stat COMPREHENSIVE METABOLIC PN,CMP [CHEM] Stat CULTURE BLOOD [BC] Stat LACTATE DEHYDROGENASE,LDH [CHEM] Stat TROPONIN I [CHEM] Stat 04/19/20 15:35 CULTURE BLOOD [BC] Stat 04/19/20 18:24 RT Post Treatment Assessment [RC] Click to Edit RT Pre-Treatment Assessment [RC] Click to Edit 04/19/20 18:26 Sodium Chloride 0.9% [Normal Saline] 1,000 ml IV ONETIME - Assessment/Plan Last 24 Hours: My Active Orders 04/19/20 14:31 Sodium Chloride 0.9% [Saline Flush] 10 ml FLUSH ASDIRECTED PRN Peripheral IV Insertion Adult [OM.PC] Stat 04/19/20 14:32 Cardiac Monitoring [RC] . DIRECTED EKG Documentation Completion [RC] STAT Oxygen Therapy [RC] PRN 04/19/20 14:33 Peripheral IV Care [RC] . DIRECTED Chest 1V Frontal [CR] Stat 04/19/20 14:49 Blood Culture x2 Reflex Set [OM.PC] Stat 04/19/20 15:28 C-REACTIVE PROTEIN [CHEM] Stat COMPREHENSIVE METABOLIC PN,CMP [CHEM] Stat CULTURE BLOOD [BC] Stat LACTATE DEHYDROGENASE,LDH [CHEM] Stat TROPONIN I [CHEM] Stat 04/19/20 15:35 CULTURE BLOOD [BC] Stat 04/19/20 18:24 RT Post Treatment Assessment [RC] Click to Edit RT Pre-Treatment Assessment [RC] Click to Edit 04/19/20 18:26 Sodium Chloride 0.9% [Normal Saline] 1,000 ml IV ONETIME
[2020-04-19] MEDS ORDERED: Dexamethasone 4 MG/ML SDV IVPUSH ONE (17:56)
[2020-04-19] MEDS ORDERED: Albuterol 6.7 GM Inhaler INH ONE (18:24)
[2020-04-19] MEDS ORDERED: Vancomycin 1 GM SDV ONE (18:25)
[2020-04-19] MEDS ORDERED: Calcium Gluconate 10% 1 GM/10 ML SDV IVPUSH ONE (18:25)
[2020-04-19] MEDS ORDERED: Sodium Chloride 0.9% 1,000 ML IV ONE (18:26)
[2020-04-19] MEDS ORDERED: HYDROmorphone 1 MG/ML Syringe IVPUSH ONE (18:38)
[2020-04-19] MEDS ORDERED: HYDROmorphone 1 MG/ML Syringe ONE (18:47)
[2020-04-19] MEDS ORDERED: Cyclobenzaprine 10 MG Tab PO ONE (19:30)
== END 2020-04-19 20:12 ==
LOC: JD.ED 13:50
DX: U07.1 COVID-19 (principal); J12.89 Other viral pneumonia; R09.02 Hypoxemia; L03.116 Cellulitis of left lower limb; L03.115 Cellulitis of right lower limb; E87.5 Hyperkalemia; I25.2 Old myocardial infarction; I12.9 Hypertensive chronic kidney disease with stage 1 through stage 4 chronic kidney disease, or unspecified chronic kidney disease; N18.9 Chronic kidney disease, unspecified; E66.9 Obesity, unspecified; Z88.1 Allergy status to other antibiotic agents; Z88.0 Allergy status to penicillin; Z79.01 Long term (current) use of anticoagulants; Z79.4 Long term (current) use of insulin
CPT/HCPCS: 36415; 36600; 71045; 80053; 81001; 82728; 82803; 83605; 83615; 83880; 84484; 85025; 85379; 85610; 85730; 86140; 87040; 93005; 94640; 94762; 96365; 96375; 99285; A9270; J0610; J1100; J1170; J3370; J7030; J7050; 93010; 99284